=== PATIENT | male | born 1950 | race Caucasian/White ===

== ENCOUNTER → 2020-10-11 09:24 | Day surgery (SDC) | payer OTHER, MEDICARE, SELFPAY ==
[2020-10-11 09:52] VITALS: BP 126/74; PULSE 85; RESP 26; TEMP 36.8; O2SAT 97; BMI 21.4
--- NOTE | 2020-10-11 10:43 | XR_ITS ---
WS: [id number] CHEST XRAY TECHNIQUE: Portable chest. CLINICAL INFORMATION: post thoracentesis COMPARISON: September 25 2020 FINDINGS: Heart: Cardiomegaly. Lungs: Right hilar lymphadenopathy measuring 3.1 CM. Moderate chronic emphysematous changes. No acute -appearing pulmonary infiltrates. No focal pneumonia or pleural fluid. A few calcified granulomas. No pneumothorax. Bones: Normal visualized bony structures. XR/XR chest 1V portable [id number] IMPRESSION: 1. Status post thoracentesis. No pneumothorax. Improved right pleural effusion . 2. Right hilar lymphadenopathy consistent with known neoplasm.
[2020-10-11 10:54] VITALS: BP 114/69; PULSE 85; RESP 20; O2SAT 96
[2020-10-11 12:08] LABS: Body Fluid Polynuclear #Cells 0.217; Body Fluid WBC 1723 /uL; Monocytes # Body Fluid 1.506
[2020-10-11 13:30] LABS: Albumin Body Fluid 2.6 g/dL; Creatinine Body Fluid 1.46 (0.7-1.2); LDH Pleural Fluid 413 U/L; Total Protein Pleural Fluid 3.8 g/dL; Triglycerides, Pleural Fluid 28 mg/dL
[2020-10-11 14:01] LABS: Color, Body Fluid YELLOW
[2020-10-11 14:02] LABS: Apprearance, Body Fluid CLOUDY
--- NOTE | 2020-10-11 15:57 | P.OP_ITS ---
Operative Report Date of procedure: October 11, 2020 Pulmonary & Critical Care Medicine Procedure - Right chest Thoracentesis Procedure: Thoracentesis Indication: Right Pleural effusion Senior Devops Engineer(s): Den Brown MD Consent: Signed and placed in chart Anesthesia: 10 cc 1% lidocaine without epinephrine Description: right pleural effusion was localized using ultrasound guidance and the site was marked accordingly. After chlorhexidine skin prep, area was draped in a sterile manner. 1% lidocaine was used for local anesthesia. Thoracentesis catheter was then inserted into the pleural space with aspiration of 1250 cc of pleural fluid. Appearance was straw colored. Ultrasound guidance used: {yes no:[id number]}. Image saved to ultrasound machine yes. Pre procedure Post Procedure EBL: 5 cc Complications: None PCXR: 1. Status post thoracentesis. No pneumothorax. Improved right pleural effusion. 2. Right hilar lymphadenopathy consistent with known neoplasm. Pre-op Diagnosis: right pleural effusion
== END ==
PROVIDERS: PCP Emergency Medicine Emergency Medical Services; Visit Provider Internal Medicine Pulmonary Disease
DX: I26.99 Other pulmonary embolism without acute cor pulmonale (principal)
CPT/HCPCS: 12345; 71045; 80500; 82042; 82150; 82570; 82945; 83615; 83986; 84157; 84478; 87015; 87070; 87075; 87116; 87205; 87206; 87801; 88112; 88305; 89050; J2250; J2704; J3010

== ENCOUNTER 2020-10-25 09:41 | Inpatient (IN) | payer OTHER, MEDICARE, SELFPAY ==
[2020-10-25] VITALS (26 sets, daily range): BP systolic 77–138; BP diastolic 55–89; PULSE 82–189; RESP 14–34; TEMP 36.5–37; O2SAT 87–97; BMI 21.4
--- NOTE | 2020-10-25 10:00 | XR_ITS ---
WS: [id number] Portable AP upright chest, 10/25/2020 Clinical Data: dyspnea Comparison: Portable chest, 10/11/2020. Findings: There is a right pleural effusion which occupies the lower half of the right pleural space. The left lung is clear. The pleural effusion obscures the right hilar mass. Monitor leads are on the chest wall. Heart size remains the same. XR/XR chest 1V portable [id number] Impression: Large right pleural effusion.
[2020-10-25 10:32] LABS: ABG PH Result 7.44 (7.35-7.45); Arterial Blood Gas Hematocrit 41.1 % (42-52); Base Excess ABG 0.9 mmol/L (-2.0-2.0); Blood Gas Allen Test Pos; Blood Gas Operator Identificat AMH; Blood Gas Sample Site Radial, left; Blood Gas Sample Type Arterial; HCO3 ABG 24.9 mmol/L (22-26); Oxygen Device NC; PO2 ABG 76.5 mmHg (80.0-100.0)
--- NOTE | 2020-10-25 10:47 | ECG_ITS ---
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 Measurements Intervals [place] Rate: 126 P: [place]: QRS: 73 QRSD: 80 T: 56 QT: 278 QTc: 404 Interpretive Statements ATRIAL FIBRILLATION WITH RAPID VENTRICULAR RESPONSE LOW QRS VOLTAGE IN EXTREMITY LEADS [QRS DEFLECTION < 0.5 mV IN LIMB LEADS] ABNORMAL RHYTHM ECG No previous ECG available for comparison Electronically Signed On 10-26-2020 19:17:14 CENTRAL OFFICE MECHANIC by Richard Cason M.D. [id number]
[2020-10-25 10:48] LABS: Basophils % 0.2 %; Eosinophils % 0.1 %; Hematocrit 37.8 % (42.0-52.0); Hemoglobin 12.9 g/dL (11.7-16.6); Lymphocytes % 5.7 %; Mean Corpuscular HGB Conc 34.1 g/dL (30.0-36.0); Mean Corpuscular Hemoglobin 29.6 pg (28.0-34.0); Mean Corpuscular Volume 86.7 fL (80-94); Mean Platelet Volume 9.6 fL (7.4-10.4); Monocytes % 5.7 %; Neutrophils # 14.65 10^3/uL (1.8-7.7); Neutrophils % 87.6 %; Nucleated Red Blood Cells % 0 %; Platelet Count 344 10^3/cmm (130-400); Red Blood Count 4.36 10^6/uL (4.1-5.3); Red Cell Distribution Width 13.5 % (12.1-15.1); White Blood Count 16.7 10^3/uL (4.0-10.0)
[2020-10-25 11:30] LABS: Add Urine Microscopic? NO
[2020-10-25 11:37] LABS: SARS Covid-2 Antigen Negative (Negative)
[2020-10-25] MEDS: FUROsemide 10 mg/mL SDV 4mL 40 MG IVP (12:20)
[2020-10-25 12:23] LABS: Bilirubin Urine Neg (Negative); Blood Urine Neg (Negative); Glucose Urine UA Norm (Normal); Ketones Urine 1+ (Negative); Leukocyte Esterase Urine Negative (Negative); Nitrate Urine Negative (Negative); Protein Urine Neg (Negative); Urine Appearance Clear (CLEAR); Urine Color Yellow (Yellow); Urobilinogen Urine Norm (Negative); pH Urine 5 (5-7)
[2020-10-25 12:26] LABS: Troponin(5th) Baseline 30 ng/L (0-15)
[2020-10-25 12:34] LABS: Alanine Aminotransferase 13 U/L (0-41); Albumin Level 3.2 g/dL (3.5-5.2); Alkaline Phosphatase 87 IU/L (40-130); Anion Gap 17.8 (5-19); Aspartate Amino Transferase 16 U/L (0-40); Blood Urea Nitrogen 29 mg/dL (8-23); Calcium 8.6 mg/dL (8.5-10.5); Carbon Dioxide 24 mmol/L (22-29); Chloride 103 mmol/L (98-107); Globulin 3.2 g/dL (1.3-4.6); Glucose 116 mg/dL (65-115); NT Pro B Type Natriuretic Pept 1360 pg/mL (0-125); Osmolality Calculated 297 mOsm/kg (285-295); Potassium 4.8 mmol/L (3.5-5.1); Sodium 140 mmol/L (136-145); Total Bilirubin 0.4 mg/dL (0.15-1.2); Total Protein 6.4 g/dL (6.6-8.7)
[2020-10-25 13:58] LABS: Troponin 5 2HR 30.44 ng/L (0-15); Troponin 5 2HR Delta 0.44 ABS# (0-10)
--- NOTE | 2020-10-25 13:58 | ED_ITS ---
HPI - SOB/Dyspnea General: Chief Complaint: Shortness of Breath/Dyspnea Stated Complaint: SOB/ EXACERBATION OF COPD Time Seen by Provider: 10/25/20 09:45 Source: patient and EMS History of Present Illness: HPI Narrative: Patient with increased shortness of breath x1 day. Diagnosed with a lung mass last month and had a pulmonary effusion drained by turf keeper 2 weeks ago. Pertinent past history: COPD and congestive heart failure Associated symptoms: Reports palpitations; Deny abdominal pain, chest pain, fever(s), nausea or vomiting Review of Systems General: Reports: 10 or more systems reviewed and unremarkable except in HPI and below Const: Denies: fever(s) Eyes: Denies: change in vision ENMT: Denies: throat pain Card: Reports: palpitations and irregular heart rhythm; Denies: chest pain Resp: Reports: dyspnea and wheezing GI: Denies: abdominal pain, nausea or vomiting : Denies: flank pain Skin/Breast: Denies: rash PFSH ED PFSH: Social History Smoking and tobacco status: former smoker Quit status (tobacco): has quit using tobacco Year quit tobacco: Aug 2020 [id number] Second hand smoke exposure: No Smoking risk assessment/counseling performed?: Yes Alcohol intake: former Caregiver/support person: No Lives independently: Yes Household members: none Marital status: / service: Yes Current occupational status: employed 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 - [employer] Pets and animals: No History of recent travel: Yes ([facility] Out of state: Yes Out of country: No Current gender identity: Male Physical Exam Const: COMMON NORMALS: no acute distress, average body habitus, patient oriented x3, no limitations, healthy appearing, alert and well nourished HENMT: COMMON NORMALS: normocephalic, atraumatic, hearing grossly normal bilaterally, external ears normal, EAC's normal, TM's normal bilaterally, Normal external nose present, Normal nasal mucous membranes and turbinates present, moist oral mucous membranes, oropharynx normal, dentition normal and gingiva normal HEAD & SCALP: normocephalic and atraumatic NOSE: Normal external nose present and Normal nasal mucous membranes and turbinates present EXTERNAL EAR: Yes external ears normal EXTERNAL AUDITORY CANAL: EAC's normal TYMPANIC MEMBRANE: TM's normal bilaterally Resp: EFFORT & INSPECTION: Yes able to speak in complete sentences and Yes tachypneic AUSCULTATION: crackles and wheezes Cardio: RATE: tachycardic RHYTHM: abnormal rhythm GI: COMMON NORMALS: Normal to inspection, nondistended, normoactive bowel sounds present, Soft to palpation, non-tender, No hepatosplenomegaly present, no masses and no bruits PALPATION: Yes Soft to palpation and Yes No hepatosplenomegaly present : COMMON NORMALS: Yes no CVA tenderness, Yes normal external exam, Yes Testes normal, Yes scrotum normal, Yes no scrotal swelling and Yes No hernias present BLADDER/KIDNEY EXAM: Yes no CVA tenderness Back/Pelvis: COMMON NORMALS: no CVA tenderness Neuro: COMMON NORMALS: patient oriented x3 SENSORIUM/ORIENTATION: Yes alert Course Vital Signs: Vital signs: Vital Signs Temperature 97.7 F 10/25/20 09:43 Pulse Rate 142 H 10/25/20 13:18 Respiratory Rate 32 H 10/25/20 13:18 Blood Pressure 101/85 10/25/20 13:18 Pulse Oximetry 94 10/25/20 13:18 MDM - SOB/Dyspnea MDM Narrative: Medical decision making narrative: Patient with increased oxygen demand. Normally on 2 L now requiring 4 L. Has new onset A. fib with RVR. Ventricular rate of 130s. EKG shows only nonspecific ST and T wave changes with A. fib. Chest x-ray shows a large right pulmonary effusion. Discussed with Dr. Brown, pulmonology as well as Dr. Zavala. We will start patient on Cardizem drip for rate control. Will need another thoracentesis, likely tomorrow. Lab Data: Labs: Lab Results 10/25/20 10/25/20 10/25/20 Range/Units 10:21 10:36 10:36 WBC 16.7 H (4.0-10.0) 10^3/ uL RBC 4.36 (4.1-5.3) 10^6/u L Hgb 12.9 (11.7-16.6) g/dL Hct 37.8 L (42.0-52.0) % MCV 86.7 (80-94) fL MCH 29.6 (28.0-34.0) pg MCHC 34.1 (30.0-36.0) g/dL RDW 13.5 (12.1-15.1) % Plt Count 344 (130-400) 10^3/c mm MPV 9.6 (7.4-10.4) fL Neut % (Auto) 87.6 % Lymph % (Auto) 5.7 % [place] % (Auto) 5.7 % Eos % (Auto) 0.1 % Baso % (Auto) 0.2 % Neut # (Auto) 14.65 H (1.8-7.7) 10^3/u L Lymph # (Auto) 1.0 (0.8-4.8) 10^3/u L [place] # (Auto) 1.0 H (0.2-0.9) 10^3/u L Eos # (Auto) 0.0 (0.0-0.8) 10^3/u L Baso # (Auto) 0.0 (0.0-0.1) 10^3/u L Nucleated RBC % (a uto) 0 % Nucleated RBCs # 0.0 /100WBC Specimen Type Arterial Sample Site Radial, left ABG pH 7.44 (7.35-7.45) ABG pCO2 37.0 (35-45) mmHg ABG pO2 76.5 L (80.0-100.0) mmH g ABG HCO3 24.9 (22-26) mmol/L ABG Base Excess 0.9 (-2.0-2.0) mmol/ L Roni Test Pos Hematocrit 41.1 L (42-52) % O2 Delivery Device Nc O2 Liters/Min 3.0 % FiO2 32.0 % Table Games Shift Manager ID Amh Sodium Cancelled Potassium Cancelled Chloride Cancelled Carbon Dioxide Cancelled Anion Gap Cancelled BUN Cancelled Creatinine Cancelled GFR Calculation Cancelled Glucose Cancelled Calculated Osmolal ity Cancelled Calcium Cancelled Total Bilirubin Cancelled AST Cancelled ALT Cancelled Alkaline Phosphata se Cancelled Troponin T Baselin e NT-Pro-B Natriuret Pep Cancelled Total Protein Cancelled Albumin Cancelled Globulin Cancelled Urine Color (Yellow) Urine Appearance (CLEAR) Urine pH (5-7) Ur Specific Gravit y (1.005-1.030) Urine Protein (Negative) Urine Glucose (UA) (Normal) Urine Ketones (Negative) Urine Blood (Negative) Urine Nitrate (Negative) Urine Bilirubin (Negative) Urine Urobilinogen (Negative) mg/dL Ur Leukocyte Adrianne ase (Negative) SARS-CoV-2 Ag (Rap id) (Negative) 10/25/20 10/25/20 10/25/20 Range/Units 10:36 10:36 11:08 WBC (4.0-10.0) 10^3/ uL RBC (4.1-5.3) 10^6/u L Hgb (11.7-16.6) g/dL Hct (42.0-52.0) % MCV (80-94) fL MCH (28.0-34.0) pg MCHC (30.0-36.0) g/dL RDW (12.1-15.1) % Plt Count (130-400) 10^3/c mm MPV (7.4-10.4) fL Neut % (Auto) % Lymph % (Auto) % [place] % (Auto) % Eos % (Auto) % Baso % (Auto) % Neut # (Auto) (1.8-7.7) 10^3/u L Lymph # (Auto) (0.8-4.8) 10^3/u L [place] # (Auto) (0.2-0.9) 10^3/u L Eos # (Auto) (0.0-0.8) 10^3/u L Baso # (Auto) (0.0-0.1) 10^3/u L Nucleated RBC % (a uto) % Nucleated RBCs # /100WBC Specimen Type Sample Site ABG pH (7.35-7.45) ABG pCO2 (35-45) mmHg ABG pO2 (80.0-100.0) mmH g ABG HCO3 (22-26) mmol/L ABG Base Excess (-2.0-2.0) mmol/ L Roni Test Hematocrit (42-52) % O2 Delivery Device O2 Liters/Min % FiO2 % Table Games Shift Manager ID Sodium Potassium Chloride Carbon Dioxide Anion Gap BUN Creatinine GFR Calculation Glucose Calculated Osmolal ity Calcium Total Bilirubin AST ALT Alkaline Phosphata se Troponin T Baselin e Cancelled NT-Pro-B Natriuret Pep Total Protein Albumin Globulin Urine Color Yellow (Yellow) Urine Appearance Clear (CLEAR) Urine pH 5 (5-7) Ur Specific Gravit y 1.020 (1.005-1.030) Urine Protein Neg (Negative) Urine Glucose (UA) Norm (Normal) Urine Ketones 1+ H (Negative) Urine Blood Neg (Negative) Urine Nitrate Negative (Negative) Urine Bilirubin Neg (Negative) Urine Urobilinogen Norm (Negative) mg/dL Ur Leukocyte Adrianne ase Negative (Negative) SARS-CoV-2 Ag (Rap id) Negative (Negative) 10/25/20 10/25/20 Range/Units 11:24 11:24 WBC (4.0-10.0) 10^3/ uL RBC (4.1-5.3) 10^6/u L Hgb (11.7-16.6) g/dL Hct (42.0-52.0) % MCV (80-94) fL MCH (28.0-34.0) pg MCHC (30.0-36.0) g/dL RDW (12.1-15.1) % Plt Count (130-400) 10^3/c mm MPV (7.4-10.4) fL Neut % (Auto) % Lymph % (Auto) % [place] % (Auto) % Eos % (Auto) % Baso % (Auto) % Neut # (Auto) (1.8-7.7) 10^3/u L Lymph # (Auto) (0.8-4.8) 10^3/u L [place] # (Auto) (0.2-0.9) 10^3/u L Eos # (Auto) (0.0-0.8) 10^3/u L Baso # (Auto) (0.0-0.1) 10^3/u L Nucleated RBC % (a uto) % Nucleated RBCs # /100WBC Specimen Type Sample Site ABG pH (7.35-7.45) ABG pCO2 (35-45) mmHg ABG pO2 (80.0-100.0) mmH g ABG HCO3 (22-26) mmol/L ABG Base Excess (-2.0-2.0) mmol/ L Roni Test Hematocrit (42-52) % O2 Delivery Device O2 Liters/Min % FiO2 % Table Games Shift Manager ID Sodium 140 Potassium 4.8 Chloride 103 Carbon Dioxide 24 Anion Gap 17.8 BUN 29 H Creatinine 1.8 H GFR Calculation Not Reportable Glucose 116 H Calculated Osmolal ity 297 H Calcium 8.6 Total Bilirubin 0.4 AST 16 ALT 13 Alkaline Phosphata se 87 Troponin T Baselin e 30 H NT-Pro-B Natriuret Pep 1360 H Total Protein 6.4 L Albumin 3.2 L Globulin 3.2 Urine Color (Yellow) Urine Appearance (CLEAR) Urine pH (5-7) Ur Specific Gravit y (1.005-1.030) Urine Protein (Negative) Urine Glucose (UA) (Normal) Urine Ketones (Negative) Urine Blood (Negative) Urine Nitrate (Negative) Urine Bilirubin (Negative) Urine Urobilinogen (Negative) mg/dL Ur Leukocyte Adrianne ase (Negative) SARS-CoV-2 Ag (Rap id) (Negative) Discharge Plan Discharge Patient Disposition: Admitted As Inpatient Clinical Impression: Pleural effusion, right, COPD (chronic obstructive pulmonary disease), Atrial fibrillation with rapid ventricular response Condition: Stable Prescriptions: No Action Spiriva Respimat 2.5 mcg/actuation mist 2 inh inhalation DAILY@07 RF: 0 budesonide-formoterol 160-4.5 mcg/actuation HFA aerosol inhaler 2 puff inhalation BID RF: 0 albuterol sulfate 90 mcg/actuation HFA aerosol inhaler 2 puff inhalation Q6H PRN (Reason: Shortness Of Breath) RF: 0 atorvastatin 40 mg tablet 20 mg PO DAILY@19 RF: 0 metoprolol tartrate 100 mg tablet 50 mg PO Q12H RF: 0 pantoprazole 40 mg tablet,delayed release (DR/EC) 40 mg PO DAILY@ RF: 0 amlodipine 5 mg tablet 5 mg PO BID@ RF: 0 lisinopril 40 mg tablet 40 mg PO DAILY@07 RF: 0 tamsulosin 0.4 mg capsule 0.4 mg PO DAILY@19 RF: 0 aspirin [Aspir-Low] 81 mg Tablet,Delayed Release (Dr/Ec) 81 mg PO DAILY@07 RF: 0 cholecalciferol (vitamin D3) [Vitamin D3] 25 mcg (1,000 unit) Capsule 25 mcg PO DAILY@07 RF: 0 albuterol sulfate 2.5 mg /3 mL (0.083 %) Solution For Nebulization 2.5 mg INHALATION Q6H PRN (Reason: Shortness Of Breath) RF: 0 Tylenol Extra Strength 500 mg Tablet 1,000 mg PO PRN RF: 0 Referrals: Wesley Wilkins DO [Primary Care Provider] - Coding Level of Care Code ED Gas Or Water Meter Installer for Cristina Garcia
--- NOTE | 2020-10-25 14:18 | PC.NURSE ---
EKG done at 1406 and shown to ER doctor
[2020-10-25] MEDS: enoxaparin 60 mg/0.6 mL Syringe SUBCUT (14:35)
--- NOTE | 2020-10-25 14:45 | PM.HP ---
Providers/Chief Complaint Primary Care Provider: Wesley Wilkins DO Chief Complaint: SOB/ EXACERBATION OF COPD History of Present Illness Darrius Adan is a 70 year old male with a past medical history of COPD, patient quit smoking 2 months ago, hypertension, hyperlipidemia, CHF, recent hospitalization at [facility] for pneumonia, recent diagnosis of right middle lobe lung mass, moderate right pleural effusion, with right pleural malignant implants, right hilar and mediastinal adenopathy concerning for metastatic disease who presents [facility] for concerns of shortness of breath. Patient followed up with doctor cedeno as outpatient, he had his right pleural effusion drained by Dr. Brown on 10/11/2020, since then he has been doing better in terms of shortness of breath, however the over the last few days he tells me that he is feeling more short of breath with exertion, with less than a few feet, has a cough, no fevers, no chills, no known exposure to COVID-19, no orthopnea, no paroxysmal nocturnal dyspnea, denies a history of CAD, no history of heart attacks, no history of heart failure he tells me of, he is on a water pill, denies any renal disease, denies a history of strokes Review of Systems Const: Denies: fever(s), chills, fatigue or malaise Eyes: Denies: change in vision or blurry vision ENMT: Denies: nasal congestion Card: Denies: chest pain or palpitations Resp: Reports: dyspnea and non-productive cough; Denies: productive cough or wheezing GI: Denies: abdominal pain, nausea, vomiting, hematemesis, diarrhea, constipation, hematochezia or melena : Denies: flank pain, difficulty urinating, dysuria or urinary frequency Musc: Denies: neck pain or back pain Skin/Breast: Denies: rash Neuro: Denies: headache(s), dizziness or vertigo Psych: Denies: anxiety or depression Endo: Denies: polyuria or polydipsia Medications/Allergies Home Medications Medication Instructions Recorded Confirmed Last Taken Type albuterol sulfate 90 mcg/actuation 2 puff INHALATION Q6H PRN 10/10/20 10/25/20 10/11/20 History aerosol inhaler amlodipine 5 mg tablet 5 mg PO BID@07,19 10/10/20 10/25/20 10/25/20 History atorvastatin 40 mg tablet 20 mg PO DAILY@19 tab 10/10/20 10/25/20 10/24/20 History budesonide-formoterol HFA 160 2 puff INHALATION BID 10/10/20 10/25/20 10/11/20 History mcg-4.5 mcg/actuation aerosol inhaler lisinopril 40 mg tablet 40 mg PO DAILY@10/10/20 10/25/20 10/25/20 History metoprolol tartrate 100 mg tablet 50 mg PO Q12H tab 10/10/20 10/25/20 10/25/20 07:00 History 50 MG pantoprazole 40 mg tablet,delayed 40 mg PO DAILY@10/10/20 10/25/20 10/24/20 History release tamsulosin 0.4 mg capsule 0.4 mg PO DAILY@10/10/20 10/25/20 10/24/20 History tiotropium bromide 2.5 2 inh INHALATION DAILY@10/10/20 10/25/20 10/25/20 History mcg/actuation mist for inhalation aspirin [Aspir-Low] 81 mg PO DAILY@10/11/20 10/25/20 10/25/20 History cholecalciferol (vitamin D3) 25 mcg PO DAILY@10/11/20 10/25/20 10/25/20 History [Vitamin D3] acetaminophen [Tylenol Extra 1,000 mg PO PRN 10/25/20 10/25/20 Unknown History Strength] albuterol sulfate 2.5 mg INHALATION Q6H PRN 10/25/20 10/25/20 10/25/20 02:00 History Allergies Allergy/AdvReac Type Severity Reaction Status Date / Time No Known Allergies Allergy Verified 10/25/20 12:09 PFSH Acute PFSH: Medical History (Updated 10/25/20 @ 14:57 by Bin Haynes MD) COPD (chronic obstructive pulmonary disease) History of hyperlipidemia History of hypertension Surgical History (Updated 10/25/20 @ 14:50 by Bin Haynes MD) History of cataract surgery Family History (Updated 10/25/20 @ 14:50 by Bin Haynes MD) Father Dementia Mother CAD (coronary artery disease) Diabetes Social History Smoking and tobacco status: former smoker Quit status (tobacco): has quit using tobacco Year quit tobacco: Aug 2020 [id number] Second hand smoke exposure: No Smoking risk assessment/counseling performed?: Yes Alcohol intake: former Caregiver/support person: No Lives independently: Yes Household members: none Marital status: / service: Yes Current occupational status: employed 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 - [employer] Pets and animals: No History of recent travel: Yes ([facility]) Out of state: Yes Out of country: No Current gender identity: Male Vitals/I&O/Wt Last Vital Signs Temp 97.7 F 10/25/20 09:43 Pulse 124 H 10/25/20 14:39 Resp 18 10/25/20 14:39 BP 102/81 10/25/20 14:39 Pulse Ox 95 10/25/20 14:39 Weight last 48 hrs Weight 65.771 kg Physical Exam Const: COMMON NORMALS: no acute distress and patient oriented x3 GENERAL APPEARANCE: cooperative NUTRITIONAL APPEARANCE: thin HENMT: COMMON NORMALS: normocephalic HEAD & SCALP: normocephalic Eye: COMMON NORMALS: Equal, round and reactive pupils present and EOMs intact bilaterally GENERAL EYE: appearance normal, both eyes and all related structures PUPIL: Yes Equal, round and reactive pupils present Neck/C-Spine: COMMON NORMALS: full ROM, no lymphadenopathy, no JVD and Thyroid normal THYROID: Thyroid normal Lymph: LYMPHATIC: no lymphadenopathy noted Resp: COMMON NORMALS: normal respiratory effort, No retractions, No use of accessory muscles and clear to auscultation bilaterally AUSCULTATION: breath sounds absent on the right Cardio: COMMON NORMALS: no JVD, regular rate, regular rhythm, S1 normal heart sound present, S2 normal heart sound present, No gallops present (Cardio), No clicks present (Cardio) and No murmurs present (Cardio) RATE: regular rate RHYTHM: regular rhythm HEART SOUNDS: S1 normal heart sound present and S2 normal heart sound present GI: COMMON NORMALS: Normal to inspection, nondistended, normoactive bowel sounds present, Soft to palpation, non-tender and No hepatosplenomegaly present PALPATION: Yes Soft to palpation and Yes No hepatosplenomegaly present Extremity: COMMON NORMALS: normal to inspection, full ROM and no pedal edema Neuro: COMMON NORMALS: patient oriented x3, CN's II-XII intact bilaterally, moves all extremities and no focal motor deficits Psych: COMMON NORMALS: mental status grossly normal, Normal thought process present and cooperative THOUGHT PROCESS: Normal thought process present Data : 10/25/20 10:36 10/25/20 11:24 A&P Assessment and plan (1) Acute respiratory failure with hypoxia: -Secondary to recurrent right pleural effusion, right middle lobe malignancy, with pleural implants, with hilar adenopathy -Some component related to A. fib with RVR -Some component of COPD and CHF Plan: -Admit to CSU -Currently on 4 L, BiPAP as needed -Sputum cultures, blood cultures -Hold off on antibiotic therapy -Hold off on steroid therapy has no wheezing -Nebulizer treatments every 4 hours -Lasix 40 mg daily, fluid restrictions 1500 cc, monitor creatinine which is 1.8 -Plans on placing Pleurx catheter on Wednesday -Full code -Heparin drip for DVT prophylaxis Status: Acute (2) New onset atrial fibrillation: -Currently on a Cardizem drip -Heparin drip -Telemetry monitoring -Serial EKGs, serial troponins to monitor for chest pain -We will order cardiac echocardiogram -tsh, mag Status: Acute (3) COPD (chronic obstructive pulmonary disease): Status: Acute Qualifiers: COPD type: unspecified COPD Qualified Code(s): J44.9 - Chronic obstructive pulmonary disease, unspecified (4) History of hyperlipidemia: Status: Acute (5) History of hypertension: Status: Acute (6) Mass of middle lobe of right lung: -With pleural implants, hilar adenopathy -Plans on doing inpatient EBUS, Pleurx catheter placement Status: Acute (7) Recurrent right pleural effusion: Status: Acute (8) Mass of right lung: Status: Acute (9) Mediastinal adenopathy: Status: Acute (10) CKD (chronic kidney disease): -Stage unknown, creatinine currently 1.8 -Possibly could be cardiorenal, monitor creatinine after Lasix therapy Status: Acute Attestations Medical Necessity Statement*: Patient requires hospitalization inpatient, greater than 2 midnights, for acute respiratory failure with hypoxia secondary to right pleural effusion, A. fib with RVR, heart failure, COPD, new onset atrial fibrillation Coding Level of Care Code Acute Home Care Nurse for [facility] Fwd Diagnoses Acute respiratory failure with hypoxia J96.01 New onset atrial fibrillation I48.91 COPD (chronic obstructive pulmonary disease) J44.9 COPD type: unspecified COPD History of hyperlipidemia Z86.39 History of hypertension Z86.79 Mass of middle lobe of right lung R91.8 Recurrent right pleural effusion J90 Mass of right lung R91.8 Mediastinal adenopathy R59.0 CKD (chronic kidney disease) N18.9
[2020-10-25] MEDS: metoprolol tartrate 50 mg Tablet PO (16:24)
--- NOTE | 2020-10-25 16:26 | ECG_ITS ---
[facility] Test Date: 2020-10-25 Pat Name: Darrius Adan Department: Room: 112 Gender: Male Registered Phlebotomist Part Time: : 1950 Requested By: Melvin Bowen Order Number: [id number] Octaviano MD: Richard Cason M.D. Measurements Intervals [place] Rate: 131 P: [place]: QRS: 77 QRSD: 90 T: 70 QT: 276 QTc: 408 Interpretive Statements ATRIAL FIBRILLATION WITH RAPID VENTRICULAR RESPONSE ABNORMAL RHYTHM ECG Compared to ECG 10/25/2020 11:05:23 No significant changes Electronically Signed On 10-26-2020 19:31:56 COLLISION REPAIRER by Richard Cason M.D. [email or web address]/[id number]
[2020-10-25] MEDS: ipratropium-albuterol 3 mL Neb INHALATION ×2 (16:40→19:40)
[2020-10-25] MEDS: heparin drip 25,000 UNIT/500 ML PREMIX 23.7 UNIT IV (16:55)
--- NOTE | 2020-10-25 17:33 | ECG_ITS ---
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 Measurements Intervals [place] Rate: 77 P: [place]: QRS: 60 QRSD: 81 T: 47 QT: 333 QTc: 378 Interpretive Statements ATRIAL FIBRILLATION LOW QRS VOLTAGE [QRS DEFLECTION < 0.5/1.0 mV IN LIMB/CHEST LEADS] POSSIBLE ANTERIOR MYOCARDIAL INFARCTION [30 ms Q WAVE IN V3/V4, OR R < 0.2 mV IN V4], OF INDETERMINATE AGE INTERPRETATION BASED ON A DEFAULT AGE OF 40 YEARS Compared to ECG 10/25/2020 14:06:33 Low QRS voltage now present Myocardial infarct finding now present Electronically Signed On 10-26-2020 19:34:10 PULLEY MAN by Richard Cason M.D. [email or web address] [facility] hospital[facility]/store/NU/[id number] f
[2020-10-25] MEDS: tamsulosin 0.4 mg Capsule PO (18:44)
[2020-10-25] MEDS: atorvastatin 40 mg Tablet 20 MG PO (18:44)
[2020-10-25] MEDS: pantoprazole DR 40 mg Tablet PO (18:44)
[2020-10-25 19:19] LABS: Partial Thromboplastin Time 171.8 SECONDS (23.9-36.7)
--- NOTE | 2020-10-25 19:25 | PC.NURSE ---
pt admitted to room 112-1 from er at 1700.report received.pt is alert and awake and oriented x 4.afib on monitor at rates 120-150.cardizem drip increased to 15 mg/hr.occasionally heartrate is being double counted on monitor (t-waves as large as qrs's)..so this was manually counted to ensure appropriate rate.metoprolol 50 mg given po as ordered...and heart rate slowed approx 1/2 hr after dose..and cardizem rate decreased to 7.5 mg/hr.then at 18:00 bp decreased to 77/55..hr decreased to 60's.cardizem drip turned off.dr mckeon notified.bp increased...and at approx 18:20 pt noted to be in sr on monitor with rate 70-80.
[2020-10-25 19:27] LABS: Procalcitonin 0.14 ng/mL (0-0.5)
[2020-10-25 19:41] LABS: C Reactive Protein 39.6 mg/L (0.0-4.9)
[2020-10-25 23:40] LABS: Partial Thromboplastin Time 132.8 SECONDS (23.9-36.7)
[2020-10-26] VITALS (19 sets, daily range): BP systolic 90–119; BP diastolic 53–74; PULSE 76–110; RESP 20–32; TEMP 35.9–37.4; O2SAT 90–97
[2020-10-26 05:36] LABS: Basophils % 0.2 %; Hematocrit 34.8 % (42.0-52.0); Hemoglobin 11.7 g/dL (11.7-16.6); Lymphocytes # 0.7 10^3/uL (0.8-4.8); Lymphocytes % 3.7 %; Mean Corpuscular HGB Conc 33.6 g/dL (30.0-36.0); Mean Corpuscular Hemoglobin 29.6 pg (28.0-34.0); Mean Corpuscular Volume 88.1 fL (80-94); Mean Platelet Volume 9.4 fL (7.4-10.4); Monocytes % 5.2 %; Neutrophils % 90.2 %; Nucleated Red Blood Cells % 0 %; Platelet Count 323 10^3/cmm (130-400); Red Blood Count 3.95 10^6/uL (4.1-5.3); Red Cell Distribution Width 13.6 % (12.1-15.1); White Blood Count 19.3 10^3/uL (4.0-10.0)
[2020-10-26 05:46] LABS: INR 1.18 (0.8-1.2)
[2020-10-26 06:02] LABS: Alanine Aminotransferase 11 U/L (0-41); Albumin Level 2.8 g/dL (3.5-5.2); Alkaline Phosphatase 77 IU/L (40-130); Anion Gap 15.8 (5-19); Aspartate Amino Transferase 14 U/L (0-40); Blood Urea Nitrogen 41 mg/dL (8-23); Calcium 8.4 mg/dL (8.5-10.5); Carbon Dioxide 24 mmol/L (22-29); Chloride 102 mmol/L (98-107); Chol HDL Ratio 2.35 mg/dL (1.0-5.00); Cholesterol 120 mg/dL (0-200); Globulin 3.1 g/dL (1.3-4.6); Glucose 142 mg/dL (65-115); HDL Cholesterol 51 mg/dL (60-100); LDL Cholesterol Calculated 50 mg/dL (50-129); LDL HDL Ratio 0.98 RATIO (0.00-3.22); NT Pro B Type Natriuretic Pept 1289 pg/mL (0-125); Osmolality Calculated 297 mOsm/kg (285-295); Phosphorus 4.9 mg/dL (2.5-4.5); Potassium 4.8 mmol/L (3.5-5.1); Sodium 137 mmol/L (136-145); Thyroid Stimulating Hormone 0.81 uIU/mL (0.27-4.20); Total Bilirubin 0.3 mg/dL (0.15-1.2); Total Protein 5.9 g/dL (6.6-8.7); Triglycerides 93 mg/dL (0-150)
[2020-10-26 06:07] LABS: Partial Thromboplastin Time 85.7 SECONDS (23.9-36.7)
[2020-10-26] MEDS: cholecalciferol (vitamin D3) 1,000 unit Tablet 1000 UNIT PO (06:14)
[2020-10-26 06:17] LABS: Estmated Average Glucose 117; Hemoglobin A1C 5.7 % (4.0-6.0)
--- NOTE | 2020-10-26 07:00 | USCV_ITS ---
Darrius Adan Age: 70 Gender: M : 1950 Exam Date: 10/25/2020 15:09 Ordering Phys: Bin Haynes MD Technologist: Batsheva Henry Exam Location: [facility] [place] Indication: SHORTNESS OF BREATH BP: 105 / 63 HR: 111 Rhythm: Sinus Technical Quality: Poor secondary to COPD MEASUREMENTS (Male / Female) Normal Values 2D ECHO LV Diastolic Diameter PLAX 2.4 cm 4.2 - 5.9 / 3.9 - 5.3 cm LV Systolic Diameter PLAX 1.5 cm LV Chamber Size 2.8 cm IVS Diastolic Thickness 1.1 cm 0.6 - 1.0 / 0.6 - 0.9 cm IVS Systolic Thickness 1.1 cm LVPW Diastolic Thickness 1.2 cm 0.6 - 1.0 / 0.6 - 0.9 cm LVPW Systolic Thickness 1.4 cm RV Chamber Size 2.6 cm LVOT Diameter 2.0 cm LV Ejection Fraction 2D Teich 69.2 % LA Diameter 2.1 cm LA Width 1.7 cm LA Height 2.6 cm RA Width 2.5 cm RA Height 2.6 cm Aorta at Sinotubular Diameter 3.3 cm M-MODE LV Diastolic Diameter MM 5.1 cm 4.2 - 5.9 / 3.9 - 5.3 cm LV Systolic Diameter MM 3.0 cm LV Ejection Fraction MM Teich 72.2 % IVS Diastolic Thickness MM 0.9 cm 0.6 - 1.0 / 0.6 - 0.9 cm IVS Systolic Thickness MM 1.3 cm LVPW Diastolic Thickness MM 1.4 cm 0.6 - 1.0 / 0.6 - 0.9 cm LVPW Systolic Thickness MM 1.2 cm Aortic Annulus Diameter 3.2 cm LA Ao Ratio MM 0.7 MV E Point Septal Separation 0.3 cm DOPPLER AV Peak Velocity 61.0 cm/s LVOT Peak Velocity 48.0 cm/s AV Area Cont Eq vti 2.5 cm squared AV Area Cont Eq pk 2.5 cm squared MV Area PHT 12.9 cm squared Mitral E to A Ratio 1.1 MV E' Velocity 42.5 cm/s Mitral E to MV E' Ratio 6.0 Mitral E to LV E' Lateral Ratio 5.0 Mitral E to LV E' Septal Ratio 7.7 TR Peak Velocity 333.8 cm/s TR Peak Gradient 44.6 mmHg TR Mean Velocity 184.7 cm/s TR Mean Gradient 18.7 mmHg TR Velocity Time Integral 62.1 cm TV Peak E Velocity 67.0 cm/s Right Atrial Pressure 8.0 mmHg Pulmonary Artery Systolic Pressu 52.6 mmHg PV Peak Velocity 64.0 cm/s RV Acceleration Time 0.1 s RV Ejection Time 0.3 s RV AcT/ET 0.5 FINDINGS Left Ventricle Possibly normal LV size ejection fraction. The study could not evaluate for any wall motion normalities because of the poor ultrasonic window and tachycardia Right Ventricle Possibly normal size ejection fraction Right Atrium Right atrium not well visualized. Left Atrium Possibly of normal Mitral Valve No gross abnormalities were noted Aortic Valve No gross abnormalities were Tricuspid Valve At least moderate tricuspid valve regurgitation Pulmonic Valve Pulmonic valve not well visualized. Pericardium No significant pericardial effusion. Aorta Normal aortic annulus size. CONCLUSIONS Possibly normal LV size ejection fraction. The study could not evaluate for any wall motion normalities because of the poor ultrasonic window and tachycardia. At least moderate tricuspid valve regurgitation. There is no significant pericardial effusion. Pulmonary hypertension with an estimated pulmonary artery peak systolic pressure of 53 mmHg. Technically difficult study because of the poor ultrasonic window-no apical views were obtained. Dr Richard Cason MD FACC (Electronically Signed) Final Date: 26 October 2020 17:58 S
[2020-10-26] MEDS: ipratropium-albuterol 3 mL Neb INHALATION ×3 (08:19→21:18)
--- NOTE | 2020-10-26 10:00 | PC.NURSE ---
Received phone call from Dr. Haynes. Verbal order to stop heparin infusion and that Dr. Brown will see patient this afternoon to perform evacuation of right pleural effusion. Patient is inforrmed to be NPO
[2020-10-26] MEDS: cefTRIAXone 1,000 MG in sodium chloride 0.9% (plus) 50 ML 100 MG IV (10:02)
[2020-10-26] MEDS: azithromycin 500 MG in sodium chloride 0.9% 250 ML 125 MG IV (10:03)
[2020-10-26] MEDS: metoprolol tartrate 25 mg Tablet PO ×3 (10:09→19:36)
--- NOTE | 2020-10-26 11:00 | PC.NURSE ---
Dr. Haynes states no further need for contact or droplet precautions as ordered in the ER.
--- NOTE | 2020-10-26 11:17 | PM.CONSULT ---
Providers/Reason For Consult Consulting Physican/Specialty*: Den Brown MD/Pulmonary Critical Care Reason for Consult*: Recurrent Pleural effusion Attending Physician: Bin Haynes MD Primary Care Provider: Wesley Wilkins DO History of Present Illness History of Present Illness Darrius Adan is a 70 year old male with a PMH of COPD, patient quit smoking 2 months ago, HTN, hyperlipidemia, CHF, recent hospitalization at [facility] for pneumonia, recent diagnosis of right middle lobe lung mass, moderate right pleural effusion, with right pleural malignant implants, right hilar and mediastinal adenopathy concerning for metastatic disease presented to [facility] for concerns of shortness of breath.Patient followed up with me as outpatient, he had his right pleural effusion drained by me on 10/11/2020, since then he has been doing better in terms of shortness of breath, however over the last few days he reported his sob is worsening with exertion, with less than a few feet, has a cough, no fevers, no chills, no known exposure to COVID-19, no orthopnea, no paroxysmal nocturnal dyspnea, denies a history of CAD, no history of heart attacks, no history of heart failure he tells me of, he is on a water pill, denies any renal disease, denies a history of strokes. In the ER, pt noted to have new onset atrial fibrillation and started on cardizem and Heparin drip. on 4L nc. Pulmonary consulted for Right pleural effusion. Seen patient at bedside Heart rate around 90 bpm, heparin stopped 4 hours ago for thoracentesis Patient reported shortness of breath denied any complaints reviewed labs and imaging Review of Systems General: Reports: 10 or more systems reviewed and unremarkable except in HPI and below Meds/Allergies Home Medications and Allergies Home Medications Medication Instructions Recorded Confirmed Last Taken Type albuterol sulfate 90 mcg/actuation 2 puff INHALATION Q6H PRN 10/10/20 10/25/20 10/11/20 History aerosol inhaler amlodipine 5 mg tablet 5 mg PO BID@07,19 10/10/20 10/25/20 10/25/20 History atorvastatin 40 mg tablet 20 mg PO DAILY@19 tab 10/10/20 10/25/20 10/24/20 History budesonide-formoterol HFA 160 2 puff INHALATION BID 10/10/20 10/25/20 10/11/20 History mcg-4.5 mcg/actuation aerosol inhaler lisinopril 40 mg tablet 40 mg PO DAILY@10/10/20 10/25/20 10/25/20 History metoprolol tartrate 100 mg tablet 50 mg PO Q12H tab 10/10/20 10/25/20 10/25/20 07:00 History 50 MG pantoprazole 40 mg tablet,delayed 40 mg PO DAILY@10/10/20 10/25/20 10/24/20 History release tamsulosin 0.4 mg capsule 0.4 mg PO DAILY@10/10/20 10/25/20 10/24/20 History tiotropium bromide 2.5 2 inh INHALATION DAILY@10/10/20 10/25/20 10/25/20 History mcg/actuation mist for inhalation aspirin [Aspir-Low] 81 mg PO DAILY@10/11/20 10/25/20 10/25/20 History cholecalciferol (vitamin D3) 25 mcg PO DAILY@10/11/20 10/25/20 10/25/20 History [Vitamin D3] acetaminophen [Tylenol Extra 1,000 mg PO PRN 10/25/20 10/25/20 Unknown History Strength] albuterol sulfate 2.5 mg INHALATION Q6H PRN 10/25/20 10/25/20 10/25/20 02:00 History Allergies Allergy/AdvReac Type Severity Reaction Status Date / Time No Known Allergies Allergy Verified 10/25/20 12:09 Current Medications Current Medications Generic Name Dose Route Start Last Admin Trade Name Freq PRN Reason Stop Dose Admin Albuterol/Ipratropium 3 ml 10/25/20 16:00 10/26/20 11:15 Ipratropium-Albuterol 3 Ml Neb INHALATION 3 ml QID.RESPIRATORY BRENDA Administration Atorvastatin Calcium 20 mg 10/25/20 19:00 10/25/20 18:44 Atorvastatin 40 Mg Tablet PO 20 mg DAILY@ BRENDA Administration Diltiazem HCl 125 mg/ Sodium 125 mls @ 0 mls/hr 10/25/20 13:00 10/25/20 19:24 Chloride IV Infused .Q0M BRENDA Titration Protocol Per Protocol Heparin Sodium/Sodium Chloride 25,000 unit in 500 mls @ 0 mls/hr 10/25/20 15:53 10/25/20 23:50 Heparin Drip IV 14 unit/kg/hr .Q0M BRENDA 18.4 mls/hr Titration Protocol Per Protocol Ceftriaxone Sodium 1,000 mg/ 50 mls @ 100 mls/hr 10/26/20 09:00 10/26/20 10:02 Sodium Chloride IV 100 mls/hr Q24H BRENDA Administration Protocol Azithromycin 500 mg/ Sodium 250 mls @ 250 mls/hr 10/26/20 09:00 10/26/20 10:03 Chloride IV 125 mls/hr Q24H BRENDA Administration Protocol Metoprolol Tartrate 25 mg 10/26/20 09:30 10/26/20 10:13 Metoprolol Tartrate 25 Mg Tablet PO 25 mg Q12H BRENDA Administration Pantoprazole Sodium 40 mg 10/25/20 19:00 10/25/20 18:[address] 40 Mg Tablet PO 40 mg DAILY@19 BRENDA Administration Tamsulosin HCl 0.4 mg 10/25/20 19:00 10/25/20 18:44 Tamsulosin 0.4 Mg Capsule PO 0.4 mg DAILY@19 BRENDA Administration Vitamin D 1,000 unit 10/26/20 07:00 10/26/20 06:14 Cholecalciferol (Vitamin D3) 1,000 Unit Tablet PO 1,000 unit DAILY@07 BRENDA Administration PFSH Acute PFSH: Medical History COPD (chronic obstructive pulmonary disease) History of hyperlipidemia History of hypertension Surgical History History of cataract surgery Family History Father Dementia Mother CAD (coronary artery disease) Diabetes Social History Smoking and tobacco status: former smoker Quit status (tobacco): has quit using tobacco Year quit tobacco: Aug 2020 [id number] Second hand smoke exposure: No Smoking risk assessment/counseling performed?: Yes Alcohol intake: former Caregiver/support person: No Lives independently: Yes Household members: none Marital status: / service: Yes Current occupational status: employed 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 - [employer] Pets and animals: No History of recent travel: Yes ([place]) Out of state: Yes Out of country: No Current gender identity: Male Vitals/I&O/Wt Last Vital Signs Temp 96.7 F L 10/26/20 11:15 Pulse 98 10/26/20 11:15 Resp 30 H 10/26/20 11:15 BP 97/53 10/26/20 11:15 Pulse Ox 93 10/26/20 11:15 10/25/20 10/26/20 10/26/20 22:59 06:59 14:59 Intake Total 504.708 / 511.541 163.925 / 675.466 360 / 360 Output Total 200 / 200 200 / 400 Balance 304.708 / 311.541 -36.075 / 275.466 360 / 360 Weight last 48 hrs Weight 145 lb Physical Exam Narrative: EXAM NARRATIVE: General: alert, in moderate respiratory distress HEENT: conj clear, EOMI, PERRL, mmm, Neck: supple, no meningismus Heme: no cervical LAP Pulmonary: reduced breath sounds on right lower lung Cardiovascular: rrr, nl s1s2, no mrg Abdomen: soft, nt, nd, no r/g, bs+ Extremities: pulses +, no edema, no c/c : no CVA tenderness Skin: intact, no rash MSK: no back or neck pain Neurologic: grossly intact Data Micro: Micro: Microbiology 10/25/20 00:05 Bacterial Antigens - Final Urine,Voided 10/25/20 17:34 Blood Culture - Pr eliminary Blood SPECIMEN [facility] 10/25/20 11:24 Blood Culture - Pr eliminary Blood SPECIMEN [facility] A&P Assessment and plan (1) Acute respiratory failure with hypoxia: Status: Acute (2) New onset atrial fibrillation: Status: Acute (3) Recurrent right pleural effusion: Status: Acute (4) COPD (chronic obstructive pulmonary disease): Status: Acute Qualifiers: COPD type: unspecified COPD Qualified Code(s): J44.9 - Chronic obstructive pulmonary disease, unspecified (5) Mediastinal adenopathy: Status: Acute (6) Mass of right lung: Status: Acute #Acute respiratory failure with hypoxia due to Large right pleural effusion & A.fib with RVR #CXR 10/25/20 Large right pleural effusion. #RML mass measuring 3.8 x 2.9 cm encompassing branches of RML pulmonary artery on CT and PET scan-suspicious for malignancy #Mediastinal and hilar adenopathy #Chronic smoker 0.5 PPD by 50 years-quit 2 weeks ago-encounter for smoking cessation counseling #COPD emphysema - CT chest 09/25/2020: [facility]: RML mass measuring up to 3.8 x 2.9 cm, mass encompasses but does not occlude branches of right middle lobe pulmonary artery. Emphysematous changes are noted. Thyroid gland appears enlarged. Prominent lymph node is seen in the subcarinal region measuring 2.2 cm. Fullness is seen in the right hilum which also could be related to adenopathy. Moderate right pleural effusion. - PET CT 10/05/2020: Right upper lobe mass) to the mediastinum, representing malignancy. Right pleural malignant implants with pleural effusion. Right hilar and mediastinal FDG positive nodes representing local metastatic disease -Based on PET/CT looks like it is malignant and metastatic to pleural and diaphragmatic surface -10/11/20: Right thoracentesis 1250 cc - Lymphocyte predominant exudative effusion; cytology reported negative. -On cardizem drip and heparin drip for A.fib RVR; Held Heparin for thoracentesis -EBUS/[facility] guided biopsies scheduled on 10/29/20 -Duoneb nebulization q 6h r brenda & Covered with Rocephin and Azithromycin -Ordered PFTs/6-minute walk test during clinic visit - yet to get it as outpatient -Recommended to continue 4 L nasal cannula -Patient quit smoking 4 weeks ago and encouraged to maintain abstinence -Elevated BNP, repeat echo, clinically not volume overloaded Recommendations conveyed to hospitalist and RN covering the patient. Medical condition and assessment plan explained to patient and he verbalized understanding and agreed with the plan Consult Attestations Medical Necessity Statement: Acute respiratory failure with hypoxia due to recurrent right pleural effusion with probable malignant lung lesions and A. fib with RVR Time Spent in Patient Care: Greater than 35 minutes (>than 50% of time spent in counselling and/or direct pt care on unit). Critical Care Time: Critical Care Time (min): 45 Coding Level of Care Code New Pt Acute Appeals Assistant for Chg Fwd Patient Type New History Comprehensive Exam Comprehensive Medical Decision Making High Complexity Diagnoses Acute respiratory failure with hypoxia J96.01 New onset atrial fibrillation I48.91 Recurrent right pleural effusion J90 COPD (chronic obstructive pulmonary disease) J44.9 COPD type: unspecified COPD Mediastinal adenopathy R59.0 Mass of right lung R91.8 Time Spent (min) 45
--- NOTE | 2020-10-26 12:33 | PC.CHAP ---
Pastoral Care Encounter/Spiritual Assessment Type of Contact [] Declined certified medical transcriptionist visit [] Patient/Family/Request visit [] Outpatient visit [] Follow-up visit [] Physician referral [] Code/Alert [XX] Routine visit [] Staff referral [] Actively dying [] Patient sleeping [] Family support [] [] Out of room [] Palliative care [] [XX] Receiving care in room [] Pre-surgical visit [] Trauma [] Long length of stay [] ICU visit [] Other: Relational/Emotional Strength [] Patient feels connected with others/family/visitors/staff [] Distress [] Loneliness/isolation [] Abandonment Spirituality of Patient [] Person of Didi [] Attends Islam of their Didi [] Believes in Prayer [] Reads Bible or Latter Day materials [] There are Spiritual issues to be addressed Right Of Way Agent Interventions [] Prayer [] Active listening [] Non-anxious presence [] Spiritual/emotional support [] Crisis/trauma care [] Spiritual counseling [] Bereavement support [] Provided bereavement packet [] Provided Bible/devotional materials [] Provided toy/stuffed animal, coloring book to patient or family member [] Provided Communion [] Anointing/[place] [] Salvation [] Completed spiritual assessment [] Other: Impact on Illness or Injury [] Angry [] Fearful [] Anxious [] Often cries [] Exhaustion [] Unable to work [] Unable to attend rastafarian [] Unable to walk/stand [] Unable to read [] Unable to drive [] Unable to eat/drink [] Unable to sleep [] Unable to be with family [] Patient intubated [] Other: Summary Time spent with patient
--- NOTE | 2020-10-26 12:52 | P.PN_ITS ---
Subjective Subjective: Interval history: Yesterday afternoon, patient was on maximal dose Cardizem drip, was given 50 mg of metoprolol, he had an episode of hypotension, heart rates improved into the 90s, Cardizem was turned off, all beta-blockers were held, his heart rate at 1 point did get into the 170s, went back into normal sinus rhythm overnight, and is remained in normal sinus rhythm all night, I do detect episodes of A. fib, heart rates in the 90s, this morning, patient does look a bit more short of breath, complaining of increased shortness of breath at rest, no fevers, no chills, no chest pain, does have intermittent palpitations Vitals/I&O/Wt Last Vital Signs Temp 96.7 F L 10/26/20 11:15 Pulse 99 10/26/20 11:22 Resp 20 H 10/26/20 11:15 BP 97/53 10/26/20 11:15 Pulse Ox 95 10/26/20 11:15 10/25/20 10/26/20 10/26/20 22:59 06:59 14:59 Intake Total 504.708 / 511.541 163.925 / 675.466 547.067 / 547.067 Output Total 200 / 200 200 / 400 Balance 304.708 / 311.541 -36.075 / 275.466 547.067 / 547.067 Weight last 48 hrs Weight 65.771 kg Physical Exam Const: COMMON NORMALS: no acute distress and patient oriented x3 GENERAL APPEARANCE: cooperative NUTRITIONAL APPEARANCE: thin HENMT: COMMON NORMALS: normocephalic HEAD & SCALP: normocephalic Neck/C-Spine: COMMON NORMALS: no JVD Resp: COMMON NORMALS: normal respiratory effort EFFORT & INSPECTION: Yes tachypneic, Yes retractions and Yes uses accessory muscles AUSCULTATION: diminished lung sounds on the right Cardio: COMMON NORMALS: no JVD, regular rate, S1 normal heart sound present and S2 normal heart sound present RATE: regular rate RHYTHM: abnormal rhythm HEART SOUNDS: S1 normal heart sound present and S2 normal heart sound present GI: COMMON NORMALS: Normal to inspection, nondistended, normoactive bowel sounds present, Soft to palpation, non-tender, No hepatosplenomegaly present, no masses and no bruits PALPATION: Yes Soft to palpation and Yes No hepatosp lenomegaly present Extremity: COMMON NORMALS: capillary refill normal, no clubbing, cyanosis or edema, no calf tenderness and no pedal edema Neuro: COMMON NORMALS: patient oriented x3 Psych: COMMON NORMALS: mental status grossly normal Data : 10/26/20 05:05 10/26/20 05:05 Micro: Microbiology 10/25/20 00:05 Bacterial Antigens - Final Urine,Voided 10/25/20 17:34 Blood Culture - Preliminary Blood SPECIMEN COLLECTED 10/25/20 11:24 Blood Culture - Preliminary Blood SPECIMEN COLLECTED A&P Assessment and plan (1) Acute respiratory failure with hypoxia: -Secondary to recurrent right pleural effusion, right middle lobe malignancy, with pleural implants, with hilar adenopathy -Some component related to A. fib with RVR -Some component of COPD and CHF Plan: -Admit to CSU -Currently on 4 L, BiPAP as needed -Sputum cultures, blood cultures, urine bacterial antigens are pending -Given elevated leukocytosis 19.3, pro-Arnel, CRP within normal limits, will start Rocephin and azithromycin -Hold off on steroid therapy has no wheezing -Nebulizer treatments every 4 hours -Patient's creatinine has increased to 2.1 from 1.8 after Lasix therapy, does not clinically look fluid overloaded, BNP is 1289, will hold Lasix for now, limit fluid intake to less than 1500 cc, awaiting cardiac echocardiogram -Dr. Jasmine hopefully will perform a bedside thoracocentesis this afternoon -Full code -Heparin drip for DVT prophylaxis Status: Acute (2) New onset atrial fibrillation: -Currently off Cardizem drip -On oral metoprolol 25 twice daily -Heparin drip -Telemetry monitoring -We will order cardiac echocardiogram -tsh, mag within normal limits Status: Acute (3) COPD (chronic obstructive pulmonary disease): Status: Acute Qualifiers: COPD type: unspecified COPD Qualified Code(s): J44.9 - Chronic obstructive pulmonary disease, unspecified (4) History of hyperlipidemia: Status: Acute (5) History of hypertension: Status: Acute (6) Mass of middle lobe of right lung: -With pleural implants, hilar adenopathy -Plans on doing inpatient EBUS, Pleurx catheter placement Status: Acute (7) Recurrent right pleural effusion: Status: Acute (8) Mass of right lung: Status: Acute (9) Mediastinal adenopathy: Status: Acute (10) CKD (chronic kidney disease): -Stage unknown, creatinine currently 2.1 -Possibly could be cardiorenal, Lasix therapy on hold Status: Acute Attestations Medical Necessity Statement*: Patient requires hospitalization, inpatient, for acute respiratory failure with hypoxia secondary to right pleural effusion, possible pneumonia, new onset A. fib, CHF Coding Level of Care Code Acute Pharmacy Informatics Manager for [facility] Fwd Diagnoses Acute respiratory failure with hypoxia J96.01 New onset atrial fibrillation I48.91 COPD (chronic obstructive pulmonary disease) J44.9 COPD type: unspecified COPD History of hyperlipidemia Z86.39 History of hypertension Z86.79 Mass of middle lobe of right lung R91.8 Recurrent right pleural effusion J90 Mass of right lung R91.8 Mediastinal adenopathy R59.0 CKD (chronic kidney disease) N18.9
[2020-10-26 13:15] LABS: Partial Thromboplastin Time 29.6 SECONDS (23.9-36.7)
--- NOTE | 2020-10-26 15:25 | PC.NURSE ---
Procedure time out for right side thoracentesis with Dr. Brown. Procedure was completes at 1545. Patient tolerated well. C/o of mild pain on right upper back. Assisted patient to position in bed on left side lying with 45 rise on HOB.
--- NOTE | 2020-10-26 16:23 | P.PCN_ITS ---
Procedure/Consent Time out: Time Out Performed: Yes Consent: Consent for Procedure: Consent obtained from patient Procedure Narrative: Pulmonary & Critical Care Medicine Procedure -right pleural thoracentesis Procedure: Right pleural thoracentesis Indication: Right pleural effusion Button Decorating Machine Operator(s): Den Postr Consent: Signed and placed in chart Anesthesia: 10 cc 1% lidocaine without epinephrine Description: Right pleural effusion was localized using ultrasound guidance and the site was marked accordingly. After chlorhexidine skin prep, area was draped in a sterile manner. 1% lidocaine was used for local anesthesia. Thoracentesis catheter was then inserted into the pleural space with aspiration of 1900 cc of pleural fluid. Appearance was khushboo Ultrasound guidance used: Yes. Image saved to ultrasound machine yes. EBL: 10 cc Complications: No PCXR: Ordered Acute Procedures Epistaxis Control: Time out performed: Yes
[2020-10-26 18:18] LABS: Apprearance, Body Fluid CLOUDY; Body Fluid Specific Gravity 1.015; Color, Body Fluid YELLOW
[2020-10-26 18:38] LABS: Body Fluid WBC 828 /uL; Monocytes # Body Fluid 0.758
[2020-10-26 18:58] LABS: Amylase Body Fluid 45 U/L; Cholesterol Body Fluid 60 mg/dL (0-200); Fluid Alkaline Phos. 38 IU/L; LDH Body Fluid 562 U/L; Triglycerides Body Fluid 31 mg/dL (0-150)
[2020-10-26 18:59] LABS: Uric Acid Body Fluid 11 mg/dL
[2020-10-26 19:18] LABS: Albumin Body Fluid 2.3 g/dL; Total Protein Pleural Fluid 3.6 g/dL
[2020-10-26] MEDS: tamsulosin 0.4 mg Capsule PO (19:36)
[2020-10-26] MEDS: pantoprazole DR 40 mg Tablet PO (19:36)
[2020-10-26] MEDS: atorvastatin 40 mg Tablet 20 MG PO (19:36)
[2020-10-27] VITALS (11 sets, daily range): BP systolic 94–105; BP diastolic 52–57; PULSE 29–202; RESP 20–30; TEMP 36–37; O2SAT 93–96
[2020-10-27 04:40] LABS: Basophils % 0.1 %; Eosinophils % 0.1 %; Hematocrit 35.3 % (42.0-52.0); Hemoglobin 11.6 g/dL (11.7-16.6); Lymphocytes # 1.3 10^3/uL (0.8-4.8); Lymphocytes % 6.7 %; Mean Corpuscular HGB Conc 32.9 g/dL (30.0-36.0); Mean Corpuscular Hemoglobin 29.7 pg (28.0-34.0); Mean Corpuscular Volume 90.5 fL (80-94); Mean Platelet Volume 9.5 fL (7.4-10.4); Monocytes # 1.9 10^3/uL (0.2-0.9); Monocytes % 9.3 %; Neutrophils # 16.58 10^3/uL (1.8-7.7); Neutrophils % 83.2 %; Nucleated Red Blood Cells % 0 %; Platelet Count 343 10^3/cmm (130-400); Red Cell Distribution Width 13.9 % (12.1-15.1); White Blood Count 19.9 10^3/uL (4.0-10.0)
[2020-10-27 04:56] LABS: INR 1.04 (0.8-1.2)
[2020-10-27 04:57] LABS: Partial Thromboplastin Time 31.7 SECONDS (23.9-36.7)
[2020-10-27 05:12] LABS: NT Pro B Type Natriuretic Pept 359 pg/mL (0-125); Procalcitonin 0.12 ng/mL (0-0.5)
[2020-10-27 05:25] LABS: Alanine Aminotransferase 11 U/L (0-41); Albumin Level 2.9 g/dL (3.5-5.2); Alkaline Phosphatase 77 IU/L (40-130); Anion Gap 11.4 (5-19); Aspartate Amino Transferase 15 U/L (0-40); Blood Urea Nitrogen 43 mg/dL (8-23); C Reactive Protein 15.1 mg/L (0.0-4.9); Calcium 7.9 mg/dL (8.5-10.5); Carbon Dioxide 26 mmol/L (22-29); Chloride 101 mmol/L (98-107); Globulin 2.5 g/dL (1.3-4.6); Glucose 120 mg/dL (65-115); Magnesium 2.1 mg/dL (1.7-2.3); Osmolality Calculated 290 mOsm/kg (285-295); Potassium 4.4 mmol/L (3.5-5.1); Sodium 134 mmol/L (136-145); Total Bilirubin 0.2 mg/dL (0.15-1.2); Total Protein 5.4 g/dL (6.6-8.7)
[2020-10-27] MEDS: heparin 5,000 unit/mL INJ 1 mL IV (05:26)
[2020-10-27] MEDS: cholecalciferol (vitamin D3) 1,000 unit Tablet 1000 UNIT PO (05:31)
[2020-10-27] MEDS: heparin drip 25,000 UNIT/500 ML PREMIX 15 UNIT IV (05:32)
[2020-10-27 06:02] LABS: Slide Review Slide Review Perform
--- NOTE | 2020-10-27 07:00 | XRR_ITS ---
PROCEDURE INFORMATION: Exam: XR Chest, 1 View Exam date and time: 10/27/2020 8:55 AM Age: 70 years old Clinical indication: Shortness of breath; Additional info: SOB TECHNIQUE: Imaging protocol: XR of the chest Views: 1 view. COMPARISON: CR XR chest 1V portable [id number] 10/25/2020 10:00 AM FINDINGS: Lungs: There is right basilar hazy opacity consistent with right basilar pneumonia or atelectasis. The right pulmonary hilum is enlarged which is consistent with the mass seen on recent CT scan. The left lung is grossly clear. Pleural spaces: Small right pleural effusion is present in the right costophrenic angle. The size of the effusion has significantly decreased since previous study. There is no pneumothorax. Heart/Mediastinum: Unremarkable. No cardiomegaly. Bones/joints: Unremarkable. XR/XR chest 1V portable [id number] IMPRESSION: 1. Since the previous study the right pleural effusion has significantly decreased in size. 2. Right pulmonary hilar enlargement consistent with the mass seen on CT scan. 3. Right basilar patchy hazy opacity consistent with lower lobe pneumonia or atelectasis.
--- NOTE | 2020-10-27 07:57 | PC.NURSE ---
Heparin drip restarted at 2100 per Provider instruction. PTT drawn at 0330 and results were low. Protocol followed and drip was increased by 4 mL to 15 mL per hour with a 3300 unit bolus via IV. Patient tolerated well next PTT to be at 0900. Will continue to monitor and assist as needed following CPOC
[2020-10-27] MEDS: azithromycin 500 MG in sodium chloride 0.9% 250 ML 125 MG IV (08:44)
[2020-10-27] MEDS: metoprolol tartrate 25 mg Tablet PO (08:47)
[2020-10-27] MEDS: ipratropium-albuterol 3 mL Neb INHALATION ×3 (09:03→20:49)
--- NOTE | 2020-10-27 10:12 | NMR_ITS ---
PROCEDURE INFORMATION: Exam: FL Lung Ventilation and Perfusion Imaging Exam date and time: 10/27/2020 3:00 PM Age: 70 years old Clinical indication: Shortness of breath; Patient HX: Right middle lobe lung mass, mediastinal adenopathy, poss lower left lobe pneumonia; Additional info: R/O pe TECHNIQUE: Imaging protocol: Nuclear pulmonary ventilation with aerosol or gas was performed followed by perfusion. Views: Ventilation acquired with multiple projections. Perfusion acquired with multiple projections. Radiopharmaceutical: 5 mCi Tc-99m MAA (Macroaggregated Albumin), IV. 32.4 mCi Tc-99m DTPA (DTPA Aerosol), Inhalation. COMPARISON: CR (CHEST, ) 10/27/2020 8:56 AM FINDINGS: Ventilation: There is a generalized area of matching reduced ventilation and perfusion in the right upper lobe. This appears to correlate with emphysema on the chest x-ray. Overall, heterogeneous radiotracer labeling of lungs on both ventilation and perfusion imaging. Perfusion: No large peripheral segmental unmatched perfusion defects identified. FL/FL pul vent and perfus* [id number] IMPRESSION: 1. Low probability of pulmonary embolism. 2. 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
--- NOTE | 2020-10-27 10:12 | ECG_ITS ---
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 Measurements Intervals [place] Rate: 97 P: 81 PA: 156 QRS: 91 QRSD: 89 T: 60 QT: 319 QTc: 406 Interpretive Statements SINUS RHYTHM BORDERLINE RIGHT AXIS DEVIATION [QRS AXIS > 90] POSSIBLE ANTERIOR MYOCARDIAL INFARCTION [30 ms Q WAVE IN V3/V4, OR R < 0.2 mV IN V4], OF INDETERMINATE AGE INTERPRETATION BASED ON A DEFAULT AGE OF 40 YEARS Compared to ECG 10/25/2020 17:49:40 Atrial fibrillation no longer present Myocardial infarct finding still present Electronically Signed On 10-28-2020 16:05:48 GASTROENTEROLOGY PROFESSOR by Richard Cason M.D. [id number]
[2020-10-27] MEDS: cefTRIAXone 1,000 MG in sodium chloride 0.9% (plus) 50 ML 100 MG IV (10:19)
--- NOTE | 2020-10-27 11:05 | PM.PN ---
Subjective Subjective: Interval history: This morning patient was examined, he is on 4 L, he tells me that even after fluid removal, he continues to feel short of breath, no chest pain, has intermittent palpitations, no nausea, no vomiting, he does feel that he is doing somewhat better, but was hoping his shortness of breath would improve like it did last time after he had a thoracocentesis, afebrile overnight Vitals/I&O/Wt Last Vital Signs Temp 96.8 F L 10/27/20 07:51 Pulse 92 10/27/20 09:03 Resp 24 H 10/27/20 09:03 BP 97/56 10/27/20 07:51 Pulse Ox 95 10/27/20 09:03 10/26/20 10/27/20 10/27/20 22:59 06:59 14:59 Intake Total 360 / 1138.317 595.467 / 1733.784 370 / 370 Output Total 350 / 350 300 / 300 Balance 10 / 788.317 595.467 / 1383.784 70 / 70 Physical Exam Const: COMMON NORMALS: no acute distress and patient oriented x3 GENERAL APPEARANCE: cooperative NUTRITIONAL APPEARANCE: thin HENMT: COMMON NORMALS: normocephalic HEAD & SCALP: normocephalic Neck/C-Spine: COMMON NORMALS: no JVD Resp: COMMON NORMALS: normal respiratory effort, No retractions and No use of accessory muscles AUSCULTATION: rales and wheezes Cardio: COMMON NORMALS: no JVD, regular rate, regular rhythm, S1 normal heart sound present and S2 normal heart sound present RATE: regular rate RHYTHM: regular rhythm HEART SOUNDS: S1 normal heart sound present and S2 normal heart sound present GI: COMMON NORMALS: Normal to inspection, nondistended, normoactive bowel sounds present, Soft to palpation, non-tender, No hepatosplenomegaly present, no masses and no bruits PALPATION: Yes Soft to palpation and Yes No hepatosplenomegaly present Extremity: COMMON NORMALS: capillary refill normal, no clubbing, cyanosis or edema, no calf tenderness and no pedal edema Neuro: COMMON NORMALS: patient oriented x3 Psych: COMMON NORMALS: mental status grossly normal Data : 10/27/20 03:06 10/27/20 03:06 Micro: Microbiology 10/26/20 15:45 Gram Stain - Final Pleural Fluid 10/25/20 17:34 Blood Culture - Preliminary Blood NEGATIVE TO DATE 10/25/20 11:24 Blood Culture - Preliminary Blood NEGATIVE TO DATE 10/25/20 00:05 Bacterial Antigens - Final Urine,Voided A&P Assessment and plan (1) Acute respiratory failure with hypoxia: -Secondary to recurrent right pleural effusion, right middle lobe malignancy, with pleural implants, with hilar adenopathy -Some component related to A. fib with RVR -Some component of COPD and CHF Plan: -Admit to CSU -Currently on 4 L, BiPAP as needed -Sputum cultures, blood cultures, urine bacterial antigens are pending, MRSA -Given elevated leukocytosis 19.9, currently on Rocephin and azithromycin -We will start Solu-Medrol today 125 followed by 40 every 8 hours -Nebulizer treatments every 4 hours -Patient's creatinine has decreased to 1.7 from 1.8 after Lasix therapy, does not clinically look fluid overloaded, BNP is 359, will hold Lasix for now, limit fluid intake to less than 1500 cc -Echocardiogram shows possibly normal left ventricular size, ejection fraction, could not evaluate for any wall motion abnormalities because of poor ultrasonic window, moderate tricuspid valve regurg, pulmonary hypertension with pressure of 53 mmHg -Status post thoracocentesis on the right, 1.9 L removed, khushboo color, culture sent, chest x-ray this morning does not show pneumothorax, improved right pleural effusion, right basilar patchy hazy opacity with lower lobe pneumonia or atelectasis -Ventilation/perfusion scan ordered to evaluate for possible pulmonary emboli -Full code -Heparin drip for DVT prophylaxis Status: Acute (2) New onset atrial fibrillation: -Currently off Cardizem drip -Patient's becomes quite hypotensive even with metoprolol, stop metoprolol -Switch to p.o. Cardizem 60 every 6 -Heparin drip -Telemetry monitoring -tsh, mag within normal limits Status: Acute (3) COPD (chronic obstructive pulmonary disease): Status: Acute Qualifiers: COPD type: unspecified COPD Qualified Code(s): J44.9 - Chronic obstructive pulmonary disease, unspecified (4) History of hyperlipidemia: Status: Acute (5) History of hypertension: Status: Acute (6) Mass of middle lobe of right lung: -With pleural implants, hilar adenopathy -Plans on doing inpatient EBUS, Pleurx catheter placement Status: Acute (7) Recurrent right pleural effusion: Status: Acute (8) Mass of right lung: Status: Acute (9) Mediastinal adenopathy: Status: Acute (10) CKD (chronic kidney disease): -Stage unknown, creatinine currently 1.7 -Possibly could be cardiorenal, Lasix therapy on hold Status: Acute Attestations Medical Necessity Statement*: Patient requires hospitalization for acute respiratory failure secondary to right pleural effusion, pneumonia, COPD, possible primary emboli, lung malignancy,, A. fib Coding Level of Care Code Acute Visiting Professor for [facility] Fwd Diagnoses Acute respiratory failure with hypoxia J96.01 New onset atrial fibrillation I48.91 COPD (chronic obstructive pulmonary disease) J44.9 COPD type: unspecified COPD History of hyperlipidemia Z86.39 History of hypertension Z86.79 Mass of middle lobe of right lung R91.8 Recurrent right pleural effusion J90 Mass of right lung R91.8 Mediastinal adenopathy R59.0 CKD (chronic kidney disease) N18.9
[2020-10-27 11:40] LABS: Partial Thromboplastin Time 68.4 SECONDS (23.9-36.7)
[2020-10-27] MEDS: FUROsemide 10 mg/mL SDV 2mL 20 MG IVP (14:38)
[2020-10-27 16:58] LABS: Partial Thromboplastin Time 37.5 SECONDS (23.9-36.7)
[2020-10-27] MEDS: atorvastatin 40 mg Tablet 20 MG PO (17:47)
[2020-10-27] MEDS: dilTIAZem 60 mg Tablet PO (17:47)
[2020-10-27] MEDS: tamsulosin 0.4 mg Capsule PO (17:48)
[2020-10-27] MEDS: pantoprazole DR 40 mg Tablet PO (17:48)
[2020-10-28] VITALS (16 sets, daily range): BP systolic 100–125; BP diastolic 49–57; PULSE 83–101; RESP 18–27; TEMP 36.5–37.1; O2SAT 92–95
[2020-10-28 01:42] LABS: Partial Thromboplastin Time 84.1 SECONDS (23.9-36.7)
[2020-10-28] MEDS: dilTIAZem 60 mg Tablet PO ×4 (01:57→18:02)
--- NOTE | 2020-10-28 02:38 | PC.NURSE ---
Patient PTT came back at 84.1 Paperwork in chart was at 18 mL per hour and pump in room was at 18 mL per hour but the titration in the MAR was still at 15 mL per hour. Per protocol of heparin drip patient was titrated down by 1 mL due to the result of the PTT. Will continue to monitor and set next PTT for 6 hours from now. Pump is now set to 17 mL per hour
[2020-10-28 04:15] LABS: Basophils % 0.1 %; Hematocrit 35.4 % (42.0-52.0); Hemoglobin 11.6 g/dL (11.7-16.6); Lymphocytes # 0.5 10^3/uL (0.8-4.8); Lymphocytes % 3.4 %; Mean Corpuscular HGB Conc 32.8 g/dL (30.0-36.0); Mean Corpuscular Hemoglobin 29.5 pg (28.0-34.0); Mean Corpuscular Volume 90.1 fL (80-94); Mean Platelet Volume 9.8 fL (7.4-10.4); Monocytes # 0.4 10^3/uL (0.2-0.9); Monocytes % 2.5 %; Neutrophils # 14.74 10^3/uL (1.8-7.7); Neutrophils % 93.3 %; Nucleated Red Blood Cells % 0 %; Platelet Count 311 10^3/cmm (130-400); Red Blood Count 3.93 10^6/uL (4.1-5.3); Red Cell Distribution Width 13.3 % (12.1-15.1); White Blood Count 15.8 10^3/uL (4.0-10.0)
[2020-10-28 04:31] LABS: Partial Thromboplastin Time 63.3 SECONDS (23.9-36.7)
[2020-10-28 04:49] LABS: NT Pro B Type Natriuretic Pept 139 pg/mL (0-125); Procalcitonin 0.09 ng/mL (0-0.5)
[2020-10-28 05:01] LABS: Alanine Aminotransferase 13 U/L (0-41); Alkaline Phosphatase 80 IU/L (40-130); Anion Gap 16.4 (5-19); Aspartate Amino Transferase 12 U/L (0-40); Blood Urea Nitrogen 43 mg/dL (8-23); C Reactive Protein 19.3 mg/L (0.0-4.9); Calcium 8.2 mg/dL (8.5-10.5); Carbon Dioxide 25 mmol/L (22-29); Chloride 103 mmol/L (98-107); Globulin 2.8 g/dL (1.3-4.6); Glucose 146 mg/dL (65-115); Magnesium 1.9 mg/dL (1.7-2.3); Osmolality Calculated 303 mOsm/kg (285-295); Phosphorus 3.8 mg/dL (2.5-4.5); Potassium 4.4 mmol/L (3.5-5.1); Sodium 140 mmol/L (136-145); Total Bilirubin 0.2 mg/dL (0.15-1.2); Total Protein 5.8 g/dL (6.6-8.7)
[2020-10-28] MEDS: cholecalciferol (vitamin D3) 1,000 unit Tablet 1000 UNIT PO (06:39)
--- NOTE | 2020-10-28 07:00 | XR_ITS ---
WS: [id number] PORTABLE CHEST HISTORY: sob COMPARISON: 10/27/2020 Marked pulmonary hyperexpansion. Volume loss in the RIGHT thorax. Small RIGHT pleural effusion. Incre ased density and consolidation over the RIGHT hilum from a known RIGHT hilar mass or adenopathy. Slig ht increased consolidation at the RIGHT lung base. No pneumothorax. Cardiac size: Normal. Mediastinum/Aorta: Mild atherosclerosis aorta. No osseous abnormality seen. XR/XR chest 1V portable [id number] IMPRESSION: 1. Small RIGHT pleural effusion. 2. Slight increase in opacification at the RIGHT lung base. May be developing pneumonia, atelectasis or fluid. 3. Known RIGHT hilar mass/lymphadenopathy is unchanged.
[2020-10-28] MEDS: cefTRIAXone 1,000 MG in sodium chloride 0.9% (plus) 50 ML 100 MG IV (08:02)
[2020-10-28] MEDS: ipratropium-albuterol 3 mL Neb INHALATION ×5 (08:29→23:46)
[2020-10-28 08:48] LABS: Partial Thromboplastin Time 58.7 SECONDS (23.9-36.7)
--- NOTE | 2020-10-28 08:55 | DCPLANNER ---
IMM completed on 10/28/20 @ 7959. Copy of rights given to pt.
--- NOTE | 2020-10-28 09:27 | PC.CHAP ---
Pastoral Care Encounter/Spiritual Assessment Type of Contact [] Declined automatic corn grinder operator visit [] Patient/Family/Request visit [] Outpatient visit [] Follow-up visit [] Physician referral [] Code/Alert [x] Routine visit [] Staff referral [] Actively dying [] Patient sleeping [] Family support [] [] Out of room [] Palliative care [] [] Receiving care in room [] Pre-surgical visit [] Trauma [] Long length of stay [] ICU visit [] Other: Relational/Emotional Strength [] Patient feels connected with others/family/visitors/staff [] Distress [] Loneliness/isolation [] Abandonment Spirituality of Patient [] Person of Didi [] Attends Moravian of their Didi [] Believes in Prayer [] Reads Bible or Zoroastrian materials [] There are Spiritual issues to be addressed Leather Goods Maker Interventions [x] Prayer [] Active listening [] Non-anxious presence [] Spiritual/emotional support [] Crisis/trauma care [] Spiritual counseling [] Bereavement support [] Provided bereavement packet [] Provided Bible/devotional materials [] Provided toy/stuffed animal, coloring book to patient or family member [] Provided Communion [] Anointing/[place] [] Salvation [x] Completed spiritual assessment [] Other: Impact on Illness or Injury [] Angry [] Fearful [] Anxious [] Often cries [] Exhaustion [] Unable to work [] Unable to attend sikhism [] Unable to walk/stand [] Unable to read [] Unable to drive [] Unable to eat/drink [] Unable to sleep [] Unable to be with family [] Patient intubated [] Other: Summary started to [place] to patient, and doctor entered... automatic corn grinder operator gave way to doctor and patients conversation... will return another day Time spent with patient 5 min
[2020-10-28] MEDS: azithromycin 500 MG in sodium chloride 0.9% 250 ML 250 MG IV (09:37)
--- NOTE | 2020-10-28 12:13 | PM.PN ---
Subjective Subjective: Interval history: Darrius reports he is doing okay. Still short of breath. Thoracentesis did not help quite as much as he thought it would. No significant chest discomfort. History and physical reviewed. Medications: Reviewed: Yes Vitals/I&O/Wt Last Vital Signs Temp 97.7 F 10/28/20 12:00 Pulse 94 10/28/20 12:00 Resp 25 H 10/28/20 12:00 BP 125/56 10/28/20 12:00 Pulse Ox 95 10/28/20 12:00 10/27/20 10/28/20 10/28/20 22:59 06:59 14:59 Intake Total 120 / 900 514.25 / 1414.25 600 / 600 Output Total 650 / 1250 750 / 2000 Balance -530 / -350 -235.75 / -585.75 600 / 600 Physical Exam Narrative: EXAM NARRATIVE: General exam no apparent distress Neck is supple no lymphadenopathy or thyromegaly Cardiovascular irregular, irregular rhythm without murmur Lungs diminished breath sounds bilaterally Abdomen is soft nontender with positive bowel sounds Extremities no cyanosis clubbing or edema Data : 10/28/20 03:09 10/28/20 03:09 Micro: Microbiology 10/26/20 15:45 Gram Stain - Final Pleural Fluid Body Fluid Culture - Preliminary A&P Assessment and plan (1) Acute respiratory failure with hypoxia: Stabilized currently on 3 L of oxygen following thoracentesis. This is secondary to pleural effusion, COPD, lung mass. Status: Acute (2) Mass of middle lobe of right lung: Patient reports he has consideration of bronchoscopy and biopsy soon On Rocephin and azithromycin for likely postobstructive pneumonia Status: Acute (3) Recurrent right pleural effusion: Thoracentesis performed yesterday Status: Acute (4) New onset atrial fibrillation: Transition to oral Cardizem Currently on heparin drip Likely transition to Eliquis on discharge Status: Acute (5) CKD (chronic kidney disease): Stable Status: Acute (6) COPD (chronic obstructive pulmonary disease): No evidence of exacerbation currently Discontinue IV Solu-Medrol and change to prednisone 40 mg daily Status: Acute Qualifiers: COPD type: unspecified COPD Qualified Code(s): J44.9 - Chronic obstructive pulmonary disease, unspecified Additional A&P Information Heparin drip will suffice for DVT prophylaxis Attestations Medical Necessity Statement*: Needs continued hospitalization for IV antibiotics secondary to pneumonia Coding Level of Care Code Acute 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
[2020-10-28] MEDS: heparin drip 25,000 UNIT/500 ML PREMIX 17 UNIT IV (13:44)
[2020-10-28] MEDS: atorvastatin 40 mg Tablet 20 MG PO (18:01)
[2020-10-28] MEDS: tamsulosin 0.4 mg Capsule PO (18:01)
[2020-10-28] MEDS: pantoprazole DR 40 mg Tablet PO (18:02)
[2020-10-28] MEDS: metoprolol tartrate 50 mg Tablet PO (20:22)
[2020-10-29] VITALS (30 sets, daily range): BP systolic 100–133; BP diastolic 52–64; PULSE 68–96; RESP 16–28; TEMP 36.2–37.1; O2SAT 91–99
[2020-10-29] MEDS: dilTIAZem 60 mg Tablet PO ×2 (01:26→06:00)
[2020-10-29] MEDS: ipratropium-albuterol 3 mL Neb INHALATION ×5 (03:12→23:42)
[2020-10-29 05:43] LABS: Basophils % 0.1 %; Hematocrit 32.1 % (42.0-52.0); Hemoglobin 10.4 g/dL (11.7-16.6); Lymphocytes # 0.5 10^3/uL (0.8-4.8); Lymphocytes % 2.7 %; Mean Corpuscular HGB Conc 32.4 g/dL (30.0-36.0); Mean Corpuscular Hemoglobin 29.5 pg (28.0-34.0); Mean Corpuscular Volume 90.9 fL (80-94); Mean Platelet Volume 9.9 fL (7.4-10.4); Monocytes # 1.5 10^3/uL (0.2-0.9); Monocytes % 7.5 %; Neutrophils # 17.23 10^3/uL (1.8-7.7); Neutrophils % 88.9 %; Nucleated Red Blood Cells % 0 %; Platelet Count 296 10^3/cmm (130-400); Red Blood Count 3.53 10^6/uL (4.1-5.3); Red Cell Distribution Width 13.8 % (12.1-15.1); White Blood Count 19.4 10^3/uL (4.0-10.0)
[2020-10-29 05:56] LABS: Anion Gap 11.7 (5-19); Blood Urea Nitrogen 42 mg/dL (8-23); Calcium 8.2 mg/dL (8.5-10.5); Carbon Dioxide 28 mmol/L (22-29); Chloride 103 mmol/L (98-107); Glucose 134 mg/dL (65-115); Osmolality Calculated 298 mOsm/kg (285-295); Potassium 4.7 mmol/L (3.5-5.1); Sodium 138 mmol/L (136-145)
[2020-10-29] MEDS: cholecalciferol (vitamin D3) 1,000 unit Tablet 1000 UNIT PO (06:00)
--- NOTE | 2020-10-29 06:08 | PC.NURSE ---
Patient to surgery via stretcher with O2 chart with patient.
[2020-10-29] MEDS: sodium chloride 0.9% 1,000 ML 30 ML IV (06:42)
--- NOTE | 2020-10-29 07:08 | ANES.PREANE2 ---
Pre-Anesthetic Assessment Pre-Anesthetic Assessment: Height/Weight: Height 1.75 m Weight 65.771 kg Temp Pulse Resp BP Pulse Ox 98.7 F 85 22 H 133/64 99 10/29/20 06:32 10/29/20 06:32 10/29/20 06:32 10/29/20 06:32 10/29/20 06:32 Preop Diagnosis: right pleural effusion Proposed Procedure: Operation Date: 10/29/20 07:00 Proposed Procedures p Ebus(Not Applicable) - Den Brown MD s [place] Drain Placement Pleural Catheter Insertion(Not Applicable) - Den Brown MD Familial anesthetic complications: None Was Beta Melissa taken within 24 hours: Yes Last intake: NPO > 8 hrs Social: Social History: Tobacco and No alcohol Comment: quit smoking 3 months ago Exam: Pre-Anes Outpt Exam: alert, oriented x 3 and regular rate & rhythm Additional Exam Findings (including area of procedure): coarse breath sounds b/l Airway: Cervical ROM: WNL MP: 3 Dentition: Full Pulmonary: Pulmonary: COPD Comments: Lung mass 5 L NC Pleural effussion (recurrent) pulm htn CV/HEM: CV/HEM: Afib (w rvr -placed on heparin drip (paused since last night)) : : Chronic renal Insufficiency Metabolic: Metabolic: Hyperlipidemia Anesthetic Plan: ASA status: 4 Anesthesia: General Risk of > 500 ml blood loss (7ml/kg in children): No Meds/Allergies Current Medications: Current Medications Generic Name Dose Route Start Last Admin Trade Name Freq PRN Reason Stop Dose Admin Albuterol/Ipratrop ium 3 ml 10/27/20 11:15 10/29/20 03:12 Ipratropium-Albu terol 3 Ml Neb INHALATION 3 ml Q4H.RESPIRATORY S CH Administration Atorvastatin Calci um 20 mg 10/25/20 19:00 10/28/20 18:01 Atorvastatin 40 Mg Tablet PO 20 mg DAILY@19 SHAYNE Administration Diltiazem HCl 60 mg 10/27/20 18:00 10/29/20 06:00 Diltiazem 60 Mg Tablet PO 60 mg Q6H SHAYNE Administration Heparin Sodium (Be ef Lung) 0 unit 10/25/20 15:53 10/27/20 05:26 Heparin 5,000 Un it/Ml Inj 1 Ml IV 3,300 unit PRN PRN Administration Heparin weight-ba se protocol Protocol Heparin Sodium/Sod ium Chloride 25,000 unit in 50 0 mls @ 0 mls/hr 10/25/20 15:53 10/28/20 20:59 Heparin Drip IV 0 unit/kg/hr .Q0M SHAYNE 0 mls/hr Titration Protocol Per Protocol Ceftriaxone Sodium 1,000 mg/ 50 mls @ 100 mls/ hr 10/26/20 09:00 10/28/20 08:35 Sodium Chloride IV Infused Q24H SHAYNE Infusion Protocol Azithromycin 500 m g/ Sodium 250 mls @ 250 mls /hr 10/26/20 09:00 10/28/20 10:47 Chloride IV Infused Q24H SHAYNE Infusion Protocol Sodium Chloride 1,000 mls @ 30 ml s/hr 10/29/20 06:45 10/29/20 06:42 Sodium Chloride 0.9% IV 10/30/20 06:44 30 mls/hr .Q24H SHAYNE Administration Metoprolol Tartrat e 50 mg 10/28/20 21:00 10/28/20 20:22 Metoprolol Tartr ate 50 Mg Tablet PO 50 mg BID@0900,2100 SHAYNE Administration Pantoprazole Sodiu m 40 mg 10/25/20 19:00 10/28/20 18:[address] 40 Mg Tablet PO 40 mg DAILY@19 SHAYNE Administration Tamsulosin HCl 0.4 mg 10/25/20 19:00 10/28/20 18:01 Tamsulosin 0.4 M g Capsule PO 0.4 mg DAILY@19 SHAYNE Administration Vitamin D 1,000 unit 10/26/20 07:00 10/29/20 06:00 Cholecalciferol (Vitamin D3) 1,000 Unit Tablet PO 1,000 unit DAILY@07 SHAYNE Administration PFSH Anesthesia PFSH: Medical History COPD (chronic obstructive pulmonary disease) History of hyperlipidemia History of hypertension Surgical History History of cataract surgery Family History Father Dementia Mother CAD (coronary artery disease) Diabetes Social History Smoking and tobacco status: former smoker Quit status (tobacco): has quit using tobacco Year quit tobacco: Aug 2020 [id number] Second hand smoke exposure: No Smoking risk assessment/counseling performed?: Yes Alcohol intake: former Caregiver/support person: No Lives independently: Yes Household members: none Marital status: / service: Yes Current occupational status: employed 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 - [employer] Pets and animals: No History of recent travel: Yes (raj law) Out of state: Yes Out of country: No Current gender identity: Male Data Anesthesia CBC & Chem 7: 10/29/20 04:30 10/29/20 04:30 Other Labs: Laboratory Results - last 48 hr 10/27/20 10/27/20 10/28/20 09:15 16:05 00:50 WBC RBC Hgb Hct MCV MCH MCHC RDW Plt Count MPV Neut % (Auto) Lymph % (Auto) [place] % (Auto) Eos % (Auto) Baso % (Auto) Neut # (Auto) Lymph # (Auto) [place] # (Auto) Eos # (Auto) Baso # (Auto) Nucleated RBC % (auto) Nucleated RBCs # PT INR APTT 68.4 H D 37.5 H 84.1 H D Sodium Potassium Chloride Carbon Dioxide Anion Gap BUN Creatinine GFR Calculation Glucose Calculated Osmolality Calcium Phosphorus Magnesium Total Bilirubin AST ALT Alkaline Phosphatase C-Reactive Protein NT-Pro-B Natriuret Pep Total Protein Albumin Globulin Procalcitonin 10/28/20 10/28/20 10/28/20 03:09 03:09 03:09 WBC 15.8 H RBC 3.93 L Hgb 11.6 L Hct 35.4 L MCV 90.1 MCH 29.5 MCHC 32.8 RDW 13.3 Plt Count 311 MPV 9.8 Neut % (Auto) 93.3 Lymph % (Auto) 3.4 [place] % (Auto) 2.5 Eos % (Auto) 0.0 Baso % (Auto) 0.1 Neut # (Auto) 14.74 H Lymph # (Auto) 0.5 L [place] # (Auto) 0.4 Eos # (Auto) 0.0 Baso # (Auto) 0.0 Nucleated RBC % (auto) 0 Nucleated RBCs # 0.0 PT 13.50 INR 1.00 APTT 63.3 H Sodium 140 Potassium 4.4 Chloride 103 Carbon Dioxide 25 Anion Gap 16.4 BUN 43 H Creatinine 1.6 H GFR Calculation Not Reportable Glucose 146 H Calculated Osmolality 303 H Calcium 8.2 L Phosphorus 3.8 Magnesium 1.9 Total Bilirubin 0.2 AST 12 ALT 13 Alkaline Phosphatase 80 C-Reactive Protein 19.3 H NT-Pro-B Natriuret Pep 139 H Total Protein 5.8 L Albumin 3.0 L Globulin 2.8 Procalcitonin 0.09 10/28/20 10/28/20 10/29/20 08:24 15:00 04:30 WBC 19.4 H RBC 3.53 L Hgb 10.4 L Hct 32.1 L MCV 90.9 MCH 29.5 MCHC 32.4 RDW 13.8 Plt Count 296 MPV 9.9 Neut % (Auto) 88.9 Lymph % (Auto) 2.7 [place] % (Auto) 7.5 Eos % (Auto) 0.0 Baso % (Auto) 0.1 Neut # (Auto) 17.23 H Lymph # (Auto) 0.5 L [place] # (Auto) 1.5 H Eos # (Auto) 0.0 Baso # (Auto) 0.0 Nucleated RBC % (auto) 0 Nucleated RBCs # 0.0 PT INR APTT 58.7 H 61.0 H Sodium Potassium Chloride Carbon Dioxide Anion Gap BUN Creatinine GFR Calculation Glucose Calculated Osmolality Calcium Phosphorus Magnesium Total Bilirubin AST ALT Alkaline Phosphatase C-Reactive Protein NT-Pro-B Natriuret Pep Total Protein Albumin Globulin Procalcitonin 10/29/20 04:30 WBC RBC Hgb Hct MCV MCH MCHC RDW Plt Count MPV Neut % (Auto) Lymph % (Auto) [place] % (Auto) Eos % (Auto) Baso % (Auto) Neut # (Auto) Lymph # (Auto) [place] # (Auto) Eos # (Auto) Baso # (Auto) Nucleated RBC % (auto) Nucleated RBCs # PT INR APTT Sodium 138 Potassium 4.7 Chloride 103 Carbon Dioxide 28 Anion Gap 11.7 BUN 42 H Creatinine 1.5 H GFR Calculation Not Reportable Glucose 134 H Calculated Osmolality 298 H Calcium 8.2 L Phosphorus Magnesium Total Bilirubin AST ALT Alkaline Phosphatase C-Reactive Protein NT-Pro-B Natriuret Pep Total Protein Albumin Globulin Procalcitonin Micro: Microbiology 10/26/20 15:45 Gram Stain - Final Pleural Fluid Anaerobic Culture - Preliminary Body Fluid Culture - Preliminary Cardiac Studies: No Data to Display
--- NOTE | 2020-10-29 09:23 | PM.OP ---
Operative Report Date of procedure: October 29, 2020 Name of the procedure: Bronchoscopy with inspection of the airway, bronchoalveolar lavage, , endobronchial ultrasound-guided transbronchial needle aspiration of lymph nodes and control of bleeding. Indication: Right hilar and mediastinal FDG positive nodes Anesthesia: General anesthesia. Local anesthesia: The jenn in the right and left mainstem bronchi were anesthetized with 1% lidocaine, 3 mL. Description of the procedure: The procedure was explained to the patient and the consent was obtained. The patient was brought to the OR. The patient underwent endotracheal intubation for general anesthesia. Following induction of general anesthesia, the bronchoscope was advanced through the ET tube. The lower trachea has copious thick mucous secretions, no endotracheal lesion was seen. The jenn was sharp. The jenn, the right and left mainstem bronchi are anesthetized with 1% lidocaine. In a systematic manner bilateral bronchial tree was then examined. The bronchoscope was advanced into the left mainstem bronchus. There was copious amounts of thick mucous secretions. The left upper lobe, lingula and left lower lobe bronchi were examined up to the third subsegmental level and no abnormalities were identified. There is no endobronchial lesion or active bleeding. The bronchoscope was then introduced into the right mainstem bronchus. The right upper lobe, right middle lobe and right lower lobe bronchi were examined up to the third subsegmental level and again thick mucous noted suctioned away but no endobronchial lesions noted. Bronchoalveolar lavage was performed from the apical subsegment of right upper lobe. 60 mL of saline was instilled, fluid return was 15 mL. The fluid was cloudy. The endobronchial ultrasound was introduced through the ET tube. Mediastinal and hilar lymphadenopathy was identified with the ultrasound. The lymph nodes showed distinct cortex and Medulla. Transbronchial needle aspiration was performed from 4R lymph nodes. Samples: 1. Bronchoalveolar lavage specimen was sent for , Gram stain and culture 2. The endobronchial biopsies from 4R are sent for histopathology. & Cytopathology. Complications: There was no immediate complications. The patient was extubated and brought to the PACU in stable condition and later transferred back to cardiac stepdown. Dr. Mccrary assisted me with the procedure. Pre-op Diagnosis: right pleural effusion Associated Problem List Diagnoses (1) Mediastinal adenopathy: (2) Mass of right lung: (3) COPD (chronic obstructive pulmonary disease): Qualifiers: COPD type: unspecified COPD Qualified Code(s): J44.9 - Chronic obstructive pulmonary disease, unspecified (4) Smoker:
--- NOTE | 2020-10-29 09:27 | PTH.EBUS ---
Endobronchial Ultrasound Specimen(s): Station 4R lymph node Gross: The specimen is received is 2 mm liquid fragment for EBUS rapid onsite evaluation on a single slide. Remnant of the slide is submitted for frozen section diagnoses and the remaining as submitted for Diff-Quik stains. Preliminary Impression: Lymph node, station 4R, rapid onsite evaluation (EBUS): ?Atypical clusters in a background of necrosis. - Specimen Information Pathologist: Venu Downey Date: 10/29/20 Specimen reported at what time: 07:57 - Clinician Specimen collection time: 07:47 Clinician reported to: Den Sheldon Datar
--- NOTE | 2020-10-29 09:29 | PTH.FRZRPT ---
Frozen Section Notes Specimen(s): Lymph node station 4R Gross: The specimen is submitted as a 2 mm liquid fragment for EBUS diagnosis, remnant is submitted for frozen section diagnoses in FSA 1. The slide is labeled with the patient's name and MRN number and additionally labeled, station 4R lymph node Preliminary Impression: Lymph node, station 4R, FSA 1: ?Atypical cells in a background of necrosis. - Specimen Information Pathologist: Venu Downey Date: 10/29/20 Specimen reported at what time: 07:57 - Clinician Specimen collection time: 07:47 Clinician reported to: Den Postr
--- NOTE | 2020-10-29 10:53 | PC.OT ---
OT note: Pt on surgery schedule for today. Will hold at this time.
[2020-10-29] MEDS: dilTIAZem ER (24HR) 240 mg Capsule PO (11:10)
--- NOTE | 2020-10-29 11:50 | ANE.PACU2 ---
Inpatient post-anesthesia follow up: Airway intact: Yes Vital signs: Temperature 97.6 F Pulse Rate [Monito r] 97 Pulse Rate 71 Respiratory Rate 17 Blood Pressure [Ri ght Arm] 138/89 Blood Pressure 100/63 Pulse Oximetry 97 Oxygen Delivery Me thod Nasal Cannula Oxygen Flow Rate 2 Fraction of Inspir ed Oxygen 35 Hydration adequate: Yes Nausea and vomiting: No Pain level: 2 Mental status: Baseline
--- NOTE | 2020-10-29 11:51 | PM.PN ---
Subjective Subjective: Interval history: Patient underwent EBUS guided FNAC of 4R lymph nodes. Pathology preliminary suggested atypical clusters of cells. Also cytology from right thoracentesis is pending. Postprocedure patient was shifted to his room on BiPAP. Tolerated procedure very well. Labs and investigations reviewed Medications: Reviewed: Yes Vitals/I&O/Wt Last Vital Signs Temp 97.6 F 10/29/20 09:48 Pulse 71 10/29/20 11:15 Resp 17 10/29/20 11:09 BP 100/63 10/29/20 09:48 Pulse Ox 97 10/29/20 11:09 10/28/20 10/29/20 10/29/20 22:59 06:59 14:59 Intake Total 603.25 / 1689.00 100 / 1789.00 0 / 0 Output Total 425 / 625 250 / 250 Balance 178.25 / 1064.00 100 / 1164.00 -250 / -250 Physical Exam Narrative: EXAM NARRATIVE: General: alert, in moderate respiratory distress HEENT: conj clear, EOMI, PERRL, mmm, Neck: supple, no meningismus Heme: no cervical LAP Pulmonary: Improved breath sounds on right lower lung Cardiovascular: rrr, nl s1s2, no mrg Abdomen: soft, nt, nd, no r/g, bs+ Extremities: pulses +, no edema, no c/c : no CVA tenderness Skin: intact, no rash MSK: no back or neck pain Neurologic: grossly intact Data : 10/29/20 04:30 10/29/20 04:30 Micro: Microbiology 10/26/20 15:45 Gram Stain - Final Pleural Fluid Anaerobic Culture - Preliminary Body Fluid Culture - Preliminary A&P Assessment and plan (1) Mediastinal adenopathy: Status: Acute (2) Mass of right lung: Status: Acute (3) COPD (chronic obstructive pulmonary disease): Status: Acute Qualifiers: COPD type: unspecified COPD Qualified Code(s): J44.9 - Chronic obstructive pulmonary disease, unspecified (4) Smoker: Status: Acute #Acute respiratory failure with hypoxia due to Large right pleural effusion & A.fib with RVR #CXR 10/25/20 Large right pleural effusion. #RML mass measuring 3.8 x 2.9 cm encompassing branches of RML pulmonary artery on CT and PET scan-suspicious for malignancy #Mediastinal and hilar adenopathy #Chronic smoker 0.5 PPD by 50 years-quit 2 weeks ago-encounter for smoking cessation counseling #COPD emphysema - CT chest 09/25/2020: [facility]: RML mass measuring up to 3.8 x 2.9 cm, mass encompasses but does not occlude branches of right middle lobe pulmonary artery. Emphysematous changes are noted. Thyroid gland appears enlarged. Prominent lymph node is seen in the subcarinal region measuring 2.2 cm. Fullness is seen in the right hilum which also could be related to adenopathy. Moderate right pleural effusion. - PET CT 10/05/2020: Right upper lobe mass) to the mediastinum, representing malignancy. Right pleural malignant implants with pleural effusion. Right hilar and mediastinal FDG positive nodes representing local metastatic disease -Based on PET/CT looks like it is malignant and metastatic to pleural and diaphragmatic surface -10/11/20: Right thoracentesis 1250 cc - Lymphocyte predominant exudative effusion; cytology reported negative. -10/26/2020: Right thoracentesis 1900 cc hemorrhagic fluid-lymphocyte predominant exudative effusion. Cytology pending -10/29/2020: EBUS guided FNA C of station 4R-preliminary pathology reported as atypical clusters of cells; final pathology pending -On cardizem 240 XR daily for A.fib RVR; can resume anticoagulation 6 hours after EBUS today -Duoneb nebulization q 4h r brenda & budesonide 0.5 twice daily inhalation -Covered with Rocephin and Azithromycin -Prednisone 40 mg daily -Ordered PFTs/6-minute walk test during clinic visit - yet to get it as outpatient -Recommended to continue 4 L nasal cannula -Patient quit smoking 4 weeks ago and encouraged to maintain abstinence -Elevated BNP, repeat echo possibly normal LVEF. Study could not evaluate wall motion abnormalities due to tachycardia. At least moderate tricuspid valve regurgitation and pulmonary hypertension with estimated pulmonary artery peak systolic pressure 53. Technically difficult study. -If by tomorrow, pathology can comment on type of cancer -please involve oncology to evaluate for starting inpatient chemotherapy. My main concern is patient lives alone and does not have good functional capacity due to significant COPD and possible malignancy, requiring 4 L nasal cannula and hence I fear the patient might lose follow-up as outpatient. During discharge, very important to involve social sciences department chair to be in touch with the patient to follow-up as outpatient for his pulmonary and oncology clinics. Recommendations conveyed to hospitalist and RN covering the patient. Medical condition and assessment plan explained to patient and he verbalized understanding and agreed with the plan Attestations Medical Necessity Statement*: Acute respiratory failure with hypoxia due to A. fib with RVR, COPD, underlying probable lung cancer. Time Spent in Patient Care: Greater than 35 minutes (>than 50% of time spent in counselling and/or direct pt care on unit). Critical Care Time: Critical Care Time (min): 30 Coding Level of Care Code Established Pt Acute Chocolate Packer for Chg Fwd Patient Type Established History Comprehensive Exam Comprehensive Medical Decision Making High Complexity Diagnoses Mediastinal adenopathy R59.0 Mass of right lung R91.8 COPD (chronic obstructive pulmonary disease) J44.9 COPD type: unspecified COPD Smoker F17.200 Time Spent (min) 30
--- NOTE | 2020-10-29 12:03 | P.PN_ITS ---
Subjective Subjective: Interval history: Darrius reports he is doing okay after the bronchoscopy. He denies any chest pain or significant shortness of breath that has worsened. Medications: Reviewed: Yes Vitals/I&O/Wt Last Vital Signs Temp 97.6 F 10/29/20 09:48 Pulse 71 10/29/20 11:15 Resp 17 10/29/20 11:09 BP 100/63 10/29/20 09:48 Pulse Ox 97 10/29/20 11:09 10/28/20 10/29/20 10/29/20 22:59 06:59 14:59 Intake Total 603.25 / 1689.00 100 / 1789.00 0 / 0 Output Total 425 / 625 250 / 250 Balance 178.25 / 1064.00 100 / 1164.00 -250 / -250 Physical Exam Narrative: EXAM NARRATIVE: General exam no apparent distress Neck is supple no lymphadenopathy or thyromegaly Cardiovascular irregular, irregular rhythm without murmur Lungs a few faint wheezes are noted. No crackles. Abdomen is soft nontender with positive bowel sounds Extremities no cyanosis clubbing or edema Data : 10/29/20 04:30 10/29/20 04:30 Micro: Microbiology 10/26/20 15:45 Gram Stain - Final Pleural Fluid Anaerobic Culture - Preliminary Body Fluid Culture - Preliminary A&P Assessment and plan (1) Acute respiratory failure with hypoxia: Now down to 2 L of oxygen. This is secondary to pleural effusion, COPD, lung mass. Bronchoscopy occurred today with biopsy. Status: Acute (2) Mass of middle lobe of right lung: On Rocephin and azithromycin for likely postobstructive pneumonia Status: Acute (3) Recurrent right pleural effusion: Thoracentesis performed August 26 Status: Acute (4) New onset atrial fibrillation: Transition to long-acting Cardizem Initiate Eliquis tonight 5 mg twice daily. Risks and benefits discussed with patient Status: Acute (5) CKD (chronic kidney disease): Stable Status: Acute (6) COPD (chronic obstructive pulmonary disease): No evidence of exacerbation currently Discontinue prednisone at this time Status: Acute Qualifiers: COPD type: unspecified COPD Qualified Code(s): J44.9 - Chronic obstructive pulmonary disease, unspecified Additional A&P Information Eliquis will suffice for DVT prophylaxis Attestations Medical Necessity Statement*: Needs continued hospital stay for IV antibiotics for postobstructive pneumonia, close monitoring following bronchoscopy. Coding Level of Care Code Acute Cook Helper Preserves for Chg Fwd Diagnoses Acute respiratory failure with hypoxia J96.01 Mass of middle lobe of right lung R91.8 Recurrent right pleural effusion J90 New onset atrial fibrillation I48.91 CKD (chronic kidney disease) N18.9 COPD (chronic obstructive pulmonary disease) J44.9 COPD type: unspecified COPD
--- NOTE | 2020-10-29 17:28 | PC.RESP ---
Nurse asked Therapist to check on patient. Therapist went in to asses patient. patient stated that he was breathing worse than morning time. Patient asked if therapist could turn up 02. Therapist stated that it wasn't necessary and offered to place patient on the bipap! Patient stated that he wanted to finish his meal and milk and to come back at a later time. Therapist agreed and patient was encouraged to call if breathing got any worse.
[2020-10-29] MEDS: pantoprazole DR 40 mg Tablet PO (18:04)
[2020-10-29] MEDS: atorvastatin 40 mg Tablet 20 MG PO (18:04)
[2020-10-29] MEDS: tamsulosin 0.4 mg Capsule PO (18:04)
[2020-10-29] MEDS: budesonide 0.5 mg/2 mL Neb INHALATION (19:51)
[2020-10-29] MEDS: apixaban 5 mg Tablet PO (20:39)
[2020-10-29] MEDS: metoprolol tartrate 50 mg Tablet PO (20:39)
--- NOTE | 2020-10-29 20:42 | PC.NURSE ---
Received report from ESTELLE Dumas. Patient resting in bed with eyes closed. Administered medications as ordered. Discussed new medication Eliquis as to use and side effects. Patient verbalized understanding. Patient reports wanting to wait on bipap for now. May try later.
--- NOTE | 2020-10-29 22:00 | PC.NURSE ---
Patient reports feeling like he cannot breathe . RT called and bipap placed. RT in room at this time.
[2020-10-30] VITALS (24 sets, daily range): BP systolic 110–130; BP diastolic 54–73; PULSE 67–97; RESP 17–29; TEMP 36.4–36.9; O2SAT 92–97
[2020-10-30] MEDS: ipratropium-albuterol 3 mL Neb INHALATION ×5 (03:00→19:56)
[2020-10-30 05:35] LABS: Anion Gap 11.8 (5-19); Blood Urea Nitrogen 42 mg/dL (8-23); Calcium 8.1 mg/dL (8.5-10.5); Carbon Dioxide 26 mmol/L (22-29); Chloride 106 mmol/L (98-107); Glucose 112 mg/dL (65-115); Osmolality Calculated 299 mOsm/kg (285-295); Potassium 4.8 mmol/L (3.5-5.1); Sodium 139 mmol/L (136-145)
[2020-10-30 05:43] LABS: Basophils % 0.1 %; Eosinophils % 0.1 %; Hematocrit 32.6 % (42.0-52.0); Hemoglobin 10.7 g/dL (11.7-16.6); Lymphocytes # 1.3 10^3/uL (0.8-4.8); Lymphocytes % 7.9 %; Mean Corpuscular HGB Conc 32.8 g/dL (30.0-36.0); Mean Corpuscular Hemoglobin 29.5 pg (28.0-34.0); Mean Corpuscular Volume 89.8 fL (80-94); Mean Platelet Volume 9.8 fL (7.4-10.4); Monocytes % 12.2 %; Neutrophils # 12.68 10^3/uL (1.8-7.7); Neutrophils % 78.7 %; Nucleated Red Blood Cells % 0 %; Platelet Count 289 10^3/cmm (130-400); Red Blood Count 3.63 10^6/uL (4.1-5.3); Red Cell Distribution Width 13.9 % (12.1-15.1); White Blood Count 16.1 10^3/uL (4.0-10.0)
[2020-10-30] MEDS: cholecalciferol (vitamin D3) 1,000 unit Tablet 1000 UNIT PO (06:17)
--- NOTE | 2020-10-30 07:20 | P.CONIM_ITS ---
Providers/Reason For Consult Consulting Physican/Specialty*: Medical oncology. Reason for Consult*: Lung cancer. Attending Physician: Oniel Neri MD Primary Care Provider: Wesley Wilkins DO History of Present Illness History of Present Illness Darrius Adan is a 70 year old man with suspected lung cancer. His prior medical illnesses include hypertension, hyperlipidemia, and COPD. In September 2020 he had presented to the [facility] emergency room with shortness of breath. His CT pulmonary angiogram was negative for pulmonary emboli, but it did demonstrate a right middle lobe mass measuring 3.8 x 2.9 cm along with subcarinal mass measuring 2.2 cm, fullness in the right hilum, and moderate right pleural effusion. Further evaluation with PET/CT on 10/05/2020 reported FDG avid right upper lobe mass, right pleural implants, and right hilar and mediastinal lymph nodes. He had been seen by Dr. Brown as an outpatient. The pleural fluid cytology on his initial thoracentesis was nondiagnostic. He has now been admitted to the hospital with atrial fibrillation/RVR and associated congestive heart failure. He had further evaluation with bronchoscopy/EBUS yesterday. There was no endobronchial lesion identified. FNA biopsy from station 4R lymph nodes shows suspicious clusters of cells, but the final pathology report is still pending. Patient complains he is very weak. He is short of breath with any activity, and he has very little activity tolerance. ECOG score is 3. Appetite has been okay. His weight is stable. He has not had fever or night sweats. He has cough, has not been able to bring anything up with it. He has not had chest pain or hemoptysis. Had one episode of vomiting yesterday. He has no other GI or complaints. He has no significant joint or bone pain. He has just occasional headaches and occasional dizziness. He has no focal neurologic symptoms. Review of Systems Const: Reports: fatigue; Denies: fever(s), night sweats or other (no hot flashes) Eyes: Denies: change in vision ENMT: Denies: throat pain, odynophagia, hoarseness, oral sores, change in hearing or tinnitus Card: Denies: chest pain, palpitations or swelling of feet/ankles Resp: Reports: dyspnea, non-productive cough and wheezing; Denies: pain on inspiration or hemoptysis GI: Denies: abdominal pain, dysphagia, heartburn, diarrhea or constipation : Denies: difficulty urinating, dysuria, urinary frequency, urinary urgency, urinary hesitancy, urinary incontinence or hematuria Musc: Denies: neck pain, back pain, joint pain, joint stiffness or muscle cramps Skin/Breast: Denies: rash or new lesions Neuro: Reports: headache(s) and dizziness; Denies: numbness in extremities or sensory changes Psych: Denies: anxiety or depression Iván/Lymph: Reports: easy bruising; Denies: easy bleeding Meds/Allergies Home Medications and Allergies Home Medications Medication Instructions Recorded Confirmed Last Taken Type albuterol sulfate 90 mcg/actuation 2 puff INHALATION Q6H PRN 10/10/20 10/25/20 10/11/20 History aerosol inhaler amlodipine 5 mg tablet 5 mg PO BID@,10/10/20 10/25/20 10/25/20 History atorvastatin 40 mg tablet 20 mg PO DAILY@ tab 10/10/20 10/25/20 10/24/20 History budesonide-formoterol HFA 160 2 puff INHALATION BID 10/10/20 10/25/20 10/11/20 History mcg-4.5 mcg/actuation aerosol inhaler lisinopril 40 mg tablet 40 mg PO DAILY@10/10/20 10/25/20 10/25/20 History metoprolol tartrate 100 mg tablet 50 mg PO Q12H tab 10/10/20 10/25/20 10/25/20 07:00 History 50 MG pantoprazole 40 mg tablet,delayed 40 mg PO DAILY@10/10/20 10/25/20 10/24/20 History release tamsulosin 0.4 mg capsule 0.4 mg PO DAILY@10/10/20 10/25/20 10/24/20 History tiotropium bromide 2.5 2 inh INHALATION DAILY@10/10/20 10/25/20 10/25/20 History mcg/actuation mist for inhalation aspirin [Aspir-Low] 81 mg PO DAILY@10/11/20 10/25/20 10/25/20 History cholecalciferol (vitamin D3) 25 mcg PO DAILY@10/11/20 10/25/20 10/25/20 History [Vitamin D3] acetaminophen [Tylenol Extra 1,000 mg PO PRN 10/25/20 10/25/20 Unknown History Strength] albuterol sulfate 2.5 mg INHALATION Q6H PRN 10/25/20 10/25/20 10/25/20 02:00 History Allergies Allergy/AdvReac Type Severity Reaction Status Date / Time No Known Allergies Allergy Verified 10/25/20 12:09 Current Medications Current Medications Generic Name Dose Route Start Last Admin Trade Name Freq PRN Reason Stop Dose Admin Albuterol/Ipratropium 3 ml 10/27/20 11:15 10/30/20 03:00 Ipratropium-Albuterol 3 Ml Neb INHALATION 3 ml Q4H.RESPIRATORY SHAYNE Administration Apixaban 5 mg 10/29/20 21:00 10/29/20 20:39 Apixaban 5 Mg Tablet PO 5 mg BID@0900,2100 SHAYNE Administration Atorvastatin Calcium 20 mg 10/25/20 19:00 10/29/20 18:04 Atorvastatin 40 Mg Tablet PO 20 mg DAILY@19 SHAYNE Administration Budesonide 0.5 mg 10/29/20 20:00 10/29/20 19:51 Budesonide 0.5 Mg/2 Ml Neb INHALATION 0.5 mg BID.RESPIRATORY SHAYNE Administration Diltiazem HCl 240 mg 10/29/20 12:00 10/29/20 11:10 Diltiazem Er (24hr) 240 Mg Capsule PO 240 mg DAILY SHAYNE Administration Ceftriaxone Sodium 1,000 mg/ 50 mls @ 100 mls/hr 10/26/20 09:00 10/28/20 08:35 Sodium Chloride IV Infused Q24H SHAYNE Infusion Protocol Azithromycin 500 mg/ Sodium 250 mls @ 250 mls/hr 10/26/20 09:00 10/28/20 10:47 Chloride IV Infused Q24H SHAYNE Infusion Protocol Metoprolol Tartrate 50 mg 10/28/20 21:00 10/29/20 20:39 Metoprolol Tartrate 50 Mg Tablet PO 50 mg BID@0900,2100 SHAYNE Administration Pantoprazole Sodium 40 mg 10/25/20 19:00 10/29/20 18:[address] 40 Mg Tablet PO 40 mg DAILY@19 SHAYNE Administration Tamsulosin HCl 0.4 mg 10/25/20 19:00 10/29/20 18:04 Tamsulosin 0.4 Mg Capsule PO 0.4 mg DAILY@19 SHAYNE Administration Vitamin D 1,000 unit 10/26/20 07:00 10/30/20 06:17 Cholecalciferol (Vitamin D3) 1,000 Unit Tablet PO 1,000 unit DAILY@07 SHAYNE Administration PFSH Acute PFSH: Medical History COPD (chronic obstructive pulmonary disease) History of hyperlipidemia History of hypertension Surgical History History of cataract surgery Family History Father Dementia Mother CAD (coronary artery disease) Diabetes Social History Smoking and tobacco status: former smoker Quit status (tobacco): has quit using tobacco Year quit tobacco: Aug 2020 [id number] Second hand smoke exposure: No Smoking risk assessment/counseling performed?: Yes Alcohol intake: former Caregiver/support person: No Lives independently: Yes Household members: none Marital status: / service: Yes Current occupational status: employed 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 HENMT: MOUTH: Normal oral and palatal mucosa present THROAT: posterior oropharynx normal Eye: COMMON NORMALS: conjunctivae normal and no scleral icterus CONJUNCTIVA: Yes conjunctivae normal Lymph: LYMPHATIC: no lymphadenopathy noted (No cervical, clavicular, axillary, or inguinal lymphadenopathy) Resp: OTHER: Lungs sound tight on both inspiration and expiration and there is diminished air movement bilaterally. Cardio: COMMON NORMALS: regular rate, regular rhythm, No gallops present (Cardio), No murmurs present (Cardio) and No rub (Cardio) RATE: regular rate RHYTHM: regular rhythm GI: COMMON NORMALS: Soft to palpation, non-tender, No hepatosplenomegaly present and no masses PALPATION: Yes Soft to palpation and Yes No hepatosplenomegaly present Extremity: NARRATIVE EXTREMITY EXAM: No edema. Pedal pulses are palpable bilaterally. Neuro: COMMON NORMALS: no focal motor deficits and no sensory deficits noted Skin: NARRATIVE SKIN EXAM: No evidence of skin eruption. No suspicious skin lesions noted. Data Micro: Micro: Microbiology 10/29/20 08:00 Gram Stain - Final Lung Right Upper Lobe 10/26/20 15:45 Gram Stain - Final Pleural Fluid Anaerobic Culture - Preliminary Body Fluid Culture - Preliminary A&P Assessment and plan (1) Pleural effusion, right: Status: Acute (2) COPD (chronic obstructive pulmonary disease): Status: Acute Qualifiers: COPD type: unspecified COPD Qualified Code(s): J44.9 - Chronic obstructive pulmonary disease, unspecified (3) Atrial fibrillation with rapid ventricular response: Status: Acute (4) CKD (chronic kidney disease): Status: Acute (5) History of hypertension: Status: Acute (6) Acute respiratory failure with hypoxia: Status: Acute (7) Malignant neoplasm of middle lobe, bronchus or lung: Patient presents with PET/CT evidence of FDG avid right middle lobe mass, right hilar and mediastinal lymphadenopathy, and right pleural implants. There is associated right pleural effusion. Yesterday he underwent EBUS with FNA biopsy of station 4R lymph node. Pathology is pending, but the preliminary indication does indicate clusters of suspicious cells. Patient advised that the probability is very high that he does have lung cancer and that it is inoperable. With associated pleural implants/pleural effusion the benefit with radiation is limited, though in his situation we may want to consider it for palliation. The usual treatment, though, would be systemic therapy with chemotherapy and/or immunotherapy, depending on the final pathology results. At this point will wait for the report from the pathologist, and in the meantime I will review the CT and PET/CT images with the radiation oncologist. Given his overall poor condition, the prognosis appears poor. Status: Acute Coding Level of Care Code Acute Activities Therapist for Chg Fwd Exam Detailed Diagnoses Pleural effusion, right J90 COPD (chronic obstructive pulmonary disease) J44.9 COPD type: unspecified COPD Atrial fibrillation with rapid ventricular response I48.91 CKD (chronic kidney disease) N18.9 History of hypertension Z86.79 Acute respiratory failure with hypoxia J96.01 Malignant neoplasm of middle lobe, bronchus or lung C34.2
[2020-10-30] MEDS: budesonide 0.5 mg/2 mL Neb INHALATION ×2 (08:06→19:56)
[2020-10-30] MEDS: cefTRIAXone 1,000 MG in sodium chloride 0.9% (plus) 50 ML 100 MG IV (08:29)
[2020-10-30] MEDS: apixaban 5 mg Tablet PO (08:37)
[2020-10-30] MEDS: metoprolol tartrate 50 mg Tablet PO ×2 (08:37→20:11)
[2020-10-30] MEDS: dilTIAZem ER (24HR) 240 mg Capsule PO (08:37)
[2020-10-30] MEDS: azithromycin 500 MG in sodium chloride 0.9% 250 ML 250 MG IV (08:57)
--- NOTE | 2020-10-30 09:33 | PC.CHAP ---
Pastoral Care Encounter/Spiritual Assessment Type of Contact [] Declined patient relations representative visit [] Patient/Family/Request visit [] Outpatient visit [] Follow-up visit [] Physician referral [] Code/Alert [x] Routine visit [] Staff referral [] Actively dying [] Patient sleeping [] Family support [] [] Out of room [] Palliative care [] [x] Receiving care in room [] Pre-surgical visit [] Trauma [] Long length of stay [] ICU visit [] Other: Relational/Emotional Strength [] Patient feels connected with others/family/visitors/staff [] Distress [] Loneliness/isolation [] Abandonment Spirituality of Patient [] Person of Didi [] Attends Zoroastrianism of their Didi [] Believes in Prayer [] Reads Bible or Jew materials [] There are Spiritual issues to be addressed Veterinary Receptionist Interventions [x] Prayer [] Active listening [] Non-anxious presence [] Spiritual/emotional support [] Crisis/trauma care [] Spiritual counseling [] Bereavement support [] Provided bereavement packet [] Provided Bible/devotional materials [] Provided toy/stuffed animal, coloring book to patient or family member [] Provided Communion [] Anointing/Henry [] Salvation [x] Completed spiritual assessment [] Other: Impact on Illness or Injury [] Angry [] Fearful [] Anxious [] Often cries [] Exhaustion [] Unable to work [] Unable to attend adventism [] Unable to walk/stand [] Unable to read [] Unable to drive [] Unable to eat/drink [] Unable to sleep [] Unable to be with family [] Patient intubated [] Other: Summary Time spent with patient
--- NOTE | 2020-10-30 10:15 | PC.NURSE ---
New IV started in right forearm, patient tolerated well. Discontinued IV to right wrist and left AC due to increased pain and leaking at IV site.
--- NOTE | 2020-10-30 10:32 | DCPLANNER ---
IMM completed on 10/30/20 @ [id number]. Copy of rights given to pt.
--- NOTE | 2020-10-30 10:35 | PM.PN ---
Subjective Subjective: Interval history: Darrius reports he feels pretty down. He just had a conversation with the oncologist. He is not really able to cough up any sputum. Medications: Reviewed: Yes Vitals/I&O/Wt Last Vital Signs Temp 97.6 F 10/30/20 08:00 Pulse 81 10/30/20 08:19 Resp 22 H 10/30/20 08:09 BP 129/59 10/30/20 08:00 Pulse Ox 94 10/30/20 08:16 10/29/20 10/30/20 10/30/20 22:59 06:59 14:59 Intake Total 740 / 980 928 / 1908 300 / 300 Output Total 600 / 1050 440 / 1490 125 / 125 Balance 140 / -70 488 / 418 175 / 175 Physical Exam Narrative: EXAM NARRATIVE: General exam no apparent distress Neck is supple no lymphadenopathy or thyromegaly Cardiovascular irregular, irregular rhythm without murmur Lungs a few bibasilar wheezes are noted Abdomen is soft nontender with positive bowel sounds Extremities no cyanosis clubbing or edema Data : 10/30/20 04:43 10/30/20 04:43 Micro: Microbiology 10/26/20 15:45 Gram Stain - Final Pleural Fluid Anaerobic Culture - Preliminary Body Fluid Culture - Final 10/29/20 08:00 Gram Stain - Final Lung Right Upper Lobe A&P Assessment and plan (1) Acute respiratory failure with hypoxia: Now down to 2 L of oxygen. This is secondary to pleural effusion, COPD, lung mass. Bronchoscopy occurred September 28 with biopsy. Preliminary reading from my understanding is poorly differentiated non-small cell cancer, stage IV On Rocephin and azithromycin for concerns of postobstructive pneumonia. Oxygen requirement decreased and white blood cell count decreasing. Status: Acute (2) Mass of middle lobe of right lung: Preliminary biopsy results as above. Oncology consultation has been obtained. Will likely need port, and Pleurx catheter. Pulmonary is clarifying today whether he has enough recurrent pleural effusion to warrant placing a Pleurx catheter currently. As he had transitioned to Eliquis with expected sedation of discharging home, it is likely any surgical procedure will need to be delayed until 11/01. Status: Acute (3) Recurrent right pleural effusion: Thoracentesis performed August 26 Status: Acute (4) New onset atrial fibrillation: Transitioned to long-acting Cardizem Transitioned back to Eliquis as surgical procedure may be needed Status: Acute (5) CKD (chronic kidney disease): Stable Status: Acute (6) COPD (chronic obstructive pulmonary disease): No evidence of exacerbation currently Discontinue prednisone at this time Status: Acute Qualifiers: COPD type: unspecified COPD Qualified Code(s): J44.9 - Chronic obstructive pulmonary disease, unspecified Additional A&P Information Lovenox will suffice for DVT prophylaxis Attestations Medical Necessity Statement*: Needs continued hospitalization for IV antibiotics secondary to pneumonia Coding Level of Care Code Acute Public Works Manager for [facility] Fwd Diagnoses Acute respiratory failure with hypoxia J96.01 Mass of middle lobe of right lung R91.8 Recurrent right pleural effusion J90 New onset atrial fibrillation I48.91 CKD (chronic kidney disease) N18.9 COPD (chronic obstructive pulmonary disease) J44.9 COPD type: unspecified COPD
--- NOTE | 2020-10-30 15:48 | PC.OT ---
Patient pleasant but states he is not breathing adequately enough to participate. Offered exercises in bed. O2 92% however patient's breathing is quite labored.
--- NOTE | 2020-10-30 16:07 | P.PN_ITS ---
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 -Requested oncology Dr. Miller to see the patient Medications: Reviewed: Yes Vitals/I&O/Wt Last Vital Signs Temp 97.6 F 10/30/20 08:00 Pulse 80 10/30/20 15:36 Resp 25 H 10/30/20 15:36 BP 128/66 10/30/20 15:36 Pulse Ox 94 10/30/20 15:36 10/30/20 10/30/20 10/30/20 06:59 14:59 22:59 Intake Total 928 / 1908 540 / 540 Output Total 440 / 1490 500 / 500 200 / 700 Balance 488 / 418 40 / 40 -200 / -160 Physical Exam Narrative: EXAM NARRATIVE: General: alert, in moderate respiratory distress HEENT: conj clear, EOMI, PERRL, mmm, Neck: supple, no meningismus Heme: no cervical LAP Pulmonary: Reduced breath sounds on right lower lung Cardiovascular: rrr, nl s1s2, no mrg Abdomen: soft, nt, nd, no r/g, bs+ Extremities: pulses +, no edema, no c/c : no CVA tenderness Skin: intact, no rash MSK: no back or neck pain Neurologic: grossly intact Data : 10/30/20 04:43 10/30/20 04:43 Micro: Microbiology 10/29/20 08:00 Gram Stain - Final Lung Right Upper Lobe Bronchoalveolar Lavage Culture - Preliminary 10/30/20 09:22 Gram Stain - Final Sputum - Expectorated Sputum 10/26/20 15:45 Gram Stain - Final Pleural Fluid Anaerobic Culture - Preliminary Body Fluid Culture - Final A&P Assessment and plan (1) Mediastinal adenopathy: Status: Acute (2) Mass of right lung: Status: Acute (3) COPD (chronic obstructive pulmonary disease): Status: Acute Qualifiers: COPD type: unspecified COPD Qualified Code(s): J44.9 - Chronic obstructive pulmonary disease, unspecified (4) Smoker: Status: Acute #Acute respiratory failure with hypoxia due to Large right pleural effusio n & A.fib with RVR #CXR 10/25/20 Large right pleural effusion. #RML mass measuring 3.8 x 2.9 cm encompassing branches of RML pulmonary artery on CT and PET scan- #Mediastinal and hilar adenopathy-EBUSpathology reported metastatic non-small cell carcinoma consistent with adenocarcinoma #Chronic smoker 0.5 PPD by 50 years-quit 2 weeks ago-encounter for smoking cessation counseling #COPD emphysema - CT chest 09/25/2020: [facility]: RML mass measuring up to 3.8 x 2.9 cm, mass encompasses but does not occlude branches of right middle lobe pulmonary artery. Emphysematous changes are noted. Thyroid gland appears enlarged. Prominent lymph node is seen in the subcarinal region measuring 2.2 cm. Fullness is seen in the right hilum which also could be related to adenopathy. Moderate right pl eural effusion. - PET CT 10/05/2020: Right upper lobe mass) to the mediastinum, representing malignancy. Right pleural malignant implants with pleural effusion. Right hilar and mediastinal FDG positive nodes representing local metastatic disease -Based on PET/CT looks like it is malignant and metastatic to pleural and diaphragmatic surface -10/11/20: Right thoracentesis 1250 cc - Lymphocyte predominant exudative effusion; cytology reported negative. -10/26/2020: Right thoracentesis 1900 cc hemorrhagic fluid-lymphocyte predominant exudative effusion. Histopathology reported metastatic non-small cell carcinoma consistent with adenocarcinoma -10/29/2020: EBUS guided FNA C of station 4R-preliminary pathology reported as atypical clusters of cells; pathology reported metastatic non-small cell carcinoma consistent with adenocarcinoma -Bedside ultrasound today showed recurrence of large right pleural effusion -Patient Eliquis was held today morning and is scheduled for Port-A-Cath placement and [place] drain on 11/01/2020 -On cardizem 240 XR daily for A.fib RVR; -Duoneb nebulization q 4h r brenda & budesonide 0.5 twice daily inhalation -We will add Atrovent every 4 hours nebulization as well -Covered with Rocephin and Azithromycin -Prednisone 40 mg daily -Ordered PFTs/6-minute walk test during clinic visit - yet to get it as outpatient -Recommended to continue 4 L nasal cannula -Patient quit smoking 4 weeks ago and encouraged to maintain abstinence -Elevated BNP, repeat echo possibly normal LVEF. Study could not evaluate wall motion abnormalities due to tachycardia. At least moderate tricuspid valve regurgitation and pulmonary hypertension with estimated pulmonary artery peak systolic pressure 53. Technically difficult study. -Pathology from for our station and pleural fluid reported in metastatic non- small cell carcinoma consistent with adenocarcinoma. Dr. Miller to decide on starting chemotherapy. As of now patient is scheduled for Port-A-Cath in [place] drain placement on 11/01/2020 held Eliquis after today morning dose. I updated patient's daughter about the clinical condition and the need for outpatient follow-up to oncology and pulmonary clinics. She verbalized understanding and agreed to escort the patient. Recommendations conveyed to hospitalist and RN covering the patient. Medical condition and assessment plan explained to patient and he verbalized understanding and agreed with the plan Attestations Medical Necessity Statement*: Acute respiratory distress secondary to recurrence large right pleural effusion likely due to metastatic nonsmall cell cancer consistent with adenocarcinoma. A. fib RVR-rate controlled with Cardizem and currently held anticoagulation for possible Port-A-Cath and drain placement on 11/01/2020 Time Spent in Patient Care: (>than 50% of time spent in counselling and/or direct pt care on unit) . Critical Care Time: Critical Care Time (min): 45 Coding Level of Care Code Acute Pv Installer Tech for [facility] Fwd Diagnoses Mediastinal adenopathy R59.0 Mass of right lung R91.8 COPD (chronic obstructive pulmonary disease) J44.9 COPD type: unspecified COPD Smoker F17.200
[2020-10-30] MEDS: tamsulosin 0.4 mg Capsule PO (18:07)
[2020-10-30] MEDS: atorvastatin 40 mg Tablet 20 MG PO (18:07)
[2020-10-30] MEDS: pantoprazole DR 40 mg Tablet PO (18:08)
--- NOTE | 2020-10-30 19:45 | PC.NURSE ---
Received report from ESTELLE Redman. Patient resting in bed. Patient had requested something to help with sleep earlier today. Spoke with Dr Neri and received telephone order for Ambien 10mg PO at bedtime PRN. RBVO. Instructed patient on the use of Ambien and expectations. Doctor requesting patient to wear bipap if he takes the Ambien. Patient verbalized understanding and is agreeable at this time.
[2020-10-30] MEDS: enoxaparin 80 mg/0.8 mL Syringe 70 MG SUBCUT (20:11)
--- NOTE | 2020-10-30 22:51 | PC.NURSE ---
Patient was only able to wear bipap for short time after Ambien was administered. Patient asked to remove bipap at ~2210. Patient resting well. Does not appear to be in any distress. Even non-labored respirations observed.
[2020-10-31] VITALS (22 sets, daily range): BP systolic 102–124; BP diastolic 55–70; PULSE 75–102; RESP 18–36; TEMP 36.3–37.4; O2SAT 92–99
--- NOTE | 2020-10-31 | SC_ITS ---
WS: [id number] C-ARM RADIOGRAPHS CHEST; 1 IMAGES HISTORY: PAUL DRAIN COMPARISON: None available. Intraoperative imaging during Paul drain placement. SC/C-arm FL for Drainage [id number] IMPRESSION: Intraoperative imaging during [place] drain placement.
--- NOTE | 2020-10-31 | SCC_ITS ---
Procedure Done: 1. Right tunneled pleural drain placement 2. Left subclavian Port-A-Cath placement 33.1 seconds of fluoroscopic guidance, for a cumulative dose of 3.36 mGy, was provided to Dr. Alicea by the radiology department. C-arm images of the chest were saved for the patient's permanent record. [facility]
[2020-10-31] MEDS: ipratropium-albuterol 3 mL Neb INHALATION ×5 (00:28→19:47)
--- NOTE | 2020-10-31 01:50 | PC.NURSE ---
Patient using bipap at present. Tolerating okay. Patient has not slept much. Easily awakens with any stimuli.
--- NOTE | 2020-10-31 02:42 | PC.NURSE ---
Patient removed bipap. Replaced NC at 2L. Patient has not been able to sleep much this evening. Reports unable to tolerate bipap for long at one time.
--- NOTE | 2020-10-31 03:53 | PC.NURSE ---
Patient confused this morning. Does not remember where he is at. Telemetry removed. Redirected patient. Patient has not slept much in a few days. Patient was given Ambien at bedtime. Slept off and on. Patient did say when I did get to sleep my neighbor woke me up. Patient in next bed up all night listening to music and comedy on his phone. Discussed with patient to try to move to private room as soon as one become available. Patient expressed understanding and thanks. Patient not using bipap presently. Is on 2L NC with SpO2 of 93%.
[2020-10-31 05:07] LABS: Basophils % 0.2 %; Eosinophils # 0.1 10^3/uL (0.0-0.8); Eosinophils % 0.6 %; Hematocrit 36.1 % (42.0-52.0); Hemoglobin 11.7 g/dL (11.7-16.6); Lymphocytes # 1.2 10^3/uL (0.8-4.8); Lymphocytes % 7.7 %; Mean Corpuscular HGB Conc 32.4 g/dL (30.0-36.0); Mean Corpuscular Hemoglobin 29.5 pg (28.0-34.0); Mean Corpuscular Volume 91.2 fL (80-94); Mean Platelet Volume 9.6 fL (7.4-10.4); Monocytes # 2.1 10^3/uL (0.2-0.9); Monocytes % 13.6 %; Neutrophils # 12.08 10^3/uL (1.8-7.7); Nucleated Red Blood Cells % 0 %; Platelet Count 300 10^3/cmm (130-400); Red Blood Count 3.96 10^6/uL (4.1-5.3); Red Cell Distribution Width 13.8 % (12.1-15.1); White Blood Count 15.7 10^3/uL (4.0-10.0)
[2020-10-31 05:24] LABS: Alanine Aminotransferase 20 U/L (0-41); Alkaline Phosphatase 82 IU/L (40-130); Anion Gap 13.1 (5-19); Aspartate Amino Transferase 13 U/L (0-40); Blood Urea Nitrogen 36 mg/dL (8-23); Calcium 8.7 mg/dL (8.5-10.5); Carbon Dioxide 26 mmol/L (22-29); Chloride 107 mmol/L (98-107); Globulin 2.5 g/dL (1.3-4.6); Glucose 107 mg/dL (65-115); Osmolality Calculated 301 mOsm/kg (285-295); Potassium 5.1 mmol/L (3.5-5.1); Sodium 141 mmol/L (136-145); Total Bilirubin 0.3 mg/dL (0.15-1.2); Total Protein 5.5 g/dL (6.6-8.7)
--- NOTE | 2020-10-31 05:44 | P.CONIM_ITS ---
Providers/Reason For Consult Consulting Physican/Specialty*: Dr. Alicea/cardiothoracic surgery Reason for Consult*: Malignant right pleural effusion Requesting Physcian: Dr. Neri Attending Physician: Oniel Neri MD Primary Care Provider: Wesley Wilkins DO History of Present Illness History of Present Illness Darrius Adan is a 70 year old male whom I have been consulted on for placement of a Port-A-Cath as well as a tunneled right pleural catheter for a malignant right pleural effusion with non-small cell metastatic carcinoma. Patient been previously evaluated by Dr. Brown from our pulmonary medicine service and is also cared for by Dr. Miller from oncology. Bronchoscopy and EBUS was performed on October 29 with pathology consistent with non-small cell carcinoma. He was hospitalized on October 25 with increasing dyspnea. Mr. Adan has a long history of tobacco use, recently quit, and recently hospitalized at [facility] for pneumonia and a right middle lobe lung mass. He was transferred to [facility] for increasing dyspnea. He has substantial hilar and mediastinal adenopathy what appears to be right pleural metastatic implants. At presentation to the emergency department upon transfer he was in atrial fibrillation initiated on Cardizem for rate control. A previous right thoracentesis by Dr. Brown on October 11 performed as an outpatient, returned 1900 cc of bloody effusion which has subsequently been determined to be malignant. Very restless night. He is clearly in moderate distress. O2 saturation 90% on 3 L nasal cannula. He was able to wear the BiPAP for very short periods of time overnight. Nurses report he did not rest. He resides in [place], [place]. His near his relative is his daughter who lives in [place]. Review of Systems Const: Reports: fatigue; Denies: fever(s), chills, change in weight or night sweats Eyes: Denies: change in vision or blurry vision ENMT: Denies: odynophagia or hoarseness Card: Denies: chest pain, palpitations, irregular heart rhythm or edema Resp: Reports: dyspnea, productive cough and wheezing; Denies: hemoptysis GI: Denies: abdominal pain, nausea, vomiting, dysphagia, heartburn or change in bowel habits : Denies: difficulty urinating, dysuria, urinary frequency, urinary urgency or urinary hesitancy Musc: Denies: extremity pain or extremity swelling Skin/Breast: Denies: rash Neuro: Denies: headache(s), numbness in extremities, weakness in extremities or sensory changes Psych: Denies: anxiety, depression or change in appetite Endo: Denies: polyuria, polydipsia or cold intolerance Iván/Lymph: Denies: easy bruising, easy bleeding, petechiae or enlarged lymph nodes Meds/Allergies Home Medications and Allergies Home Medications Medication Instructions Recorded Confirmed Last Taken Type albuterol sulfate 90 mcg/actuation 2 puff INHALATION Q6H PRN 10/10/20 10/25/20 10/11/20 History aerosol inhaler amlodipine 5 mg tablet 5 mg PO BID@,10/10/20 10/25/20 10/25/20 History atorvastatin 40 mg tablet 20 mg PO DAILY@ tab 10/10/20 10/25/20 10/24/20 History budesonide-formoterol HFA 160 2 puff INHALATION BID 10/10/20 10/25/20 10/11/20 History mcg-4.5 mcg/actuation aerosol inhaler lisinopril 40 mg tablet 40 mg PO DAILY@10/10/20 10/25/20 10/25/20 History metoprolol tartrate 100 mg tablet 50 mg PO Q12H tab 10/10/20 10/25/20 10/25/20 07:00 History 50 MG pantoprazole 40 mg tablet,delayed 40 mg PO DAILY@10/10/20 10/25/20 10/24/20 H istory release tamsulosin 0.4 mg capsule 0.4 mg PO DAILY@10/10/20 10/25/20 10/24/20 History tiotropium bromide 2.5 2 inh INHALATION DAILY@10/10/20 10/25/20 10/25/20 History mcg/actuation mist for inhalation aspirin [Aspir-Low] 81 mg PO DAILY@10/11/20 10/25/20 10/25/20 History cholecalciferol (vitamin D3) 25 mcg PO DAILY@10/11/20 10/25/20 10/25/20 History [Vitamin D3] acetaminophen [Tylenol Extra 1,000 mg PO PRN 10/25/20 10/25/20 Unknown History Strength] albuterol sulfate 2.5 mg INHALATION Q6H PRN 10/25/20 10/25/20 10/25/20 02:00 History Allergies Allergy/AdvReac Type Severity Reaction Status Date / Time No Known Allergies Allergy Verified 10/25/20 12:09 Current Medications Current Medications Generic Name Dose Route Start Last Admin Trade Name Freq PRN Reason Stop Dose Admin Albuterol/Ipratropium 3 ml 10/27/20 11:15 10/31/20 04:50 Ipratropium-Albuterol 3 Ml Neb INHALATION 3 ml Q4H.RESPIRATORY SHAYNE Administration Atorvastatin Calcium 20 mg 10/25/20 19:00 10/30/20 18:07 Atorvastatin 40 Mg Tablet PO 20 mg DAILY@19 SHAYNE Administration Budesonide 0.5 mg 10/29/20 20:00 10/30/20 19:56 Budesonide 0.5 Mg/2 Ml Neb INHALATION 0.5 mg BID.RESPIRATORY SHAYNE Administration Diltiazem HCl 240 mg 10/29/20 12:00 10/30/20 08:37 Diltiazem Er (24hr) 240 Mg Capsule PO 240 mg DAILY SHAYNE Administration Enoxaparin Sodium 70 mg 10/30/20 21:00 10/30/20 20:11 Enoxaparin 80 Mg/0.8 Ml Syringe SUBCUT 70 mg Q12H SHAYNE Administration Ceftriaxone Sodium 1,000 mg/ 50 mls @ 100 mls/hr 10/26/20 09:00 10/30/20 09:00 Sodium Chloride IV Infused Q24H SHAYNE Infusion Protocol Azithromycin 500 mg/ Sodium 250 mls @ 250 mls/hr 10/26/20 09:00 10/30/20 10:10 Chloride IV Infused Q24H SHAYNE Infusion Protocol Metoprolol Tartrate 50 mg 10/28/20 21:00 10/30/20 20:11 Metoprolol Tartrate 50 Mg Tablet PO 50 mg BID@0900,2100 SHAYNE Administration Pantoprazole Sodium 40 mg 10/25/20 19:00 10/30/20 18:[address] 40 Mg Tablet PO 40 mg DAILY@19 SHAYNE Administration Tamsulosin HCl 0.4 mg 10/25/20 19:00 10/30/20 18:07 Tamsulosin 0.4 Mg Capsule PO 0.4 mg DAILY@19 SHAYNE Administration Vitamin D 1,000 unit 10/26/20 07:00 10/30/20 06:17 Cholecalciferol (Vitamin D3) 1,000 Unit Tablet PO 1,000 unit DAILY@07 SHAYNE Administration Zolpidem Tartrate 10 mg 10/30/20 19:27 10/30/20 20:11 Zolpidem 10 Mg Tablet PO 10 mg BEDTIME PRN Administration INSOMNIA PFSH Acute PFSH: Medical History COPD (chronic obstructive pulmonary disease) History of hyperlipidemia History of hypertension Surgical History History of cataract surgery Family History Father Dementia Mother CAD (coronary artery disease) Diabetes Social History Smoking and tobacco status: former smoker Quit status (tobacco): has quit using tobacco Year quit tobacco: Aug 2020 [id number] Second hand smoke exposure: No Smoking risk assessment/counseling performed?: Yes Alcohol intake: former Caregiver/support person: No Lives independently: Yes Household members: none Marital status: / service: Yes Current occupational status: employed 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 - [employer] Pets and animals: No History of recent travel: Yes (replaced by [facility]) Out of state: Yes Out of country: No Current gender identity: Male Vitals/I&O/Wt Last Vital Signs Temp 98.0 F 10/30/20 23:43 Pulse 85 10/31/20 04:56 Resp 26 H 10/31/20 04:51 BP 116/63 10/31/20 03:56 Pulse Ox 94 10/31/20 04:51 10/30/20 10/30/20 10/31/20 14:59 22:59 06:59 Intake Total 540 / 540 240 / 780 360 / 1140 Output Total 500 / 500 325 / 825 375 / 1200 Balance 40 / 40 -85 / -45 -15 / -60 Physical Exam Chest: COMMONS NORMALS: normal inspection of the chest and normal palpation of entire chest wall Resp: COMMON NORMALS: negative for normal respiratory effort, negative for No retractions, negative for No use of accessory muscles, negative for clear to auscultation bilaterally and negative for percussion normal (Thing on the right side) EFFORT & INSPECTION: No able to speak in complete sentences (Very dyspneic), Yes abnormal respiratory pattern, Yes tachypneic, Yes respiratory distress, Yes labored, Yes Actively coughing, Yes uses accessory muscles and Yes prolonged expiratory phase AUSCULTATION: not clear to auscultation bilaterally and breath sounds absent (Substantially decreased on the right side) on the right PERCUSSION: percussion abnormal (Thing on the right side) Cardio: COMMON NORMALS: regular rhythm and S1 normal heart sound present RATE: tachycardic RHYTHM: regular rhythm HEART SOUNDS: S1 normal heart sound present Extremity: OTHER: No edema. Mild clubbing. Neuro: COMMON NORMALS: no focal motor deficits and no sensory deficits noted OTHER: Nurses report he did have intermittent short episodes of confusion overnight. Data Micro: Micro: Microbiology 10/25/20 17:34 Blood Culture - Fi nal Blood NO GROWTH AFTER 5 DAYS 10/25/20 11:24 Blood Culture - Fi nal Blood NO GROWTH AFTER 5 DAYS 10/29/20 08:00 Gram Stain - Final Lung Right Upper Lobe Bronchoalveolar [place] Culture - Pre liminary 10/30/20 09:22 Gram Stain - Final Sputum - Expector ated Sputum 10/26/20 15:45 Gram Stain - Final Pleural Fluid Anaerobic Culture - Preliminary Body Fluid Culture - Final A&P Assessment and plan (1) Recurrent right pleural effusion: Recurrence of malignant right pleural effusion with advanced metastatic disease. Plan: We had tentatively planned for Port-A-Cath placement tomorrow, as patient has been on Eliquis. Reportedly, his last dose was over 24 hours ago. We will also attempt to place a tunneled right pleural [place] drain. Given his increasingly extremis condition, I think we should proceed sooner, therefore I am going to attempt to have this procedure performed in early afternoon as an addition to the current OR schedule. It appears, that the surgery department will be able to accommodate us. Historically, it is not uncommon for malignant effusions to rapidly occlude drain management, and as well usually due to the complexity of the fluid collection and complete drainage is common. This was carefully discussed with Mr. Adan. Details and risk of the procedure were frankly reviewed. He is clearly in poor condition with marked dyspnea and the general stressors of malignant disease as well as chronic lung dysfunction from COPD. Risk of major bleeding, infection, direct injury to the lung, diaphragm, or other major vascular structures, inability to place the drain or Port-A-Cath, early failure of the devices, need for recurrent procedures, and postoperative pain were all carefully discussed. His overall quite poor condition and respiratory distress increases the risk of major complications or , however there appears to be little options available given his advanced metastatic condition. We will attempt to contact his daughter to make her aware of our plan is to hopefully proceed with surgery today. Overall outlook is not favorable. Status: Acute Consult Attestations Medical Necessity Statement: Recurrent malignant pleural effusion Time Spent in Patient Care: 16 - 35 minutes Coding Level of Care Code New Pt Acute Office Coordinator for [facility] Fwd Patient Type New History Detailed Exam Detailed Medical Decision Making Moderate Complexity Diagnoses Recurrent right pleural effusion J90 Time Spent (min) 35
[2020-10-31] MEDS: cholecalciferol (vitamin D3) 1,000 unit Tablet 1000 UNIT PO (06:11)
--- NOTE | 2020-10-31 06:25 | PC.NURSE ---
Dr Alicea in to see patient. Discussed plan for port-a-cath and right pleural drain placement. Going to try to schedule for today if possible. Dr Alicea to inform of time. Doctor requested Lovenox to be placed on hold for now.
[2020-10-31] MEDS: budesonide 0.5 mg/2 mL Neb INHALATION ×2 (08:00→19:47)
[2020-10-31] MEDS: metoprolol tartrate 50 mg Tablet PO ×2 (08:36→20:02)
[2020-10-31] MEDS: dilTIAZem ER (24HR) 240 mg Capsule PO (08:36)
[2020-10-31] MEDS: azithromycin 500 MG in sodium chloride 0.9% 250 ML 240 MG IV (08:37)
[2020-10-31] MEDS: cefTRIAXone 1,000 MG in sodium chloride 0.9% (plus) 50 ML 100 MG IV (09:26)
--- NOTE | 2020-10-31 11:06 | P.PN_ITS ---
Subjective Subjective: Interval history: Darrius reports that he feels his breathing is about the same as yesterday. Certainly difficulty coughing up any sputum. Medications: Reviewed: Yes Vitals/I&O/Wt Last Vital Signs Temp 99.3 F 10/31/20 10:34 Pulse 82 10/31/20 10:34 Resp 18 10/31/20 10:34 BP 112/69 10/31/20 10:34 Pulse Ox 95 10/31/20 10:34 10/30/20 10/31/20 10/31/20 22:59 06:59 14:59 Intake Total 240 / 780 360 / 1140 200 / 200 Output Total 325 / 825 375 / 1200 300 / 300 Balance -85 / -45 -15 / -60 -100 / -100 Physical Exam Narrative: EXAM NARRATIVE: General exam no apparent distress, currently on 3 L Neck is supple no lymphadenopathy or thyromegaly Cardiovascular irregular, irregular rhythm without murmur Lungs a few bibasilar wheezes are noted. Diminished breath sounds are noted bilaterally Abdomen is soft nontender with positive bowel sounds Extremities no cyanosis clubbing or edema Data : 10/31/20 04:31 10/31/20 04:31 Micro: Microbiology 10/30/20 09:22 Gram Stain - Final Sputum - Expectorated Sputum Sputum Culture - Preliminary 10/29/20 08:00 Gram Stain - Final Lung Right Upper Lobe Bronchoalveolar Lavage Culture - Preliminary 10/25/20 17:34 Blood Culture - Final Blood NO GROWTH AFTER 5 DAYS 10/25/20 11:24 Blood Culture - Final Blood NO GROWTH AFTER 5 DAYS 10/26/20 15:45 Gram Stain - Final Pleural Fluid Anaerobic Culture - Preliminary Body Fluid Culture - Final A&P Assessment and plan (1) Acute respiratory failure with hypoxia: Currently on 3 L of oxygen. This is secondary to pleural effusion, COPD, lung mass. Bronchoscopy occurred September 28 with biopsy. Preliminary reading from my understanding is poorly differentiated non-small cell cancer, stage IV On Rocephin and azithromycin for concerns of postobstructive pneumonia. Oxygen requirement decreased and white blood cell count decreasing. Pleural effusion has recurred, and Pleurx catheter as well as placement of port will be done in the next 24 hours. Status: Acute (2) Mass of middle lobe of right lung: Preliminary biopsy results as above. Oncology consultation has been obtained. Port and Pleurx catheter will be done soon Status: Acute (3) Recurrent right pleural effusion: Thoracentesis performed August 26 Pleurx catheter planned Status: Acute (4) New onset atrial fibrillation: Transitioned to long-acting Cardizem Currently on Eliquis for anticoagulation, held for possible procedure Status: Acute (5) CKD (chronic kidney disease): Stable Status: Acute (6) COPD (chronic obstructive pulmonary disease): No evidence of exacerbation currently Prednisone was discontinued Status: Acute Qualifiers: COPD type: unspecified COPD Qualified Code(s): J44.9 - Chronic obstructive pulmonary disease, unspecified Additional A&P Information Lovenox, SCDs will suffice for DVT prophylaxis Attestations Medical Necessity Statement*: Needs continued hospital stay for preparation of treatment of lung malignancy, placement of Pleurx catheter and continued IV antibiotics for pneumonia. Coding Level of Care Code Acute Injection Maintenance Technician for Cristina Kearnsd Diagnoses Acute respiratory failure with hypoxia J96.01 Mass of middle lobe of right lung R91.8 Recurrent right pleural effusion J90 New onset atrial fibrillation I48.91 CKD (chronic kidney disease) N18.9 COPD (chronic obstructive pulmonary disease) J44.9 COPD type: unspecified COPD
--- NOTE | 2020-10-31 11:51 | SC_ITS ---
WS: [id number] C-ARM RADIOGRAPHS CHEST; 2 IMAGES HISTORY: intra-op Port-A-Cath COMPARISON: None available. Intraoperative imaging during Port-A-Cath placement. SC/C-arm [place] CVA [id number] IMPRESSION: Intraoperative imaging during Port-A-Cath placement, tip terminates over the di stal SVC.
--- NOTE | 2020-10-31 11:52 | PC.NURSE ---
chlorhexadine bath given.consent sighed.pt taken to or via stretcher at 1150
[2020-10-31] MEDS: sodium chloride 0.9% 1,000 ML 30 ML IV ×2 (12:16→18:11)
--- NOTE | 2020-10-31 12:19 | ANES.PREANE2 ---
Pre-Anesthetic Assessment Pre-Anesthetic Assessment: Height/Weight: Height 1.75 m Weight 65.771 kg Temp Pulse Resp BP Pulse Ox 99 F 86 22 H 124/62 97 10/31/20 12:17 10/31/20 12:17 10/31/20 12:17 10/31/20 12:17 10/31/20 12:17 Preop Diagnosis: right pleural effusion Proposed Procedure: Operation Date: 10/29/20 07:00 Proposed Procedures p Ebus(Not Applicable) - Den Brown MD s Paul Drain Placement Pleural Catheter Insertion(Not Applicable) - Den Brown MD Operation Date: 10/31/20 13:05 Proposed Procedures p Portacath Insertion(Not Applicable) - MD dio Rivera Pleural Catheter Insertion(Not Applicable) - Sami Alicea MD Familial anesthetic complications: None Was Beta Melissa taken within 24 hours: Yes Last intake: NPO > 8 hrs Social: Social History: No alcohol and No tobacco Comment: former smoker Exam: Pre-Anes Outpt Exam: alert, oriented x 3 and regular rate & rhythm Additional Exam Findings (including area of procedure): crackles Airway: Cervical ROM: WNL MP: 3 Dentition: Full Pulmonary: Pulmonary: COPD Comments: lung cancer, pleural effusion, acute resp failure CV/HEM: CV/HEM: Afib : : Chronic renal Insufficiency Anesthetic Plan: ASA status: 4 Anesthesia: MAC Risk of > 500 ml blood loss (7ml/kg in children): No Meds/Allergies Current Medications: Current Medications Generic Name Dose Route Start Last Admin Trade Name Freq PRN Reason Stop Dose Admin Albuterol/Ipratrop ium 3 ml 10/27/20 11:15 10/31/20 11:26 Ipratropium-Albu terol 3 Ml Neb INHALATION 3 ml Q4H.RESPIRATORY S CH Administration Atorvastatin Calci um 20 mg 10/25/20 19:00 10/30/20 18:07 Atorvastatin 40 Mg Tablet PO 20 mg DAILY@19 SHAYNE Administration Budesonide 0.5 mg 10/29/20 20:00 10/31/20 08:00 Budesonide 0.5 M g/2 Ml Neb INHALATION 0.5 mg BID.RESPIRATORY S CH Administration Diltiazem HCl 240 mg 10/29/20 12:00 10/31/20 08:36 Diltiazem Er (24 hr) 240 Mg Capsule PO 240 mg DAILY SHAYNE Administration Enoxaparin Sodium 70 mg 10/30/20 21:00 10/30/20 20:11 Enoxaparin 80 Mg /0.8 Ml Syringe SUBCUT 70 mg Q12H SHAYNE Administration Ceftriaxone Sodium 1,000 mg/ 50 mls @ 100 mls/ hr 10/26/20 09:00 10/31/20 09:26 Sodium Chloride IV 100 mls/hr Q24H SHAYNE Administration Protocol Azithromycin 500 m g/ Sodium 250 mls @ 250 mls /hr 10/26/20 09:00 10/31/20 09:27 Chloride IV 0 mls/hr Q24H SHAYNE Infusion Protocol Sodium Chloride 1,000 mls @ 30 ml s/hr 10/31/20 12:00 10/31/20 12:16 Sodium Chloride 0.9% IV 30 mls/hr .Q24H SHAYNE Administration Metoprolol Tartrat e 50 mg 10/28/20 21:00 10/31/20 08:36 Metoprolol Tartr ate 50 Mg Tablet PO 50 mg BID@0900,2100 SHAYNE Administration Pantoprazole Sodiu m 40 mg 10/25/20 19:00 10/30/20 18:[address] 40 Mg Tablet PO 40 mg DAILY@19 SHAYNE Administration Tamsulosin HCl 0.4 mg 10/25/20 19:00 10/30/20 18:07 Tamsulosin 0.4 M g Capsule PO 0.4 mg DAILY@19 SHAYNE Administration Vitamin D 1,000 unit 10/26/20 07:00 10/31/20 06:11 Cholecalciferol (Vitamin D3) 1,000 Unit Tablet PO 1,000 unit DAILY@07 SHAYNE Administration Zolpidem Tartrate 10 mg 10/30/20 19:27 10/30/20 20:11 Zolpidem 10 Mg T ablet PO 10 mg BEDTIME PRN Administration INSOMNIA PFSH Anesthesia PFSH: Medical History COPD (chronic obstructive pulmonary disease) History of hyperlipidemia History of hypertension Surgical History History of cataract surgery Family History Father Dementia Mother CAD (coronary artery disease) Diabetes Social History Smoking and tobacco status: former smoker Quit status (tobacco): has quit using tobacco Year quit tobacco: Aug 2020 [id number] Second hand smoke exposure: No Smoking risk assessment/counseling performed?: Yes Alcohol intake: former Caregiver/support person: No Lives independently: Yes Household members: none Marital status: / service: Yes Current occupational status: employed 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 - [employer] Pets and animals: No History of recent travel: Yes ([place]) Out of state: Yes Out of country: No Current gender identity: Male Data Anesthesia CBC & Chem 7: 10/31/20 04:31 10/31/20 04:31 Other Labs: Laboratory Results - last 48 hr 10/25/20 10/30/20 10/30/20 17:35 04:43 04:43 WBC 16.1 H RBC 3.63 L Hgb 10.7 L Hct 32.6 L MCV 89.8 MCH 29.5 MCHC 32.8 RDW 13.9 Plt Count 289 MPV 9.8 Neut % (Auto) 78.7 Lymph % (Auto) 7.9 [place] % (Auto) 12.2 Eos % (Auto) 0.1 Baso % (Auto) 0.1 Neut # (Auto) 12.68 H Lymph # (Auto) 1.3 [place] # (Auto) 2.0 H Eos # (Auto) 0.0 Baso # (Auto) 0.0 Nucleated RBC % (auto) 0 Nucleated RBCs # 0.0 Sodium 139 Potassium 4.8 Chloride 106 Carbon Dioxide 26 Anion Gap 11.8 BUN 42 H Creatinine 1.6 H GFR Calculation Not Reportable Glucose 112 Calculated Osmolality 299 H Calcium 8.1 L Total Bilirubin AST ALT Alkaline Phosphatase Total Protein Albumin Globulin Misc Test Reference See comment Blood Type Rho(D) Type Antibody Screen 10/31/20 10/31/20 10/31/20 04:31 04:31 07:20 WBC 15.7 H RBC 3.96 L Hgb 11.7 Hct 36.1 L MCV 91.2 MCH 29.5 MCHC 32.4 RDW 13.8 Plt Count 300 MPV 9.6 Neut % (Auto) 77.0 Lymph % (Auto) 7.7 [place] % (Auto) 13.6 Eos % (Auto) 0.6 Baso % (Auto) 0.2 Neut # (Auto) 12.08 H Lymph # (Auto) 1.2 [place] # (Auto) 2.1 H Eos # (Auto) 0.1 Baso # (Auto) 0.0 Nucleated RBC % (auto) 0 Nucleated RBCs # 0.0 Sodium 141 Potassium 5.1 Chloride 107 Carbon Dioxide 26 Anion Gap 13.1 BUN 36 H Creatinine 1.4 H GFR Calculation Not Reportable Glucose 107 Calculated Osmolality 301 H Calcium 8.7 Total Bilirubin 0.3 AST 13 ALT 20 Alkaline Phosphatase 82 Total Protein 5.5 L Albumin 3.0 L Globulin 2.5 Misc Test Reference Blood Type AB Positive Rho(D) Type Positive Antibody Screen Negative Micro: Microbiology 10/30/20 09:22 Gram Stain - Final Sputum - Expectorated Sputum Sputum Culture - Preliminary 10/29/20 08:00 Gram Stain - Final Lung Right Upper Lobe Bronchoalveolar Lavage Culture - Preliminary 10/25/20 17:34 Blood Culture - Final Blood NO GROWTH AFTER 5 DAYS 10/25/20 11:24 Blood Culture - Final Blood NO GROWTH AFTER 5 DAYS 10/26/20 15:45 Gram Stain - Final Pleural Fluid Anaerobic Culture - Preliminary Body Fluid Culture - Final Cardiac Studies: No Data to Display
--- NOTE | 2020-10-31 13:32 | PC.OT ---
OT TREATMENT HELD AT THIS TIME SINCE PATIENT IS IN SURGERY. WILL ATTEMPT AGAIN TOMORROW.
[2020-10-31] MEDS: lidocaine 1% INJ 20 mL 40 ML INJECTION (14:30)
[2020-10-31] MEDS: heparin, porcine 1,000 unit/mL INJ 10 mL 10000 UNIT HE (14:32)
--- NOTE | 2020-10-31 15:16 | P.OP_ITS ---
Operative Report Date of procedure: October 31, 2020 Pre-op Diagnosis: Recurrent, malignant right pleural effusion Post-op diagnosis: same Procedure Done: 1. Right tunneled pleural drain placement 2. Left subclavian Port-A-Cath placement Specimens removed/disposition: 1600 cc of serosanguineous fluid recovered from the right pleural cavity; discarded. Previous sampling has returned malignant effusion. Pathology: none sent Surgeon: Sami Alicea Anesthesia: MAC and Local Estimated blood loss (mL): 20 Complications: None: Post procedure chest x-ray pending Findings: Fluoroscopy utilized for guidewire, dilator, and sheath advancement both with right pleural drain placement as well as with left subclavian Port-A-Cath placement. Condition: stable Disposition: PACU Brief History: Mr. Adan is a 70-year-old gentleman with advanced non-small cell carcinoma including a recurrent malignant right pleural effusion. He has become progressively symptomatic since his last thoracentesis by Dr. Brown. Tunneled pleural catheter drain placement as well as Port-A-Cath placement have been requested. Rationale and risks were carefully discussed with Mr. Adan. He is in moderate respiratory distress. His overall condition is poor. Procedure: 1. Right tunneled pleural drain placement The entire chest was sterilely prepped and draped in preparation for right pleural drain placement as well as Port-A-Cath placement. 1% lidocaine was infiltrated in the right posterior axillary line approximately at the seventh interspace level. Fluoroscopy was utilized to confirm positioning on the chest wall. Introducer needle was then placed with return of serosanguineous colored pleural fluid. Fluoroscopy was subsequently utilized throughout the procedure for guidewire and dilator advancement and subsequent introducer positioning and [place] catheter drain placement. Lidocaine was utilized to infiltrate the subcutaneous layer continuing anteriorly. A #11 scalpel blade was used to incise the skin on the guidewire and also anteriorly. Tunneler was utilized to pass the drain anteriorly to posteriorly in the subcutaneous fashion. Dilators were then placed over the guidewire to dilate the tract into the pleural space. Dilator and tear away sheath was then placed. Dilator was removed and pleural drain was placed to the tear-away sheath and the tear-away sheath was then removed. Drain was easily aspirated of large volume of pleural fluid which ultimately totaled 1600 cc. Once completed, the incisions were closed with 3-0 Vicryl suture. A silk suture was utilized to secure the drain to the skin. Mr. Adan tolerated procedure well. Sterile dressings were applied. #2. Left subclavian Port-A-Cath placement 1% lidocaine was infiltrated for local anesthesia. Mr. Adan was then placed in Trendelenburg position. Utilizing modified Seldinger technique, the left subclavian vein was engaged with needle and aspirated blood. A guidewire was then placed into position. Position was confirmed by fluoroscopy. Needle was withdrawn. The patient was then placed in the supine position. A #15 scalpel blade was used to incise the skin at the exit point from the guidewire and continued laterally and inferiorly. Utilizing cautery for meticulous hemostasis, a subcutaneous pocket was then created to allow for placement of the Port-A-Cath reservoir. Antibiotic-soaked sponge was then placed in the subcutaneous pocket. Port-A-Cath tubing was measured to the appropriate length and then cut. It was then connected to the Port-A-Cath reservoir, secured, and the entire system was flushed with heparin solution. The dilator, followed by tear-a-way sheath, were placed over the guidewire. The guidewire and dilator were removed intact. The Port-A-Cath vascular tubing was then placed through the sheath, which was then removed. The entire system was interrogated by fluoroscopy throughout the procedure. Hammonds needle was placed through the Port-A-Cath diaphragm, easily aspirated blood, and flushed with heparin lock solution, followed by full-strength heparin. The Port-A-Cath reservoir was then secured to the floor of the subcutaneous pocket with suture. The pocket was then carefully irrigated with antibiotic solution. Hemostasis was confirmed. The wound was then closed in 2 layers of 3-0 Vicryl suture subcutaneously. The skin was reapproximated carefully in a subcuticular manner with 4-0 Monocryl suture. A sterile dressing was applied followed by a compressive dressing. At the completion of the procedure there are improved breath sounds on the right. Vital signs remained stable. Mr. Adan was then transported to PACU. Chest x-ray is pending.
--- NOTE | 2020-10-31 15:33 | XRR_ITS ---
PROCEDURE INFORMATION: Exam: XR Chest, 1 View Exam date and time: 10/31/2020 3:37 PM Age: 70 years old Clinical indication: Device placement; Other: Port a cath and cristian drain; Prior surgery; Surgery date: Post-operative (0-2 days); Surgery type: Post op right pleural drain and portacath placement TECHNIQUE: Imaging protocol: XR of the chest Views: 1 view. COMPARISON: CR XR chest 1V portable [id number] 10/28/2020 6:39 AM FINDINGS: Tubes, catheters and devices: A chest tube is present in the right lower lobe A left central line a is in place extending into the SVC. Lungs: Right. Perihilar vascular congestion No consolidation. Pleural spaces: Right lower lobe pleural effusion. No pneumothorax. Heart/Mediastinum: Unremarkable. No cardiomegaly. Bones/joints: Unremarkable. XR/XR chest 1V portable [id number] IMPRESSION: 1. Right perihilar vascular congestion 2. Right lower lobe pleural effusion 3. Right lower lobe chest tube 4. Left central line is in the SVC 5. Otherwise No acute findings.
--- NOTE | 2020-10-31 16:41 | SUR.PHASEI ---
1519 PT TOPACU AWAKE ALERT RESP 25 ON OXYMASK 8 LITERS.PT HOB UP DRESSING SITES D/I LUNGS WITH SCATTERED WHEEZES EXP TO RT UPPER AND LOWER LOBES, LT LOWER DIMINISHED WITH EXP WHEEZE, ALBUTEROL NEB ORDERED BY DR HERNANDEZ. 1600 PT AWAKE ALERT LUNGS WITH GOOD AIRMOVEMENT SOME EXP WH TO LOWER LOBEDS PT ASKING FOR WATER, WANTS FOOD REPORT TO FLOOR PT TO FLOOR PER CART.
--- NOTE | 2020-10-31 17:23 | ANE.PACU2 ---
Inpatient post-anesthesia follow up: Airway intact: Yes Vital signs: Temperature 97.4 F Pulse Rate [Monito r] 97 Pulse Rate 75 Respiratory Rate 26 Blood Pressure [Ri ght Arm] 138/89 Blood Pressure 105/66 Pulse Oximetry 99 Oxygen Delivery Me thod Oxymask Oxygen Flow Rate 3 Fraction of Inspir ed Oxygen 32 Hydration adequate: Yes Nausea and vomiting: No Pain level: 2 Mental status: Baseline
--- NOTE | 2020-10-31 17:52 | PC.NURSE ---
received from pacu via stretcher,into room 107,at 1620.pt is droowsy but easily awakened.sr on monitor,o2 via face mask at 4l/min.bp stable.drsg to left upper chest (pac) and right lateral chest x2..are dry and intact.instructed pt to notify staff for any bleeding ,pain, or for any concerns,questions at all.pt verb understanding of instructions
[2020-10-31] MEDS: tamsulosin 0.4 mg Capsule PO (18:11)
[2020-10-31] MEDS: atorvastatin 40 mg Tablet 20 MG PO (18:11)
[2020-10-31] MEDS: pantoprazole DR 40 mg Tablet PO (18:12)
[2020-10-31] MEDS: enoxaparin 80 mg/0.8 mL Syringe 70 MG SUBCUT (20:02)
[2020-10-31 20:33] LABS: Glucose Point of Care 132 mg/dL (70-110)
--- NOTE | 2020-10-31 20:49 | PC.NURSE ---
Patient has no complaints at this time. Will monitor.
[2020-11-01] VITALS (20 sets, daily range): BP systolic 88–126; BP diastolic 50–66; PULSE 64–88; RESP 17–32; TEMP 36.5–36.8; O2SAT 91–96
[2020-11-01] MEDS: ipratropium-albuterol 3 mL Neb INHALATION ×4 (00:47→11:04)
[2020-11-01] MEDS: HYDROcodone-acetaminophen 5-325 mg Tablet 1 TAB PO ×2 (03:21→21:07)
--- NOTE | 2020-11-01 03:23 | PC.NURSE ---
Patient c/o pain to left upper chest/ surgical incision. Assessment to site WNL by 2 RNs. Will monitor. PRN pain medication given.
[2020-11-01 04:06] LABS: Basophils % 0.2 %; Eosinophils # 0.3 10^3/uL (0.0-0.8); Eosinophils % 1.5 %; Hematocrit 35.8 % (42.0-52.0); Hemoglobin 11.7 g/dL (11.7-16.6); Lymphocytes # 1.6 10^3/uL (0.8-4.8); Lymphocytes % 9.4 %; Mean Corpuscular HGB Conc 32.7 g/dL (30.0-36.0); Mean Corpuscular Hemoglobin 29.8 pg (28.0-34.0); Mean Corpuscular Volume 91.1 fL (80-94); Mean Platelet Volume 9.8 fL (7.4-10.4); Monocytes # 2.4 10^3/uL (0.2-0.9); Monocytes % 14.2 %; Neutrophils # 12.09 10^3/uL (1.8-7.7); Neutrophils % 73.1 %; Nucleated Red Blood Cells % 0 %; Platelet Count 309 10^3/cmm (130-400); Red Blood Count 3.93 10^6/uL (4.1-5.3); Red Cell Distribution Width 13.7 % (12.1-15.1); White Blood Count 16.5 10^3/uL (4.0-10.0)
[2020-11-01 04:23] LABS: Anion Gap 12.8 (5-19); Blood Urea Nitrogen 35 mg/dL (8-23); Calcium 8.2 mg/dL (8.5-10.5); Carbon Dioxide 27 mmol/L (22-29); Chloride 103 mmol/L (98-107); Glucose 118 mg/dL (65-115); Osmolality Calculated 295 mOsm/kg (285-295); Potassium 4.8 mmol/L (3.5-5.1); Sodium 138 mmol/L (136-145)
[2020-11-01] MEDS: cholecalciferol (vitamin D3) 1,000 unit Tablet 1000 UNIT PO (06:08)
[2020-11-01] MEDS: budesonide 0.5 mg/2 mL Neb INHALATION ×2 (07:19→20:58)
[2020-11-01] MEDS: dilTIAZem ER (24HR) 240 mg Capsule PO (09:00)
[2020-11-01] MEDS: metoprolol tartrate 50 mg Tablet PO ×2 (09:00→21:07)
[2020-11-01] MEDS: cefTRIAXone 1,000 MG in sodium chloride 0.9% (plus) 50 ML 100 MG IV (09:01)
[2020-11-01] MEDS: azithromycin 500 MG in sodium chloride 0.9% 250 ML 250 MG IV (09:34)
[2020-11-01] MEDS: enoxaparin 80 mg/0.8 mL Syringe 70 MG SUBCUT (09:37)
[2020-11-01] MEDS: cyanocobalamin 1,000 mcg/mL SDV 1000 MCG SUBCUT (09:38)
[2020-11-01] MEDS: sodium chloride 0.9% 1,000 ML 30 ML IV (10:03)
--- NOTE | 2020-11-01 10:09 | PM.PN ---
Subjective Subjective: Interval history: Mr. Adan had Pleurx catheter and left subclavian Port-A-Cath placed yesterday Currently in less respiratory distress and on 3 L nasal cannula Awaiting decision to regarding chemotherapy 600 mL pleural fluid drained again today morning Medications: Reviewed: Yes Vitals/I&O/Wt Last Vital Signs Temp 98.0 F 11/01/20 07:40 Pulse 88 11/01/20 07:40 Resp 22 H 11/01/20 07:40 BP 126/60 11/01/20 07:40 Pulse Ox 94 11/01/20 07:40 10/31/20 11/01/20 11/01/20 22:59 06:59 14:59 Intake Total 240 / 540 823.5 / 823.5 Output Total 225 / 625 675 / 1300 Balance 15 / -85 -675 / -760 823.5 / 823.5 Physical Exam Narrative: EXAM NARRATIVE: General: alert, in moderate respiratory distress HEENT: conj clear, EOMI, PERRL, mmm, Neck: supple, no meningismus Heme: no cervical LAP Pulmonary: Improved breath sounds on right lower lung Cardiovascular: rrr, nl s1s2, no mrg Abdomen: soft, nt, nd, no r/g, bs+ Extremities: pulses +, no edema, no c/c : no CVA tenderness Skin: intact, no rash MSK: no back or neck pain Neurologic: grossly intact Data : 11/01/20 03:28 11/01/20 03:28 Micro: Microbiology 10/30/20 09:22 Gram Stain - Final Sputum - Expectorated Sputum Sputum Culture - Final 10/26/20 15:45 Gram Stain - Final Pleural Fluid Anaerobic Culture - Preliminary Body Fluid Culture - Final 10/29/20 08:00 Gram Stain - Final Lung Right Upper Lobe Bronchoalveolar Lavage Culture - Preliminary A&P Assessment and plan (1) Mediastinal adenopathy: Status: Acute (2) Mass of right lung: Status: Acute (3) COPD (chronic obstructive pulmonary disease): Status: Acute Qualifiers: COPD type: unspecified COPD Qualified Code(s): J44.9 - Chronic obstructive pulmonary disease, unspecified (4) Smoker: Status: Acute (5) Recurrent right pleural effusion: Status: Acute (6) New onset atrial fibrillation: Status: Acute #Acute respiratory failure with hypoxia due to Large right pleural effusion & A.fib with RVR #CXR 10/25/20 Large right pleural effusion. #RML mass measuring 3.8 x 2.9 cm encompassing branches of RML pulmonary artery on CT and PET scan- #Mediastinal and hilar adenopathy-EBUSpathology reported metastatic non-small cell carcinoma consistent with adenocarcinoma #Chronic smoker 0.5 PPD by 50 years-quit 2 weeks ago-encounter for smoking cessation counseling #COPD emphysema - CT chest 09/25/2020: [facility]: RML mass measuring up to 3.8 x 2.9 cm, mass encompasses but does not occlude branches of right middle lobe pulmonary artery. Emphysematous changes are noted. Thyroid gland appears enlarged. Prominent lymph node is seen in the subcarinal region measuring 2.2 cm. Fullness is seen in the right hilum which also could be related to adenopathy. Moderate right pleural effusion. - PET CT 10/05/2020: Right upper lobe mass) to the mediastinum, representing malignancy. Right pleural malignant implants with pleural effusion. Right hilar and mediastinal FDG positive nodes representing local metastatic disease -Based on PET/CT looks like it is malignant and metastatic to pleural and diaphragmatic surface -10/11/20: Right thoracentesis 1250 cc - Lymphocyte predominant exudative effusion; cytology reported negative. -10/26/2020: Right thoracentesis 1900 cc hemorrhagic fluid-lymphocyte predominant exudative effusion. Histopathology reported metastatic non-small cell carcinoma consistent with adenocarcinoma -10/29/2020: EBUS guided FNA C of station 4R-preliminary pathology reported as atypical clusters of cells; pathology reported metastatic non-small cell carcinoma consistent with adenocarcinoma -s/p Port-A-Cath placement and Venus drain on10/31/2020 -Can resume Eliquis 2.5 mg twice daily for A. fib RVR -On cardizem 240 XR daily for A.fib RVR; -Duoneb nebulization q 4h r brenda & budesonide 0.5 twice daily inhalation -Covered with Rocephin and Azithromycin -Prednisone 40 mg daily -Ordered PFTs/6-minute walk test during clinic visit - yet to get it as outpatient -Recommended to continue 4 L nasal cannula -Patient quit smoking 4 weeks ago and encouraged to maintain abstinence -Elevated BNP, repeat echo possibly normal LVEF. Study could not evaluate wall motion abnormalities due to tachycardia. At least moderate tricuspid valve regurgitation and pulmonary hypertension with estimated pulmonary artery peak systolic pressure 53. Technically difficult study. -Pulmonary point of view patient can be discharged home pending decision by oncology to start inpatient chemo and follow-up as outpatient -Pathology from for our station and pleural fluid reported in metastatic non-small cell carcinoma consistent with adenocarcinoma. Dr. Miller to decide on starting chemotherapy. Patient had Port-A-Cath & Paul drain placement on 10/31/2020. Restarted Eliquis . At this point there is no other acute pulmonary issues, I will follow peripherally and please do not hesitate to call pulmonary if needed. I will follow up pulmonary clinic for outpatient COPD management. Recommendations conveyed to hospitalist and RN covering the patient. Medical condition and assessment plan explained to patient and he verbalized understanding and agreed with the plan Attestations Medical Necessity Statement*: Metastatic non-small cell lung cancer with acute respiratory failure with hypoxia and recurrent right pleural effusion, awaiting chemotherapy Time Spent in Patient Care: (>than 50% of time spent in counselling and/or direct pt care on unit). Coding Level of Care Code Acute Highway Engineering Teacher for Chg Fwd Diagnoses Mediastinal adenopathy R59.0 Mass of right lung R91.8 COPD (chronic obstructive pulmonary disease) J44.9 COPD type: unspecified COPD Smoker F17.200 Recurrent right pleural effusion J90 New onset atrial fibrillation I48.91
[2020-11-01 10:33] LABS: Vitamin B12 447 pg/mL (232-1245)
--- NOTE | 2020-11-01 11:28 | P.PN_ITS ---
Documented by User: JERMAINE Dawn STDNT 11/01/20 12:17 Subjective Subjective: Interval history: Darrius reports he is doing well. States his breathing has improved after 1600 cc pleural fluid was removed yesterday. No other complaints. Medications: Reviewed: Yes Vitals/I&O/Wt Last Vital Signs Temp 98.0 F 11/01/20 07:40 Pulse 75 11/01/20 11:10 Resp 18 11/01/20 11:04 BP 126/60 11/01/20 07:40 Pulse Ox 96 11/01/20 11:04 10/31/20 11/01/20 11/01/20 22:59 06:59 14:59 Intake Total 240 / 540 1073.5 / 1073.5 Output Total 225 / 625 675 / 1300 250 / 250 Balance 15 / -85 -675 / -760 823.5 / 823.5 Physical Exam Narrative: EXAM NARRATIVE: General: white male in no apparent distress, currently on nasal cannula 4L Cardiovascular: regular rate and rhythm Lungs: clear, slight wheezing Abdomen: soft, nontender to palpation Lower extremities: no cyanosis or edema Data : 11/01/20 03:28 11/01/20 03:28 Micro: Microbiology 10/30/20 09:22 Gram Stain - Final Sputum - Expectorated Sputum Sputum Culture - Final 10/26/20 15:45 Gram Stain - Final Pleural Fluid Anaerobic Culture - Preliminary Body Fluid Culture - Final 10/29/20 08:00 Gram Stain - Final Lung Right Upper Lobe Bronchoalveolar Lavage Culture - Preliminary Coding Level of Care Code Acute Partner Alliance Manager for [facility] Fwd Diagnoses Acute respiratory failure with hypoxia J96.01 Mass of middle lobe of right lung R91.8 Recurrent right pleural effusion J90 New onset atrial fibrillation I48.91 CKD (chronic kidney disease) N18.9 COPD (chronic obstructive pulmonary disease) J44.9 COPD type: unspecified COPD Documented by User: Oniel Neri MD 11/01/20 13:24 Subjective Subjective: Interval history: Above reviewed as well. Patient reports he is breathing much better than yesterday. He had approximately 600 cc removed today. Medications: Reviewed: Yes Physical Exam Narrative: EXAM NARRATIVE: General exam no apparent distress, currently on 3 L Neck is supple no lymphadenopathy or thyromegaly Cardiovascular irregular, irregular rhythm without murmur Lungs a few bibasilar wheezes are noted. Diminished breath sounds are noted bilaterally Abdomen is soft nontender with positive bowel sounds Extremities no cyanosis clubbing or edema Data : 11/01/20 03:28 11/01/20 03:28 A&P Assessment and plan (1) Acute respiratory failure with hypoxia: Currently on 4 L of oxygen Pleurx catheter was placed yesterday, and drained 600 cc today. Respiratory failure secondary to pleural effusion with mass. Preliminary read of masses non-small cell carcinoma stage IV. Concern of postobstructive pneumonia. Currently on Rocephin and azithromycin. Transition to Levaquin for potential discharge tomorrow. Status: Acute (2) Mass of middle lobe of right lung: Oncology following Chemotherapy is going to be arranged on Wednesday. Patient is able to accommodate this and family will accompany him to appointments. Port placed October 31 to facilitate this Status: Acute (3) Recurrent right pleural effusion: Pleurx catheter placed October 31 Status: Acute (4) New onset atrial fibrillation: Currently controlled Transition to Eliquis Status: Acute (5) CKD (chronic kidney disease): Stable Status: Acute (6) COPD (chronic obstructive pulmonary disease): No current evidence of exacerbation. Status: Acute Qualifiers: COPD type: unspecified COPD Qualified Code(s): J44.9 - Chronic obstructive pulmonary disease, unspecified Additional A&P Information Eliquis will suffice for DVT prophylaxis B12 injection given today to facilitate chemotherapy on Wednesday. Attestations Medical Necessity Statement*: Needs continued hospitalization for IV antibiotics secondary to pneumonia. Coding Level of Care Code Acute Partner Alliance Manager for [facility] Diagnoses Acute respiratory failure with hypoxia J96.01 Mass of middle lobe of right lung R91.8 Recurrent right pleural effusion J90 New onset atrial fibrillation I48.91 CKD (chronic kidney disease) N18.9 COPD (chronic obstructive pulmonary disease) J44.9 COPD type: unspecified COPD
[2020-11-01] MEDS: levoFLOXacin 750 mg Tablet PO (13:48)
[2020-11-01] MEDS: atorvastatin 40 mg Tablet 20 MG PO (18:05)
[2020-11-01] MEDS: tamsulosin 0.4 mg Capsule PO (18:06)
[2020-11-01] MEDS: pantoprazole DR 40 mg Tablet PO (18:06)
[2020-11-01] MEDS: apixaban 5 mg Tablet PO (21:07)
[2020-11-02] VITALS (18 sets, daily range): BP systolic 103–118; BP diastolic 58–65; PULSE 71–97; RESP 18–26; TEMP 36.7–36.9; O2SAT 91–96
[2020-11-02] MEDS: ipratropium-albuterol 3 mL Neb INHALATION ×7 (00:10→19:44)
--- NOTE | 2020-11-02 01:24 | PC.PHAR ---
Levaquin doosage is adjusted from 750mg p.o. every 24 hours to 750mg p.o. every 48 hours due to creatinine clearance of 35.02.
--- NOTE | 2020-11-02 01:34 | PC.NURSE ---
PT RESTING IN BED. PT REQUESTED PRN NORCO. PAIN 2/10. PRN NORCO GIVEN.WILL CONTINUE TO MONITOR
[2020-11-02] MEDS: levoFLOXacin 750 mg Tablet PO (01:46)
[2020-11-02 05:44] LABS: Basophils % 0.1 %; Eosinophils # 0.3 10^3/uL (0.0-0.8); Eosinophils % 2.1 %; Hematocrit 33.2 % (42.0-52.0); Hemoglobin 10.8 g/dL (11.7-16.6); Lymphocytes # 1.9 10^3/uL (0.8-4.8); Lymphocytes % 12.6 %; Mean Corpuscular HGB Conc 32.5 g/dL (30.0-36.0); Mean Corpuscular Hemoglobin 29.8 pg (28.0-34.0); Mean Corpuscular Volume 91.5 fL (80-94); Mean Platelet Volume 9.9 fL (7.4-10.4); Monocytes # 2.5 10^3/uL (0.2-0.9); Monocytes % 16.3 %; Neutrophils # 10.27 10^3/uL (1.8-7.7); Neutrophils % 66.6 %; Nucleated Red Blood Cells % 0 %; Platelet Count 289 10^3/cmm (130-400); Red Blood Count 3.63 10^6/uL (4.1-5.3); Red Cell Distribution Width 13.7 % (12.1-15.1); White Blood Count 15.4 10^3/uL (4.0-10.0)
[2020-11-02 06:12] LABS: Blood Urea Nitrogen 33 mg/dL (8-23); Calcium 8.4 mg/dL (8.5-10.5); Carbon Dioxide 27 mmol/L (22-29); Chloride 102 mmol/L (98-107); Glucose 112 mg/dL (65-115); Osmolality Calculated 286 mOsm/kg (285-295); Sodium 134 mmol/L (136-145)
[2020-11-02] MEDS: cholecalciferol (vitamin D3) 1,000 unit Tablet 1000 UNIT PO (06:28)
--- NOTE | 2020-11-02 06:36 | PM.PN ---
Subjective Subjective: Interval history: Darrius reports he is more short of breath. He reports he is very weak. He states he cannot go home and really take care of himself at all. He feels like his breathing is worse than yesterday. Medications: Reviewed: Yes Vitals/I&O/Wt Last Vital Signs Temp 98.1 F 11/02/20 03:43 Pulse 78 11/02/20 06:00 Resp 18 11/02/20 03:51 BP 109/58 11/02/20 03:43 Pulse Ox 91 11/02/20 03:51 11/01/20 11/01/20 11/02/20 14:59 22:59 06:59 Intake Total 2015.5 / 2014.5 120 / 2135.5 Output Total 250 / 250 550 / 800 100 / 900 Balance 1765.5 / 1765.5 -430 / 1335.5 -100 / 1235.5 Physical Exam Narrative: EXAM NARRATIVE: General exam no apparent distress, now on 4 L of oxygen with a saturation of 88 to 90% Neck is supple no lymphadenopathy or thyromegaly Cardiovascular irregular, irregular rhythm without murmur Lungs increased wheezing is noted bilaterally Abdomen is soft nontender with positive bowel sounds Extremities no cyanosis clubbing or edema Data : 11/02/20 03:31 11/02/20 03:31 Micro: Microbiology 10/26/20 15:45 Gram Stain - Final Pleural Fluid Anaerobic Culture - Preliminary Body Fluid Culture - Final 10/30/20 09:22 Gram Stain - Final Sputum - Expectorated Sputum Sputum Culture - Final A&P Assessment and plan (1) Acute respiratory failure with hypoxia: Currently on 4 L of oxygen Pleurx catheter was placed November 01. Decreasing amount of drainage noted. 250 cc out this morning. Respiratory failure secondary to pleural effusion with mass. 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 Concern of postobstructive pneumonia. Was transitioned to Levaquin orally for possible discharge today Status: Acute (2) Mass of middle lobe of right lung: Oncology following Chemotherapy is going to be arranged on Wednesday. Patient is able to accommodate this and family will accompany him to appointments. Port placed October 31 to facilitate this Status: Acute (3) Recurrent right pleural effusion: Pleurx catheter placed October 31 Status: Acute (4) New onset atrial fibrillation: Currently controlled Transitioned to Eliquis Status: Acute (5) CKD (chronic kidney disease): Stable Status: Acute (6) COPD (chronic obstructive pulmonary disease): Increased wheezing and shortness of breath today. Check chest x-ray Prednisone 40 mg daily, first dose now Pulmonary toilet Status: Acute Qualifiers: COPD type: unspecified COPD Qualified Code(s): J44.9 - Chronic obstructive pulmonary disease, unspecified Additional A&P Information Eliquis will suffice for DVT prophylaxis Patient now reports he is too weak to go home and manage anything in his home environment. 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
--- NOTE | 2020-11-02 06:39 | PC.NURSE ---
PT IS RESTING IN BED. PT MOUNDRIDGE DRAIN HAD 75ML OUT OF BLOODY SEROSANGUINOUS FLUID. DR LINN WAS NOTIFIED. MADE ROUNDS EARLY THIS AM. PT TOLD THAT HE FEELS LIKE HE IS UNABLE TO FULLY CARE FOR HIMSELF AT HOME. PT DENIES PAIN. WILL CONTINUE TO MONITOR.
--- NOTE | 2020-11-02 06:40 | XRR_ITS ---
PROCEDURE INFORMATION: Exam: XR Chest, 1 View Exam date and time: 11/02/2020 6:42 AM Age: 70 years old Clinical indication: Dyspnea TECHNIQUE: Imaging protocol: XR of the chest Views: 1 view. COMPARISON: CR XR chest 1V portable [id number] 10/31/2020 3:38 PM FINDINGS: Lungs: Emphysematous change, interstitial prominence, and worsening right basilar airspace disease. Pleural spaces: Residual right thoracostomy tube and small right pleural effusion. Heart: Epicardial fat accentuates the cardiac silhouette. Bones/joints: Degenerative change. Sabrina: Right hilar enlargement again demonstrated. XR/XR chest 1V portable [id number] IMPRESSION: 1. Emphysematous change, interstitial prominence, and worsening right basilar airspace disease. 2. Asymmetric right hilar enlargement. 3. Additional findings as described above.
[2020-11-02] MEDS: budesonide 0.5 mg/2 mL Neb INHALATION ×2 (07:56→19:44)
[2020-11-02] MEDS: dilTIAZem ER (24HR) 240 mg Capsule PO (08:48)
[2020-11-02] MEDS: apixaban 5 mg Tablet PO ×2 (08:48→20:36)
[2020-11-02] MEDS: metoprolol tartrate 50 mg Tablet PO ×2 (08:49→20:36)
[2020-11-02] MEDS: predniSONE 20 mg Tablet 40 MG PO (08:49)
--- NOTE | 2020-11-02 15:43 | PC.RESP ---
Nursing requests not to wake pt for treatment. Pt has been very anxious and tachypneic most of afternoon.
--- NOTE | 2020-11-02 18:30 | PC.NURSE ---
Call placed to Dr. Neri regarding output into pleurex drain. Minimal amount of sero-sanguinous fluid drained (less than 10 cc) Repositioned patient and asked patient to cough and no additional fluid returned to bottle. Tele order to change drainage schedule to eveery 24 hrs.
[2020-11-02] MEDS: tamsulosin 0.4 mg Capsule PO (18:45)
[2020-11-02] MEDS: atorvastatin 40 mg Tablet 20 MG PO (18:45)
[2020-11-02] MEDS: pantoprazole DR 40 mg Tablet PO (18:45)
[2020-11-03] VITALS (20 sets, daily range): BP systolic 106–129; BP diastolic 61–68; PULSE 82–111; RESP 17–30; TEMP 36.4–37.2; O2SAT 89–97
[2020-11-03] MEDS: ipratropium-albuterol 3 mL Neb INHALATION ×7 (00:05→23:52)
[2020-11-03] MEDS: HYDROcodone-acetaminophen 5-325 mg Tablet 1 TAB PO ×3 (00:15→21:07)
[2020-11-03] MEDS: cholecalciferol (vitamin D3) 1,000 unit Tablet 1000 UNIT PO (06:10)
[2020-11-03 06:23] LABS: Basophils # 0.1 10^3/uL (0.0-0.1); Basophils % 0.3 %; Hematocrit 31.5 % (42.0-52.0); Hemoglobin 10.2 g/dL (11.7-16.6); Lymphocytes # 0.8 10^3/uL (0.8-4.8); Mean Corpuscular HGB Conc 32.4 g/dL (30.0-36.0); Mean Corpuscular Hemoglobin 29.2 pg (28.0-34.0); Mean Corpuscular Volume 90.3 fL (80-94); Mean Platelet Volume 9.6 fL (7.4-10.4); Monocytes % 10.4 %; Neutrophils # 16.23 10^3/uL (1.8-7.7); Neutrophils % 83.3 %; Nucleated Red Blood Cells % 0 %; Platelet Count 278 10^3/cmm (130-400); Red Blood Count 3.49 10^6/uL (4.1-5.3); Red Cell Distribution Width 13.6 % (12.1-15.1); White Blood Count 19.5 10^3/uL (4.0-10.0)
[2020-11-03 07:06] LABS: Anion Gap 14.2 (5-19); Blood Urea Nitrogen 35 mg/dL (8-23); Calcium 8.1 mg/dL (8.5-10.5); Carbon Dioxide 25 mmol/L (22-29); Chloride 102 mmol/L (98-107); Glucose 134 mg/dL (65-115); Osmolality Calculated 292 mOsm/kg (285-295); Potassium 5.2 mmol/L (3.5-5.1); Sodium 136 mmol/L (136-145)
[2020-11-03] MEDS: budesonide 0.5 mg/2 mL Neb INHALATION ×2 (07:37→19:32)
[2020-11-03] MEDS: predniSONE 20 mg Tablet 40 MG PO (09:40)
[2020-11-03] MEDS: dilTIAZem ER (24HR) 240 mg Capsule PO (09:41)
[2020-11-03] MEDS: metoprolol tartrate 50 mg Tablet PO ×2 (09:41→21:07)
[2020-11-03] MEDS: apixaban 5 mg Tablet PO ×2 (09:41→21:07)
--- NOTE | 2020-11-03 12:05 | P.PN_ITS ---
Subjective Subjective: Interval history: Doing okay. Reports improved shortness of breath and cough. Denies fever or chills. No nausea or vomiting. No diarrhea. Medications: Reviewed: Yes Medication Review Details: Generic Name Dose Route Start Last Admin Trade Name Freq PRN Reason Stop Dose Admin Hydrocodone Bitart /Acetaminophen 1 tab 10/31/20 17:13 11/03/20 00:15 Hydrocodone-Acet aminophen 5-325 Mg Tablet PO 1 tab Q4H PRN Administration MODERATE PAIN Albuterol/Ipratrop ium 3 ml 10/27/20 11:15 11/03/20 07:37 Ipratropium-Albu terol 3 Ml Neb INHALATION 3 ml Q4H.RESPIRATORY S CH Administration Apixaban 5 mg 11/01/20 21:00 11/03/20 09:41 Apixaban 5 Mg Ta blet PO 5 mg BID@0900,2100 SHAYNE Administration Atorvastatin Calci um 20 mg 10/25/20 19:00 11/02/20 18:45 Atorvastatin 40 Mg Tablet PO 20 mg DAILY@19 SHAYNE Administration Budesonide 0.5 mg 10/29/20 20:00 11/03/20 07:37 Budesonide 0.5 M g/2 Ml Neb INHALATION 0.5 mg BID.RESPIRATORY S CH Administration Diltiazem HCl 240 mg 10/29/20 12:00 11/03/20 09:41 Diltiazem Er (24 hr) 240 Mg Capsule PO 240 mg DAILY SHAYNE Administration Levofloxacin 750 mg 11/02/20 01:30 11/02/20 01:46 Levofloxacin 750 Mg Tablet PO 750 mg Q48H SHAYNE Administration Protocol Metoprolol Tartrat e 50 mg 10/28/20 21:00 11/03/20 09:41 Metoprolol Tartr ate 50 Mg Tablet PO 50 mg BID@0900,2100 SHAYNE Administration Pantoprazole Sodiu m 40 mg 10/25/20 19:00 11/02/20 18:[address] 40 Mg Tablet PO 40 mg DAILY@19 SHAYNE Administration Prednisone 40 mg 11/02/20 09:00 11/03/20 09:40 Prednisone 20 Mg Tablet PO 40 mg DAILY SHAYNE Administration Tamsulosin HCl 0.4 mg 10/25/20 19:00 11/02/20 18:45 Tamsulosin 0.4 M g Capsule PO 0.4 mg DAILY@19 SHAYNE Administration Vitamin D 1,000 unit 10/26/20 07:00 11/03/20 06:10 Cholecalciferol (Vitamin D3) 1,000 Unit Tablet PO 1,000 unit DAILY@07 [facility] Administration Zolpidem Tartrate 10 mg 10/30/20 19:27 10/30/20 20:11 Zolpidem 10 Mg T ablet PO 10 mg BEDTIME PRN Administration INSOMNIA Vitals/I&O/Wt Last Vital Signs Temp 99.0 F 11/03/20 10:53 Pulse 102 H 11/03/20 10:53 Resp 30 H 11/03/20 10:53 BP 123/61 11/03/20 10:53 Pulse Ox 95 11/03/20 10:53 11/02/20 11/03/20 11/03/20 22:59 06:59 14:59 Intake Total 240 / 240 360 / 360 Output Total 150 / 900 175 / 1075 Balance 90 / -660 -175 / -835 360 / 360 Physical Exam Narrative: EXAM NARRATIVE: Awake alert oriented. No acute distress. Mood and affect are appropriate. Skin warm and dry. Moist mucous membranes. Neck supple. No JVD Lungs bilateral diffuse wheezes. No respiratory distress Heart S1, S2, irregular Abdomen soft, nontender, bowel sounds are present Extremities pedal edema, no cyanosis or calf tenderness bilaterally. Data : 11/03/20 05:22 11/03/20 05:22 Micro: Microbiology 10/26/20 15:45 Gram Stain - Final Pleural Fluid Anaerobic Culture - Final Body Fluid Culture - Final A&P Assessment and plan (1) Acute respiratory failure with hypoxia: Currently on 4 L of oxygen Pleurx catheter was placed November 01. Decreasing amount of drainage noted. 250 cc out this morning. Respiratory failure secondary to pleural effusion with mass. Malignancy is non- small cell carcinoma stage IV. Concern of postobstructive pneumonia. Was transitioned to Levaquin orally for possible discharge today Status: Acute (2) Mass of middle lobe of right lung: Oncology following Chemotherapy is going to be arranged on Wednesday. Patient is able to accommodate this and family will accompany him to appointments. Port placed October 31 to facilitate this Status: Acute (3) Recurrent right pleural effusion: Pleurx catheter placed October 31 Status: Acute (4) New onset atrial fibrillation: Currently controlled Transitioned to Eliquis Status: Acute (5) CKD (chronic kidney disease): Stable Status: Acute (6) COPD (chronic obstructive pulmonary disease): Increased wheezing and shortness of breath today. Check chest x-ray Prednisone 40 mg daily, first dose now Pulmonary toilet Status: Acute Qualifiers: COPD type: unspecified COPD Qualified Code(s): J44.9 - Chronic obstructive pulmonary disease, unspecified Additional A&P Information Eliquis will suffice for DVT prophylaxis Patient now reports he is too weak to go home and manage anything in his home environment. [place] 11/03/20 Today the patient is doing okay. Stable. Afebrile. Leukocytosis has increased but probably due to steroids. Still has wheezes. We will continue steroids and breathing treatments. We will continue antibiotic for pneumonia. A. fib is rate controlled. Continue Eliquis. Continue monitoring renal function. Creatinine is currently well controlled. Anemia is stable. Continue mo nitoring. Will change the diet to low K due to mild elevation of potassium. I did not find any medications which could explain his hyperkalemia. Please continue close monitoring. His chemotherapy will start Wednesday. The plan of care was discussed with the patient. He verbalized understanding and agreement. Attestations Medical Necessity Statement*: Remains hospitalized. Waiting for chemotherapy initiation Wednesday. 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
--- NOTE | 2020-11-03 12:59 | DCPLANNER ---
Pg 2 of IM updated and reviewed with pt, no questions, copy provided.
[2020-11-03 14:55] LABS: Coronavirus Test Green County Not Detected
[2020-11-03] MEDS: tamsulosin 0.4 mg Capsule PO (18:03)
[2020-11-03] MEDS: pantoprazole DR 40 mg Tablet PO (18:03)
[2020-11-03] MEDS: atorvastatin 40 mg Tablet 20 MG PO (18:03)
--- NOTE | 2020-11-03 18:41 | PC.NURSE ---
pleurX connected to cristian drain, as per protocol. scant amt serosanginous drainage. pt encouraged to cough. Turned. No further drainage. Site redressed.
[2020-11-04] VITALS (22 sets, daily range): BP systolic 111–127; BP diastolic 57–63; PULSE 66–90; RESP 16–25; TEMP 36.5–37.4; O2SAT 91–96
[2020-11-04] MEDS: ipratropium-albuterol 3 mL Neb INHALATION ×6 (03:24→23:43)
[2020-11-04] MEDS: levoFLOXacin 750 mg Tablet PO (03:43)
[2020-11-04 05:51] LABS: Basophils % 0.2 %; Hematocrit 29.5 % (42.0-52.0); Hemoglobin 9.4 g/dL (11.7-16.6); Lymphocytes # 0.7 10^3/uL (0.8-4.8); Lymphocytes % 3.8 %; Mean Corpuscular HGB Conc 31.9 g/dL (30.0-36.0); Mean Corpuscular Hemoglobin 29.3 pg (28.0-34.0); Mean Corpuscular Volume 91.9 fL (80-94); Mean Platelet Volume 9.9 fL (7.4-10.4); Monocytes # 1.6 10^3/uL (0.2-0.9); Monocytes % 8.6 %; Neutrophils # 15.13 10^3/uL (1.8-7.7); Neutrophils % 83.3 %; Nucleated Red Blood Cells % 0 %; Platelet Count 296 10^3/cmm (130-400); Red Blood Count 3.21 10^6/uL (4.1-5.3); Red Cell Distribution Width 13.7 % (12.1-15.1); White Blood Count 18.2 10^3/uL (4.0-10.0)
[2020-11-04 06:20] LABS: Procalcitonin 0.12 ng/mL (0-0.5)
[2020-11-04] MEDS: cholecalciferol (vitamin D3) 1,000 unit Tablet 1000 UNIT PO (06:26)
[2020-11-04] MEDS: HYDROcodone-acetaminophen 5-325 mg Tablet 1 TAB PO (06:26)
[2020-11-04 06:32] LABS: Albumin Level 2.4 g/dL (3.5-5.2); Anion Gap 14.1 (5-19); Blood Urea Nitrogen 40 mg/dL (8-23); C Reactive Protein 42.1 mg/L (0.0-4.9); Calcium 8.2 mg/dL (8.5-10.5); Carbon Dioxide 24 mmol/L (22-29); Chloride 101 mmol/L (98-107); Glucose 136 mg/dL (65-115); Magnesium 1.8 mg/dL (1.7-2.3); Phosphorus 3.9 mg/dL (2.5-4.5); Potassium 5.1 mmol/L (3.5-5.1); Sodium 134 mmol/L (136-145)
[2020-11-04] MEDS: budesonide 0.5 mg/2 mL Neb INHALATION ×2 (08:59→20:10)
[2020-11-04 10:03] LABS: Ferritin 734 ng/mL (30-400); Iron 44 ug/dL (59-158)
[2020-11-04] MEDS: apixaban 5 mg Tablet PO ×2 (10:06→20:12)
[2020-11-04] MEDS: dilTIAZem ER (24HR) 240 mg Capsule PO (10:06)
[2020-11-04] MEDS: metoprolol tartrate 50 mg Tablet PO ×2 (10:06→20:12)
[2020-11-04] MEDS: predniSONE 20 mg Tablet 40 MG PO (10:06)
[2020-11-04 13:35] LABS: Hematocrit 30.7 % (42.0-52.0); Hemoglobin 9.7 g/dL (11.7-16.6)
--- NOTE | 2020-11-04 18:45 | P.PN_ITS ---
Subjective Subjective: Interval history: Patient was examined this morning, he tells me that he continues to feel fatigued and tired, no lightheadedness, dizziness, no fevers, chills, has persistent poor appetite, no bloody or black stools, remains afebrile Medications: Reviewed: Yes Medication Review Details: Generic Name Dose Route Start Last Admin Trade Name Freq PRN Reason Stop Dose Admin Hydrocodone Bitart /Acetaminophen 1 tab 10/31/20 17:13 11/03/20 00:15 Hydrocodone-Acet aminophen 5-325 Mg Tablet PO 1 tab Q4H PRN Administration MODERATE PAIN Albuterol/Ipratrop ium 3 ml 10/27/20 11:15 11/03/20 07:37 Ipratropium-Albu terol 3 Ml Neb INHALATION 3 ml Q4H.RESPIRATORY S CH Administration Apixaban 5 mg 11/01/20 21:00 11/03/20 09:41 Apixaban 5 Mg Ta blet PO 5 mg BID@0900,2100 SHAYNE Administration Atorvastatin Calci um 20 mg 10/25/20 19:00 11/02/20 18:45 Atorvastatin 40 Mg Tablet PO 20 mg DAILY@19 SHAYNE Administration Budesonide 0.5 mg 10/29/20 20:00 11/03/20 07:37 Budesonide 0.5 M g/2 Ml Neb INHALATION 0.5 mg BID.RESPIRATORY S CH Administration Diltiazem HCl 240 mg 10/29/20 12:00 11/03/20 09:41 Diltiazem Er (24 hr) 240 Mg Capsule PO 240 mg DAILY SHAYNE Administration Levofloxacin 750 mg 11/02/20 01:30 11/02/20 01:46 Levofloxacin 750 Mg Tablet PO 750 mg Q48H SHAYNE Administration Protocol Metoprolol Tartrat e 50 mg 10/28/20 21:00 11/03/20 09:41 Metoprolol Tartr ate 50 Mg Tablet PO 50 mg BID@0900,2100 SHAYNE Administration Pantoprazole Sodiu m 40 mg 10/25/20 19:00 11/02/20 18:[address] 40 Mg Tablet PO 40 mg DAILY@19 SHAYNE Administration Prednisone 40 mg 11/02/20 09:00 11/03/20 09:40 Prednisone 20 Mg Tablet PO 40 mg DAILY SHAYNE Administration Tamsulosin HCl 0.4 mg 10/25/20 19:00 11/02/20 18:45 Tamsulosin 0.4 M g Capsule PO 0.4 mg DAILY@19 [facility] Administration Vitamin D 1,000 unit 10/26/20 07:00 11/03/20 06:10 Cholecalciferol (Vitamin D3) 1,000 Unit Tablet PO 1,000 unit DAILY@07 [facility] Administration Zolpidem Tartrate 10 mg 10/30/20 19:27 10/30/20 20:11 Zolpidem 10 Mg T ablet PO 10 mg BEDTIME PRN Administration INSOMNIA Vitals/I&O/Wt Last Vital Signs Temp 98.4 F 11/04/20 15:07 Pulse 79 11/04/20 16:05 Resp 20 H 11/04/20 16:05 BP 124/63 11/04/20 15:07 Pulse Ox 94 11/04/20 16:05 11/04/20 11/04/20 11/04/20 06:59 14:59 22:59 Intake Total 150 / 1900 600 / 600 240 / 840 Output Total 975 / 1705 150 / 150 200 / 350 Balance -825 / 195 450 / 450 40 / 490 Physical Exam Const: COMMON NORMALS: no acute distress and patient oriented x3 HENMT: COMMON NORMALS: normocephalic HEAD & SCALP: normocephalic Neck/C-Spine: COMMON NORMALS: no JVD Resp: COMMON NORMALS: normal respiratory effort, No retractions, No use of accessory muscles and clear to auscultation bilaterally AUSCULTATION: clear to auscultation bilaterally Cardio: COMMON NORMALS: no JVD, regular rate, regular rhythm, S1 normal heart sound present and S2 normal heart sound present RATE: regular rate RHYTHM: regular rhythm HEART SOUNDS: S1 normal heart sound present and S2 normal heart sound present GI: COMMON NORMALS: Normal to inspection, nondistended, normoactive bowel sounds present, Soft to palpation, non-tender, No hepatosplenomegaly present, no masses and no bruits PALPATION: Yes Soft to palpation and Yes No hepatosplenomegaly present Extremity: COMMON NORMALS: capillary refill normal, no clubbing, cyanosis or edema, no calf tenderness and no pedal edema Neuro: COMMON NORMALS: patient oriented x3 Psych: COMMON NORMALS: mental status grossly normal Skin: NARRATIVE SKIN EXAM: Paul drain in place, area clean and dry Data : 11/04/20 13:15 11/04/20 03:47 A&P Assessment and plan (1) Acute respiratory failure with hypoxia: Currently on 4 L of oxygen Pleurx catheter was placed November 01. Decreasing amount of drainage noted. 250 cc out this morning. Respiratory failure secondary to pleural effusion with mass. Malignancy is non- small cell carcinoma stage IV. Concern of postobstructive pneumonia Continue Levaquin Status: Acute (2) Mass of middle lobe of right lung: Oncology following Chemotherapy is going to be arranged on Wednesday. Patient is able to accommodate this and family will accompany him to appointments. Port placed October 31 Awaiting Paul drain supplies We will have chemotherapy tomorrow Likely discharge after tomorrow if [place] drain supplies arrive, Status: Acute (3) Recurrent right pleural effusion: Pleurx catheter placed October 31 Status: Acute (4) New onset atrial fibrillation: Currently controlled Transitioned to Eliquis Status: Acute (5) CKD (chronic kidney disease): Stable Status: Acute (6) COPD (chronic obstructive pulmonary disease): Increased wheezing and shortness of breath today. Check chest x-ray Prednisone 40 mg daily, first dose now Pulmonary toilet Status: Acute Qualifiers: COPD type: unspecified COPD Qualified Code(s): J44.9 - Chronic obstructive pulmonary disease, unspecified Additional A&P Information Acute anemia, hemoglobin down to 9.7, iron levels low at 44, will start on Protonix 40 twice daily, Carafate, monitor hemoglobin closely as patient is on Eliquis Eliquis will suffice for DVT prophylaxis Patient now reports he is too weak to go home and manage anything in his home environment. 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
[2020-11-04] MEDS: pantoprazole DR 40 mg Tablet PO ×2 (18:51→18:52)
[2020-11-04] MEDS: ferrous sulfate EC 325 mg Tablet PO (18:51)
[2020-11-04] MEDS: atorvastatin 40 mg Tablet 20 MG PO (18:51)
[2020-11-04] MEDS: tamsulosin 0.4 mg Capsule PO (18:51)
[2020-11-04] MEDS: sucralfate 1 gm Tablet PO (20:12)
[2020-11-04] MEDS: lidocaine 2% viscous 15 ML, aluminum-mag hydrox-simethicon 30 ML, sucralfate oral liq 1 GM PO (23:35)
--- NOTE | 2020-11-04 23:35 | PC.NURSE ---
Addendum entered by Juana Pritchett RN 11/04/20 23:38: GI cocktail ordered. Original Note: Dr. Roach notified of patient asking for something for indigestion.
[2020-11-05] VITALS (21 sets, daily range): BP systolic 114–140; BP diastolic 61–81; PULSE 76–97; RESP 20–26; TEMP 36.6–36.7; O2SAT 91–98
[2020-11-05 00:52] LABS: Hematocrit 28.2 % (42.0-52.0); Hemoglobin 9.4 g/dL (11.7-16.6)
[2020-11-05 03:58] LABS: Basophils % 0.2 %; Hematocrit 29.4 % (42.0-52.0); Hemoglobin 9.7 g/dL (11.7-16.6); Lymphocytes # 0.8 10^3/uL (0.8-4.8); Mean Corpuscular Hemoglobin 29.6 pg (28.0-34.0); Mean Corpuscular Volume 89.6 fL (80-94); Mean Platelet Volume 9.3 fL (7.4-10.4); Monocytes # 1.9 10^3/uL (0.2-0.9); Monocytes % 9.7 %; Neutrophils # 16.23 10^3/uL (1.8-7.7); Neutrophils % 82.7 %; Nucleated Red Blood Cells % 0 %; Platelet Count 301 10^3/cmm (130-400); Red Blood Count 3.28 10^6/uL (4.1-5.3); Red Cell Distribution Width 13.8 % (12.1-15.1); White Blood Count 19.6 10^3/uL (4.0-10.0)
[2020-11-05] MEDS: ipratropium-albuterol 3 mL Neb INHALATION ×6 (04:00→23:51)
[2020-11-05 04:27] LABS: Alanine Aminotransferase 30 U/L (0-41); Albumin Level 2.6 g/dL (3.5-5.2); Alkaline Phosphatase 69 IU/L (40-130); Anion Gap 11.9 (5-19); Aspartate Amino Transferase 19 U/L (0-40); Blood Urea Nitrogen 38 mg/dL (8-23); Calcium 8.4 mg/dL (8.5-10.5); Carbon Dioxide 27 mmol/L (22-29); Chloride 102 mmol/L (98-107); Globulin 2.6 g/dL (1.3-4.6); Glucose 139 mg/dL (65-115); Magnesium 1.9 mg/dL (1.7-2.3); Osmolality Calculated 293 mOsm/kg (285-295); Phosphorus 3.1 mg/dL (2.5-4.5); Potassium 4.9 mmol/L (3.5-5.1); Sodium 136 mmol/L (136-145); Total Bilirubin 0.2 mg/dL (0.15-1.2); Total Protein 5.2 g/dL (6.6-8.7)
--- NOTE | 2020-11-05 05:48 | PC.NURSE ---
Paul drain drained per order with 0 ml output. Will monitor.
--- NOTE | 2020-11-05 05:52 | XR_ITS ---
WS: [id number] Exam: XR chest 1V portable [id number] Date/Time of Exam: 11/05/2020 6:20 AM Reason For Exam: no drainage from cristian drain past few shifts Comparison with the last exam 11/02/2020. Increasing loculated right-sided pleural effusion is noted. Prominent fluid loculation in the minor f issure. Right-sided thoracostomy drainage tube is noted unchanged in position. No pneumothorax. There is infiltrate and atelectasis in the middle and lower lobes the right lung showing some increase. Th e left lung remains clear and fully inflated. A left subclavian central line ends in the lower one th ird of the SVC. Heart size is normal for technique. The mediastinum and osseous thorax are unremarkab le. Multiple monitoring leads superimpose the chest. XR/XR chest 1V portable [id number] IMPRESSION: 1. Increasing loculated right-sided pleural effusion in the region of the minor fissure. Right thoracostomy drainage tube unchanged in position. 2. Some increase in atelectasis and infiltrate in the right lower lung zone sin ce the last study. No other change.
--- NOTE | 2020-11-05 06:39 | PC.NURSE ---
Dr. Roach notified of cristian drain not draining last few shifts. Chest x-ray ordered. Dr. Roach notified of chest x-ray being taken and notified of my concern of possible change from previous chest x-ray.
--- NOTE | 2020-11-05 07:13 | PC.NURSE ---
Dr. Haynes notified of concerning chest x-ray results, cristian drain not draining, and patient being transferred to high flow oxygen by RT. Ordered to get ABG and put patient on Bipap. RT notified of this. Ordered to start Vanc and Zosyn at pharmacy dosing and Azithromycin 500 mg q24h. Pharmacy notified. Ordered to give 80 Lasix.
[2020-11-05 07:23] LABS: ABG PCO2 43.2 mmHg (35-45); ABG PH Result 7.44 (7.35-7.45); Arterial Blood Gas Hematocrit 31.6 % (42-52); Base Excess ABG 4.9 mmol/L (-2.0-2.0); Blood Gas Allen Test Pos; Blood Gas Operator Identificat MONRO; Blood Gas Sample Site Radial, left; Blood Gas Sample Type Arterial; Carboxyhemoglobin 0.8 %THgb (0.4-20.1); HCO3 ABG 29.6 mmol/L (22-26); HGB O2 Sat 95.3 % (95-100); Ionized Calcium Level - ABG 1.2 mmol/L (1.1-1.4); Methemoglobin 0.7 % (0.4-1.5); Oxygen Device NC; Oxygen Saturation ABG 96.8; PO2 ABG 79.8 mmHg (80.0-100.0); Potassium Level - ABG 4.8 mmol/L (3.5-5.0); Total Hemoglobin 10.3 g/dL (14-18)
[2020-11-05] MEDS: FUROsemide 10 mg/mL SDV 10mL 80 MG IVP (07:27)
[2020-11-05] MEDS: budesonide 0.5 mg/2 mL Neb INHALATION ×2 (07:30→19:26)
--- NOTE | 2020-11-05 07:30 | PC.NURSE ---
Addendum entered by Juana Pritchett RN 11/05/20 07:34: Dr. Haynes and RT in room with patient. Original Note: Dr. Haynes gave permission for more than one family member to visit today during visiting hours.
[2020-11-05] MEDS: piperacillin-tazobactam 3.375 GM in sodium chloride 0.9% (plus) 50 ML IV ×2 (09:00→17:26)
[2020-11-05] MEDS: predniSONE 20 mg Tablet 40 MG PO (09:12)
[2020-11-05] MEDS: dilTIAZem ER (24HR) 240 mg Capsule PO (09:12)
[2020-11-05] MEDS: cholecalciferol (vitamin D3) 1,000 unit Tablet 1000 UNIT PO (09:13)
[2020-11-05] MEDS: apixaban 5 mg Tablet PO ×2 (09:13→21:19)
[2020-11-05] MEDS: sucralfate 1 gm Tablet PO ×4 (09:13→21:18)
[2020-11-05] MEDS: ferrous sulfate EC 325 mg Tablet PO ×2 (09:13→17:27)
[2020-11-05] MEDS: pantoprazole DR 40 mg Tablet PO ×2 (09:14→17:27)
[2020-11-05] MEDS: metoprolol tartrate 50 mg Tablet PO ×2 (09:14→21:19)
[2020-11-05] MEDS: vancomycin 1,000 MG in sodium chloride 0.9% 250 ML 250 MG IV ×2 (09:14→09:32)
--- NOTE | 2020-11-05 09:15 | PC.NURSE ---
other delay - other pt care
[2020-11-05] MEDS: azithromycin 500 MG in sodium chloride 0.9% 250 ML 250 MG IV (09:46)
--- NOTE | 2020-11-05 10:54 | DCPLANNER ---
IMM completed on 11/05/20 @ [id number]. Copy of rights given to pt.
--- NOTE | 2020-11-05 13:34 | PC.OT ---
HOLD OT TREATMENT TODAY PER NURSING SECONDARY TO PATIENT HEALTH
--- NOTE | 2020-11-05 17:01 | PM.PN ---
Subjective Subjective: Interval history: Patient was examined multiple times throughout the day Early this morning patient developed episodes of respiratory distress, was placed on high flow, nasal cannula, he was given broad-spectrum antibiotic therapy, Lasix therapy, he started clinically improved, currently on high flow nasal cannula, overnight he tells me that he felt short of breath, no chest pain, no palpitations, no lightheaded, dizziness, no fevers, no chills Review of patient's imaging shows that he has recurrent of right-sided pneumonia, with pulmonary edema, there is concern for postobstructive pneumonia either secondary to mucous plugging or malignancy Patient son was at bedside, I had extensive discussion with patient and his son about patient's lung cancer, pneumonia, Mcpherson drain, pulmonary edema, for now I advised that we will continue antibiotics, monitor diuretic therapy, chest vest therapy, BiPAP, monitor him for the next 24 hours, repeat x-rays tomorrow morning, if he continues to have consolidation in that area of the lung will talk to the windows server specialist and oncologist of possibly pursuing radiation therapy or even a bronchoscopy depending on how he does I had an extensive discussion about patient's goals of care, for now he wants to continue medical interventions, but in terms of his CODE STATUS, patient does not want to be intubated, does not want aggressive interventions, does not want chest compressions, does not want drugs as per ACLS, patient is DNR/DNI, okay with ICU admission, patient voiced recently, all questions answered, agreed to proceed Medications: Reviewed: Yes Medication Review Details: Generic Name Dose Route Start Last Admin Trade Name Vitoq PRN Reason Stop Dose Admin Hydrocodone Bitart /Acetaminophen 1 tab 10/31/20 17:13 11/03/20 00:15 Hydrocodone-Acet aminophen 5-325 Mg Tablet PO 1 tab Q4H PRN Administration MODERATE PAIN Albuterol/Ipratrop ium 3 ml 10/27/20 11:15 11/03/20 07:37 Ipratropium-Albu terol 3 Ml Neb INHALATION 3 ml Q4H.RESPIRATORY S CH Administration Apixaban 5 mg 11/01/20 21:00 11/03/20 09:41 Apixaban 5 Mg Ta blet PO 5 mg BID@0900,2100 SHAYNE Administration Atorvastatin Calci um 20 mg 10/25/20 19:00 11/02/20 18:45 Atorvastatin 40 Mg Tablet PO 20 mg DAILY@19 SHAYNE Administration Budesonide 0.5 mg 10/29/20 20:00 11/03/20 07:37 Budesonide 0.5 M g/2 Ml Neb INHALATION 0.5 mg BID.RESPIRATORY S CH Administration Diltiazem HCl 240 mg 10/29/20 12:00 11/03/20 09:41 Diltiazem Er (24 hr) 240 Mg Capsule PO 240 mg DAILY SHAYNE Administration Levofloxacin 750 mg 11/02/20 01:30 11/02/20 01:46 Levofloxacin 750 Mg Tablet PO 750 mg Q48H SHAYNE Administration Protocol Metoprolol Tartrat e 50 mg 10/28/20 21:00 11/03/20 09:41 Metoprolol Tartr ate 50 Mg Tablet PO 50 mg BID@0900,2100 [facility] Administration Pantoprazole Sodiu m 40 mg 10/25/20 19:00 11/02/20 18:[address] 40 Mg Tablet PO 40 mg DAILY@19 SHAYNE Administration Prednisone 40 mg 11/02/20 09:00 11/03/20 09:40 Prednisone 20 Mg Tablet PO 40 mg DAILY SHAYNE Administration Tamsulosin HCl 0.4 mg 10/25/20 19:00 11/02/20 18:45 Tamsulosin 0.4 M g Capsule PO 0.4 mg DAILY@19 [facility] Administration Vitamin D 1,000 unit 10/26/20 07:00 11/03/20 06:10 Cholecalciferol (Vitamin D3) 1,000 Unit Tablet PO 1,000 unit DAILY@07 [facility] Administration Zolpidem Tartrate 10 mg 10/30/20 19:27 10/30/20 20:11 Zolpidem 10 Mg T ablet PO 10 mg BEDTIME PRN Administration INSOMNIA Vitals/I&O/Wt Last Vital Signs Temp 97.9 F 11/05/20 12:00 Pulse 88 11/05/20 15:51 Resp 22 H 11/05/20 15:51 BP 140/81 11/05/20 12:00 Pulse Ox 96 11/05/20 15:51 11/05/20 11/05/20 11/05/20 06:59 14:59 22:59 Intake Total 700 / 1540 745 / 745 Output Total 600 / 1200 1974 350 / 2325 Balance 100 / 340 -1230 / -1230 -350 / -1580 Physical Exam Const: COMMON NORMALS: no acute distress and patient oriented x3 HENMT: COMMON NORMALS: normocephalic HEAD & SCALP: normocephalic Neck/C-Spine: COMMON NORMALS: no JVD Resp: COMMON NORMALS: normal respiratory effort, No retractions and No use of accessory muscles AUSCULTATION: crackles and wheezes OTHER: Early in the morning patient was tachypneic, mild respiratory distress, accessory muscle use, this evening, patient respiratory rates between 14-16, no accessory muscle use, is out of respiratory distress Cardio: COMMON NORMALS: no JVD, regular rate, regular rhythm, S1 normal heart sound present and S2 normal heart sound present RATE: regular rate RHYTHM: regular rhythm HEART SOUNDS: S1 normal heart sound present and S2 normal heart sound present GI: COMMON NORMALS: Normal to inspection, nondistended, normoactive bowel sounds present, Soft to palpation, non-tender, No hepatosplenomegaly present, no masses and no bruits PALPATION: Yes Soft to palpation and Yes No hepatosplenomegaly present Extremity: COMMON NORMALS: capillary refill normal, no clubbing, cyanosis or edema, no calf tenderness and no pedal edema Neuro: COMMON NORMALS: patient oriented x3 Psych: COMMON NORMALS: mental status grossly normal Data : 11/05/20 03:21 11/05/20 03:21 Micro: Microbiology 11/05/20 10:00 Blood Culture - Preliminary Blood SPECIMEN COLLECTED 11/05/20 09:56 Blood Culture - Preliminary Blood SPECIMEN COLLECTED A&P Assessment and plan (1) Acute respiratory failure with hypoxia: Concerns for developing postobstructive pneumonia Continue BiPAP, BiPAP as needed, BiPAP schedule during the night, can use high flow when not tolerated Receiving vancomycin, Zosyn, azithromycin Received 80 mg of Lasix this morning, start Bumex 1 mg every 12 hours this evening with potassium replacement Pleurx catheter was placed November 01. Decreasing amount of drainage noted. 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 Eliquis for DVT prophylaxis Patient is DNR/DNI, okay with ICU admission Status: Acute (2) Mass of middle lobe of right lung: Oncology following Chemotherapy is going to be arranged on Wednesday. Patient is able to accommodate this and family will accompany him to appointments. Port placed October 31 Awaiting Mcpherson drain supplies Chemotherapy on hold, possibly will require radiation therapy to the chest if patient indeed has postobstructive pneumonia secondary to malignancy Likely discharge after tomorrow if Mcpherson drain supplies arrive, Status: Acute (3) Recurrent right pleural effusion: Pleurx catheter placed October 31 Status: Acute (4) New onset atrial fibrillation: Currently on metoprolol, Cardizem Transitioned to Eliquis Status: Acute (5) CKD (chronic kidney disease): Stable Status: Acute (6) COPD (chronic obstructive pulmonary disease): Increased wheezing and shortness of breath today. Check chest x-ray Prednisone 40 mg daily, first dose now Pulmonary toilet Status: Acute Qualifiers: COPD type: unspecified COPD Qualified Code(s): J44.9 - Chronic obstructive pulmonary disease, unspecified Additional A&P Information Acute anemia, hemoglobin down to 9.7, iron levels low at 44, will start on Protonix 40 twice daily, Carafate, monitor hemoglobin closely as patient is on Eliquis Eliquis will suffice for DVT prophylaxis Plan is if patient clinically improves discharged with home health care Attestations Medical Necessity Statement*: Patient requires hospitalization for now postobstructive pneumonia, worsening respiratory failure Coding Level of Care Code 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
[2020-11-05] MEDS: bumetanide 0.25 mg/mL SDV 4 mL 1 MG IV (17:27)
[2020-11-05] MEDS: potassium chloride ER 20 mEq Tablet PO (17:28)
--- NOTE | 2020-11-05 18:27 | P.PN_ITS ---
Subjective Subjective: Interval history: -Patient developed sudden episode of respiratory distress today morning Placed on BiPAP and did an x-ray -X-ray showed increasing loculated right-sided pleural effusion and some increasing atelectasis or infiltrate in right lower lung zone. -Patient reported dyspnea but denied any other complaints - there is concern for postobstructive pneumonia either secondary to mucous plugging or malignancy -Patient expressed wishes to be DNR/DNI, okay with ICU admission Medications: Reviewed: Yes Medication Review Details: Generic Name Dose Route Start Last Admin Trade Name Freq PRN Reason Stop Dose Admin Hydrocodone Bitart /Acetaminophen 1 tab 10/31/20 17:13 11/03/20 00:15 Hydrocodone-Acet aminophen 5-325 Mg Tablet PO 1 tab Q4H PRN Administration MODERATE PAIN Albuterol/Ipratrop ium 3 ml 10/27/20 11:15 11/03/20 07:37 Ipratropium-Albu terol 3 Ml Neb INHALATION 3 ml Q4H.RESPIRATORY S CH Administration Apixaban 5 mg 11/01/20 21:00 11/03/20 09:41 Apixaban 5 Mg Ta blet PO 5 mg BID@0900,2100 BRENDA Administration Atorvastatin Calci um 20 mg 10/25/20 19:00 11/02/20 18:45 Atorvastatin 40 Mg Tablet PO 20 mg DAILY@19 BRENDA Administration Budesonide 0.5 mg 10/29/20 20:00 11/03/20 07:37 Budesonide 0.5 M g/2 Ml Neb INHALATION 0.5 mg BID.RESPIRATORY S CH Administration Diltiazem HCl 240 mg 10/29/20 12:00 11/03/20 09:41 Diltiazem Er (24 hr) 240 Mg Capsule PO 240 mg DAILY BRENDA Administration Levofloxacin 750 mg 11/02/20 01:30 11/02/20 01:46 Levofloxacin 750 Mg Tablet PO 750 mg Q48H BRENDA Administration Protocol Metoprolol Tartrat e 50 mg 10/28/20 21:00 11/03/20 09:41 Metoprolol Tartr ate 50 Mg Tablet PO 50 mg BID@0900,2100 BRENDA Administration Pantoprazole Sodiu m 40 mg 10/25/20 19:00 11/02/20 18:[address] 40 Mg Tablet PO 40 mg DAILY@19 BRENDA Administration Prednisone 40 mg 11/02/20 09:00 11/03/20 09:40 Prednisone 20 Mg Tablet PO 40 mg DAILY [facility] Administration Tamsulosin HCl 0.4 mg 10/25/20 19:00 11/02/20 18:45 Tamsulosin 0.4 M g Capsule PO 0.4 mg DAILY@19 [facility] Administration Vitamin D 1,000 unit 10/26/20 07:00 11/03/20 06:10 Cholecalciferol (Vitamin D3) 1,000 Unit Tablet PO 1,000 unit DAILY@07 [facility] Administration Zolpidem Tartrate 10 mg 10/30/20 19:27 10/30/20 20:11 Zolpidem 10 Mg T ablet PO 10 mg BEDTIME PRN Administration INSOMNIA Vitals/I&O/Wt Last Vital Signs Temp 97.9 F 11/05/20 12:00 Pulse 88 11/05/20 15:51 Resp 22 H 11/05/20 15:51 BP 140/81 11/05/20 12:00 Pulse Ox 96 11/05/20 15:51 11/05/20 11/05/20 11/05/20 06:59 14:59 22:59 Intake Total 700 / 1540 745 / 745 240 / 985 Output Total 600 / 1200 1974 / 1974 350 / 2325 Balance 100 / 340 -1230 / -1230 -110 / -1340 Physical Exam Narrative: EXAM NARRATIVE: General: alert, in moderate respiratory distress HEENT: conj clear, EOMI, PERRL, mmm, Neck: supple, no meningismus Heme: no cervical LAP Pulmonary: Improved breath sounds on right lower lung Cardiovascular: rrr, nl s1s2, no mrg Abdomen: soft, nt, nd, no r/g, bs+ Extremities: pulses +, no edema, no c/c : no CVA tenderness Skin: intact, no rash MSK: no back or neck pain Neurologic: grossly intact Data : 11/05/20 03:21 11/05/20 03:21 Micro: Microbiology 11/05/20 10:00 Blood Culture - Preliminary Blood SPECIMEN COLLECTED 11/05/20 09:56 Blood Culture - Preliminary Blood SPECIMEN COLLECTED A&P Assessment and plan (1) Mediastinal adenopathy: Status: Acute (2) Mass of right lung: Status: Acute (3) COPD (chronic obstructive pulmonary disease): Status: Acute Qualifiers: COPD type: unspecified COPD Qualified Code(s): J44.9 - Chronic obstructive pulmonary disease, unspecified (4) Smoker: Status: Acute (5) Recurrent right pleural effusion: Status: Acute (6) New onset atrial fibrillation: Status: Acute #Acute respiratory failure with hypoxia due to Large right pleural effusion & A.fib with RVR #RML mass measuring 3.8 x 2.9 cm encompassing branches of RML pulmonary artery & Mediastinal and hilar adenopathy-EBUSpathology reported metastatic non-small cell carcinoma consistent with adenocarcinoma #Chronic smoker 0.5 PPD by 50 years-quit 2 weeks ago-encounter for smoking cessation counseling #COPD emphysema #Recurrent right pleural effusion-s/p [place] drain #Increasing loculated right-sided pleural effusion in the region of minor fissure and increasing atelectasis and infiltrate in the right lower lung zone - CT chest 09/25/2020: [facility]: RML mass measuring up to 3.8 x 2.9 cm, mass encompasses but does not occlude branches of right middle lobe pulmonary artery. Emphysematous changes are noted. Thyroid gland appears enlarged. Prominent lymph node is seen in the subcarinal region measuring 2.2 cm. Fullness is seen in the right hilum which also could be related to adenopathy. Moderate right pleural effusion. - PET CT 10/05/2020: Right upper lobe mass) to the mediastinum, representing malignancy. Right pleural malignant implants with pleural effusion. Right hilar and mediastinal FDG positive nodes representing local metastatic disease -Based on PET/CT looks like it is malignant and metastatic to pleural and diaphragmatic surface -10/11/20: Right thoracentesis 1250 cc - Lymphocyte predominant exudative effusion; cytology reported negative. -10/26/2020: Right thoracentesis 1900 cc hemorrhagic fluid-lymphocyte predominant exudative effusion. Histopathology reported metastatic non-small cell carcinoma consistent with adenocarcinoma -10/29/2020: EBUS guided FNA C of station 4R-preliminary pathology reported as atypical clusters of cells; pathology reported metastatic non-small cell carcinoma consistent with adenocarcinoma -s/p Port-A-Cath placement and [place] drain on10/31/2020 -Eliquis 2.5 mg twice daily for A. fib RVR -On cardizem 240 XR daily for A.fib RVR; -Duoneb nebulization q 4h r brenda & budesonide 0.5 twice daily inhalation -Sudden respiratory distress today morning with chest x-ray showing infiltrate in RLL zone; recent bronchoscopy on 10/29/2020 did not show any endobronchial lesions but showed thick mucus purulent secretions -Chest physiotherapy and hypertonic saline to clear secretions, pulmonary toileting -Prednisone 40 mg daily -Continue BiPAP requiring 35% FiO2 -Currently on vancomycin, Zosyn, azithromycin --Elevated BNP, repeat echo possibly normal LVEF. Study could not evaluate wall motion abnormalities due to tachycardia. At least moderate tricuspid valve regurgitation and pulmonary hypertension with estimated pulmonary artery peak systolic pressure 53. Technically difficult study. -Received 80 mg Lasix today morning and started on Bumex 1 mg twice daily -Ordered PFTs/6-minute walk test during clinic visit - yet to get it as ou tpatient -Patient quit smoking 4 weeks ago and encouraged to maintain abstinence Recommendations conveyed to hospitalist and RN covering the patient. Medical condition and assessment plan explained to patient and he verbalized understanding and agreed with the plan Attestations Medical Necessity Statement*: Metastatic non-small cell cancer in patient with underlying COPD and diastolic heart failure requiring 4 to 5 L of oxygen and BiPAP awaiting chemotherapy Time Spent in Patient Care: Greater than 35 minutes (>than 50% of time spent in counselling and/or direct pt care on unit) . 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
[2020-11-05] MEDS: sodium chloride 3.5% neb 4 mL Neb INHALATION (19:31)
[2020-11-05] MEDS: atorvastatin 40 mg Tablet 20 MG PO (21:18)
[2020-11-05] MEDS: tamsulosin 0.4 mg Capsule PO (21:18)
[2020-11-06] VITALS (18 sets, daily range): BP systolic 107–129; BP diastolic 60–64; PULSE 75–96; RESP 18–30; TEMP 36.5–36.9; O2SAT 96–99
[2020-11-06] MEDS: piperacillin-tazobactam 3.375 GM in sodium chloride 0.9% (plus) 50 ML IV ×3 (00:19→17:36)
[2020-11-06 03:54] LABS: ABG PCO2 45.1 mmHg (35-45); ABG PH Result 7.42 (7.35-7.45); Arterial Blood Gas Hematocrit 30.6 % (42-52); Base Excess ABG 4.1 mmol/L (-2.0-2.0); Blood Gas Sample Site Brachial, right; Blood Gas Sample Type Arterial; HCO3 ABG 29.1 mmol/L (22-26); Oxygen Device OXY MASK
[2020-11-06] MEDS: ipratropium-albuterol 3 mL Neb INHALATION ×5 (03:56→20:30)
[2020-11-06] MEDS: bumetanide 0.25 mg/mL SDV 4 mL 1 MG IV ×2 (04:28→17:41)
[2020-11-06 04:56] LABS: Basophils # 0.1 10^3/uL (0.0-0.1); Basophils % 0.3 %; Hematocrit 28.7 % (42.0-52.0); Hemoglobin 9.4 g/dL (11.7-16.6); Lymphocytes # 0.8 10^3/uL (0.8-4.8); Lymphocytes % 3.3 %; Mean Corpuscular HGB Conc 32.8 g/dL (30.0-36.0); Mean Corpuscular Hemoglobin 28.9 pg (28.0-34.0); Mean Corpuscular Volume 88.3 fL (80-94); Mean Platelet Volume 9.2 fL (7.4-10.4); Monocytes % 8.3 %; Neutrophils # 20.21 10^3/uL (1.8-7.7); Neutrophils % 84.6 %; Nucleated Red Blood Cells % 0 %; Platelet Count 293 10^3/cmm (130-400); Red Blood Count 3.25 10^6/uL (4.1-5.3); Red Cell Distribution Width 13.7 % (12.1-15.1); White Blood Count 23.9 10^3/uL (4.0-10.0)
[2020-11-06 05:11] LABS: Lactate (Lactic Acid level) 1.7 mmol/L (0.5-2.2)
[2020-11-06 05:14] LABS: Alanine Aminotransferase 27 U/L (0-41); Albumin Level 2.7 g/dL (3.5-5.2); Alkaline Phosphatase 77 IU/L (40-130); Aspartate Amino Transferase 16 U/L (0-40); Blood Urea Nitrogen 46 mg/dL (8-23); Calcium 8.2 mg/dL (8.5-10.5); Carbon Dioxide 28 mmol/L (22-29); Chloride 98 mmol/L (98-107); Globulin 2.4 g/dL (1.3-4.6); Glucose 154 mg/dL (65-115); Magnesium 1.8 mg/dL (1.7-2.3); Osmolality Calculated 289 mOsm/kg (285-295); Phosphorus 3.3 mg/dL (2.5-4.5); Sodium 132 mmol/L (136-145); Total Bilirubin 0.2 mg/dL (0.15-1.2); Total Protein 5.1 g/dL (6.6-8.7)
[2020-11-06 05:30] LABS: INR 1.22 (0.8-1.2)
[2020-11-06 05:42] LABS: NT Pro B Type Natriuretic Pept 262 pg/mL (0-125); Procalcitonin 0.09 ng/mL (0-0.5)
[2020-11-06] MEDS: sucralfate 1 gm Tablet PO ×4 (06:31→21:13)
[2020-11-06] MEDS: cholecalciferol (vitamin D3) 1,000 unit Tablet 1000 UNIT PO (06:31)
--- NOTE | 2020-11-06 07:00 | XR_ITS ---
WS: [id number] Exam: XR chest 1V portable [id number] Date/Time of Exam: 11/06/2020 7:00 AM Reason For Exam: sob Comparison 11/05/2020. Again noted is infiltrate and atelectasis in the middle and lower lobes the right lung and right basa l pleural effusion. Prominent loculated pleural effusion in the minor fissure on the right. Right dennis e thoracostomy tube is unchanged in location. The left lung remains clear and fully expanded. Heart s ize is top limits normal. A left subclavian central line ends in the lower one third of the SVC in go od position. Monitoring leads superimpose the chest. XR/XR chest 1V portable [id number] IMPRESSION: 1. Chest radiograph showing no significant change since prior study.
[2020-11-06] MEDS: budesonide 0.5 mg/2 mL Neb INHALATION ×2 (07:47→20:30)
[2020-11-06] MEDS: sodium chloride 3.5% neb 4 mL Neb INHALATION ×2 (07:47→20:29)
[2020-11-06] MEDS: ferrous sulfate EC 325 mg Tablet PO ×2 (08:42→17:40)
[2020-11-06] MEDS: predniSONE 20 mg Tablet 40 MG PO (08:43)
[2020-11-06] MEDS: dilTIAZem ER (24HR) 240 mg Capsule PO (08:43)
[2020-11-06] MEDS: apixaban 5 mg Tablet PO ×2 (08:43→21:13)
[2020-11-06] MEDS: metoprolol tartrate 50 mg Tablet PO ×2 (08:44→21:12)
[2020-11-06] MEDS: azithromycin 500 MG in sodium chloride 0.9% 250 ML 250 MG IV (08:44)
[2020-11-06] MEDS: pantoprazole DR 40 mg Tablet PO ×2 (08:44→17:40)
--- NOTE | 2020-11-06 09:13 | CT_ITS ---
WS: [id number] CT CHEST TECHNIQUE: Noncontrast CT of the chest with coronal and sagittal reformatted images. CLINICAL INFORMATION: rml consolidation COMPARISON: PET/CT October 05, 2022 1 DLP: 469.[address] scans at [facility] use at least one of these dose optimization techniques: automat ed exposure control; mA and/or kV adjustment per patient size (includes targeted exams where dose is matched to clinical indication); or iterative reconstruction. FINDINGS: Again seen is the 3.5 x 2.5 cm spiculated mass in the medial right upper lobe adjacent to the mediast inum. This is not significantly changed since the recent PET/CT. Additional pleural metastatic implan ts as seen on the PET/CT. Anterior mediastinal and right hilar lymphadenopathy is unchanged. Largest metastatic implant in the posterior right pleura measures 4.0 CM. Right pleural drain is new from the prior PET/CT. Small moderate right pleural effusion with metastatic pleural implants. Compressive atelectasis in th e right lower lobe. Lobulated pleural fluid along the right major and minor fissures. Patchy infiltra marine in the right middle lobe with partial consolidation has progressed compared to the prior PET/CT. This is likely due to postobstructive pneumonia. Left lung is well aerated. Moderate chronic emphysematous changes. Coronary calcification. Aortic josefina cification. Adrenal glands are normal. Right chest tube IMPRESSION: 1. Previously described right upper lobe mass adherent to the mediastinum is not significantly callahan ed measuring 3.5 x 2.5 CM. 2. Small moderate right pleural effusion with compressive atelectasis right lower lobe. Pleural drai n in place. 3. Right middle lobe infiltrate likely due to postobstructive pneumonia with some consolidation is n ew from the prior PET/CT. 4. Lobulated pleural fluid along the right major and minor fissures. 5. Stable mediastinal and right hilar lymphadenopathy. 6. Metastatic pleural implants more prominent in the right lower lobe similar in appearance to previ ous
[2020-11-06] MEDS: polyethylene glycol 3350 Pkt 17 gm PO (10:33)
--- NOTE | 2020-11-06 14:30 | P.PN_ITS ---
Subjective Subjective: Interval history: This morning patient was examined, he is on 10 L oxygen mask, alert oriented x3, follows all commands, still complains of weakness, shortness of breath with minimal exertion, but is feeling better, no fevers, chills, has a poor appetite, has a nonproductive cough, Medications: Reviewed: Yes Medication Review Details: Generic Name Dose Route Start Last Admin Trade Name Freq PRN Reason Stop Dose Admin Hydrocodone Bitart /Acetaminophen 1 tab 10/31/20 17:13 11/03/20 00:15 Hydrocodone-Acet aminophen 5-325 Mg Tablet PO 1 tab Q4H PRN Administration MODERATE PAIN Albuterol/Ipratrop ium 3 ml 10/27/20 11:15 11/03/20 07:37 Ipratropium-Albu terol 3 Ml Neb INHALATION 3 ml Q4H.RESPIRATORY S CH Administration Apixaban 5 mg 11/01/20 21:00 11/03/20 09:41 Apixaban 5 Mg Ta blet PO 5 mg BID@0900,2100 SHAYNE Administration Atorvastatin Calci um 20 mg 10/25/20 19:00 11/02/20 18:45 Atorvastatin 40 Mg Tablet PO 20 mg DAILY@19 SHAYNE Administration Budesonide 0.5 mg 10/29/20 20:00 11/03/20 07:37 Budesonide 0.5 M g/2 Ml Neb INHALATION 0.5 mg BID.RESPIRATORY S CH Administration Diltiazem HCl 240 mg 10/29/20 12:00 11/03/20 09:41 Diltiazem Er (24 hr) 240 Mg Capsule PO 240 mg DAILY SHAYNE Administration Levofloxacin 750 mg 11/02/20 01:30 11/02/20 01:46 Levofloxacin 750 Mg Tablet PO 750 mg Q48H SHAYNE Administration Protocol Metoprolol Tartrat e 50 mg 10/28/20 21:00 11/03/20 09:41 Metoprolol Tartr ate 50 Mg Tablet PO 50 mg BID@0900,2100 SHAYNE Administration Pantoprazole Sodiu m 40 mg 10/25/20 19:00 11/02/20 18:[address] 40 Mg Tablet PO 40 mg DAILY@19 SHAYNE Administration Prednisone 40 mg 11/02/20 09:00 11/03/20 09:40 Prednisone 20 Mg Tablet PO 40 mg DAILY SHAYNE Administration Tamsulosin HCl 0.4 mg 10/25/20 19:00 11/02/20 18:45 Tamsulosin 0.4 M g Capsule PO 0.4 mg DAILY@19 [facility] Administration Vitamin D 1,000 unit 10/26/20 07:00 11/03/20 06:10 Cholecalciferol (Vitamin D3) 1,000 Unit Tablet PO 1,000 unit DAILY@07 [facility] Administration Zolpidem Tartrate 10 mg 10/30/20 19:27 10/30/20 20:11 Zolpidem 10 Mg T ablet PO 10 mg BEDTIME PRN Administration INSOMNIA Vitals/I&O/Wt Last Vital Signs Temp 98.0 F 11/06/20 12:00 Pulse 79 11/06/20 12:00 Resp 27 H 11/06/20 12:00 BP 121/63 11/06/20 12:00 Pulse Ox 99 11/06/20 12:00 11/05/20 11/06/20 11/06/20 22:59 06:59 14:59 Intake Total 1336 / 2081 50 / 2131 850 / 850 Output Total 800 / 2775 1400 / 4175 650 / 650 Balance 536 / -694 -1350 / -2044 200 / 200 Physical Exam Const: COMMON NORMALS: no acute distress and patient oriented x3 GENERAL APPEARANCE: cooperative, ill appearing and frail appearing NUTRITIONAL APPEARANCE: thin HENMT: COMMON NORMALS: normocephalic HEAD & SCALP: normocephalic Neck/C-Spine: COMMON NORMALS: no JVD Resp: COMMON NORMALS: normal respiratory effort, No retractions and No use of accessory muscles AUSCULTATION: rhonchi and wheezes Cardio: COMMON NORMALS: no JVD, regular rate, regular rhythm, S1 normal heart sound present and S2 normal heart sound present RATE: regular rate RHYTHM: regular rhythm HEART SOUNDS: S1 normal heart sound present and S2 normal heart sound present GI: COMMON NORMALS: Normal to inspection, nondistended, normoactive bowel sounds present, Soft to palpation, non-tender, No hepatosplenomegaly present, no masses and no bruits PALPATION: Yes Soft to palpation and Yes No hepatosplenomegaly present Extremity: COMMON NORMALS: capillary refill normal, no clubbing, cyanosis or e rabia, no calf tenderness and no pedal edema Neuro: COMMON NORMALS: patient oriented x3 Psych: COMMON NORMALS: mental status grossly normal Data : 11/06/20 04:30 11/06/20 04:30 Micro: Microbiology 11/06/20 00:23 Gram Stain - Final Sputum - Expectorated Sputum 11/05/20 10:00 Blood Culture - Preliminary Blood NEGATIVE TO DATE 11/05/20 09:56 Blood Culture - Preliminary Blood NEGATIVE TO DATE 11/05/20 19:15 Bacterial Antigens - Final Urine,Voided 11/05/20 18:00 Occult Blood (FIT) - Final Stool Routine Collection A&P Assessment and plan (1) Acute respiratory failure with hypoxia: Concerns for postobstructive pneumonia Chest x-ray this morning shows persistent right middle lobe and right lower lobe consolidation, concerning for pneumonia but improved compared to yesterday Chest CT shows right middle lobe infiltrate likely due to postobstructive pneumonia, with some consolidation, loculated pleural effusion along the right major and minor fissures Continue oxygen mask, BiPAP as needed, BiPAP schedule during the night Receiving vancomycin, Zosyn, azithromycin Bumex 1 mg every 12 hours this evening with potassium replacement Pleurx catheter was placed November 01. Decreasing amount of drainage noted. 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 Miller about postobstructive pneumonia concerns related to malignancy, although bronchoscopy did not show any endobronchial lesions, he advised to repeat CT scan, and he will discuss with radiation oncology Richie for DVT prophylaxis Patient is DNR/DNI, okay with ICU admission Status: Acute (2) Mass of middle lobe of right lung: Oncology following Chemotherapy cancelled Port placed October 31 paul drain supplies can be given on discharge Chemotherapy on hold, possibly will require radiation therapy to the chest if patient indeed has postobstructive pneumonia secondary to malignancy Status: Acute (3) Recurrent right pleural effusion: Pleurx catheter placed October 31 Status: Acute (4) New onset atrial fibrillation: Currently on metoprolol, Cardizem Transitioned to Eliquis Status: Acute (5) CKD (chronic kidney disease): Stable Status: Acute (6) COPD (chronic obstructive pulmonary disease): Prednisone 40 mg daily Pulmonary toilet Status: Acute Qualifiers: COPD type: unspecified COPD Qualified Code(s): J44.9 - Chronic obstructive pulmonary disease, unspecified Additional A&P Information Acute anemia, hemoglobin down to 9.4, iron levels low at 44, will start on Protonix 40 twice daily, Carafate, monitor hemoglobin closely as patient is on Eliquis Eliquis will suffice for DVT prophylaxis Plan is if patient clinically improves discharged with home health care Attestations Medical Necessity Statement*: Patient requires hospitalization for acute respiratory failure secondary to postobstructive pneumonia Coding Level of Care Code Acute Maintenance And 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
--- NOTE | 2020-11-06 14:52 | PC.NURSE ---
Patient currently refusing Pleur-X drain management. Requests to wait till visitors leave. Physician notified. No new orders received. Nurse to continue to monitor.
--- NOTE | 2020-11-06 17:19 | PM.PN ---
Subjective Subjective: Interval history: -Seen at bedside and patient is on 10 L oxygen mask, -Complaining of tiredness -Afebrile, elevated white count due to steroids, low procalcitonin and CRP -CT imaging showed lobulated pleural fluid along the right major and minor fissures and the right middle lobe infiltrate likely due to postobstructive pneumonia with some consolidation - continue chest physiotherapy Medications: Reviewed: Yes Medication Review Details: Generic Name Dose Route Start Last Admin Trade Name Freq PRN Reason Stop Dose Admin Hydrocodone Bitart /Acetaminophen 1 tab 10/31/20 17:13 11/03/20 00:15 Hydrocodone-Acet aminophen 5-325 Mg Tablet PO 1 tab Q4H PRN Administration MODERATE PAIN Albuterol/Ipratrop ium 3 ml 10/27/20 11:15 11/03/20 07:37 Ipratropium-Albu terol 3 Ml Neb INHALATION 3 ml Q4H.RESPIRATORY S CH Administration Apixaban 5 mg 11/01/20 21:00 11/03/20 09:41 Apixaban 5 Mg Ta blet PO 5 mg BID@0900,2100 BRENDA Administration Atorvastatin Calci um 20 mg 10/25/20 19:00 11/02/20 18:45 Atorvastatin 40 Mg Tablet PO 20 mg DAILY@19 BRENDA Administration Budesonide 0.5 mg 10/29/20 20:00 11/03/20 07:37 Budesonide 0.5 M g/2 Ml Neb INHALATION 0.5 mg BID.RESPIRATORY S CH Administration Diltiazem HCl 240 mg 10/29/20 12:00 11/03/20 09:41 Diltiazem Er (24 hr) 240 Mg Capsule PO 240 mg DAILY BRENDA Administration Levofloxacin 750 mg 11/02/20 01:30 11/02/20 01:46 Levofloxacin 750 Mg Tablet PO 750 mg Q48H BRENDA Administration Protocol Metoprolol Tartrat e 50 mg 10/28/20 21:00 11/03/20 09:41 Metoprolol Tartr ate 50 Mg Tablet PO 50 mg BID@0900,2100 BRENDA Administration Pantoprazole Sodiu m 40 mg 10/25/20 19:00 11/02/20 18:[address] 40 Mg Tablet PO 40 mg DAILY@19 BRENDA Administration Prednisone 40 mg 11/02/20 09:00 11/03/20 09:40 Prednisone 20 Mg Tablet PO 40 mg DAILY BRENDA Administration Tamsulosin HCl 0.4 mg 10/25/20 19:00 11/02/20 18:45 Tamsulosin 0.4 M g Capsule PO 0.4 mg DAILY@19 [facility] Administration Vitamin D 1,000 unit 10/26/20 07:00 11/03/20 06:10 Cholecalciferol (Vitamin D3) 1,000 Unit Tablet PO 1,000 unit DAILY@07 [facility] Administration Zolpidem Tartrate 10 mg 10/30/20 19:27 10/30/20 20:11 Zolpidem 10 Mg T ablet PO 10 mg BEDTIME PRN Administration INSOMNIA Vitals/I&O/Wt Last Vital Signs Temp 98.4 F 11/06/20 15:24 Pulse 93 11/06/20 16:24 Resp 28 H 11/06/20 16:19 BP 129/63 11/06/20 15:24 Pulse Ox 99 11/06/20 16:19 11/06/20 11/06/20 11/06/20 06:59 14:59 22:59 Intake Total 50 / 2131 900 / 900 Output Total 1400 / 4175 650 / 650 200 / 850 Balance -1350 / -2044 250 / 250 -200 / 50 Physical Exam Narrative: EXAM NARRATIVE: General: alert, in moderate respiratory distress HEENT: conj clear, EOMI, PERRL, mmm, Neck: supple, no meningismus Heme: no cervical LAP Pulmonary: Improved breath sounds on right lower lung Cardiovascular: rrr, nl s1s2, no mrg Abdomen: soft, nt, nd, no r/g, bs+ Extremities: pulses +, no edema, no c/c : no CVA tenderness Skin: intact, no rash MSK: no back or neck pain Neurologic: grossly intact Data : 11/06/20 04:30 11/06/20 04:30 Micro: Microbiology 11/06/20 00:23 Gram Stain - Final Sputum - Expectorated Sputum 11/05/20 10:00 Blood Culture - Preliminary Blood NEGATIVE TO DATE 11/05/20 09:56 Blood Culture - Preliminary Blood NEGATIVE TO DATE 11/05/20 19:15 Bacterial Antigens - Final Urine,Voided 11/05/20 18:00 Occult Blood (FIT) - Final Stool Routine Collection A&P Assessment and plan (1) Mediastinal adenopathy: Status: Acute (2) Mass of right lung: Status: Acute (3) COPD (chronic obstructive pulmonary disease): Status: Acute Qualifiers: COPD type: unspecified COPD Qualified Code(s): J44.9 - Chronic obstructive pulmonary disease, unspecified (4) Smoker: Status: Acute (5) Recurrent right pleural effusion: Status: Acute (6) New onset atrial fibrillation: Status: Acute #Acute respiratory failure with hypoxia due to Large right pleural effusion & A.fib with RVR #RML mass measuring 3.8 x 2.9 cm encompassing branches of RML pulmonary artery & Mediastinal and hilar adenopathy-EBUSpathology reported metastatic non-small cell carcinoma consistent with adenocarcinoma #Chronic smoker 0.5 PPD by 50 years-quit 2 weeks ago-encounter for smoking cessation counseling #COPD emphysema #Recurrent right pleural effusion-s/p Paul drain #Increasing loculated right-sided pleural effusion in the region of minor fissure and increasing atelectasis and infiltrate in the right lower lung zone - CT chest 09/25/2020: [facility]: RML mass measuring up to 3.8 x 2.9 cm, mass encompasses but does not occlude branches of right middle lobe pulmonary artery. Emphysematous changes are noted. Thyroid gland appears enlarged. Prominent lymph node is seen in the subcarinal region measuring 2.2 cm. Fullness is seen in the right hilum which also could be related to adenopathy. Moderate right pleural effusion. - PET CT 10/05/2020: Right upper lobe mass) to the mediastinum, representing malignancy. Right pleural malignant implants with pleural effusion. Right hilar and mediastinal FDG positive nodes representing local metastatic disease -Based on PET/CT looks like it is malignant and metastatic to pleural and diaphragmatic surface -10/11/20: Right thoracentesis 1250 cc - Lymphocyte predominant exudative effusion; cytology reported negative. -10/26/2020: Right thoracentesis 1900 cc hemorrhagic fluid-lymphocyte predominant exudative effusion. Histopathology reported metastatic non-small cell carcinoma consistent with adenocarcinoma -10/29/2020: EBUS guided FNA C of station 4R-preliminary pathology reported as atypical clusters of cells; pathology reported metastatic non-small cell carcinoma consistent with adenocarcinoma -Oncology to decide on starting inpatient chemotherapy -s/p Port-A-Cath placement and [place] drain on10/31/2020 -Eliquis 2.5 mg twice daily for A. fib RVR -On cardizem 240 XR daily for A.fib RVR; -Duoneb nebulization q 4h r brenda & budesonide 0.5 twice daily inhalation -Sudden respiratory distress yesterday morning with chest x-ray showing infiltrate in RLL zone; recent bronchoscopy on 10/29/2020 did not show any endobronchial lesions but showed thick mucus purulent secretions -CT imaging today showed lobulated pleural fluid along the right major and minor fissures and the right middle lobe infiltrate likely due to postobstructive pneumonia with some consolidation -No significant output through the Pleurx drain last couple of days. We will flush the drain and see if there is any output -Chest physiotherapy and hypertonic saline to clear secretions, pulmonary toileting -Prednisone 40 mg daily -On 10 L nasal cannula -Currently on vancomycin, Zosyn, azithromycin --Elevated BNP, repeat echo possibly normal LVEF. Study could not evaluate wall motion abnormalities due to tachycardia. At least moderate tricuspid valve regurgitation and pulmonary hypertension with estimated pulmonary artery peak systolic pressure 53. Technically difficult study. -on Bumex 1 mg twice daily with potassium replacement -Ordered PFTs/6-minute walk test during clinic visit - yet to get it as outpatient -Patient quit smoking 4 weeks ago and encouraged to maintain abstinence Recommendations conveyed to hospitalist and RN covering the patient. Medical condition and assessment plan explained to patient and he verbalized understanding and agreed with the plan Attestations Medical Necessity Statement*: Acute respiratory distress requiring 10 L nasal cannulae and patient with metastatic lung cancer with loculated right pleural effusion despite of placing Paul drain and possible postobstructive pneumonia awaiting radiation oncology and initiation of chemotherapy. Time Spent in Patient Care: Greater than 35 minutes (>than 50% of time spent in counselling and/or direct pt care on unit). Critical Care Time: Critical Care Time (min): 45 Coding Level of Care Code Established Pt Acute Tribal Delegate for [facility] Fwd Patient Type Established History Comprehensive Exam Comprehensive Medical Decision Making High Complexity Diagnoses Mediastinal adenopathy R59.0 Mass of right lung R91.8 COPD (chronic obstructive pulmonary disease) J44.9 COPD type: unspecified COPD Smoker F17.200 Recurrent right pleural effusion J90 New onset atrial fibrillation I48.91 Time Spent (min) 45
[2020-11-06] MEDS: tamsulosin 0.4 mg Capsule PO (18:21)
[2020-11-06] MEDS: atorvastatin 40 mg Tablet 20 MG PO (18:21)
--- NOTE | 2020-11-06 18:30 | PC.NURSE ---
Drain Management [place] drain flushed with [address] Brown at bedside. Sterile technique maintained. Physician attempted to drain using Pleur-x kit, no drainage returned. Order received to administer cath priscilla through catheter, see message to nurse order, physician to discuss dosing with Dr. Brown.
--- NOTE | 2020-11-06 22:14 | PC.NURSE ---
Spoke with regarding this patient's hypertension. see MAR for order.
[2020-11-07] VITALS (18 sets, daily range): BP systolic 100–131; BP diastolic 56–68; PULSE 73–88; RESP 18–30; TEMP 36.5–36.6; O2SAT 92–98
[2020-11-07] MEDS: ipratropium-albuterol 3 mL Neb INHALATION ×5 (00:53→19:51)
[2020-11-07] MEDS: piperacillin-tazobactam 3.375 GM in sodium chloride 0.9% (plus) 50 ML IV ×3 (01:59→17:42)
[2020-11-07] MEDS: bumetanide 0.25 mg/mL SDV 4 mL 1 MG IV ×2 (05:55→17:40)
--- NOTE | 2020-11-07 07:00 | XR_ITS ---
WS: [id number] Exam: XR chest 1V portable [id number] Date/Time of Exam: 11/07/2020 7:16 AM Reason For Exam: sob Comparison 11/06/2020. Again noted is infiltrate and atelectasis involving the middle and lower lobes the right lung with ri ght pleural effusion. Pleural effusion has increased. A right-sided thoracostomy drainage tube is unc hanged in location. Soft tissue density seen along the right mediastinum may represent atelectasis an d/or infiltrate. This is new. The left lung remains clear and fully expanded. Heart size is stable. L eft subclavian central line remains in satisfactory location in the lower one third of the SVC. Monit oring leads superimpose the chest. XR/XR chest 1V portable [id number] IMPRESSION: 1. Right pleural effusion show some increase since previous study. Consolidatio n and atelectasis in the middle and lower right lung slightly increased. 2. New soft tissue density along the right mediastinum may represent atelectati c lung or new infiltrate. No other change.
--- NOTE | 2020-11-07 07:10 | PC.NURSE ---
Spoke with Dr. Roach regarding this patient's order for Lisinopril. Pt states that he was on this medication and it caused him to have the pril cough... medication changed to ARB losartan to start in the AM.
[2020-11-07 07:18] LABS: Basophils # 0.1 10^3/uL (0.0-0.1); Basophils % 0.3 %; Hematocrit 30.3 % (42.0-52.0); Hemoglobin 10.1 g/dL (11.7-16.6); Lymphocytes # 1.2 10^3/uL (0.8-4.8); Lymphocytes % 3.6 %; Mean Corpuscular HGB Conc 33.3 g/dL (30.0-36.0); Mean Corpuscular Hemoglobin 29.7 pg (28.0-34.0); Mean Corpuscular Volume 89.1 fL (80-94); Mean Platelet Volume 8.9 fL (7.4-10.4); Monocytes % 8.8 %; Neutrophils # 28.09 10^3/uL (1.8-7.7); Nucleated Red Blood Cells % 0 %; Platelet Count 320 10^3/cmm (130-400); Red Cell Distribution Width 13.7 % (12.1-15.1)
--- NOTE | 2020-11-07 07:20 | PC.NURSE ---
Patient states, I can't breathe. Patient tachypneic with assessory muscle use and labored breathing. O2 sats remain in low 90s on 8L high flow cannula. RT called to bedside. See RT treatment record.
[2020-11-07 07:29] LABS: INR 1.15 (0.8-1.2)
[2020-11-07 07:35] LABS: C Reactive Protein 0.3 mg/L (0.0-4.9)
[2020-11-07 07:36] LABS: Alanine Aminotransferase 32 U/L (0-41); Albumin Level 2.7 g/dL (3.5-5.2); Alkaline Phosphatase 72 IU/L (40-130); Anion Gap 9.7 (5-19); Aspartate Amino Transferase 18 U/L (0-40); Blood Urea Nitrogen 50 mg/dL (8-23); Calcium 8.5 mg/dL (8.5-10.5); Carbon Dioxide 31 mmol/L (22-29); Chloride 98 mmol/L (98-107); Globulin 2.4 g/dL (1.3-4.6); Glucose 127 mg/dL (65-115); Magnesium 1.8 mg/dL (1.7-2.3); Osmolality Calculated 293 mOsm/kg (285-295); Phosphorus 3.3 mg/dL (2.5-4.5); Potassium 4.7 mmol/L (3.5-5.1); Sodium 134 mmol/L (136-145); Total Bilirubin 0.3 mg/dL (0.15-1.2); Total Protein 5.1 g/dL (6.6-8.7)
[2020-11-07 07:37] LABS: Lactate (Lactic Acid level) 1.3 mmol/L (0.5-2.2)
[2020-11-07] MEDS: sodium chloride 3.5% neb 4 mL Neb INHALATION ×2 (07:40→19:51)
[2020-11-07] MEDS: budesonide 0.5 mg/2 mL Neb INHALATION ×2 (07:41→19:51)
[2020-11-07] MEDS: sucralfate 1 gm Tablet PO ×4 (07:44→20:40)
[2020-11-07] MEDS: cholecalciferol (vitamin D3) 1,000 unit Tablet 1000 UNIT PO (07:44)
[2020-11-07 07:46] LABS: Vancomycin Trough 4.6 ug/mL (10-15)
--- NOTE | 2020-11-07 08:02 | PC.NURSE ---
Pharmacy notified of vanc trough of 4.6.
[2020-11-07 08:13] LABS: White Blood Count 33.5 10^3/uL (4.0-10.0)
[2020-11-07 08:25] LABS: NT Pro B Type Natriuretic Pept 254 pg/mL (0-125)
--- NOTE | 2020-11-07 08:30 | PC.NURSE ---
Dr. Haynes notified of diminished lung sounds on auscultation and critical WBC value, discussed POC. Verbal order to drain cristian drain now. Physician to adjust medications. Nurse to continue to monitor.
[2020-11-07] MEDS: ferrous sulfate EC 325 mg Tablet PO ×2 (09:55→17:41)
[2020-11-07] MEDS: dilTIAZem ER (24HR) 240 mg Capsule PO (09:55)
[2020-11-07] MEDS: pantoprazole DR 40 mg Tablet PO ×2 (09:55→17:41)
[2020-11-07] MEDS: apixaban 5 mg Tablet PO ×2 (09:55→20:40)
[2020-11-07] MEDS: predniSONE 20 mg Tablet 40 MG PO (09:55)
[2020-11-07] MEDS: polyethylene glycol 3350 Pkt 17 gm PO (09:56)
[2020-11-07] MEDS: vancomycin 1,000 MG in sodium chloride 0.9% 250 ML 250 MG IV (10:12)
[2020-11-07] MEDS: azithromycin 500 MG in sodium chloride 0.9% 250 ML 250 MG IV (10:15)
--- NOTE | 2020-11-07 10:30 | PC.NURSE ---
[place] drain accessed with Pleur-x kit. Telephone order from Dr. Brown to remove up to 1500 ml if patient tolerates will minimal coughing. A total of 1400 ml sanguinous drainage removed. Patient tolerated well. Air improvement improved throughout right lung canas. Dr. Brown and Dr. mckeon notified. Telephone order from Dr. Brown to attempt to drain again in 3-4 hours. RBTO. Nurse to continue to monitor.
[2020-11-07] MEDS: metoprolol tartrate 50 mg Tablet PO ×2 (10:39→20:40)
--- NOTE | 2020-11-07 11:29 | P.PN_ITS ---
Subjective Subjective: Interval history: This morning patient was examined, overnight he continued to have episodes of shortness of breath, continues to have shortness of breath this morning, mild tachypnea, mild retractions this morning, is on 10 L oxygen mask, continues to have a poor appetite, no fevers, no chills, no chest pain Medications: Reviewed: Yes Medication Review Details: Generic Name Dose Route Start Last Admin Trade Name Freq PRN Reason Stop Dose Admin Hydrocodone Bitart /Acetaminophen 1 tab 10/31/20 17:13 11/03/20 00:15 Hydrocodone-Acet aminophen 5-325 Mg Tablet PO 1 tab Q4H PRN Administration MODERATE PAIN Albuterol/Ipratrop ium 3 ml 10/27/20 11:15 11/03/20 07:37 Ipratropium-Albu terol 3 Ml Neb INHALATION 3 ml Q4H.RESPIRATORY S CH Administration Apixaban 5 mg 11/01/20 21:00 11/03/20 09:41 Apixaban 5 Mg Ta blet PO 5 mg BID@0900,2100 SHAYNE Administration Atorvastatin Calci um 20 mg 10/25/20 19:00 11/02/20 18:45 Atorvastatin 40 Mg Tablet PO 20 mg DAILY@19 SHAYNE Administration Budesonide 0.5 mg 10/29/20 20:00 11/03/20 07:37 Budesonide 0.5 M g/2 Ml Neb INHALATION 0.5 mg BID.RESPIRATORY S CH Administration Diltiazem HCl 240 mg 10/29/20 12:00 11/03/20 09:41 Diltiazem Er (24 hr) 240 Mg Capsule PO 240 mg DAILY SHAYNE Administration Levofloxacin 750 mg 11/02/20 01:30 11/02/20 01:46 Levofloxacin 750 Mg Tablet PO 750 mg Q48H SHAYNE Administration Protocol Metoprolol Tartrat e 50 mg 10/28/20 21:00 11/03/20 09:41 Metoprolol Tartr ate 50 Mg Tablet PO 50 mg BID@0900,2100 SHAYNE Administration Pantoprazole Sodiu m 40 mg 10/25/20 19:00 11/02/20 18:[address] 40 Mg Tablet PO 40 mg DAILY@19 SHAYNE Administration Prednisone 40 mg 11/02/20 09:00 11/03/20 09:40 Prednisone 20 Mg Tablet PO 40 mg DAILY SHAYNE Administration Tamsulosin HCl 0.4 mg 10/25/20 19:00 11/02/20 18:45 Tamsulosin 0.4 M g Capsule PO 0.4 mg DAILY@19 SHAYNE Administration Vitamin D 1,000 unit 10/26/20 07:00 11/03/20 06:10 Cholecalciferol (Vitamin D3) 1,000 Unit Tablet PO 1,000 unit DAILY@07 SHAYNE Administration Zolpidem Tartrate 10 mg 10/30/20 19:27 10/30/20 20:11 Zolpidem 10 Mg T ablet PO 10 mg BEDTIME PRN Administration INSOMNIA Vitals/I&O/Wt Last Vital Signs Temp 97.9 F 11/07/20 07:22 Pulse 87 11/07/20 08:07 Resp 24 H 11/07/20 07:40 BP 124/64 11/07/20 07:22 Pulse Ox 96 11/07/20 07:40 11/06/20 11/07/20 11/07/20 22:59 06:59 14:59 Intake Total 510 / 1410 969.167 / 2379.167 1110 / 1110 Output Total 950 / 1600 800 / 2400 650 / 650 Balance -440 / -190 169.167 / -20.833 460 / 460 Physical Exam Const: COMMON NORMALS: no acute distress and patient oriented x3 HENMT: COMMON NORMALS: normocephalic HEAD & SCALP: normocephalic Neck/C-Spine: COMMON NORMALS: no JVD Resp: COMMON NORMALS: No use of accessory muscles EFFORT & INSPECTION: Yes tachypneic, Yes respiratory distress (Mild) and Yes retractions intercostal AUSCULTATION: diminished lung sounds on the right Cardio: COMMON NORMALS: no JVD, regular rate, regular rhythm, S1 normal heart sound present and S2 normal heart sound present RATE: regular rate RHYTHM: regular rhythm HEART SOUNDS: S1 normal heart sound present and S2 normal heart sound present GI: COMMON NORMALS: Normal to inspection, nondistended, normoactive bowel sounds present, Soft to palpation, non-tender, No hepatosplenomegaly present, no masses and no bruits PALPATION: Yes Soft to palpation and Yes No hepatosplenomegaly present Extremity: COMMON NORMALS: capillary refill normal, no clubbing, cyanosis or edema, no calf tenderness and no pedal edema Neuro: COMMON NORMALS: patient oriented x3 Psych: COMMON NORMALS: mental status grossly normal Data : 11/07/20 07:09 11/07/20 07:09 Micro: Microbiology 11/06/20 00:23 Gram Stain - Final Sputum - Expectorated Sputum Sputum Culture - Preliminary 11/05/20 10:00 Blood Culture - Preliminary Blood NEGATIVE TO DATE 11/05/20 09:56 Blood Culture - Preliminary Blood NEGATIVE TO DATE A&P Assessment and plan (1) Acute respiratory failure with hypoxia: Concerns for postobstructive pneumonia, with loculated pleural effusions White blood cell count 33.5, pro-Arnel 0.1, CRP 0.3 Chest x-ray this morning shows persistent right middle lobe and right lower lobe consolidation, concerning for pneumonia but improved compared to yesterday I would say Chest CT shows right middle lobe infiltrate likely due to postobstructive pne umonia, with some consolidation, loculated pleural effusion along the right major and minor fissures Reviewed film with Dr. Miller and radiation oncologist, they feel that the malignant lesions are more central and are not resulting in obstructive phenomenon, patient is likely not to benefit from radiation therapy, Dr. Miller will review the pathology to see if inpatient chemotherapy would be an option but would be associate with significant risks given his current infection Dr. Brown did instill TPA into [place] catheter, roughly 1 L of bloody drainage this morning, patient symptoms improved somewhat after Continue oxygen mask, BiPAP as needed, BiPAP schedule during the night Receiving vancomycin, Zosyn, azithromycin Voriconazole added for antifungal and Aspergillus, covers this morning Bumex 1 mg every 12 hours this evening with potassium replacement, creatinine up to 1.7, 4 L urine output yesterday Pleurx catheter catheter in place, will repeat chest x-ray tomorrow morning, It is possible that patient might require chest tube if loculated pleural effusions persist Receiving chest vest therapy 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 Miller will review pathology Status: Acute (3) Recurrent right pleural effusion: Pleurx catheter placed October 31 Status: Acute (4) New onset atrial fibrillation: Currently on metoprolol, Cardizem Transitioned to Eliquis Status: Acute (5) CKD (chronic kidney disease): Stable Status: Acute (6) COPD (chronic obstructive pulmonary disease): Prednisone 40 mg daily Pulmonary toilet Status: Acute Qualifiers: COPD type: unspecified COPD Qualified Code(s): J44.9 - Chronic obstructive pulmonary disease, unspecified Additional A&P Information Acute anemia, hemoglobin down to 9.4, iron levels low at 44, will start on Protonix 40 twice daily, Carafate, monitor hemoglobin closely as patient is on Eliquis Eliquis will suffice for DVT prophylaxis Plan is if patient clinically improves discharged with home health care Attestations Medical Necessity Statement*: Patient requires hospitalization for non-small carcinoma, now with postobstructive pneumonia, loculated pleural effusions, critical care time spent over 45 minutes Coding Level of Care Code Acute Clinical Laboratory Scientist for [facility] Fwd Diagnoses Acute respiratory failure with hypoxia J96.01 Mass of middle lobe of right lung R91.8 Recurrent right pleural effusion J90 New onset atrial fibrillation I48.91 CKD (chronic kidney disease) N18.9 COPD (chronic obstructive pulmonary disease) J44.9 COPD type: unspecified COPD
--- NOTE | 2020-11-07 12:21 | P.PN_ITS ---
Subjective Subjective: Interval history: -Mr. Adan appeared to be in mild respiratory distress, currently on 10 L nasal cannula -Yesterday CT scan showed lobulated right pleural effusions -Tried flushing Pleurx catheter yesterday evening which clots in the drain. -Given 10 mg TPA(Cathflo) yesterday evening and drained 1400 cc hemorrhagic fluid today morning Medications: Reviewed: Yes Medication Review Details: Generic Name Dose Route Start Last Admin Trade Name Freq PRN Reason Stop Dose Admin Hydrocodone Bitart /Acetaminophen 1 tab 10/31/20 17:13 11/03/20 00:15 Hydrocodone-Acet aminophen 5-325 Mg Tablet PO 1 tab Q4H PRN Administration MODERATE PAIN Albuterol/Ipratrop ium 3 ml 10/27/20 11:15 11/03/20 07:37 Ipratropium-Albu terol 3 Ml Neb INHALATION 3 ml Q4H.RESPIRATORY S CH Administration Apixaban 5 mg 11/01/20 21:00 11/03/20 09:41 Apixaban 5 Mg Ta blet PO 5 mg BID@0900,2100 BRENDA Administration Atorvastatin Calci um 20 mg 10/25/20 19:00 11/02/20 18:45 Atorvastatin 40 Mg Tablet PO 20 mg DAILY@19 BRENDA Administration Budesonide 0.5 mg 10/29/20 20:00 11/03/20 07:37 Budesonide 0.5 M g/2 Ml Neb INHALATION 0.5 mg BID.RESPIRATORY S CH Administration Diltiazem HCl 240 mg 10/29/20 12:00 11/03/20 09:41 Diltiazem Er (24 hr) 240 Mg Capsule PO 240 mg DAILY BRENDA Administration Levofloxacin 750 mg 11/02/20 01:30 11/02/20 01:46 Levofloxacin 750 Mg Tablet PO 750 mg Q48H BRENDA Administration Protocol Metoprolol Tartrat e 50 mg 10/28/20 21:00 11/03/20 09:41 Metoprolol Tartr ate 50 Mg Tablet PO 50 mg BID@0900,2100 BRENDA Administration Pantoprazole Sodiu m 40 mg 10/25/20 19:00 11/02/20 18:[address] 40 Mg Tablet PO 40 mg DAILY@19 BRENDA Administration Prednisone 40 mg 11/02/20 09:00 11/03/20 09:40 Prednisone 20 Mg Tablet PO 40 mg DAILY BRENDA Administration Tamsulosin HCl 0.4 mg 10/25/20 19:00 11/02/20 18:45 Tamsulosin 0.4 M g Capsule PO 0.4 mg DAILY@19 [facility] Administration Vitamin D 1,000 unit 10/26/20 07:00 11/03/20 06:10 Cholecalciferol (Vitamin D3) 1,000 Unit Tablet PO 1,000 unit DAILY@07 [facility] Administration Zolpidem Tartrate 10 mg 10/30/20 19:27 10/30/20 20:11 Zolpidem 10 Mg T ablet PO 10 mg BEDTIME PRN Administration INSOMNIA Vitals/I&O/Wt Last Vital Signs Temp 97.8 F 11/07/20 11:34 Pulse 85 11/07/20 11:34 Resp 26 H 11/07/20 11:34 BP 100/56 11/07/20 11:34 Pulse Ox 95 11/07/20 11:34 11/06/20 11/07/20 11/07/20 22:59 06:59 14:59 Intake Total 510 / 1410 969.167 / 2379.167 1110 / 1110 Output Total 950 / 1600 800 / 2400 650 / 650 Balance -440 / -190 169.167 / -20.833 460 / 460 Physical Exam Narrative: EXAM NARRATIVE: General: alert, in moderate respiratory distress HEENT: conj clear, EOMI, PERRL, mmm, Neck: supple, no meningismus Heme: no cervical LAP Pulmonary: Reduced breath sounds on right lower lung Cardiovascular: rrr, nl s1s2, no mrg Abdomen: soft, nt, nd, no r/g, bs+ Extremities: pulses +, no edema, no c/c : no CVA tenderness Skin: intact, no rash MSK: no back or neck pain Neurologic: grossly intact Data : 11/07/20 07:09 11/07/20 07:09 Micro: Microbiology 10/29/20 08:00 Gram Stain - Final Lung Right Upper Lobe Bronchoalveolar Lavage Culture - Final Corynebacterium species 11/06/20 00:23 Gram Stain - Final Sputum - Expectorated Sputum Sputum Culture - Preliminary 11/05/20 10:00 Blood Culture - Preliminary Blood NEGATIVE TO DATE 11/05/20 09:56 Blood Culture - Preliminary Blood NEGATIVE TO DATE A&P Assessment and plan (1) Mediastinal adenopathy: Status: Acute (2) Mass of right lung: Status: Acute (3) COPD (chronic obstructive pulmonary disease): Status: Acute Qualifiers: COPD type: unspecified COPD Qualified Code(s): J44.9 - Chronic obstructive pulmonary disease, unspecified (4) Smoker: Status: Acute (5) Recurrent right pleural effusion: Status: Acute (6) New onset atrial fibrillation: Status: Acute #Acute respiratory failure with hypoxia due to Large right pleural effusion & A.fib with RVR #RML mass measuring 3.8 x 2.9 cm encompassing branches of RML pulmonary artery & Mediastinal and hilar adenopathy-EBUSpathology reported metastatic non-small cell carcinoma consistent with adenocarcinoma #Chronic smoker 0.5 PPD by 50 years-quit 2 weeks ago-encounter for smoking cessation counseling #COPD emphysema #Recurrent right pleural effusion-s/p Shelly drain c/b clogging #Increasing loculated right-sided pleural effusion in the region of minor fissure and increasing atelectasis and infiltrate in the right lower lung zone - CT chest 09/25/2020: [facility]: RML mass measuring up to 3.8 x 2.9 cm, mass encompasses but does not occlude branches of right middle lobe pulmonary artery. Emphysematous changes are noted. Thyroid gland appears enlarged. Prominent lymph node is seen in the subcarinal region measuring 2.2 cm. Fullness is seen in the right hilum which also could be related to adenopathy. Moderate right pleural effusion. - PET CT 10/05/2020: Right upper lobe mass) to the mediastinum, representing malignancy. Right pleural malignant implants with pleural effusion. Right hilar and mediastinal FDG positive nodes representing local metastatic disease -Based on PET/CT looks like it is malignant and metastatic to pleural and diaphragmatic surface -10/11/20: Right thoracentesis 1250 cc - Lymphocyte predominant exudative effusion; cytology reported negative. -10/26/2020: Right thoracentesis 1900 cc hemorrhagic fluid-lymphocyte predominant exudative effusion. Histopathology reported metastatic non-small cell carcinoma consistent with adenocarcinoma -10/29/2020: EBUS guided FNA C of station 4R-preliminary pathology reported as atypical clusters of cells; pathology reported metastatic non-small cell carcinoma consistent with adenocarcinoma -Oncology to decide on starting inpatient chemotherapy -s/p Port-A-Cath placement and Shelly drain on10/31/2020 -Eliquis 2.5 mg twice daily for A. fib RVR -On cardizem 240 XR daily for A.fib RVR; -Duoneb nebulization q 4h r brenda & budesonide 0.5 twice daily inhalation -Sudden respiratory distress yesterday morning with chest x-ray showing infiltrate in RLL zone; recent bronchoscopy on 10/29/2020 did not show any endobronchial lesions but showed thick mucus purulent secretions -CT imaging 11/07/2020: Showed lobulated pleural fluid along the right major and minor fissures and the right middle lobe infiltrate likely due to postobstructive pneumonia with some consolidation -Drained 1400 cc today morning after instilling 10 cc TPA -Repeat chest x-ray to see for improvement of effusions -Chest physiotherapy and hypertonic saline to clear secretions, pulmonary toileting -Prednisone 40 mg daily -On 10 L nasal cannula -Currently on vancomycin, Zosyn, azithromycin; added voriconazole for Aspergillus as WBC is worsening --Elevated BNP, repeat echo possibly normal LVEF. Study could not evaluate wall motion abnormalities due to tachycardia. At least moderate tricuspid valve regurgitation and pulmonary hypertension with estimated pulmonary artery peak systolic pressure 53. Technically difficult study. -on Bumex 1 mg twice daily with potassium replacement -Ordered PFTs/6-minute walk test during clinic visit - yet to get it as outpatient -Patient quit smoking 4 weeks ago and encouraged to maintain abstinence Recommendations conveyed to hospitalist and RN covering the patient. Medical condition and assessment plan explained to patient and he verbalized understanding and agreed with the plan Attestations Medical Necessity Statement*: Acute respiratory distress with hypoxia requiring 10 L nasal cannula in patient with metastatic non-small cell lung cancer, with a malignant right pleural effusion Time Spent in Patient Care: Greater than 35 minutes (>than 50% of time spent in counselling and/or direct pt care on unit) . Critical Care Time: Critical Care Time (min): 45 Coding Level of Care Code Established Pt Acute Information Technology Architect for [facility] Patient Type Established History Comprehensive Exam Comprehensive Medical Decision Making High Complexity Diagnoses Mediastinal adenopathy R59.0 Mass of right lung R91.8 COPD (chronic obstructive pulmonary disease) J44.9 COPD type: unspecified COPD Smoker F17.200 Recurrent right pleural effusion J90 New onset atrial fibrillation I48.91 Time Spent (min) 45
--- NOTE | 2020-11-07 12:48 | DCPLANNER ---
IMM completed with pt on 11/07/20 @ 1012. Copy of rights given to pt.
--- NOTE | 2020-11-07 14:55 | PC.OT ---
PATIENT REQUESTS TO HOLD OT TREATMENT TODAY DUE TO FATIGUE
--- NOTE | 2020-11-07 16:00 | PC.NURSE ---
Will drained accessed with Pleur-x kit. 400 ml sanguineous drainage removed. Patient tolerated well. Dr. Brown notified. Physician requests cxr in am. RBTO. Nurse to continue to monitor.
[2020-11-07] MEDS: atorvastatin 40 mg Tablet 20 MG PO (18:23)
[2020-11-08] VITALS (23 sets, daily range): BP systolic 107–130; BP diastolic 52–65; PULSE 72–92; RESP 17–24; TEMP 36.5–36.8; O2SAT 93–99
[2020-11-08] MEDS: ipratropium-albuterol 3 mL Neb INHALATION ×7 (00:16→23:06)
[2020-11-08] MEDS: piperacillin-tazobactam 3.375 GM in sodium chloride 0.9% (plus) 50 ML IV ×2 (00:35→10:45)
[2020-11-08] MEDS: vancomycin 1,000 MG in sodium chloride 0.9% 250 ML 250 MG IV ×2 (03:15→21:05)
[2020-11-08 04:22] LABS: ABG PCO2 44.3 mmHg (35-45); ABG PH Result 7.46 (7.35-7.45); Base Excess ABG 6.7 mmol/L (-2.0-2.0); Blood Gas Allen Test Pos; Blood Gas Sample Site Radial, left; Blood Gas Sample Type Arterial; HCO3 ABG 31.4 mmol/L (22-26); Oxygen Device NC; PO2 ABG 68.2 mmHg (80.0-100.0)
[2020-11-08 05:13] LABS: Basophils # 0.1 10^3/uL (0.0-0.1); Basophils % 0.4 %; Hematocrit 27.6 % (42.0-52.0); Hemoglobin 9.2 g/dL (11.7-16.6); Lymphocytes % 3.2 %; Mean Corpuscular HGB Conc 33.3 g/dL (30.0-36.0); Mean Corpuscular Hemoglobin 29.4 pg (28.0-34.0); Mean Corpuscular Volume 88.2 fL (80-94); Mean Platelet Volume 9.3 fL (7.4-10.4); Monocytes # 2.6 10^3/uL (0.2-0.9); Monocytes % 8.3 %; Neutrophils # 26.61 10^3/uL (1.8-7.7); Neutrophils % 84.8 %; Nucleated Red Blood Cells % 0 %; Platelet Count 291 10^3/cmm (130-400); Red Blood Count 3.13 10^6/uL (4.1-5.3); Red Cell Distribution Width 13.9 % (12.1-15.1)
[2020-11-08 05:23] LABS: INR 1.17 (0.8-1.2)
[2020-11-08 05:29] LABS: Lactate (Lactic Acid level) 1.7 mmol/L (0.5-2.2)
[2020-11-08 05:30] LABS: Alanine Aminotransferase 23 U/L (0-41); Albumin Level 2.3 g/dL (3.5-5.2); Alkaline Phosphatase 64 IU/L (40-130); Anion Gap 11.4 (5-19); Aspartate Amino Transferase 13 U/L (0-40); Blood Urea Nitrogen 55 mg/dL (8-23); C Reactive Protein 16.4 mg/L (0.0-4.9); Carbon Dioxide 30 mmol/L (22-29); Chloride 97 mmol/L (98-107); Globulin 2.3 g/dL (1.3-4.6); Glucose 172 mg/dL (65-115); Magnesium 1.8 mg/dL (1.7-2.3); Osmolality Calculated 297 mOsm/kg (285-295); Phosphorus 3.6 mg/dL (2.5-4.5); Potassium 4.4 mmol/L (3.5-5.1); Sodium 134 mmol/L (136-145); Total Bilirubin 0.2 mg/dL (0.15-1.2); Total Protein 4.6 g/dL (6.6-8.7)
[2020-11-08] MEDS: bumetanide 0.25 mg/mL SDV 4 mL 1 MG IV (05:45)
[2020-11-08 06:01] LABS: NT Pro B Type Natriuretic Pept 141 pg/mL (0-125); Procalcitonin 0.13 ng/mL (0-0.5)
[2020-11-08 06:29] LABS: White Blood Count 31.4 10^3/uL (4.0-10.0)
[2020-11-08] MEDS: cholecalciferol (vitamin D3) 1,000 unit Tablet 1000 UNIT PO (06:57)
[2020-11-08] MEDS: sucralfate 1 gm Tablet PO ×4 (06:58→21:43)
--- NOTE | 2020-11-08 07:00 | XR_ITS ---
WS: [id number] Exam: XR chest 1V portable [id number] Date/Time of Exam: 11/08/2020 6:24 AM Reason For Exam: sob Comparison 11/07/2020. There is significantly improved infiltrate, atelectasis and pleural effusion in the right base since the last exam. Right-sided chest tube is unchanged in position. The left lung remains clear and fully inflated. Heart size is normal. Left subclavian central line ends at the cavoatrial junction in good position. Monitoring leads superimpose the chest. XR/XR chest 1V portable [id number] IMPRESSION: 1. Significantly improved infiltrate, atelectasis and pleural effusion in the r ight lower lung zone since previous study.
[2020-11-08] MEDS: sodium chloride 3.5% neb 4 mL Neb INHALATION ×2 (07:15→19:40)
[2020-11-08] MEDS: budesonide 0.5 mg/2 mL Neb INHALATION ×2 (07:15→19:40)
[2020-11-08] MEDS: azithromycin 500 MG in sodium chloride 0.9% 250 ML 250 MG IV (08:08)
[2020-11-08] MEDS: polyethylene glycol 3350 Pkt 17 gm PO (08:13)
[2020-11-08] MEDS: predniSONE 20 mg Tablet 40 MG PO (08:13)
[2020-11-08] MEDS: dilTIAZem ER (24HR) 240 mg Capsule PO (08:13)
[2020-11-08] MEDS: ferrous sulfate EC 325 mg Tablet PO ×2 (08:14→18:21)
[2020-11-08] MEDS: metoprolol tartrate 50 mg Tablet PO ×2 (08:14→20:56)
[2020-11-08] MEDS: apixaban 5 mg Tablet PO ×2 (08:14→20:56)
[2020-11-08] MEDS: pantoprazole DR 40 mg Tablet PO ×2 (08:14→18:21)
--- NOTE | 2020-11-08 10:03 | PC.CHAP ---
Pastoral Care Encounter/Spiritual Assessment Type of Contact [] Declined sales representative girls' apparel visit [] Patient/Family/Request visit [] Outpatient visit [] Follow-up visit [] Physician referral [] Code/Alert [x] Routine visit [] Staff referral [] Actively dying [] Patient sleeping [] Family support [] [] Out of room [] Palliative care [] [] Receiving care in room [] Pre-surgical visit [] Trauma [] Long length of stay [] ICU visit [] Other: Relational/Emotional Strength [] Patient feels connected with others/family/visitors/staff [] Distress [] Loneliness/isolation [] Abandonment Spirituality of Patient [x] Person of Didi [] Attends Sabianist of their Didi [] Believes in Prayer [] Reads Bible or Denominational materials [] There are Spiritual issues to be addressed Director Agricultural Services Interventions [x] Prayer [x] Active listening [x] Non-anxious presence [x] Spiritual/emotional support [] Crisis/trauma care [] Spiritual counseling [] Bereavement support [] Provided bereavement packet [] Provided Bible/devotional materials [] Provided toy/stuffed animal, coloring book to patient or family member [] Provided Communion [] Anointing/[place] [] Salvation [x] Completed spiritual assessment [] Other: Impact on Illness or Injury [] Angry [] Fearful [] Anxious [] Often cries [] Exhaustion [] Unable to work [] Unable to attend rastafarian [] Unable to walk/stand [] Unable to read [] Unable to drive [] Unable to eat/drink [] Unable to sleep [] Unable to be with family [] Patient intubated [] Other: Summary patient weak... advised patient because he has no family sales representative girls' apparel is willing to set with him.. any time Time spent with patient 15 min
--- NOTE | 2020-11-08 11:17 | P.PN_ITS ---
Subjective Subjective: Interval history: -Yesterday drained in total 1800 cc of hemorrhagic fluid from right Pleurx catheter -Today appears to be in less respiratory distress saturating 95% on 7 L -Patient reported subjective improvement in his respiratory symptoms -WBC still 30,000 but patient afebrile Medications: Reviewed: Yes Medication Review Details: Generic Name Dose Route Start Last Admin Trade Name Freq PRN Reason Stop Dose Admin Hydrocodone Bitart /Acetaminophen 1 tab 10/31/20 17:13 11/03/20 00:15 Hydrocodone-Acet aminophen 5-325 Mg Tablet PO 1 tab Q4H PRN Administration MODERATE PAIN Albuterol/Ipratrop ium 3 ml 10/27/20 11:15 11/03/20 07:37 Ipratropium-Albu terol 3 Ml Neb INHALATION 3 ml Q4H.RESPIRATORY S CH Administration Apixaban 5 mg 11/01/20 21:00 11/03/20 09:41 Apixaban 5 Mg Ta blet PO 5 mg BID@0900,2100 BRENDA Administration Atorvastatin Calci um 20 mg 10/25/20 19:00 11/02/20 18:45 Atorvastatin 40 Mg Tablet PO 20 mg DAILY@19 BRENDA Administration Budesonide 0.5 mg 10/29/20 20:00 11/03/20 07:37 Budesonide 0.5 M g/2 Ml Neb INHALATION 0.5 mg BID.RESPIRATORY S CH Administration Diltiazem HCl 240 mg 10/29/20 12:00 11/03/20 09:41 Diltiazem Er (24 hr) 240 Mg Capsule PO 240 mg DAILY BRENDA Administration Levofloxacin 750 mg 11/02/20 01:30 11/02/20 01:46 Levofloxacin 750 Mg Tablet PO 750 mg Q48H BRENDA Administration Protocol Metoprolol Tartrat e 50 mg 10/28/20 21:00 11/03/20 09:41 Metoprolol Tartr ate 50 Mg Tablet PO 50 mg BID@0900,2100 BRENDA Administration Pantoprazole Sodiu m 40 mg 10/25/20 19:00 11/02/20 18:[address] 40 Mg Tablet PO 40 mg DAILY@19 BRENDA Administration Prednisone 40 mg 11/02/20 09:00 11/03/20 09:40 Prednisone 20 Mg Tablet PO 40 mg DAILY BRENDA Administration Tamsulosin HCl 0.4 mg 10/25/20 19:00 11/02/20 18:45 Tamsulosin 0.4 M g Capsule PO 0.4 mg DAILY@19 [facility] Administration Vitamin D 1,000 unit 10/26/20 07:00 11/03/20 06:10 Cholecalciferol (Vitamin D3) 1,000 Unit Tablet PO 1,000 unit DAILY@07 [facility] Administration Zolpidem Tartrate 10 mg 10/30/20 19:27 10/30/20 20:11 Zolpidem 10 Mg T ablet PO 10 mg BEDTIME PRN Administration INSOMNIA Vitals/I&O/Wt Last Vital Signs Temp 98.2 F 11/08/20 07:52 Pulse 75 11/08/20 07:52 Resp 18 11/08/20 07:52 BP 107/58 11/08/20 07:52 Pulse Ox 93 11/08/20 07:52 11/07/20 11/08/20 11/08/20 22:59 06:59 14:59 Intake Total 410 / 1690 533.333 / 2223.333 1190 / 1190 Output Total 600 / 2650 775 / 3425 600 / 600 Balance -190 / -960 -241.667 / -1201.667 590 / 590 Physical Exam Narrative: EXAM NARRATIVE: General: alert, in mild respiratory distress HEENT: conj clear, EOMI, PERRL, mmm, Neck: supple, no meningismus Heme: no cervical LAP Pulmonary: Improved breath sounds on right lower lung Cardiovascular: rrr, nl s1s2, no mrg Abdomen: soft, nt, nd, no r/g, bs+ Extremities: pulses +, no edema, no c/c : no CVA tenderness Skin: intact, no rash MSK: no back or neck pain Neurologic: grossly intact Data : 11/08/20 04:40 11/08/20 04:40 Micro: Microbiology 11/06/20 00:23 Gram Stain - Final Sputum - Expectorated Sputum Sputum Culture - Final 10/29/20 08:00 Gram Stain - Final Lung Right Upper Lobe Bronchoalveolar Lavage Culture - Final Corynebacterium species A&P Assessment and plan (1) Mediastinal adenopathy: Status: Acute (2) Mass of right lung: Status: Acute (3) COPD (chronic obstructive pulmonary disease): Status: Acute Qualifiers: COPD type: unspecified COPD Qualified Code(s): J44.9 - Chronic obst ructive pulmonary disease, unspecified (4) Smoker: Status: Acute (5) Recurrent right pleural effusion: Status: Acute (6) New onset atrial fibrillation: Status: Acute #Acute respiratory failure with hypoxia due to Large right pleural effusio n & A.fib with RVR #RML mass measuring 3.8 x 2.9 cm encompassing branches of RML pulmonary artery & Mediastinal and hilar adenopathy-EBUSpathology reported 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 Emphysematous changes are noted. Thyroid gland appears enlarged. Prominent lymph node is seen in the subcarinal region measuring 2.2 cm. Fullness is seen in the right hilum which also could be related to adenopathy. Moderate right pleural effusion. - PET CT 10/05/2020: Right upper lobe mass) to the mediastinum, representing malignancy. Right pleural malignant implants with pleural effusion. Right hilar and mediastinal FDG positive nodes representing local metastatic disease -Based on PET/CT looks like it is malignant and metastatic to pleural and diaphragmatic surface -10/11/20: Right thoracentesis 1250 cc - Lymphocyte predominant exudative effusion; cytology reported negative. -10/26/2020: Right thoracentesis 1900 cc hemorrhagic fluid-lymphocyte predominant exudative effusion. Histopathology reported metastatic non-small cell carcinoma consistent with adenocarcinoma -10/29/2020: EBUS guided FNA C of station 4R-preliminary pathology reported as atypical clusters of cells; pathology reported metastatic non-small cell carcinoma consistent with adenocarcinoma -Oncology to decide on starting inpatient chemotherapy -s/p Port-A-Cath placement and [place] drain on10/31/2020 -Eliquis 2.5 mg twice daily for A. fib RVR -On cardizem 240 XR daily for A.fib RVR; -Duoneb nebulization q 4h r brenda & budesonide 0.5 twice daily inhalation -Sudden respiratory distress improved after draining 1800 cc yesterday after instilling 10 cc TPA -CT imaging 11/07/2020: Showed lobulated pleural fluid along the right major and minor fissures and the right middle lobe infiltrate likely due to postobstructive pneumonia with some consolidation -Repeat chest x-ray today showed significantly improved infiltrate, atelectasis and pleural effusion in the right lower lung zone since previous study. -Chest physiotherapy and hypertonic saline to clear secretions, pulmonary toileting -Prednisone 40 mg daily -On 7 L nasal cannula -Currently on vancomycin, Zosyn, azithromycin; added voriconazole for Asp ergillus as WBC is worsening - DC Zosyn and started imipenem -Elevated BNP, repeat echo possibly normal LVEF. Study could not evaluate wall motion abnormalities due to tachycardia. At least moderate tricuspid valve regurgitation and pulmonary hypertension with estimated pulmonary artery peak systolic pressure 53. Technically difficult study. -on Bumex 1 mg twice daily with potassium replacement -Ordered PFTs/6-minute walk test during clinic visit - yet to get it as outpatient -Patient quit smoking 4 weeks ago and encouraged to maintain abstinence Recommendations conveyed to hospitalist and RN covering the patient. Medical condition and assessment plan explained to patient and he verbalized understanding and agreed with the plan Attestations Medical Necessity Statement*: acute hypoxic respiratory failure requiring 7 L oxygen Due to right pleural effusion patient with metastatic non-small cell lung cancer Time Spent in Patient Care: Greater than 35 minutes (>than 50% of time spent in counselling and/or direct pt care on unit) . 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
--- NOTE | 2020-11-08 12:09 | P.PN_ITS ---
Subjective Subjective: Interval history: This morning patient was seen on 7 L nasal cannula, he did not require BiPAP overnight, he tells me that he does feel short of breath, but better compared to yesterday, no fevers, chills, no chest pain continues to have a poor appetite, shortness of breath with exertion Medications: Reviewed: Yes Medication Review Details: Generic Name Dose Route Start Last Admin Trade Name Freq PRN Reason Stop Dose Admin Hydrocodone Bitart /Acetaminophen 1 tab 10/31/20 17:13 11/03/20 00:15 Hydrocodone-Acet aminophen 5-325 Mg Tablet PO 1 tab Q4H PRN Administration MODERATE PAIN Albuterol/Ipratrop ium 3 ml 10/27/20 11:15 11/03/20 07:37 Ipratropium-Albu terol 3 Ml Neb INHALATION 3 ml Q4H.RESPIRATORY S CH Administration Apixaban 5 mg 11/01/20 21:00 11/03/20 09:41 Apixaban 5 Mg Ta blet PO 5 mg BID@0900,2100 SHAYNE Administration Atorvastatin Calci um 20 mg 10/25/20 19:00 11/02/20 18:45 Atorvastatin 40 Mg Tablet PO 20 mg DAILY@19 SHAYNE Administration Budesonide 0.5 mg 10/29/20 20:00 11/03/20 07:37 Budesonide 0.5 M g/2 Ml Neb INHALATION 0.5 mg BID.RESPIRATORY S CH Administration Diltiazem HCl 240 mg 10/29/20 12:00 11/03/20 09:41 Diltiazem Er (24 hr) 240 Mg Capsule PO 240 mg DAILY SHAYNE Administration Levofloxacin 750 mg 11/02/20 01:30 11/02/20 01:46 Levofloxacin 750 Mg Tablet PO 750 mg Q48H SHAYNE Administration Protocol Metoprolol Tartrat e 50 mg 10/28/20 21:00 11/03/20 09:41 Metoprolol Tartr ate 50 Mg Tablet PO 50 mg BID@0900,2100 SHAYNE Administration Pantoprazole Sodiu m 40 mg 10/25/20 19:00 11/02/20 18:[address] 40 Mg Tablet PO 40 mg DAILY@19 SHAYNE Administration Prednisone 40 mg 11/02/20 09:00 11/03/20 09:40 Prednisone 20 Mg Tablet PO 40 mg DAILY SHAYNE Administration Tamsulosin HCl 0.4 mg 10/25/20 19:00 11/02/20 18:45 Tamsulosin 0.4 M g Capsule PO 0.4 mg DAILY@19 [facility] Administration Vitamin D 1,000 unit 10/26/20 07:00 11/03/20 06:10 Cholecalciferol (Vitamin D3) 1,000 Unit Tablet PO 1,000 unit DAILY@07 SHAYNE Administration Zolpidem Tartrate 10 mg 10/30/20 19:27 10/30/20 20:11 Zolpidem 10 Mg T ablet PO 10 mg BEDTIME PRN Administration INSOMNIA Vitals/I&O/Wt Last Vital Signs Temp 97.9 F 11/08/20 11:48 Pulse 82 11/08/20 11:48 Resp 21 H 11/08/20 11:48 BP 117/54 11/08/20 11:48 Pulse Ox 94 11/08/20 11:48 11/07/20 11/08/20 11/08/20 22:59 06:59 14:59 Intake Total 410 / 1690 533.333 / 2223.333 1190 / 1190 Output Total 600 / 2650 775 / 3425 600 / 600 Balance -190 / -960 -241.667 / -1201.667 590 / 590 Physical Exam Const: COMMON NORMALS: no acute distress and patient oriented x3 GENERAL APPEARANCE: ill appearing HENMT: COMMON NORMALS: normocephalic HEAD & SCALP: normocephalic Neck/C-Spine: COMMON NORMALS: no JVD Resp: COMMON NORMALS: normal respiratory effort, No retractions and No use of accessory muscles AUSCULTATION: diminished lung sounds on the right in the lower lung canas Cardio: COMMON NORMALS: no JVD, regular rate, regular rhythm, S1 normal heart sound present and S2 normal heart sound present RATE: regular rate RHYTHM: regular rhythm HEART SOUNDS: S1 normal heart sound present and S2 normal heart sound present GI: COMMON NORMALS: Normal to inspection, nondistended, normoactive bowel sounds present, Soft to palpation, non-tender, No hepatosplenomegaly present, no masses and no bruits PALPATION: Yes Soft to palpation and Yes No hepatosplenomegaly present Extremity: COMMON NORMALS: capillary refill normal, no clubbing, cyanosis or edema, no calf tenderness and no pedal edema Neuro: COMMON NORMALS: patient oriented x3 Psych: COMMON NORMALS: mental status grossly normal Data : 11/08/20 04:40 11/08/20 04:40 Micro: Microbiology 11/06/20 00:23 Gram Stain - Final Sputum - Expectorated Sputum Sputum Culture - Final 10/29/20 08:00 Gram Stain - Final Lung Right Upper Lobe Bronchoalveolar Lavage Culture - Final Corynebacterium species A&P Assessment and plan (1) Acute respiratory failure with hypoxia: Concerns for postobstructive pneumonia, with loculated pleural effusions White blood cell count 31.4 Chest x-ray this morning shows significant improvement of right middle and right lower lobe consolidation, some persistent right lower lobe consolidation Chest CT shows right middle lobe infiltrate likely due to postobstructive pneumonia, with some consolidation, loculated pleural effusion along the right major and minor fissures Reviewed film with Dr. Miller and radiation oncologist, they feel that the malignant lesions are more central and are not resulting in obstructive phenomenon, patient is likely not to benefit from radiation therapy, Dr. Miller will review the pathology to see if inpatient chemotherapy would be an option but would be associate with significant risks given his current infection Dr. Brown did instill TPA into [place] catheter, roughly 1 L of bloody drainage, then 300 cc after Plan on to continue to drain [place] catheter daily, ensure proper sterile technique with the nurses Continue oxygen mask, BiPAP as needed, BiPAP schedule during the night Receiving vancomycin, switched to Primaxin, azithromycin Voriconazole added for antifungal and Aspergillus, Bumex 1 mg every 12 hours this evening with potassium replacement, creatinine up to 1.8, 1975 urine output yesterday Pleurx catheter catheter in place, repeat chest x-ray daily It is possible that patient might require chest tube if loculated pleural effusions persist, but currently doing better Receiving chest vest therapy 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 Miller will review pathology Status: Acute (3) Recurrent right pleural effusion: Pleurx catheter placed October 31 Status: Acute (4) New onset atrial fibrillation: Currently on metoprolol, Cardizem Transitioned to Eliquis Status: Acute (5) CKD (chronic kidney disease): Stable Status: Acute (6) COPD (chronic obstructive pulmonary disease): Prednisone 40 mg daily Pulmonary toilet Status: Acute Qualifiers: COPD type: unspecified COPD Qualified Code(s): J44.9 - Chronic obstructive pulmonary disease, unspecified Additional A&P Information Acute anemia, hemoglobin down to 9.2, iron levels low at 44, will start on Protonix 40 twice daily, Carafate, monitor hemoglobin closely as patient is on Eliquis Eliquis will suffice for DVT prophylaxis Plan is if patient clinically improves discharged with home health care, but would strongly recommend senior care placement, patient not ready for hospice Plan for today, switch Zosyn to Primaxin, continue to drain [place] drain, continue Bumex, continue oxygen therapy, continue PT OT, encourage oral intake, monitor for fevers, monitor respiratory status, have encouraged patient to think about senior care placement Attestations Medical Necessity Statement*: Patient requires hospitalization for acute respiratory failure with hypoxia secondary to loculated pleural effusions, postobstructive pneumonia, non-small cell lung cancer, pulmonary edema Coding Level of Care Code Acute [employer] for [facility] Diagnoses Acute respiratory failure with hypoxia J96.01 Mass of middle lobe of right lung R91.8 Recurrent right pleural effusion J90 New onset atrial fibrillation I48.91 CKD (chronic kidney disease) N18.9 COPD (chronic obstructive pulmonary disease) J44.9 COPD type: unspecified COPD
--- NOTE | 2020-11-08 17:18 | XRR_ITS ---
PROCEDURE INFORMATION: Exam: XR Chest Exam date and time: 11/08/2020 5:19 PM Age: 70 years old Clinical indication: Shortness of breath; Additional info: SOB TECHNIQUE: Imaging protocol: XR of the chest Views: 1 view. COMPARISON: CR XR chest 1V portable [id number] 11/08/2020 6:42 AM FINDINGS: Tubes, catheters and devices: Right pleural drain unchanged in position. Left chest tunnel Port-A-Cath terminates in the mid SVC. Lungs: Patchy opacities of the right infrahilar lung similar to prior. Diffuse emphysema. Hyperinflated lungs. Pleural spaces: Small right pleural effusion. Heart/Mediastinum: Unremarkable. No cardiomegaly. Bones/joints: Unremarkable. Other findings: Right hilar enlargement stable from prior. XR/XR chest 1V portable [id number] IMPRESSION: No significant change from earlier comparison on 11/08/2020.
[2020-11-08] MEDS: atorvastatin 40 mg Tablet 20 MG PO (18:21)
--- NOTE | 2020-11-08 19:45 | PC.NURSE ---
Received report from ESTELLE Pollard. Patient resting in bed watching tv. Lab and RT in room presently. Patient receiving breathing tx. This RN performed lab draw using left implanted Port-A-Cath per protocol. P-A-C draws and flushes well. Denies other needs. No distress observed.
[2020-11-08 20:29] LABS: Vancomycin Trough 14.7 ug/mL (10-15)
[2020-11-09] VITALS (14 sets, daily range): BP systolic 118–138; BP diastolic 56–64; PULSE 75–90; RESP 16–28; TEMP 36.5–36.9; O2SAT 93–98
[2020-11-09] MEDS: ipratropium-albuterol 3 mL Neb INHALATION ×5 (03:16→20:06)
[2020-11-09 05:14] LABS: ABG PCO2 43.7 mmHg (35-45); ABG PH Result 7.46 (7.35-7.45); Arterial Blood Gas Hematocrit 28.2 % (42-52); Base Excess ABG 6.6 mmol/L (-2.0-2.0); Blood Gas Allen Test Pos; Blood Gas Operator Identificat JB; Blood Gas Sample Site Radial, right; Blood Gas Sample Type Arterial; HCO3 ABG 31.1 mmol/L (22-26); Oxygen Device NC; PO2 ABG 71.9 mmHg (80.0-100.0)
[2020-11-09] MEDS: cholecalciferol (vitamin D3) 1,000 unit Tablet 1000 UNIT PO (06:01)
[2020-11-09] MEDS: sucralfate 1 gm Tablet PO ×4 (06:01→20:47)
[2020-11-09] MEDS: bumetanide 0.25 mg/mL SDV 4 mL 1 MG IV (06:01)
[2020-11-09 06:43] LABS: Basophils # 0.1 10^3/uL (0.0-0.1); Basophils % 0.2 %; Hematocrit 25.9 % (42.0-52.0); Hemoglobin 8.6 g/dL (11.7-16.6); Lymphocytes # 0.7 10^3/uL (0.8-4.8); Lymphocytes % 2.4 %; Mean Corpuscular HGB Conc 33.2 g/dL (30.0-36.0); Mean Corpuscular Volume 90.2 fL (80-94); Mean Platelet Volume 9.5 fL (7.4-10.4); Monocytes # 2.4 10^3/uL (0.2-0.9); Monocytes % 7.6 %; Neutrophils # 26.86 10^3/uL (1.8-7.7); Neutrophils % 86.6 %; Nucleated Red Blood Cells % 0 %; Platelet Count 277 10^3/cmm (130-400); Red Blood Count 2.87 10^6/uL (4.1-5.3); Red Cell Distribution Width 14.3 % (12.1-15.1)
--- NOTE | 2020-11-09 07:00 | XRR_ITS ---
PROCEDURE INFORMATION: Exam: XR Chest Exam date and time: 11/08/2020 11:59 PM Age: 70 years old Clinical indication: Shortness of breath; Additional info: SOB TECHNIQUE: Imaging protocol: XR of the chest Views: 1 view. COMPARISON: CR XR chest 1V portable [id number] 11/08/2020 5:34 PM FINDINGS: Tubes, catheters and devices: A left subclavian catheter is present with the tip projecting in the SVC. A chest tube is present in the right base and unchanged. Lungs: Patchy opacities are present in the right base which are unchanged and consistent with atelectasis effusion and consolidation. The left lung is overinflated consistent with emphysema. There is enlargement of the right pulmonary hilum which is stable. Pleural spaces: There is a small right pleural effusion unchanged. Heart/Mediastinum: Unremarkable. No cardiomegaly. Bones/joints: Unremarkable. XR/XR chest 1V portable [id number] IMPRESSION: 1. No significant change since previous radiograph.
[2020-11-09 07:30] LABS: NT Pro B Type Natriuretic Pept 111 pg/mL (0-125); Procalcitonin 0.09 ng/mL (0-0.5)
[2020-11-09 07:44] LABS: Alanine Aminotransferase 18 U/L (0-41); Albumin Level 2.3 g/dL (3.5-5.2); Alkaline Phosphatase 65 IU/L (40-130); Anion Gap 13.7 (5-19); Aspartate Amino Transferase 13 U/L (0-40); Blood Urea Nitrogen 50 mg/dL (8-23); C Reactive Protein 12.1 mg/L (0.0-4.9); Carbon Dioxide 28 mmol/L (22-29); Chloride 98 mmol/L (98-107); Globulin 2.2 g/dL (1.3-4.6); Glucose 132 mg/dL (65-115); Osmolality Calculated 295 mOsm/kg (285-295); Phosphorus 3.5 mg/dL (2.5-4.5); Potassium 4.7 mmol/L (3.5-5.1); Sodium 135 mmol/L (136-145); Total Bilirubin 0.2 mg/dL (0.15-1.2); Total Protein 4.5 g/dL (6.6-8.7)
[2020-11-09] MEDS: budesonide 0.5 mg/2 mL Neb INHALATION ×2 (08:15→20:06)
[2020-11-09] MEDS: sodium chloride 3.5% neb 4 mL Neb INHALATION (08:15)
[2020-11-09] MEDS: ferrous sulfate EC 325 mg Tablet PO ×2 (08:36→18:07)
[2020-11-09] MEDS: pantoprazole DR 40 mg Tablet PO ×2 (08:36→18:07)
[2020-11-09] MEDS: dilTIAZem ER (24HR) 240 mg Capsule PO (08:36)
[2020-11-09] MEDS: azithromycin 500 MG in sodium chloride 0.9% 250 ML 250 MG IV (08:43)
[2020-11-09] MEDS: polyethylene glycol 3350 Pkt 17 gm PO (08:44)
[2020-11-09] MEDS: apixaban 5 mg Tablet PO ×2 (09:40→20:47)
[2020-11-09] MEDS: metoprolol tartrate 50 mg Tablet PO ×2 (09:40→20:47)
--- NOTE | 2020-11-09 10:03 | PC.NURSE ---
Daughter benigno contacted nurses station with questions about visitors called dr mike horton for multiple visitors
--- NOTE | 2020-11-09 10:30 | PC.NURSE ---
Pleurix cristian drain management Sterile technique provided. Drained 350 ml of Serosanguinous pleural fluid. Pt tolerated the draining well. Incision site looks clean and dry. No swelling, redness noted. Mild small bruising noted on surrounding skin area. Change dressing to site.
--- NOTE | 2020-11-09 11:35 | P.PN_ITS ---
Subjective Subjective: Interval history: This morning patient was examined, he is on 4 L, he still has complaints of shortness of breath, continues to have drainage from his [place] drain, no fevers overnight, continues to have a poor appetite, generalized weakness I had a discussion with patient about his goals of care: -I advised my concern about him going home with home health care, he does not have significant help at home, his daughter has MS, his son is in [place], he has a high risk of falls, worsening medical condition, readmission, if you are to go home -I have strongly advised about his goals of care -Options have been laid out for him include discharging to a alf for physical therapy, deconditioning -If he wants to pursue chemotherapy, I think may be going to a alf would be a better option -Hospice options were discussed also, hospice had no home versus alf patient states that his son and daughter will be here this morning, will discuss with him - Medications: Reviewed: Yes Medication Review Details: Generic Name Dose Route Start Last Admin Trade Name Freq PRN Reason Stop Dose Admin Hydrocodone Bitart /Acetaminophen 1 tab 10/31/20 17:13 11/03/20 00:15 Hydrocodone-Acet aminophen 5-325 Mg Tablet PO 1 tab Q4H PRN Administration MODERATE PAIN Albuterol/Ipratrop ium 3 ml 10/27/20 11:15 11/03/20 07:37 Ipratropium-Albu terol 3 Ml Neb INHALATION 3 ml Q4H.RESPIRATORY S CH Administration Apixaban 5 mg 11/01/20 21:00 11/03/20 09:41 Apixaban 5 Mg Ta blet PO 5 mg BID@0900,2100 SHAYNE Administration Atorvastatin Calci um 20 mg 10/25/20 19:00 11/02/20 18:45 Atorvastatin 40 Mg Tablet PO 20 mg DAILY@19 SHAYNE Administration Budesonide 0.5 mg 10/29/20 20:00 11/03/20 07:37 Budesonide 0.5 M g/2 Ml Neb INHALATION 0.5 mg BID.RESPIRATORY S CH Administration Diltiazem HCl 240 mg 10/29/20 12:00 11/03/20 09:41 Diltiazem Er (24 hr) 240 Mg Capsule PO 240 mg DAILY SHAYNE Administration Levofloxacin 750 mg 11/02/20 01:30 11/02/20 01:46 Levofloxacin 750 Mg Tablet PO 750 mg Q48H [facility] Administration Protocol Metoprolol Tartrat e 50 mg 10/28/20 21:00 11/03/20 09:41 Metoprolol Tartr ate 50 Mg Tablet PO 50 mg BID@0900,2100 [facility] Administration Pantoprazole Sodiu m 40 mg 10/25/20 19:00 11/02/20 18:[address] 40 Mg Tablet PO 40 mg DAILY@19 SHAYNE Administration Prednisone 40 mg 11/02/20 09:00 11/03/20 09:40 Prednisone 20 Mg Tablet PO 40 mg DAILY [facility] Administration Tamsulosin HCl 0.4 mg 10/25/20 19:00 11/02/20 18:45 Tamsulosin 0.4 M g Capsule PO 0.4 mg DAILY@19 [facility] Administration Vitamin D 1,000 unit 10/26/20 07:00 11/03/20 06:10 Cholecalciferol (Vitamin D3) 1,000 Unit Tablet PO 1,000 unit DAILY@07 [facility] Administration Zolpidem Tartrate 10 mg 10/30/20 19:27 10/30/20 20:11 Zolpidem 10 Mg T ablet PO 10 mg BEDTIME PRN Administration INSOMNIA Vitals/I&O/Wt Last Vital Signs Temp 98.4 F 11/09/20 07:58 Pulse 85 11/09/20 11:16 Resp 16 11/09/20 11:16 BP 118/60 11/09/20 07:58 Pulse Ox 93 11/09/20 11:16 11/08/20 11/09/20 11/09/20 22:59 06:59 14:59 Intake Total 910 / 2568.75 200 / 2768.75 370 / 370 Output Total 300 / 1050 650 / 1700 250 / 250 Balance 610 / 1518.75 -450 / 1068.75 120 / 120 Physical Exam Const: COMMON NORMALS: no acute distress and patient oriented x3 GENERAL APPEARANCE: ill appearing NUTRITIONAL APPEARANCE: thin HENMT: COMMON NORMALS: normocephalic HEAD & SCALP: normocephalic Neck/C-Spine: COMMON NORMALS: no JVD Resp: COMMON NORMALS: normal respiratory effort, No retractions, No use of accessory muscles and clear to auscultation bilaterally AUSCULTATION: clear to auscultation bilaterally Cardio: COMMON NORMALS: no JVD, regular rate, regular rhythm, S1 normal heart sound present and S2 normal heart sound present RATE: regular rate RHYTHM: regular rhythm HEART SOUNDS: S1 normal heart sound present and S2 normal hea rt sound present GI: COMMON NORMALS: Normal to inspection, nondistended, normoactive bowel sounds present, Soft to palpation, non-tender, No hepatosplenomegaly present, no masses and no bruits PALPATION: Yes Soft to palpation and Yes No hepatosplenomegaly present Extremity: COMMON NORMALS: capillary refill normal, no clubbing, cyanosis or edema, no calf tenderness and no pedal edema Neuro: COMMON NORMALS: patient oriented x3 Psych: COMMON NORMALS: mental status grossly normal Skin: NARRATIVE SKIN EXAM: Altura drain in place, area clean and dry Data : 11/09/20 05:02 11/09/20 05:02 Micro: Microbiology 11/09/20 08:20 Gram Stain - Final Sputum - Expectorated Sputum 11/06/20 00:23 Gram Stain - Final Sputum - Expectorated Sputum Sputum Culture - Final A&P Assessment and plan (1) Acute respiratory failure with hypoxia: Concerns for postobstructive pneumonia, with loculated pleural effusions White blood cell count 31.0 Chest x-ray this morning shows significant improvement of right middle and right lower lobe consolidation, some persistent right lower lobe consolidation Chest CT shows right middle lobe infiltrate likely due to postobstructive pneumonia, with some consolidation, loculated pleural effusion along the right major and minor fissures Reviewed film with Dr. Miller and radiation oncologist, they feel that the malignant lesions are more central and are not resulting in obstructive phenomenon, patient is likely not to benefit from radiation therapy, Dr. Miller will review the pathology to see if inpatient chemotherapy would be an option but would be associate with significant risks given his current infection Dr. Brown did instill TPA into [place] catheter, roughly 1 L of bloody drainage, then 300 cc after Plan on to continue to drain [place]ura catheter daily, ensure proper sterile technique with the nurses Continue oxygen mask, BiPAP as needed, BiPAP schedule during the night Receiving vancomycin, switched to Primaxin, azithromycin Voriconazole added for antifungal and Aspergillus, Bumex 1 mg every 24 hours, with potassium replacement, creatinine up to 1.9, 1350 urine output yesterday Pleurx catheter catheter in place, drain daily repeat chest x-ray daily It is possible that patient might require chest tube if loculated pleural ef fusions persist, but currently doing better Receiving chest vest therapy 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 Miller will review pathology Status: Acute (3) Recurrent right pleural effusion: Pleurx catheter placed October 31 Status: Acute (4) New onset atrial fibrillation: Currently on metoprolol, Cardizem Transitioned to Eliquis Status: Acute (5) CKD (chronic kidney disease): Stable Status: Acute (6) COPD (chronic obstructive pulmonary disease): Prednisone 40 mg daily Pulmonary toilet Status: Acute Qualifiers: COPD type: unspecified COPD Qualified Code(s): J44.9 - Chronic obstructive pulmonary disease, unspecified Additional A&P Information Acute anemia, hemoglobin down to 8.6, iron levels low at 44, will start on Protonix 40 twice daily, Carafate, monitor hemoglobin closely as patient is on Eliquis Eliquis will suffice for DVT prophylaxis Plan is if patient clinically improves discharged with home health care, but would strongly recommend alf placement, patient not ready for hospice Plan for today, continue Primaxin, continue vancomycin, continue antifungals decrease Bumex to 1 mg every 24 hours, continue chest vest therapy, drain Altura drain daily, discuss goals of care with patient and family Attestations Medical Necessity Statement*: Patient requires hospitalization for acute respiratory failure with hypoxia, non-small cell lung cancer Coding Level of Care 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
--- NOTE | 2020-11-09 12:00 | PC.NURSE ---
Spoke with Dr. Haynes and received orders to increase patients fluid restriction to 2,000 from 1200mls/day.
--- NOTE | 2020-11-09 12:37 | PC.SOCIAL ---
IMM Update Pg. 2 of IMM updated and reviewed with patient who verbalized understanding. Copy provided.
[2020-11-09] MEDS: vancomycin 1,000 MG in sodium chloride 0.9% 250 ML 250 MG IV (14:20)
[2020-11-09] MEDS: atorvastatin 40 mg Tablet 20 MG PO (18:07)
--- NOTE | 2020-11-09 19:20 | PC.NURSE ---
This nurse agrees with documentation and medication administrations of Beth irvin
--- NOTE | 2020-11-09 19:58 | PC.NURSE ---
Received report from ESTELLE Mitchell. Patient resting in bed watching TV. Reports wanting to try to sleep tonight. Patient c/o patient in neighboring room constantly yelling loudly. Reassured patient that we would do out best to help with that tonight. Patient expressed thanks. Denies pain or needs at this time. No distress observed. Patient does have skin tear to right inner forearm. It is clean and open to air but patient does report it feels raw. Placed optifoam dressing to wound. Patient expressed thanks.
[2020-11-10] VITALS (20 sets, daily range): BP systolic 105–134; BP diastolic 54–65; PULSE 69–97; RESP 16–31; TEMP 36.7–36.9; O2SAT 93–96
[2020-11-10] MEDS: ipratropium-albuterol 3 mL Neb INHALATION ×6 (00:18→23:17)
[2020-11-10 04:58] LABS: Basophils # 0.1 10^3/uL (0.0-0.1); Basophils % 0.2 %; Eosinophils # 0.1 10^3/uL (0.0-0.8); Eosinophils % 0.2 %; Hematocrit 26.9 % (42.0-52.0); Hemoglobin 8.7 g/dL (11.7-16.6); Lymphocytes # 1.6 10^3/uL (0.8-4.8); Lymphocytes % 6.4 %; Mean Corpuscular HGB Conc 32.3 g/dL (30.0-36.0); Mean Corpuscular Hemoglobin 29.6 pg (28.0-34.0); Mean Corpuscular Volume 91.5 fL (80-94); Mean Platelet Volume 9.3 fL (7.4-10.4); Monocytes # 2.8 10^3/uL (0.2-0.9); Monocytes % 11.1 %; Neutrophils # 19.97 10^3/uL (1.8-7.7); Nucleated Red Blood Cells % 0 %; Platelet Count 268 10^3/cmm (130-400); Red Blood Count 2.94 10^6/uL (4.1-5.3); Red Cell Distribution Width 14.6 % (12.1-15.1); White Blood Count 25.3 10^3/uL (4.0-10.0)
[2020-11-10 05:15] LABS: Lactate (Lactic Acid level) 1.2 mmol/L (0.5-2.2)
[2020-11-10 05:37] LABS: NT Pro B Type Natriuretic Pept 213 pg/mL (0-125); Procalcitonin 0.13 ng/mL (0-0.5)
[2020-11-10 05:55] LABS: Alanine Aminotransferase 18 U/L (0-41); Albumin Level 2.1 g/dL (3.5-5.2); Alkaline Phosphatase 71 IU/L (40-130); Anion Gap 12.3 (5-19); Aspartate Amino Transferase 16 U/L (0-40); Blood Urea Nitrogen 48 mg/dL (8-23); C Reactive Protein 8.2 mg/L (0.0-4.9); Calcium 7.8 mg/dL (8.5-10.5); Carbon Dioxide 25 mmol/L (22-29); Chloride 101 mmol/L (98-107); Globulin 2.2 g/dL (1.3-4.6); Glucose 87 mg/dL (65-115); Magnesium 1.9 mg/dL (1.7-2.3); Osmolality Calculated 290 mOsm/kg (285-295); Phosphorus 2.8 mg/dL (2.5-4.5); Potassium 4.3 mmol/L (3.5-5.1); Sodium 134 mmol/L (136-145); Total Bilirubin 0.2 mg/dL (0.15-1.2); Total Protein 4.3 g/dL (6.6-8.7)
[2020-11-10] MEDS: bumetanide 0.25 mg/mL SDV 4 mL 1 MG IV (06:10)
[2020-11-10] MEDS: sucralfate 1 gm Tablet PO ×4 (06:10→20:06)
[2020-11-10] MEDS: cholecalciferol (vitamin D3) 1,000 unit Tablet 1000 UNIT PO (06:10)
--- NOTE | 2020-11-10 06:24 | PC.NURSE ---
Patient c/o increased work of breathing. Seems a little more diminished on the right side. Patient is having more of a productive this morning. Waiting for scheduled chest xray. Informed Dr Roach. Called radiology to request to have ordered xray done now per Dr Roach.
--- NOTE | 2020-11-10 07:00 | XRR_ITS ---
PROCEDURE INFORMATION: Exam: XR Chest Exam date and time: 11/10/2020 6:39 AM Age: 70 years old Clinical indication: Shortness of breath; Additional info: SOB TECHNIQUE: Imaging protocol: XR of the chest Views: 1 view. COMPARISON: CR (CHEST, ) 11/09/2020 7:25 AM FINDINGS: Lungs: A PleurX catheter is present in the right chest with small pleural effusion and infiltrates in the right lower lung showing no significant change. The left lung and the left costophrenic angle are unremarkable. Heart/Mediastinum: Unremarkable. No cardiomegaly. A left subclavian chest port is in place. Bones/joints: Unremarkable. XR/XR chest 1V portable [id number] IMPRESSION: No interval change. Negative for pneumothorax.
[2020-11-10] MEDS: budesonide 0.5 mg/2 mL Neb INHALATION ×2 (08:26→20:21)
[2020-11-10] MEDS: sodium chloride 3.5% neb 4 mL Neb INHALATION ×2 (08:26→20:24)
[2020-11-10 08:30] LABS: Vancomycin Trough 18.5 ug/mL (10-15)
[2020-11-10] MEDS: polyethylene glycol 3350 Pkt 17 gm PO (09:49)
[2020-11-10] MEDS: ferrous sulfate EC 325 mg Tablet PO ×2 (09:49→17:34)
[2020-11-10] MEDS: apixaban 5 mg Tablet PO ×2 (09:49→20:07)
[2020-11-10] MEDS: dilTIAZem ER (24HR) 240 mg Capsule PO (09:49)
[2020-11-10] MEDS: metoprolol tartrate 50 mg Tablet PO ×2 (09:49→20:06)
[2020-11-10] MEDS: pantoprazole DR 40 mg Tablet PO ×2 (09:49→17:34)
[2020-11-10] MEDS: azithromycin 500 MG in sodium chloride 0.9% 250 ML 250 MG IV (09:56)
[2020-11-10] MEDS: vancomycin 1,000 MG in sodium chloride 0.9% 250 ML 250 MG IV (10:16)
[2020-11-10] MEDS: docusate sodium 100 mg Capsule PO ×2 (11:28→17:34)
[2020-11-10] MEDS: lactulose oral liq 20 gm/30 mL UDC PO ×2 (11:28→20:06)
--- NOTE | 2020-11-10 12:26 | PM.PN ---
Subjective Subjective: Interval history: This morning patient was examined, he is on 4 L, he still has complaints of shortness of breath, continues to have drainage from his [place] drain, no fevers overnight, continues to have a poor appetite, generalized weakness I had a discussion with patient about his goals of care: -I advised my concern about him going home with home health care, he does not have significant help at home, his daughter has MS, his son is in [place], he has a high risk of falls, worsening medical condition, readmission, if you are to go home -I have strongly advised about his goals of care -Options have been laid out for him include discharging to a [facility] for physical therapy, deconditioning -If he wants to pursue chemotherapy, I think may be going to a [facility] would be a better option -Hospice options were discussed also, hospice had no home versus [facility] patient states that his son and daughter will be here this morning, will discuss with him - Medications: Reviewed: Yes Medication Review Details: Generic Name Dose Route Start Last Admin Trade Name Freq PRN Reason Stop Dose Admin Hydrocodone Bitart /Acetaminophen 1 tab 10/31/20 17:13 11/03/20 00:15 Hydrocodone-Acet aminophen 5-325 Mg Tablet PO 1 tab Q4H PRN Administration MODERATE PAIN Albuterol/Ipratrop ium 3 ml 10/27/20 11:15 11/03/20 07:37 Ipratropium-Albu terol 3 Ml Neb INHALATION 3 ml Q4H.RESPIRATORY S CH Administration Apixaban 5 mg 11/01/20 21:00 11/03/20 09:41 Apixaban 5 Mg Ta blet PO 5 mg BID@0900,2100 SHAYNE Administration Atorvastatin Calci um 20 mg 10/25/20 19:00 11/02/20 18:45 Atorvastatin 40 Mg Tablet PO 20 mg DAILY@19 SHAYNE Administration Budesonide 0.5 mg 10/29/20 20:00 11/03/20 07:37 Budesonide 0.5 M g/2 Ml Neb INHALATION 0.5 mg BID.RESPIRATORY S CH Administration Diltiazem HCl 240 mg 10/29/20 12:00 11/03/20 09:41 Diltiazem Er (24 hr) 240 Mg Capsule PO 240 mg DAILY SHAYNE Administration Levofloxacin 750 mg 11/02/20 01:30 11/02/20 01:46 Levofloxacin 750 Mg Tablet PO 750 mg Q48H [facility] Administration Protocol Metoprolol Tartrat e 50 mg 10/28/20 21:00 11/03/20 09:41 Metoprolol Tartr ate 50 Mg Tablet PO 50 mg BID@0900,2100 [facility] Administration Pantoprazole Sodiu m 40 mg 10/25/20 19:00 11/02/20 18:[address] 40 Mg Tablet PO 40 mg DAILY@19 SHAYNE Administration Prednisone 40 mg 11/02/20 09:00 11/03/20 09:40 Prednisone 20 Mg Tablet PO 40 mg DAILY [facility] Administration Tamsulosin HCl 0.4 mg 10/25/20 19:00 11/02/20 18:45 Tamsulosin 0.4 M g Capsule PO 0.4 mg DAILY@19 [facility] Administration Vitamin D 1,000 unit 10/26/20 07:00 11/03/20 06:10 Cholecalciferol (Vitamin D3) 1,000 Unit Tablet PO 1,000 unit DAILY@07 [facility] Administration Zolpidem Tartrate 10 mg 10/30/20 19:27 10/30/20 20:11 Zolpidem 10 Mg T ablet PO 10 mg BEDTIME PRN Administration INSOMNIA Vitals/I&O/Wt Last Vital Signs Temp 98.2 F 11/10/20 10:55 Pulse 81 11/10/20 10:55 Resp 31 H 11/10/20 10:55 BP 114/57 11/10/20 10:55 Pulse Ox 96 11/10/20 10:55 11/09/20 11/10/20 11/10/20 22:59 06:59 14:59 Intake Total 920 / 1490 100 / 1590 740 / 740 Output Total 650 / 1550 275 / 1825 1500 / 1500 Balance 270 / -60 -175 / -235 -760 / -760 Physical Exam Const: COMMON NORMALS: no acute distress GENERAL APPEARANCE: ill appearing and frail appearing NUTRITIONAL APPEARANCE: thin ORIENTATION/CONSCIOUSNESS: Yes awake, Yes oriented to person, Yes oriented to place and Yes oriented to time HENMT: COMMON NORMALS: normocephalic HEAD & SCALP: normocephalic Neck/C-Spine: COMMON NORMALS: no JVD Resp: COMMON NORMALS: normal respiratory effort, No retractions and No use of accessory muscles AUSCULTATION: wheezes and diminished lung sounds on the right in the lower lung canas Cardio: COMMON NORMALS: no JVD, regular rate, regular rhythm, S1 normal heart sound present and S2 normal heart sound present RATE: regular rate RHYTHM: regular rhythm HEART SOUNDS: S1 normal heart sound present and S2 normal heart sound present GI: COMMON NORMALS: Normal to inspection, nondistended, normoactive bowel sounds present, Soft to palpation, non-tender, No hepatosplenomegaly present, no masses and no bruits PALPATION: Yes Soft to palpation and Yes No hepatosplenomegaly present Extremity: COMMON NORMALS: capillary refill normal, no clubbing, cyanosis or edema, no calf tenderness and no pedal edema Neuro: SENSORIUM/ORIENTATION: Yes oriented to person, Yes oriented to place and Yes oriented to time Psych: COMMON NORMALS: mental status grossly normal Skin: NARRATIVE SKIN EXAM: [place] drain in place, area clean and dry Data : 11/10/20 03:40 11/10/20 03:40 Micro: Microbiology 11/09/20 08:20 Gram Stain - Final Sputum - Expectorated Sputum Sputum Culture - Preliminary Corynebacterium species 11/05/20 10:00 Blood Culture - Final Blood NO GROWTH AFTER 5 DAYS 11/05/20 09:56 Blood Culture - Final Blood NO GROWTH AFTER 5 DAYS A&P Assessment and plan (1) Acute respiratory failure with hypoxia: Concerns for postobstructive pneumonia, with loculated pleural effusions White blood cell count 25.3, remains afebrile, normotensive, on 4 L Chest x-ray this morning shows significant improvement of right middle and right lower lobe consolidation, some persistent right lower lobe consolidation Chest CT shows right middle lobe infiltrate likely due to postobstructive pneumonia, with some consolidation, loculated pleural effusion along the right major and minor fissures Reviewed film with Dr. Miller and radiation oncologist, they feel that the malignant lesions are more central and are not resulting in obstructive phenomenon, patient is likely not to benefit from radiation therapy, Dr. Miller will review the pathology to see if inpatient chemotherapy would be an option but would be associate with significant risks given his current infection Dr. Brown did instill TPA into Paul catheter, roughly 1 L of bloody drainage, then 300 cc after Plan on to continue to drain Paul catheter daily, ensure proper sterile technique with the nurses, 300 cc output yesterday Continue oxygen mask, BiPAP as needed, BiPAP schedule during the night Receiving vancomycin, Primaxin, azithromycin Voriconazole added for antifungal and Aspergillus, Bumex 1 mg every 24 hours, with potassium replacement, creatinine up to 1.8, 1825 urine output yesterday Pleurx catheter catheter in place, drain daily repeat chest x-ray daily It is possible that patient might require chest tube if loculated pleural effusions persist, but currently doing better Receiving chest vest therapy Aggressive pulmonary toilet, incentive spirometer use, Acapella Patient and nurses instruction to get up out of bed daily, into a chair PT OT I have added Ritalin 5 mg daily to stimulate his appetite, however given his A. 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 Miller on consult Status: Acute (3) Recurrent right pleural effusion: Pleurx catheter placed October 31 Status: Acute (4) New onset atrial fibrillation: Currently on metoprolol, Cardizem Transitioned to Eliquis Status: Acute (5) CKD (chronic kidney disease): Stable Status: Acute (6) COPD (chronic obstructive pulmonary disease): Status: Acute Qualifiers: COPD type: unspecified COPD Qualified Code(s): J44.9 - Chronic obstructive pulmonary disease, unspecified (7) Protein calorie malnutrition: Status: Acute (8) Generalized weakness: Status: Acute Additional A&P Information Acute anemia, hemoglobin down to 8.7, iron levels low at 44, on Protonix 40 twice daily, Carafate, monitor hemoglobin closely as patient is on Eliquis Eliquis will suffice for DVT prophylaxis Currently pursuing [facility] placement Plan for today, continue Primaxin, continue vancomycin, continue antifungals continue Bumex 1 mg every 24 hours, aggressive pulmonary toilet, chest vest therapy, drain Paul catheter daily, up out of bed, work with physical therapy, improving functional status, improving appetite adding Ritalin, working on [facility] placement Attestations Medical Necessity Statement*: She requires hospitalization for acute respiratory failure secondary to postobstructive pneumonia, loculated pleural effusions, non-small cell lung cancer, poor functional status, pursuing [facility] placement 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
[2020-11-10] MEDS: methylphenidate 10 mg Tablet 5 MG PO (13:26)
[2020-11-10] MEDS: Fleet Enema 133 mL Enema PR (15:30)
--- NOTE | 2020-11-10 16:12 | PC.NURSE ---
pts appetite poor today..has refused bkfst and lunch..and asked to have kitchen not send dinner.pt has c/o constipation ..and reports has had a small amt of dry hard stool.abd is slightly rounded but soft to touch and not tympanic.diet changed from renal to cardiac for more food choices..and ensure added tid with meals.laxative added and fleets enema given as ordered.return of moderate amt...(first hard marble like stool..then soft formed brown stool).tolerated procedure well.
--- NOTE | 2020-11-10 17:02 | PC.OT ---
OT tx attempted 2x today. In the morning pt states I didn't sleep last night so I want to take a nap . Therapist attempted again in the afternoon and pts dinner is at bedside and pt attempting to open his Ensure but too weak to do it. Therapist opened Ensure and got him some ice to pour it over. Pt is left dozing in bed holding Ensure. OT tx to attempt again tomorrow.
[2020-11-10] MEDS: atorvastatin 40 mg Tablet 20 MG PO (17:33)
--- NOTE | 2020-11-10 21:46 | PC.NURSE ---
PT IS RESTING IN BED. PT STATES THAT HE DOESN'T HAVE AN APPETITE. PT DENIES PAIN AT THIS TIME. WILL CONTINUE TO MONITOR.
--- NOTE | 2020-11-10 23:49 | PC.NURSE ---
GREEK PROFESSOR NURSE SAID NOT TO DRAIN BELEM DRAIN D/T DR ORDERS. ORDERS STILL STATE TO DRAIN Q SHIFT. WILL CONTINUE TO MONITOR.
[2020-11-11] VITALS (21 sets, daily range): BP systolic 111–121; BP diastolic 58–68; PULSE 69–92; RESP 18–30; TEMP 36.7–37.3; O2SAT 87–98
[2020-11-11] MEDS: vancomycin 1,000 MG in sodium chloride 0.9% 250 ML 250 MG IV ×2 (03:12→20:43)
[2020-11-11] MEDS: lactulose oral liq 20 gm/30 mL UDC PO (03:13)
[2020-11-11] MEDS: ipratropium-albuterol 3 mL Neb INHALATION ×6 (03:47→23:32)
--- NOTE | 2020-11-11 03:58 | PC.NURSE ---
PT HAD AN UNEVENTFUL NIGHT. PT STATES THAT THEY FEEL A BIT BETTER. PT DENIES PAIN AT THIS TIME. WILL CONTINUE TO MONITOR.
[2020-11-11 05:36] LABS: Basophils % 0.2 %; Eosinophils % 0.2 %; Hematocrit 27.3 % (42.0-52.0); Lymphocytes # 1.2 10^3/uL (0.8-4.8); Lymphocytes % 6.2 %; Mean Corpuscular Hemoglobin 29.7 pg (28.0-34.0); Mean Corpuscular Volume 90.1 fL (80-94); Mean Platelet Volume 9.6 fL (7.4-10.4); Monocytes # 2.2 10^3/uL (0.2-0.9); Neutrophils # 14.62 10^3/uL (1.8-7.7); Neutrophils % 79.2 %; Nucleated Red Blood Cells % 0 %; Platelet Count 247 10^3/cmm (130-400); Red Blood Count 3.03 10^6/uL (4.1-5.3); Red Cell Distribution Width 14.5 % (12.1-15.1); White Blood Count 18.5 10^3/uL (4.0-10.0)
[2020-11-11 06:11] LABS: NT Pro B Type Natriuretic Pept 307 pg/mL (0-125); Procalcitonin 0.27 ng/mL (0-0.5)
[2020-11-11] MEDS: sucralfate 1 gm Tablet PO ×4 (06:13→20:43)
[2020-11-11] MEDS: cholecalciferol (vitamin D3) 1,000 unit Tablet 1000 UNIT PO (06:13)
[2020-11-11 06:24] LABS: Alanine Aminotransferase 17 U/L (0-41); Albumin Level 2.4 g/dL (3.5-5.2); Aspartate Amino Transferase 19 U/L (0-40); Blood Urea Nitrogen 44 mg/dL (8-23); C Reactive Protein 50.7 mg/L (0.0-4.9); Calcium 7.9 mg/dL (8.5-10.5); Carbon Dioxide 28 mmol/L (22-29); Chloride 98 mmol/L (98-107); Globulin 2.2 g/dL (1.3-4.6); Glucose 95 mg/dL (65-115); Osmolality Calculated 293 mOsm/kg (285-295); Phosphorus 3.6 mg/dL (2.5-4.5); Sodium 136 mmol/L (136-145); Total Bilirubin 0.3 mg/dL (0.15-1.2); Total Protein 4.6 g/dL (6.6-8.7)
[2020-11-11 06:34] LABS: Alkaline Phosphatase 68 IU/L (40-130)
[2020-11-11] MEDS: bumetanide 0.25 mg/mL SDV 4 mL 1 MG IV ×2 (06:49→18:13)
--- NOTE | 2020-11-11 07:00 | XRR_ITS ---
PROCEDURE INFORMATION: Exam: XR Chest Exam date and time: 11/11/2020 6:11 AM Age: 70 years old Clinical indication: Condition or disease; Lung condition and disease; Copd; With exacerbation; Shortness of breath; Additional info: SOB TECHNIQUE: Imaging protocol: XR of the chest Views: 1 view. COMPARISON: CR (CHEST, ) 11/10/2020 6:29 AM FINDINGS: Lungs: COPD, interstitial prominence, and extensive right basilar airspace disease. Pleural spaces: Right pleural catheter with small right pleural effusion. Heart/Mediastinum: Epicardial fat accentuates the cardiac silhouette. Bones/joints: Osteopenia and degenerative change. When correlating with the previous study, no significant interval changes are present. XR/XR chest 1V portable [id number] IMPRESSION: 1. COPD, interstitial prominence, and extensive right basilar airspace disease. 2. Right pleural catheter with small right pleural effusion.
[2020-11-11] MEDS: budesonide 0.5 mg/2 mL Neb INHALATION ×2 (07:53→20:06)
[2020-11-11] MEDS: sodium chloride 3.5% neb 4 mL Neb INHALATION ×2 (08:00→20:06)
[2020-11-11] MEDS: ferrous sulfate EC 325 mg Tablet PO ×2 (08:56→18:13)
[2020-11-11] MEDS: metoprolol tartrate 50 mg Tablet PO ×2 (08:57→20:44)
[2020-11-11] MEDS: dilTIAZem ER (24HR) 240 mg Capsule PO (08:57)
[2020-11-11] MEDS: methylphenidate 10 mg Tablet 5 MG PO ×2 (08:57→20:43)
[2020-11-11] MEDS: apixaban 5 mg Tablet PO ×2 (08:58→20:44)
[2020-11-11] MEDS: pantoprazole DR 40 mg Tablet PO ×2 (08:58→18:13)
[2020-11-11] MEDS: azithromycin 500 MG in sodium chloride 0.9% 250 ML 250 MG IV (08:59)
--- NOTE | 2020-11-11 09:53 | P.PN_ITS ---
Subjective Subjective: Interval history: Mr. Darrius Adan is seen at bedside today morning In mild respiratory distress-much better than last week Currently on 4 L nasal cannula Yesterday chest tube output 400 cc -Reported having diarrhea today morning - No acute events overnight -Plan is to DC patient to senior living while awaiting decision to start immunotherapy Medications: Reviewed: Yes Medication Review Details: Generic Name Dose Route Start Last Admin Trade Name Freq PRN Reason Stop Dose Admin Hydrocodone Bitart /Acetaminophen 1 tab 10/31/20 17:13 11/03/20 00:15 Hydrocodone-Acet aminophen 5-325 Mg Tablet PO 1 tab Q4H PRN Administration MODERATE PAIN Albuterol/Ipratrop ium 3 ml 10/27/20 11:15 11/03/20 07:37 Ipratropium-Albu terol 3 Ml Neb INHALATION 3 ml Q4H.RESPIRATORY S CH Administration Apixaban 5 mg 11/01/20 21:00 11/03/20 09:41 Apixaban 5 Mg Ta blet PO 5 mg BID@0900,2100 BRENDA Administration Atorvastatin Calci um 20 mg 10/25/20 19:00 11/02/20 18:45 Atorvastatin 40 Mg Tablet PO 20 mg DAILY@19 BRENDA Administration Budesonide 0.5 mg 10/29/20 20:00 11/03/20 07:37 Budesonide 0.5 M g/2 Ml Neb INHALATION 0.5 mg BID.RESPIRATORY S CH Administration Diltiazem HCl 240 mg 10/29/20 12:00 11/03/20 09:41 Diltiazem Er (24 hr) 240 Mg Capsule PO 240 mg DAILY BRENDA Administration Levofloxacin 750 mg 11/02/20 01:30 11/02/20 01:46 Levofloxacin 750 Mg Tablet PO 750 mg Q48H BRENDA Administration Protocol Metoprolol Tartrat e 50 mg 10/28/20 21:00 11/03/20 09:41 Metoprolol Tartr ate 50 Mg Tablet PO 50 mg BID@0900,2100 BRENDA Administration Pantoprazole Sodiu m 40 mg 10/25/20 19:00 11/02/20 18:[address] 40 Mg Tablet PO 40 mg DAILY@19 BRENDA Administration Prednisone 40 mg 11/02/20 09:00 11/03/20 09:40 Prednisone 20 Mg Tablet PO 40 mg DAILY BRENDA Administration Tamsulosin HCl 0.4 mg 10/25/20 19:00 11/02/20 18:45 Tamsulosin 0.4 M g Capsule PO 0.4 mg DAILY@19 [facility] Administration Vitamin D 1,000 unit 10/26/20 07:00 11/03/20 06:10 Cholecalciferol (Vitamin D3) 1,000 Unit Tablet PO 1,000 unit DAILY@07 [facility] Administration Zolpidem Tartrate 10 mg 10/30/20 19:27 10/30/20 20:11 Zolpidem 10 Mg T ablet PO 10 mg BEDTIME PRN Administration INSOMNIA Vitals/I&O/Wt Last Vital Signs Temp 98.9 F 11/11/20 09:09 Pulse 80 11/11/20 08:41 Resp 18 11/11/20 08:01 BP 121/68 11/11/20 08:41 Pulse Ox 87 L 11/11/20 08:41 11/10/20 11/11/20 11/11/20 22:59 06:59 14:59 Intake Total 620 / 1920 690 / 2610 Output Total 950 / 2750 500 / 3250 Balance -330 / -830 190 / -640 Physical Exam Narrative: EXAM NARRATIVE: General: alert, in mild respiratory distress HEENT: conj clear, EOMI, PERRL, mmm, Neck: supple, no meningismus Heme: no cervical LAP Pulmonary: Improved breath sounds on right lower lung Cardiovascular: rrr, nl s1s2, no mrg Abdomen: soft, nt, nd, no r/g, bs+ Extremities: pulses +, no edema, no c/c : no CVA tenderness Skin: intact, no rash MSK: no back or neck pain Neurologic: grossly intact Data : 11/11/20 04:30 11/11/20 04:30 Micro: Microbiology 11/09/20 08:20 Gram Stain - Final Sputum - Expectorated Sputum Sputum Culture - Preliminary Corynebacterium species 11/05/20 10:00 Blood Culture - Final Blood NO GROWTH AFTER 5 DAYS 11/05/20 09:56 Blood Culture - Final Blood NO GROWTH AFTER 5 DAYS A&P Assessment and plan (1) Mediastinal adenopathy: Status: Acute (2) Mass of right lung: Status: Acute (3) COPD (chronic obstructive pulmonary disease): Status: Acute Qualifiers: COPD type: unspecified COPD Qualified Code(s): J44.9 - Chronic obstructive pulmonary disease, unspecified (4) Smoker: Status: Acute (5) Recurrent right pleural effusion: Status: Acute (6) New onset atrial fibrillation: Status: Acute (7) Diarrhea: Status: Acute #Acute respiratory failure with hypoxia due to Large right pleural effusion & A.fib with RVR #RML mass measuring 3.8 x 2.9 cm encompassing branches of RML pulmonary artery & Mediastinal and hilar adenopathy-EBUSpathology reported 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 Emphysematous changes are noted. Thyroid gland appears enlarged. Prominent lymph node is seen in the subcarinal region measuring 2.2 cm. Fullness is seen in the right hilum which also could be related to adenopathy. Moderate right pleural effusion. - PET CT 10/05/2020: Right upper lobe mass) to the mediastinum, representing m alignancy. Right pleural malignant implants with pleural effusion. Right hilar and mediastinal FDG positive nodes representing local metastatic disease -Based on PET/CT looks like it is malignant and metastatic to pleural and diaphragmatic surface -10/11/20: Right thoracentesis 1250 cc - Lymphocyte predominant exudative effusion; cytology reported negative. -10/26/2020: Right thoracentesis 1900 cc hemorrhagic fluid-lymphocyte predominant exudative effusion. 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 fib RVR -On cardizem 240 XR daily for A.fib RVR; -Duoneb nebulization q 4h r brenda & budesonide 0.5 twice daily inhalation -Sudden respiratory distress improved after draining 1800 cc yesterday after instilling 10 cc TPA -CT imaging 11/07/2020: Showed lobulated pleural fluid along the right major and minor fissures and the right middle lobe infiltrate likely due to postobstructive pneumonia with some consolidation -Repeat chest x-ray today showed significantly improved infiltrate, atelectasis and pleural effusion in the right lower lung zone since previous study. -Chest physiotherapy and hypertonic saline to clear secretions, pulmonary toileting -On 4 L nasal cannula -Currently on vancomycin, imipenem; DC azithromycin; added voriconazole for Aspergillus as WBC is worsening ; currently afebrile and WBC improving -Elevated BNP, repeat echo possibly normal LVEF. Study could not evaluate wall motion abnormalities due to tachycardia. At least moderate tricuspid valve regurgitation and pulmonary hypertension with estimated pulmonary artery peak systolic pressure 53. Technically difficult study. -on Bumex 1 mg twice daily with potassium replacement -Ordered PFTs/6-minute walk test during clinic visit - yet to get it as outpatient -Patient quit smoking 4 weeks ago and encouraged to maintain abstinence -Send for stool cultures and C. difficile Recommendations conveyed to hospitalist and RN covering the patient. Medical condition and assessment plan explained to patient and he verbalized understanding and agreed with the plan Attestations Medical Necessity Statement*: Acute respiratory failure with hypoxia and patient with metastatic non-small cell carcinoma and large right pleural effusion-Pleurx catheter placed to drain right pleural effusion and awaiting chemo/immunotherapy-currently requiring 4 L nasal cannula Time Spent in Patient Care: Greater than 35 minutes (>than 50% of time spent in counselling and/or direct pt care on unit) . 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
--- NOTE | 2020-11-11 11:19 | PM.PN ---
Subjective Subjective: Interval history: Patient was examined this morning, he tells me that he continues to feel fatigued, tired,, continues to have shortness of breath with minimal exertion, poor appetite, he tells me that although he is on 4 L, he still feels short of breath, no fevers overnight Medications: Reviewed: Yes Medication Review Details: Generic Name Dose Route Start Last Admin Trade Name Blaze PRN Reason Stop Dose Admin Hydrocodone Bitart /Acetaminophen 1 tab 10/31/20 17:13 11/03/20 00:15 Hydrocodone-Acet aminophen 5-325 Mg Tablet PO 1 tab Q4H PRN Administration MODERATE PAIN Albuterol/Ipratrop ium 3 ml 10/27/20 11:15 11/03/20 07:37 Ipratropium-Albu terol 3 Ml Neb INHALATION 3 ml Q4H.RESPIRATORY S CH Administration Apixaban 5 mg 11/01/20 21:00 11/03/20 09:41 Apixaban 5 Mg Ta blet PO 5 mg BID@0900,2100 SHAYNE Administration Atorvastatin Calci um 20 mg 10/25/20 19:00 11/02/20 18:45 Atorvastatin 40 Mg Tablet PO 20 mg DAILY@19 SHAYNE Administration Budesonide 0.5 mg 10/29/20 20:00 11/03/20 07:37 Budesonide 0.5 M g/2 Ml Neb INHALATION 0.5 mg BID.RESPIRATORY S CH Administration Diltiazem HCl 240 mg 10/29/20 12:00 11/03/20 09:41 Diltiazem Er (24 hr) 240 Mg Capsule PO 240 mg DAILY SHAYNE Administration Levofloxacin 750 mg 11/02/20 01:30 11/02/20 01:46 Levofloxacin 750 Mg Tablet PO 750 mg Q48H SHAYNE Administration Protocol Metoprolol Tartrat e 50 mg 10/28/20 21:00 11/03/20 09:41 Metoprolol Tartr ate 50 Mg Tablet PO 50 mg BID@0900,2100 SHAYNE Administration Pantoprazole Sodiu m 40 mg 10/25/20 19:00 11/02/20 18:[address] 40 Mg Tablet PO 40 mg DAILY@19 SHAYNE Administration Prednisone 40 mg 11/02/20 09:00 11/03/20 09:40 Prednisone 20 Mg Tablet PO 40 mg DAILY SHAYNE Administration Tamsulosin HCl 0.4 mg 10/25/20 19:00 11/02/20 18:45 Tamsulosin 0.4 M g Capsule PO 0.4 mg DAILY@19 [facility] Administration Vitamin D 1,000 unit 10/26/20 07:00 11/03/20 06:10 Cholecalciferol (Vitamin D3) 1,000 Unit Tablet PO 1,000 unit DAILY@07 [facility] Administration Zolpidem Tartrate 10 mg 10/30/20 19:27 10/30/20 20:11 Zolpidem 10 Mg T ablet PO 10 mg BEDTIME PRN Administration INSOMNIA Vitals/I&O/Wt Last Vital Signs Temp 98.9 F 11/11/20 09:09 Pulse 80 11/11/20 08:41 Resp 18 11/11/20 08:01 BP 121/68 11/11/20 08:41 Pulse Ox 87 L 11/11/20 08:41 11/10/20 11/11/20 11/11/20 22:59 06:59 14:59 Intake Total 620 / 1920 690 / 2610 350 / 350 Output Total 950 / 2750 500 / 3250 Balance -330 / -830 190 / -640 350 / 350 Physical Exam Const: COMMON NORMALS: no acute distress and patient oriented x3 GENERAL APPEARANCE: ill appearing and frail appearing NUTRITIONAL APPEARANCE: thin HENMT: COMMON NORMALS: normocephalic HEAD & SCALP: normocephalic Neck/C-Spine: COMMON NORMALS: no JVD Resp: COMMON NORMALS: normal respiratory effort, No retractions and No use of accessory muscles AUSCULTATION: diminished lung sounds on the right in the lower lung canas Cardio: COMMON NORMALS: no JVD, regular rate, regular rhythm, S1 normal heart sound present and S2 normal heart sound present RATE: regular rate RHYTHM: regular rhythm HEART SOUNDS: S1 normal heart sound present and S2 normal heart sound present GI: COMMON NORMALS: Normal to inspection, nondistended, normoactive bowel sounds present, Soft to palpation, non-tender, No hepatosplenomegaly present, no masses and no bruits PALPATION: Yes Soft to palpation and Yes No hepatosplenomegaly present Extremity: COMMON NORMALS: capillary refill normal, no clubbing, cyanosis or edema, no calf tenderness and no pedal edema Neuro: COMMON NORMALS: patient oriented x3 Psych: COMMON NORMALS: mental status grossly normal Data : 11/11/20 04:30 11/11/20 04:30 Micro: Microbiology 11/09/20 08:20 Gram Stain - Final Sputum - Expectorated Sputum Sputum Culture - Preliminary Corynebacterium species 11/05/20 10:00 Blood Culture - Final Blood NO GROWTH AFTER 5 DAYS 11/05/20 09:56 Blood Culture - Final Blood NO GROWTH AFTER 5 DAYS A&P Assessment and plan (1) Acute respiratory failure with hypoxia: Concerns for postobstructive pneumonia, with loculated pleural effusions White blood cell count 12 hours 18.5 25.3, remains afebrile, normotensive, on 4 L Chest x-ray this morning shows significant improvement of right middle and right lower lobe consolidation, some persistent right lower lobe consolidation Chest CT shows right middle lobe infiltrate likely due to postobstructive pneumonia, with some consolidation, loculated pleural effusion along the right major and minor fissures Reviewed film with Dr. Miller and radiation oncologist, they feel that the malignant lesions are more central and are not resulting in obstructive phenomenon, patient is likely not to benefit from radiation therapy, Dr. Miller will review the pathology to see if inpatient chemotherapy would be an option but would be associate with significant risks given his current infection Dr. Brown did instill TPA into [place] catheter, roughly 1 L of bloody drainage, then 300 cc after Plan on to continue to drain [place] catheter daily, ensure proper sterile technique with the nurses, 300 cc output yesterday Continue oxygen mask, BiPAP as needed, BiPAP schedule during the night Receiving vancomycin, Primaxin, azithromycin Voriconazole added for antifungal and Aspergillus, Bumex 1 mg every 12 hours, with potassium replacement, creatinine up to 1.6, 3250 urine output yesterday Pleurx catheter catheter in place, drain daily repeat chest x-ray daily It is possible that patient might require chest tube if loculated pleural effusions persist, but currently doing better Receiving chest vest therapy Aggressive pulmonary toilet, incentive spirometer use, Acapella Patient and nurses instruction to get up out of bed daily, into a chair PT OT I have added Ritalin 5 mg twice daily to stimulate his appetite, however given his A. fib we will have to monitor his heart rate blood pressure and mentation Malignancy is non-small cell carcinoma stage IV Eliquis for DVT prophylaxis Patient is DNR/DNI, okay with ICU admission Status is critical, prognosis is poor Goals of care, patient wants to pursue improving his functional status, wants to go to a senior care for physical therapy, in hopes to pursue immunotherapy Status: Acute (2) Mass of middle lobe of right lung: Oncology following Port placed October 31 cristian drain supplies can be given on discharge Patient is unlikely to be a great candidate for chemotherapy given poor functional status Pathology is to be sent out for PD-L1, to see if he is a candidate for immunotherapy Dr. Miller on consult Status: Acute (3) Recurrent right pleural effusion: Pleurx catheter placed October 31 Status: Acute (4) New onset atrial fibrillation: Currently on metoprolol, Cardizem Transitioned to Eliquis Status: Acute (5) CKD (chronic kidney disease): Stable Status: Acute (6) COPD (chronic obstructive pulmonary disease): Status: Acute Qualifiers: COPD type: unspecified COPD Qualified Code(s): J44.9 - Chronic obstructive pulmonary disease, unspecified (7) Protein calorie malnutrition: Status: Acute (8) Generalized weakness: Status: Acute Additional A&P Information Acute anemia, hemoglobin down to 8.7, iron levels low at 44, on Protonix 40 twice daily, Carafate, monitor hemoglobin closely as patient is on Eliquis Eliquis will suffice for DVT prophylaxis Currently pursuing senior care placement Plan for today, continue Primaxin, continue vancomycin, continue antifungals increase Bumex to 1 mg every 24 hours, increase Ritalin to 5 mg twice daily aggressive pulmonary toilet, chest vest therapy, drain [place] catheter daily, up out of bed, work with physical therapy, improving functional status, improving appetite adding Ritalin, working on senior care placement if patient continues to have consolidation tomorrow, will need to infuse [place] drain with TPA Attestations Medical Necessity Statement*: Patient requires hospitalization for acute respiratory failure hypoxia, lung cancer, proceeding to senior care placement Coding Level of Care Code Acute Cooker Casing for Cristina Garcia Diagnoses Acute respiratory failure with hypoxia J96.01 Mass of middle lobe of right lung R91.8 Recurrent right pleural effusion J90 New onset atrial fibrillation I48.91 CKD (chronic kidney disease) N18.9 COPD (chronic obstructive pulmonary disease) J44.9 COPD type: unspecified COPD Protein calorie malnutrition E46 Generalized weakness R53.1
--- NOTE | 2020-11-11 12:13 | DCPLANNER ---
IMM completed with pt on 11/11/20 @ 6304. Reviewed copy of rights with pt.
--- NOTE | 2020-11-11 13:30 | PC.NURSE ---
BELEM DRAIN BELEM DRAIN ACCESSED WITH PLEURX KIT. 300 ML SANGUINEOUS DRAINAGE RETURNED. STERILE TECHNIQUE MAINTAINED. PATIENT TOLERATED WELL. NURSE TO CONTINUE TO MONITOR.
[2020-11-11] MEDS: atorvastatin 40 mg Tablet 20 MG PO (18:12)
[2020-11-12] VITALS (19 sets, daily range): BP systolic 97–118; BP diastolic 58–62; PULSE 79–96; RESP 18–30; TEMP 36.6–37.1; O2SAT 24–96
--- NOTE | 2020-11-12 00:04 | PC.NURSE ---
PT IS RESTING IN BED. PT DENIES PAIN. WILL CONTINUE TO MONITOR.
[2020-11-12] MEDS: lactulose oral liq 20 gm/30 mL UDC PO ×2 (03:08→11:27)
[2020-11-12] MEDS: ipratropium-albuterol 3 mL Neb INHALATION ×6 (03:20→23:57)
--- NOTE | 2020-11-12 03:36 | PC.NURSE ---
PT HAD AN UNEVENTFUL NIGHT. PT DENIES PAIN. PT IS RESTING IN BED. WILL CONTINUE TO MONITOR.
[2020-11-12 04:44] LABS: Basophils % 0.1 %; Eosinophils # 0.1 10^3/uL (0.0-0.8); Eosinophils % 0.7 %; Hematocrit 26.2 % (42.0-52.0); Hemoglobin 8.6 g/dL (11.7-16.6); Lymphocytes # 1.4 10^3/uL (0.8-4.8); Lymphocytes % 7.2 %; Mean Corpuscular HGB Conc 32.8 g/dL (30.0-36.0); Mean Corpuscular Hemoglobin 29.8 pg (28.0-34.0); Mean Corpuscular Volume 90.7 fL (80-94); Mean Platelet Volume 9.8 fL (7.4-10.4); Monocytes # 2.2 10^3/uL (0.2-0.9); Monocytes % 11.6 %; Neutrophils # 14.96 10^3/uL (1.8-7.7); Nucleated Red Blood Cells % 0 %; Platelet Count 209 10^3/cmm (130-400); Red Blood Count 2.89 10^6/uL (4.1-5.3); Red Cell Distribution Width 14.3 % (12.1-15.1)
[2020-11-12 05:10] LABS: Alanine Aminotransferase 17 U/L (0-41); Albumin Level 2.2 g/dL (3.5-5.2); Alkaline Phosphatase 68 IU/L (40-130); Anion Gap 12.1 (5-19); Aspartate Amino Transferase 21 U/L (0-40); Blood Urea Nitrogen 46 mg/dL (8-23); C Reactive Protein 59.2 mg/L (0.0-4.9); Calcium 7.7 mg/dL (8.5-10.5); Carbon Dioxide 30 mmol/L (22-29); Chloride 100 mmol/L (98-107); Globulin 2.4 g/dL (1.3-4.6); Glucose 106 mg/dL (65-115); Osmolality Calculated 298 mOsm/kg (285-295); Phosphorus 3.2 mg/dL (2.5-4.5); Potassium 4.1 mmol/L (3.5-5.1); Sodium 138 mmol/L (136-145); Total Bilirubin 0.2 mg/dL (0.15-1.2); Total Protein 4.6 g/dL (6.6-8.7)
[2020-11-12 05:12] LABS: NT Pro B Type Natriuretic Pept 251 pg/mL (0-125); Procalcitonin 0.34 ng/mL (0-0.5)
[2020-11-12] MEDS: sucralfate 1 gm Tablet PO ×4 (06:11→20:12)
[2020-11-12] MEDS: cholecalciferol (vitamin D3) 1,000 unit Tablet 1000 UNIT PO (06:11)
[2020-11-12] MEDS: bumetanide 0.25 mg/mL SDV 4 mL 1 MG IV ×2 (06:29→20:14)
--- NOTE | 2020-11-12 07:00 | XRR_ITS ---
PROCEDURE INFORMATION: Exam: XR Chest Exam date and time: 11/12/2020 6:24 AM Age: 70 years old Clinical indication: Condition or disease; Lung condition and disease; Copd; With exacerbation; Shortness of breath; Additional info: SOB TECHNIQUE: Imaging protocol: XR of the chest Views: 1 view. COMPARISON: CR XR chest 1V portable [id number] 11/11/2020 6:09 AM FINDINGS: Tubes, catheters and devices: Thoracotomy tube inferior aspect right hemithorax. Lungs: Airspace consolidation right lower lobe. Moderate subpulmonic effusion. Left lung is well aerated. Pleural spaces: See Lungs finding. Heart/Mediastinum: Unremarkable. No cardiomegaly. Bones/joints: Unremarkable. XR/XR chest 1V portable [id number] IMPRESSION: 1. Airspace consolidation right lower lobe. Moderate subpulmonic effusion. Minimal change.
[2020-11-12] MEDS: budesonide 0.5 mg/2 mL Neb INHALATION ×2 (07:45→19:52)
[2020-11-12] MEDS: sodium chloride 3.5% neb 4 mL Neb INHALATION ×2 (07:56→19:52)
[2020-11-12] MEDS: polyethylene glycol 3350 Pkt 17 gm PO (08:28)
[2020-11-12] MEDS: dilTIAZem ER (24HR) 240 mg Capsule PO (08:29)
[2020-11-12] MEDS: methylphenidate 10 mg Tablet 5 MG PO ×2 (08:29→20:10)
[2020-11-12] MEDS: metoprolol tartrate 50 mg Tablet PO ×2 (08:30→20:12)
[2020-11-12] MEDS: docusate sodium 100 mg Capsule PO ×2 (08:30→17:42)
[2020-11-12] MEDS: apixaban 5 mg Tablet PO ×2 (08:30→20:12)
[2020-11-12] MEDS: ferrous sulfate EC 325 mg Tablet PO ×2 (08:30→17:42)
[2020-11-12] MEDS: azithromycin 500 MG in sodium chloride 0.9% 250 ML 250 MG IV (08:30)
[2020-11-12] MEDS: pantoprazole DR 40 mg Tablet PO ×2 (08:30→17:42)
--- NOTE | 2020-11-12 09:30 | PC.CHAP ---
Pastoral Care Encounter/Spiritual Assessment Type of Contact [] Declined lard refiner visit [] Patient/Family/Request visit [] Outpatient visit [] Follow-up visit [] Physician referral [] Code/Alert [x] Routine visit [] Staff referral [] Actively dying [] Patient sleeping [] Family support [] [] Out of room [] Palliative care [] [] Receiving care in room [] Pre-surgical visit [] Trauma [] Long length of stay [] ICU visit [] Other: Relational/Emotional Strength [] Patient feels connected with others/family/visitors/staff [] Distress [] Loneliness/isolation [] Abandonment Spirituality of Patient [x] Person of Didi [] Attends Christianity of their Didi [] Believes in Prayer [] Reads Bible or Sabianist materials [] There are Spiritual issues to be addressed Surveillance Systems Analyst Interventions [x] Prayer [x] Active listening [x] Non-anxious presence [x] Spiritual/emotional support [] Crisis/trauma care [] Spiritual counseling [] Bereavement support [] Provided bereavement packet [] Provided Bible/devotional materials [] Provided toy/stuffed animal, coloring book to patient or family member [] Provided Communion [] Anointing/[place] [] Salvation [x] Completed spiritual assessment [] Other: Impact on Illness or Injury [] Angry [] Fearful [] Anxious [] Often cries [] Exhaustion [] Unable to work [] Unable to attend sikh [] Unable to walk/stand [] Unable to read [] Unable to drive [] Unable to eat/drink [] Unable to sleep [] Unable to be with family [] Patient intubated [] Other: Summary patient still improving... patient believes he is going to be moved to rehab home.... Time spent with patient 10 min
--- NOTE | 2020-11-12 10:29 | PC.OT ---
OT NOTE: OT TREATMENT ATTEMPTED. PATIENT IS SLEEPING SOUNDLY.
[2020-11-12] MEDS: vancomycin 1,000 MG in sodium chloride 0.9% 250 ML 250 MG IV (14:12)
--- NOTE | 2020-11-12 17:05 | P.PN_ITS ---
Subjective Subjective: Interval history: Patient reports feeling better especially after he had pleural fluid drained earlier today. Reports that he still has occasional greenish phlegm productive cough. Reports that today he feels bloated and a little more distended in his abdomen. He had loose bowel movements. His WBC continues to be elevated. Vitals/I&O/Wt Last Vital Signs Temp 98.1 F 11/12/20 16:00 Pulse 87 11/12/20 16:00 Resp 21 H 11/12/20 16:00 BP 99/61 11/12/20 16:00 Pulse Ox 92 11/12/20 16:00 11/12/20 11/12/20 11/12/20 06:59 14:59 22:59 Intake Total 706 / 2005 690 / 690 250 / 940 Output Total 250 / 1979 700 / 700 Balance 456 / 26 -10 / -10 250 / 240 Physical Exam Narrative: EXAM NARRATIVE: Coarse breath sounds throughout. Heart is regular. He appears to be in mild distress. Data : 11/12/20 04:21 11/12/20 04:21 A&P Assessment and plan (1) Acute respiratory failure with hypoxia: Concerns for postobstructive pneumonia, with loculated pleural effusions White blood cell count 12 hours 18.5 25.3, remains afebrile, normotensive, on 4 L Chest x-ray this morning shows significant improvement of right middle and right lower lobe consolidation, some persistent right lower lobe consolidation Chest CT shows right middle lobe infiltrate likely due to postobstructive pneumonia, with some consolidation, loculated pleural effusion along the right major and minor fissures Reviewed film with Dr. Miller and radiation oncologist, they feel that the malignant lesions are more central and are not resulting in obstructive phenomenon, patient is likely not to benefit from radiation therapy, Dr. Miller will review the pathology to see if inpatient chemotherapy would be an option but would be associate with significant risks given his current infection Dr. Brown did instill TPA into [place] catheter, roughly 1 L of bloody drainage, then 300 cc after Plan on to continue to drain Paul catheter daily, ensure proper sterile technique with the nurses, 300 cc output yesterday Continue oxygen mask, BiPAP as needed, BiPAP schedule during the night Receiving vancomycin, Primaxin, azithromycin Voriconazole added for antifungal and Aspergillus, Bumex 1 mg every 12 hours, with potassium replacement, creatinine up to 1.6, 3250 urine output yesterday Pleurx catheter catheter in place, drain daily repeat chest x-ray daily It is possible that patient might require chest tube if loculated pleural effusions persist, but currently doing better Receiving chest vest therapy Aggressive pulmonary toilet, incentive spirometer use, Acapella Patient and nurses instruction to get up out of bed daily, into a chair PT OT I have added Ritalin 5 mg twice daily to stimulate his appetite, however given his A. 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 Miller on consult Status: Acute (3) Recurrent right pleural effusion: Pleurx catheter placed October 31 Status: Acute (4) New onset atrial fibrillation: Currently on metoprolol, Cardizem Transitioned to Eliquis Status: Acute (5) CKD (chronic kidney disease): Stable Status: Acute (6) COPD (chronic obstructive pulmonary disease): Status: Acute Qualifiers: COPD type: unspecified COPD Qualified Code(s): J44.9 - Chronic obstructive pulmonary disease, unspecified (7) Protein calorie malnutrition: Status: Acute (8) Generalized weakness: Status: Acute Additional A&P Information Acute anemia, hemoglobin down to 8.7, iron levels low at 44, on Protonix 40 twice daily, Carafate, monitor hemoglobin closely as patient is on Eliquis Postobstructive pneumonia Diarrhea Eliquis will suffice for DVT prophylaxis Currently pursuing assisted placement Plan: Continue current monitoring and treatment including antibiotics. Consider adding Levaquin if WBC is not improving Obtain stool for C. difficile infection. Overall patient appears to have poor long-term prognosis. If clinically not improving hospice may need to be considered. Attestations Medical Necessity Statement*: Patient with postobstructive pneumonia requires close inpatient monitoring and treatment until deemed safe for discharge. Coding Level of Care Code Acute Scientific Associate for Chg Fwd Diagnoses Acute respiratory failure with hypoxia J96.01 Mass of middle lobe of right lung R91.8 Recurrent right pleural effusion J90 New onset atrial fibrillation I48.91 CKD (chronic kidney disease) N18.9 COPD (chronic obstructive pulmonary disease) J44.9 COPD type: unspecified COPD Protein calorie malnutrition E46 Generalized weakness R53.1
[2020-11-12] MEDS: atorvastatin 40 mg Tablet 20 MG PO (20:11)
--- NOTE | 2020-11-12 22:34 | PC.NURSE ---
Patient c/o dry lip. Informed Dr Gutiérrez and received telephone order for Lanolin Ointment for his dry lips. RBVO
[2020-11-12] MEDS: lanolin oint 7 gm 1 APPLIC TOPICAL (22:41)
[2020-11-13] VITALS (18 sets, daily range): BP systolic 107–114; BP diastolic 55–64; PULSE 83–95; RESP 18–31; TEMP 36.5–36.9; O2SAT 90–98
[2020-11-13] MEDS: ipratropium-albuterol 3 mL Neb INHALATION ×5 (04:29→19:53)
[2020-11-13 05:11] LABS: Basophils % 0.2 %; Eosinophils # 0.1 10^3/uL (0.0-0.8); Eosinophils % 0.7 %; Hematocrit 25.7 % (42.0-52.0); Hemoglobin 8.3 g/dL (11.7-16.6); Lymphocytes # 1.4 10^3/uL (0.8-4.8); Lymphocytes % 7.6 %; Mean Corpuscular HGB Conc 32.3 g/dL (30.0-36.0); Mean Corpuscular Hemoglobin 29.1 pg (28.0-34.0); Mean Corpuscular Volume 90.2 fL (80-94); Mean Platelet Volume 9.8 fL (7.4-10.4); Monocytes # 2.3 10^3/uL (0.2-0.9); Monocytes % 12.2 %; Neutrophils # 14.61 10^3/uL (1.8-7.7); Neutrophils % 77.9 %; Nucleated Red Blood Cells % 0 %; Platelet Count 209 10^3/cmm (130-400); Red Blood Count 2.85 10^6/uL (4.1-5.3); Red Cell Distribution Width 14.5 % (12.1-15.1); White Blood Count 18.7 10^3/uL (4.0-10.0)
[2020-11-13 05:33] LABS: Alanine Aminotransferase 16 U/L (0-41); Albumin Level 2.1 g/dL (3.5-5.2); Alkaline Phosphatase 74 IU/L (40-130); Anion Gap 12.8 (5-19); Aspartate Amino Transferase 24 U/L (0-40); Blood Urea Nitrogen 39 mg/dL (8-23); C Reactive Protein 58.3 mg/L (0.0-4.9); Calcium 7.6 mg/dL (8.5-10.5); Carbon Dioxide 30 mmol/L (22-29); Chloride 99 mmol/L (98-107); Globulin 2.3 g/dL (1.3-4.6); Glucose 103 mg/dL (65-115); Magnesium 2.1 mg/dL (1.7-2.3); Osmolality Calculated 296 mOsm/kg (285-295); Phosphorus 2.8 mg/dL (2.5-4.5); Potassium 3.8 mmol/L (3.5-5.1); Sodium 138 mmol/L (136-145); Total Bilirubin 0.2 mg/dL (0.15-1.2); Total Protein 4.4 g/dL (6.6-8.7)
[2020-11-13 05:38] LABS: NT Pro B Type Natriuretic Pept 228 pg/mL (0-125); Procalcitonin 0.36 ng/mL (0-0.5)
[2020-11-13] MEDS: sucralfate 1 gm Tablet PO ×3 (06:07→20:36)
[2020-11-13] MEDS: cholecalciferol (vitamin D3) 1,000 unit Tablet 1000 UNIT PO (06:07)
[2020-11-13] MEDS: bumetanide 0.25 mg/mL SDV 4 mL 1 MG IV ×2 (06:07→18:07)
[2020-11-13] MEDS: azithromycin 500 MG in sodium chloride 0.9% 250 ML 250 MG IV (08:21)
[2020-11-13] MEDS: methylphenidate 10 mg Tablet 5 MG PO ×2 (08:26→20:37)
[2020-11-13] MEDS: pantoprazole DR 40 mg Tablet PO ×2 (08:26→17:43)
[2020-11-13] MEDS: docusate sodium 100 mg Capsule PO ×2 (08:26→17:43)
[2020-11-13] MEDS: apixaban 5 mg Tablet PO ×2 (08:26→20:37)
[2020-11-13] MEDS: ferrous sulfate EC 325 mg Tablet PO ×2 (08:26→17:43)
[2020-11-13] MEDS: polyethylene glycol 3350 Pkt 17 gm PO (08:27)
[2020-11-13] MEDS: dilTIAZem ER (24HR) 240 mg Capsule PO (08:27)
[2020-11-13] MEDS: metoprolol tartrate 50 mg Tablet PO ×2 (08:27→20:37)
[2020-11-13] MEDS: budesonide 0.5 mg/2 mL Neb INHALATION ×2 (08:34→19:53)
[2020-11-13] MEDS: sodium chloride 3.5% neb 4 mL Neb INHALATION ×2 (08:34→19:53)
[2020-11-13] MEDS: vancomycin 1,000 MG in sodium chloride 0.9% 250 ML 250 MG IV (09:28)
--- NOTE | 2020-11-13 11:59 | P.PN_ITS ---
Subjective Subjective: Interval history: Patient continues to be somewhat short of breath. He did not have his pleural fluid drained earlier today. He denies chest pain. Continues to have off-and-on cough. Overall reports feeling better. WBC unchanged. Reports that he was able to eat better this morning but got bloated. Reports that his stool is getting more formed. Vitals/I&O/Wt Last Vital Signs Temp 98.5 F 11/13/20 10:50 Pulse 91 11/13/20 10:50 Resp 18 11/13/20 10:50 BP 111/59 11/13/20 10:50 Pulse Ox 90 11/13/20 10:50 11/12/20 11/13/20 11/13/20 22:59 06:59 14:59 Intake Total 3950 / 4640 400 / 5040 240 / 240 Output Total 400 / 1100 850 / 1950 1050 / 1050 Balance 3550 / 3540 -450 / 3090 -810 / -810 Physical Exam Narrative: EXAM NARRATIVE: Coarse breath sounds throughout. Heart is regular. He appears to be in mild distress. Data : 11/13/20 04:34 11/13/20 04:34 A&P Assessment and plan (1) Acute respiratory failure with hypoxia: Concerns for postobstructive pneumonia, with loculated pleural effusions White blood cell count 12 hours 18.5 25.3, remains afebrile, normotensive, on 4 L Chest x-ray this morning shows significant improvement of right middle and right lower lobe consolidation, some persistent right lower lobe consolidation Chest CT shows right middle lobe infiltrate likely due to postobstructive pn [place], with some consolidation, loculated pleural effusion along the right major and minor fissures Reviewed film with Dr. Miller and radiation oncologist, they feel that the malignant lesions are more central and are not resulting in obstructive phenomenon, patient is likely not to benefit from radiation therapy, Dr. Miller will review the pathology to see if inpatient chemotherapy would be an option but would be associate with significant risks given his current infection Dr. Brown did instill TPA into [place] catheter, roughly 1 L of bloody drainage, then 300 cc after Plan on to continue to drain [place] catheter daily, ensure proper sterile technique with the nurses, 300 cc output yesterday Continue oxygen mask, BiPAP as needed, BiPAP schedule during the night Receiving vancomycin, Primaxin, azithromycin Voriconazole added for antifungal and Aspergillus, Bumex 1 mg every 12 hours, with potassium replacement, creatinine up to 1.6, 3250 urine output yesterday Pleurx catheter catheter in place, drain daily repeat chest x-ray daily It is possible that patient might require chest tube if loculated pleural effusions persist, but currently doing better Receiving chest vest therapy Aggressive pulmonary toilet, incentive spirometer use, Acapella Patient and nurses instruction to get up out of bed daily, into a chair PT OT I have added Ritalin 5 mg twice daily to stimulate his appetite, however given his A. 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 Miller on consult Status: Acute (3) Recurrent right pleural effusion: Pleurx catheter placed October 31 Status: Acute (4) New onset atrial fibrillation: Currently on metoprolol, Cardizem Transitioned to Eliquis Status: Acute (5) CKD (chronic kidney disease): Stable Status: Acute (6) COPD (chronic obstructive pulmonary disease): Status: Acute Qualifiers: COPD type: unspecified COPD Qualified Code(s): J44.9 - Chronic obstructive pulmonary disease, unspecified (7) Protein calorie malnutrition: Status: Acute (8) Generalized weakness: Status: Acute Additional A&P Information Acute anemia, hemoglobin down to 8.7, iron levels low at 44, on Protonix 40 twice daily, Carafate, monitor hemoglobin closely as patient is on Eliquis Postobstructive pneumonia Diarrhea Eliquis will suffice for DVT prophylaxis Currently pursuing longterm placement Plan: Continue current monitoring and treatment including antibiotics. I will try substituting azithromycin to Levaquin. Awaiting placement to select. Overall patient appears to have poor long-term prognosis. If clinically not improving hospice may need to be considered. Attestations Medical Necessity Statement*: Patient with postobstructive pneumonia requires close inpatient monitoring and treatment until placement to long-term care facility is arranged. 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
--- NOTE | 2020-11-13 12:46 | DCPLANNER ---
IMM completed with pt on 11/13/20 @ 9995. Reviewed copy of rights with pt that was already in his room.
--- NOTE | 2020-11-13 12:49 | PC.NURSE ---
other delay other pt care
--- NOTE | 2020-11-13 13:13 | PC.NURSE ---
Cardizem turned up to 10ml per MD orders.
--- NOTE | 2020-11-13 13:38 | PC.NURSE ---
other delay - other pt care
[2020-11-13] MEDS: levofloxacin-dextrose 5 % 750 MG/150 ML PREMIX 100 MG IV (14:56)
[2020-11-13] MEDS: atorvastatin 40 mg Tablet 20 MG PO (18:07)
[2020-11-13] MEDS: lactulose oral liq 20 gm/30 mL UDC PO (18:11)
[2020-11-14] VITALS (22 sets, daily range): BP systolic 98–120; BP diastolic 57–61; PULSE 82–99; RESP 19–29; TEMP 36.4–37.4; O2SAT 85–98
[2020-11-14] MEDS: ipratropium-albuterol 3 mL Neb INHALATION ×7 (00:10→23:58)
[2020-11-14] MEDS: vancomycin 1,000 MG in sodium chloride 0.9% 250 ML 250 MG IV (02:32)
[2020-11-14 05:15] LABS: Basophils % 0.2 %; Eosinophils # 0.1 10^3/uL (0.0-0.8); Eosinophils % 0.3 %; Hematocrit 25.7 % (42.0-52.0); Hemoglobin 8.3 g/dL (11.7-16.6); Lymphocytes # 1.3 10^3/uL (0.8-4.8); Lymphocytes % 6.7 %; Mean Corpuscular HGB Conc 32.3 g/dL (30.0-36.0); Mean Corpuscular Hemoglobin 29.3 pg (28.0-34.0); Mean Corpuscular Volume 90.8 fL (80-94); Mean Platelet Volume 9.9 fL (7.4-10.4); Monocytes # 2.3 10^3/uL (0.2-0.9); Monocytes % 11.7 %; Neutrophils # 15.51 10^3/uL (1.8-7.7); Neutrophils % 79.9 %; Nucleated Red Blood Cells % 0 %; Platelet Count 217 10^3/cmm (130-400); Red Blood Count 2.83 10^6/uL (4.1-5.3); Red Cell Distribution Width 14.6 % (12.1-15.1); White Blood Count 19.4 10^3/uL (4.0-10.0)
[2020-11-14 05:34] LABS: Alanine Aminotransferase 20 U/L (0-41); Albumin Level 2.1 g/dL (3.5-5.2); Alkaline Phosphatase 67 IU/L (40-130); Anion Gap 10.8 (5-19); Aspartate Amino Transferase 27 U/L (0-40); Blood Urea Nitrogen 39 mg/dL (8-23); C Reactive Protein 75.6 mg/L (0.0-4.9); Calcium 7.9 mg/dL (8.5-10.5); Carbon Dioxide 32 mmol/L (22-29); Chloride 98 mmol/L (98-107); Globulin 2.6 g/dL (1.3-4.6); Glucose 100 mg/dL (65-115); Magnesium 1.8 mg/dL (1.7-2.3); Osmolality Calculated 293 mOsm/kg (285-295); Phosphorus 3.4 mg/dL (2.5-4.5); Potassium 3.8 mmol/L (3.5-5.1); Sodium 137 mmol/L (136-145); Total Bilirubin 0.2 mg/dL (0.15-1.2); Total Protein 4.7 g/dL (6.6-8.7)
[2020-11-14 06:04] LABS: NT Pro B Type Natriuretic Pept 245 pg/mL (0-125); Procalcitonin 0.32 ng/mL (0-0.5)
[2020-11-14] MEDS: sucralfate 1 gm Tablet PO ×4 (06:25→21:20)
[2020-11-14] MEDS: cholecalciferol (vitamin D3) 1,000 unit Tablet 1000 UNIT PO (06:25)
[2020-11-14] MEDS: bumetanide 0.25 mg/mL SDV 4 mL 1 MG IV ×2 (06:26→18:05)
[2020-11-14] MEDS: budesonide 0.5 mg/2 mL Neb INHALATION ×2 (07:56→19:11)
--- NOTE | 2020-11-14 08:30 | PC.NURSE ---
Dr. Fitzgerald notified patient o2 requirement had increased to 8L hi flow cannula. No new orders received. Physician at bedside.
[2020-11-14] MEDS: ferrous sulfate EC 325 mg Tablet PO ×2 (08:57→17:59)
[2020-11-14] MEDS: methylphenidate 10 mg Tablet 5 MG PO ×2 (08:58→21:20)
[2020-11-14] MEDS: dilTIAZem ER (24HR) 240 mg Capsule PO (08:59)
[2020-11-14] MEDS: apixaban 5 mg Tablet PO ×2 (08:59→21:20)
[2020-11-14] MEDS: pantoprazole DR 40 mg Tablet PO ×2 (08:59→17:59)
--- NOTE | 2020-11-14 09:00 | PC.CHAP ---
Pastoral Care Encounter/Spiritual Assessment Type of Contact [] Declined molding fitter visit [] Patient/Family/Request visit [] Outpatient visit [] Follow-up visit [] Physician referral [] Code/Alert [x] Routine visit [] Staff referral [] Actively dying [] Patient sleeping [] Family support [] [] Out of room [] Palliative care [] [] Receiving care in room [] Pre-surgical visit [] Trauma [] Long length of stay [] ICU visit [] Other: Relational/Emotional Strength [] Patient feels connected with others/family/visitors/staff [] Distress [] Loneliness/isolation [] Abandonment Spirituality of Patient [x] Person of Didi [] Attends Rastafari of their Didi [] Believes in Prayer [] Reads Bible or Mandaeism materials [] There are Spiritual issues to be addressed Loader Demolder Interventions [x] Prayer [x] Active listening [x] Non-anxious presence [x] Spiritual/emotional support [] Crisis/trauma care [] Spiritual counseling [] Bereavement support [] Provided bereavement packet [] Provided Bible/devotional materials [] Provided toy/stuffed animal, coloring book to patient or family member [] Provided Communion [] Anointing/[place] [] Salvation [x] Completed spiritual assessment [] Other: Impact on Illness or Injury [] Angry [] Fearful [] Anxious [] Often cries [] Exhaustion [] Unable to work [] Unable to attend taoism [] Unable to walk/stand [] Unable to read [] Unable to drive [] Unable to eat/drink [] Unable to sleep [] Unable to be with family [] Patient intubated [] Other: Summary patient being moved to rehab in [place]... show signs of being stronger... Time spent with patient 15 min
[2020-11-14] MEDS: metoprolol tartrate 50 mg Tablet PO ×2 (09:38→21:20)
--- NOTE | 2020-11-14 10:45 | PC.NURSE ---
Dr. Brown notified that nurse attempted to drain cristian drain. Approximately 15 ml serosangioneous fluid removed. Patient tolerated well. No new orders received.
--- NOTE | 2020-11-14 15:03 | PM.PN ---
Subjective Subjective: Interval history: Patient continues to be short of breath but clinically appears slightly better. His oxygen requirement worsened and he required several liters this morning to saturate in the low 90s. He did not have his pleural fluid drained yet during my evaluation. WBC continues to be elevated. Platelets at hemoglobin appears stable. Reports that stool is getting formed. Vitals/I&O/Wt Last Vital Signs Temp 99.3 F 11/14/20 12:00 Pulse 83 11/14/20 12:00 Resp 27 H 11/14/20 12:00 BP 98/58 11/14/20 12:00 Pulse Ox 88 L 11/14/20 12:00 11/14/20 11/14/20 11/14/20 06:59 14:59 22:59 Intake Total 486 / 2486 780 / 780 Output Total 400 / 2150 650 / 650 Balance 86 / 336 130 / 130 Physical Exam Narrative: EXAM NARRATIVE: Lungs are less coarse today. Heart is regular. He appears to be in mild distress but this worsens whenever he starts talking. Data : 11/14/20 04:40 11/14/20 04:40 A&P Assessment and plan (1) Acute respiratory failure with hypoxia: Concerns for postobstructive pneumonia, with loculated pleural effusions White blood cell count 12 hours 18.5 25.3, remains afebrile, normotensive, on 4 L Chest x-ray this morning shows significant improvement of right middle and right lower lobe consolidation, some persistent right lower lobe consolidation Chest CT shows right middle lobe infiltrate likely due to postobstructive pneumonia, with some consolidation, loculated pleural effusion along the right major and minor fissures Reviewed film with Dr. Miller and radiation oncologist, they feel that the malignant lesions are more central and are not resulting in obstructive phenomenon, patient is likely not to benefit from radiation therapy, Dr. Miller will review the pathology to see if inpatient chemotherapy would be an option but would be associate with significant risks given his current infection Dr. Brown did instill TPA into [place] catheter, roughly 1 L of bloody drainage, then 300 cc after Plan on to continue to drain Paul catheter daily, ensure proper sterile technique with the nurses, 300 cc output yesterday Continue oxygen mask, BiPAP as needed, BiPAP schedule during the night Receiving vancomycin, Primaxin, azithromycin Voriconazole added for antifungal and Aspergillus, Bumex 1 mg every 12 hours, with potassium replacement, creatinine up to 1.6, 3250 urine output yesterday Pleurx catheter catheter in place, drain daily repeat chest x-ray daily It is possible that patient might require chest tube if loculated pleural effusions persist, but currently doing better Receiving chest vest therapy Aggressive pulmonary toilet, incentive spirometer use, Acapella Patient and nurses instruction to get up out of bed daily, into a chair PT OT I have added Ritalin 5 mg twice daily to stimulate his appetite, however given his A. 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 Miller on consult Status: Acute (3) Recurrent right pleural effusion: Pleurx catheter placed October 31 Status: Acute (4) New onset atrial fibrillation: Currently on metoprolol, Cardizem Transitioned to Eliquis Status: Acute (5) CKD (chronic kidney disease): Stable Status: Acute (6) COPD (chronic obstructive pulmonary disease): Status: Acute Qualifiers: COPD type: unspecified COPD Qualified Code(s): J44.9 - Chronic obstructive pulmonary disease, unspecified (7) Protein calorie malnutrition: Status: Acute (8) Generalized weakness: Status: Acute Additional A&P Information Acute anemia, hemoglobin down to 8.7, iron levels low at 44, on Protonix 40 twice daily, Carafate, monitor hemoglobin closely as patient is on Eliquis Postobstructive pneumonia Diarrhea Eliquis will suffice for DVT prophylaxis Currently pursuing fci placement Plan: We will continue current monitoring and treatment We will request to drain pleural fluid. Awaiting placement to select long-term care facility.. Attestations Medical Necessity Statement*: Patient with metastatic cancer and recurrent pleural effusions as well as pneumonia requires close inpatient monitoring and treatment. Coding Level of Care Code Acute Greenskeeper Supervisor for Chg Fwd Diagnoses Acute respiratory failure with hypoxia J96.01 Mass of middle lobe of right lung R91.8 Recurrent right pleural effusion J90 New onset atrial fibrillation I48.91 CKD (chronic kidney disease) N18.9 COPD (chronic obstructive pulmonary disease) J44.9 COPD type: unspecified COPD Protein calorie malnutrition E46 Generalized weakness R53.1
--- NOTE | 2020-11-14 17:43 | P.PN_ITS ---
Subjective Subjective: Interval history: Unable to drain from Pleurx catheter and meanwhile patient oxygen requirement went up to 8 L -Plan is to instill again TPA 10 mg today and then try to drain after 4 hours - Meanwhile patient is awaiting transportation to long-term acute care facility -Overall very poor prognosis given his metastatic lung cancer Medications: Reviewed: Yes Medication Review Details: Generic Name Dose Route Start Last Admin Trade Name Freq PRN Reason Stop Dose Admin Hydrocodone Bitart /Acetaminophen 1 tab 10/31/20 17:13 11/03/20 00:15 Hydrocodone-Acet aminophen 5-325 Mg Tablet PO 1 tab Q4H PRN Administration MODERATE PAIN Albuterol/Ipratrop ium 3 ml 10/27/20 11:15 11/03/20 07:37 Ipratropium-Albu terol 3 Ml Neb INHALATION 3 ml Q4H.RESPIRATORY S CH Administration Apixaban 5 mg 11/01/20 21:00 11/03/20 09:41 Apixaban 5 Mg Ta blet PO 5 mg BID@0900,2100 BRENDA Administration Atorvastatin Calci um 20 mg 10/25/20 19:00 11/02/20 18:45 Atorvastatin 40 Mg Tablet PO 20 mg DAILY@19 BRENDA Administration Budesonide 0.5 mg 10/29/20 20:00 11/03/20 07:37 Budesonide 0.5 M g/2 Ml Neb INHALATION 0.5 mg BID.RESPIRATORY S CH Administration Diltiazem HCl 240 mg 10/29/20 12:00 11/03/20 09:41 Diltiazem Er (24 hr) 240 Mg Capsule PO 240 mg DAILY BRENDA Administration Levofloxacin 750 mg 11/02/20 01:30 11/02/20 01:46 Levofloxacin 750 Mg Tablet PO 750 mg Q48H BRENDA Administration Protocol Metoprolol Tartrat e 50 mg 10/28/20 21:00 11/03/20 09:41 Metoprolol Tartr ate 50 Mg Tablet PO 50 mg BID@0900,2100 BRENDA Administration Pantoprazole Sodiu m 40 mg 10/25/20 19:00 11/02/20 18:[address] 40 Mg Tablet PO 40 mg DAILY@19 BRENDA Administration Prednisone 40 mg 11/02/20 09:00 11/03/20 09:40 Prednisone 20 Mg Tablet PO 40 mg DAILY BRENDA Administration Tamsulosin HCl 0.4 mg 10/25/20 19:00 11/02/20 18:45 Tamsulosin 0.4 M g Capsule PO 0.4 mg DAILY@19 [facility] Administration Vitamin D 1,000 unit 10/26/20 07:00 11/03/20 06:10 Cholecalciferol (Vitamin D3) 1,000 Unit Tablet PO 1,000 unit DAILY@07 [facility] Administration Zolpidem Tartrate 10 mg 10/30/20 19:27 10/30/20 20:11 Zolpidem 10 Mg T ablet PO 10 mg BEDTIME PRN Administration INSOMNIA Vitals/I&O/Wt Last Vital Signs Temp 98.8 F 11/14/20 15:12 Pulse 84 11/14/20 15:12 Resp 22 H 11/14/20 15:12 BP 120/60 11/14/20 15:12 Pulse Ox 90 11/14/20 15:12 11/14/20 11/14/20 11/14/20 06:59 14:59 22:59 Intake Total 486 / 2486 780 / 780 Output Total 400 / 2150 650 / 650 200 / 850 Balance 86 / 336 130 / 130 -200 / -70 Physical Exam Narrative: EXAM NARRATIVE: General: alert, in mild respiratory distress HEENT: conj clear, EOMI, PERRL, mmm, Neck: supple, no meningismus Heme: no cervical LAP Pulmonary: Improved breath sounds on right lower lung Cardiovascular: rrr, nl s1s2, no mrg Abdomen: soft, nt, nd, no r/g, bs+ Extremities: pulses +, no edema, no c/c : no CVA tenderness Skin: intact, no rash MSK: no back or neck pain Neurologic: grossly intact Data : 11/14/20 04:40 11/14/20 04:40 A&P Assessment and plan (1) Mediastinal adenopathy: Status: Acute (2) Mass of right lung: Status: Acute (3) COPD (chronic obstructive pulmonary disease): Status: Acute Qualifiers: COPD type: unspecified COPD Qualified Code(s): J44.9 - Chronic obstructive pulmonary disease, unspecified (4) Smoker: Status: Acute (5) Recurrent right pleural effusion: Status: Acute (6) New onset atrial fibrillation: Status: Acute (7) Diarrhea: Status: Acute #Acute respiratory failure with hypoxia due to Large right pleural effusion & A.fib with RVR #RML mass measuring 3.8 x 2.9 cm encompassing branches of RML pulmonary artery & Mediastinal and hilar adenopathy-EBUSpathology reported metastatic non-small cell carcinoma consistent with adenocarcinoma #Chronic smoker 0.5 PPD by 50 years-quit 2 weeks ago-encounter for smoking cessation counseling #COPD emphysema #Recurrent right pleural effusion-s/p [place] drain c/b clogging #Increasing loculated right-sided pleural effusion in the region of minor fissure and increasing atelectasis and infiltrate in the right lower lung zone #Diarrhea - CT chest 09/25/2020: [facility]: RML mass measuring up to 3.8 x 2.9 cm, mass encompasses but does not occlude branches of right middle lobe pulmonary artery. Emphysematous changes are noted. Thyroid gland appears enlarged. Prominent lymph node is seen in the subcarinal region measuring 2.2 cm. Fullness is seen in the right hilum which also could be related to adenopathy. Moderate right pleural effusion. - PET CT 10/05/2020: Right upper lobe mass) to the mediastinum, representing malignancy. Right pleural malignant implants with pleural effusion. Right hilar and mediastinal FDG positive nodes representing local metastatic disease -Based on PET/CT looks like it is malignant and metastatic to pleural and diaphragmatic surface -10/11/20: Right thoracentesis 1250 cc - Lymphocyte predominant exudative effusion; cytology reported negative. -10/26/2020: Right thoracentesis 1900 cc hemorrhagic fluid-lymphocyte predominant exudative effusion. Histopathology reported metastatic non-small cell carcinoma consistent with adenocarcinoma -10/29/2020: EBUS guided FNA C of station 4R-preliminary pathology reported as atypical clusters of cells; pathology reported metastatic non-small cell carcinoma consistent with adenocarcinoma -plan is to DC to intermediate while awaiting decision to start chemotherapy/immunotherapy -s/p Port-A-Cath placement and Paul drain on10/31/2020 -Eliquis 2.5 mg twice daily for A. fib RVR -On cardizem 240 XR daily for A.fib RVR; -Duoneb nebulization q 4h r brenda & budesonide 0.5 twice daily inhalation -Previously dyspnea and chest tube drainage improved after instilling 10 cc TPA -Chest physiotherapy and hypertonic saline to clear secretions, pulmonary toileting -On 8 L nasal cannula -Today again with there is no output with chest tube drainage; will instill 10 cc TPA again and try to drain -CT imaging 11/07/2020: Showed lobulated pleural fluid along the right major and minor fissures and the right middle lobe infiltrate likely due to postobstructive pneumonia with some consolidation -Currently on vancomycin, imipenem; DC azithromycin; added voriconazole for Aspergillus as WBC is worsening ; currently afebrile and WBC Persisiting -Elevated BNP, repeat echo possibly normal LVEF. Study could not evaluate wall motion abnormalities due to tachycardia. At least moderate tricuspid valve regurgitation and pulmonary hypertension with estimated pulmonary artery peak systolic pressure 53. Technically difficult study. -on Bumex 1 mg twice daily with potassium replacement -Ordered PFTs/6-minute walk test during clinic visit - yet to get it as outpatient -Patient quit smoking 4 weeks ago and encouraged to maintain abstinence -Send for stool cultures and C. difficile Recommendations conveyed to hospitalist and RN covering the patient. Medical condition and assessment plan explained to patient and he verbalized understanding and agreed with the plan Attestations Medical Necessity Statement*: Acute hypoxic respiratory failure secondary to metastatic adenocarcinoma of lung, very poor prognosis and awaiting chemotherapy and placement Time Spent in Patient Care: Greater than 35 minutes (>than 50% of time spent in counselling and/or direct pt care on unit) . Critical Care Time: Critical Care Time (min): 45 Coding Level of Care Code Acute Pot Puller for Chg Fwd Diagnoses Mediastinal adenopathy R59.0 Mass of right lung R91.8 COPD (chronic obstructive pulmonary disease) J44.9 COPD type: unspecified COPD Smoker F17.200 Recurrent right pleural effusion J90 New onset atrial fibrillation I48.91 Diarrhea R19.7
[2020-11-14] MEDS: atorvastatin 40 mg Tablet 20 MG PO (18:02)
--- NOTE | 2020-11-14 18:25 | PC.NURSE ---
Telephone order received from Dr. Brown to administer cath priscilla into [place] drain. Turn patient q1 hour. Drain in 4-5 hours. RBTO. Order implemented. Sterile technique maintained, patient tolerated well. Patient positioned on left side.
--- NOTE | 2020-11-14 21:06 | PC.NURSE ---
Patient repositioned to right side at this time. Could not repositioned at a sooner time due to helping with a patient in room 103.
[2020-11-14 21:50] LABS: Vancomycin Trough 27.1 ug/mL (10-15)
--- NOTE | 2020-11-14 21:57 | PC.NURSE ---
Vanc trough of 27. 1. Pharmacy notified.
--- NOTE | 2020-11-14 21:58 | PC.NURSE ---
Patient repositioned to left side.
--- NOTE | 2020-11-14 22:05 | PC.PHAR ---
Vancomycin trough on dosage of 1000mg IVPB every 18 hours is 27.1. Dosage for two dosed and reduced to 1000mg IVPB every 24 hours with a trough to be obtained before the fourth dose.
[2020-11-15] VITALS (14 sets, daily range): BP systolic 107–120; BP diastolic 55–68; PULSE 80–101; RESP 18–29; TEMP 36.6–36.9; O2SAT 31–96
--- NOTE | 2020-11-15 01:31 | PC.NURSE ---
At 2300, 600 mL drained from [facility].
[2020-11-15] MEDS: ipratropium-albuterol 3 mL Neb INHALATION ×3 (04:37→12:01)
[2020-11-15] MEDS: sucralfate 1 gm Tablet PO ×2 (06:02→10:22)
[2020-11-15] MEDS: cholecalciferol (vitamin D3) 1,000 unit Tablet 1000 UNIT PO (06:02)
[2020-11-15] MEDS: bumetanide 0.25 mg/mL SDV 4 mL 1 MG IV (06:03)
[2020-11-15] MEDS: budesonide 0.5 mg/2 mL Neb INHALATION (08:07)
[2020-11-15] MEDS: ferrous sulfate EC 325 mg Tablet PO (08:50)
[2020-11-15] MEDS: apixaban 5 mg Tablet PO (08:50)
[2020-11-15] MEDS: metoprolol tartrate 50 mg Tablet PO (08:51)
[2020-11-15] MEDS: pantoprazole DR 40 mg Tablet PO (08:51)
[2020-11-15] MEDS: methylphenidate 10 mg Tablet 5 MG PO (08:51)
[2020-11-15] MEDS: dilTIAZem ER (24HR) 240 mg Capsule PO (08:52)
--- NOTE | 2020-11-15 09:16 | P.PN_ITS ---
Subjective Subjective: Interval history: - Yesterday after TPA instillation, overnight drained 600 cc from rt chest tube. Patient still in moderate respiratory distress and O2 requirement came down to 10 L from 12 L today morning -Plan to continue draining today -Order chest x-ray, hypertonic saline nebulization every 12 hours and chest physiotherapy Medications: Reviewed: Yes Medication Review Details: Generic Name Dose Route Start Last Admin Trade Name Freq PRN Reason Stop Dose Admin Hydrocodone Bitart /Acetaminophen 1 tab 10/31/20 17:13 11/03/20 00:15 Hydrocodone-Acet aminophen 5-325 Mg Tablet PO 1 tab Q4H PRN Administration MODERATE PAIN Albuterol/Ipratrop ium 3 ml 10/27/20 11:15 11/03/20 07:37 Ipratropium-Albu terol 3 Ml Neb INHALATION 3 ml Q4H.RESPIRATORY S CH Administration Apixaban 5 mg 11/01/20 21:00 11/03/20 09:41 Apixaban 5 Mg Ta blet PO 5 mg BID@0900,2100 BRENDA Administration Atorvastatin Calci um 20 mg 10/25/20 19:00 11/02/20 18:45 Atorvastatin 40 Mg Tablet PO 20 mg DAILY@19 BRENDA Administration Budesonide 0.5 mg 10/29/20 20:00 11/03/20 07:37 Budesonide 0.5 M g/2 Ml Neb INHALATION 0.5 mg BID.RESPIRATORY S CH Administration Diltiazem HCl 240 mg 10/29/20 12:00 11/03/20 09:41 Diltiazem Er (24 hr) 240 Mg Capsule PO 240 mg DAILY BRENDA Administration Levofloxacin 750 mg 11/02/20 01:30 11/02/20 01:46 Levofloxacin 750 Mg Tablet PO 750 mg Q48H BRENDA Administration Protocol Metoprolol Tartrat e 50 mg 10/28/20 21:00 11/03/20 09:41 Metoprolol Tartr ate 50 Mg Tablet PO 50 mg BID@0900,2100 BRENDA Administration Pantoprazole Sodiu m 40 mg 10/25/20 19:00 11/02/20 18:[address] 40 Mg Tablet PO 40 mg DAILY@19 BRENDA Administration Prednisone 40 mg 11/02/20 09:00 11/03/20 09:40 Prednisone 20 Mg Tablet PO 40 mg DAILY BRENDA Administration Tamsulosin HCl 0.4 mg 10/25/20 19:00 11/02/20 18:45 Tamsulosin 0.4 M g Capsule PO 0.4 mg DAILY@19 [facility] Administration Vitamin D 1,000 unit 10/26/20 07:00 11/03/20 06:10 Cholecalciferol (Vitamin D3) 1,000 Unit Tablet PO 1,000 unit DAILY@07 BRENDA Administration Zolpidem Tartrate 10 mg 10/30/20 19:27 10/30/20 20:11 Zolpidem 10 Mg T ablet PO 10 mg BEDTIME PRN Administration INSOMNIA Vitals/I&O/Wt Last Vital Signs Temp 98.4 F 11/15/20 08:00 Pulse 85 11/15/20 08:14 Resp 18 11/15/20 08:09 BP 108/55 11/15/20 08:00 Pulse Ox 96 11/15/20 08:09 11/14/20 11/15/20 11/15/20 22:59 06:59 14:59 Intake Total 470 / 1250 600 / 1850 Output Total 425 / 1075 775 / 1850 250 / 250 Balance 45 / 175 -175 / 0 -250 / -250 Physical Exam Narrative: EXAM NARRATIVE: General: alert, in mild respiratory distress HEENT: conj clear, EOMI, PERRL, mmm, Neck: supple, no meningismus Heme: no cervical LAP Pulmonary: Reduced breath sounds on right lower lung Cardiovascular: rrr, nl s1s2, no mrg Abdomen: soft, nt, nd, no r/g, bs+ Extremities: pulses +, no edema, no c/c : no CVA tenderness Skin: intact, no rash MSK: no back or neck pain Neurologic: grossly intact Data : 11/14/20 04:40 11/14/20 04:40 Other Labs: Laboratory Results WBC 19.4 10^3/uL (4.0-10.0) H 11/14/20 04:40 RBC 2.83 10^6/uL (4.1-5.3) L 11/14/20 04:40 Hgb 8.3 g/dL (11.7-16.6) L 11/14/20 04:40 Hct 25.7 % (42.0-52.0) L 11/14/20 04:40 MCV 90.8 fL (80-94) 11/14/20 04:40 MCH 29.3 pg (28.0-34.0) 11/14/20 04:40 MCHC 32.3 g/dL (30.0-36.0) 11/14/20 04:40 RDW 14.6 % (12.1-15.1) 11/14/20 04:40 Plt Count 217 10^3/cmm (130-400) 11/14/20 04:40 MPV 9.9 fL (7.4-10.4) 11/14/20 04:40 Neut % (Auto) 79.9 % 11/14/20 04:40 Lymph % (Auto) 6.7 % 11/14/20 04:40 [place] % (Auto) 11.7 % 11/14/20 04:40 Eos % (Auto) 0.3 % 11/14/20 04:40 Baso % (Auto) 0.2 % 11/14/20 04:40 Neut # (Auto) 15.51 10^3/uL (1.8-7.7) H 11/14/20 04:40 Lymph # (Auto) 1.3 10^3/uL (0.8-4.8) 11/14/20 04:40 [place] # (Auto) 2.3 10^3/uL (0.2-0.9) H 11/14/20 04:40 Eos # (Auto) 0.1 10^3/uL (0.0-0.8) 11/14/20 04:40 Baso # (Auto) 0.0 10^3/uL (0.0-0.1) 11/14/20 04:40 Nucleated RBC % (auto) 0 % 11/14/20 04:40 Nucleated RBCs # 0.0 /100WBC 11/14/20 04:40 PT 15.30 SECONDS (12.1-14.9) H 11/08/20 04:40 INR 1.17 (0.8-1.2) 11/08/20 04:40 APTT 61.0 SECONDS (23.9-36.7) H 10/28/20 15:00 Specimen Type Arterial 11/09/20 05:00 Sample Site Radial, right 11/09/20 05:00 ABG pH 7.46 (7.35-7.45) H 11/09/20 05:00 ABG pCO2 43.7 mmHg (35-45) 11/09/20 05:00 ABG pO2 71.9 mmHg (80.0-100.0) L 11/09/20 05:00 ABG HCO3 31.1 mmol/L (22-26) H 11/09/20 05:00 ABG O2 Saturation 96.8 11/05/20 07:09 ABG Base Excess 6.6 mmol/L (-2.0-2.0) H 11/09/20 05:00 Roni Test Pos 11/09/20 05:00 A-a O2 Gradient 17.0 mmHg (5-10) H 11/05/20 07:09 Hematocrit 28.2 % (42-52) L 11/09/20 05:00 Hgb O2 Saturation 95.3 % (95-100) 11/05/20 07:09 Carboxyhemoglobin 0.8 %THgb (0.4-20.1) 11/05/20 07:09 Methemoglobin 0.7 % (0.4-1.5) 11/05/20 07:09 Total Hemoglobin 10.3 g/dL (14-18) L 11/05/20 07:09 Sodium 133.0 mmol/L (131-143) 11/05/20 07:09 Potassium 4.8 mmol/L (3.5-5.0) 11/05/20 07:09 Glucose 116.0 mg/dL (70-115) H 11/05/20 07:09 Ionized Calcium 1.2 mmol/L (1.1-1.4) 11/05/20 07:09 O2 Delivery Device Nc 11/09/20 05:00 O2 Liters/Min 4.0 % 11/09/20 05:00 FiO2 37.0 % 11/05/20 07:09 Statistical Machine Mechanic ID Flo 11/09/20 05:00 Sodium 137 mmol/L (136-145) 11/14/20 04:40 Potassium 3.8 mmol/L (3.5-5.1) 11/14/20 04:40 Chloride 98 mmol/L (98-107) 11/14/20 04:40 Carbon Dioxide 32 mmol/L (22-29) H 11/14/20 04:40 Anion Gap 10.8 (5-19) 11/14/20 04:40 BUN 39 mg/dL (8-23) H 11/14/20 04:40 Creatinine 1.8 mg/dL (0.7-1.2) H 11/14/20 04:40 GFR Calculation Not Reportable 11/14/20 04:40 Glucose 100 mg/dL (65-115) 11/14/20 04:40 POC Glucose 132 mg/dL (70-110) H 10/31/20 20:28 Estimat Average Glucose 117 10/26/20 05:05 Hemoglobin A1c 5.7 % (4.0-6.0) 10/26/20 05:05 Calculated Osmolality 293 mOsm/kg (285-295) 11/14/20 04:40 Lactate 1.2 mmol/L (0.5-2.2) 11/10/20 03:40 Calcium 7.9 mg/dL (8.5-10.5) L 11/14/20 04:40 Phosphorus 3.4 mg/dL (2.5-4.5) 11/14/20 04:40 Magnesium 1.8 mg/dL (1.7-2.3) 11/14/20 04:40 Iron 44 ug/dL (59-158) L 11/04/20 03:47 Ferritin 734 ng/mL (30-400) H 11/04/20 03:47 Total Bilirubin 0.2 mg/dL (0.15-1.2) 11/14/20 04:40 AST 27 U/L (0-40) 11/14/20 04:40 ALT 20 U/L (0-41) 11/14/20 04:40 Alkaline Phosphatase 67 IU/L (40-130) 11/14/20 04:40 Troponin T Baseline 30 ng/L (0-15) H 10/25/20 11:24 Troponin T 120 Minute 30.44 ng/L (0-15) H 10/25/20 13:19 Delta Troponin T 0.44 ABS# (0-10) 10/25/20 13:19 C-Reactive Protein 75.6 mg/L (0.0-4.9) H 11/14/20 04:40 NT-Pro-B Natriuret Pep 245 pg/mL (0-125) H 11/14/20 04:40 Total Protein 4.7 g/dL (6.6-8.7) L 11/14/20 04:40 Albumin 2.1 g/dL (3.5-5.2) L 11/14/20 04:40 Globulin 2.6 g/dL (1.3-4.6) 11/14/20 04:40 Triglycerides 93 mg/dL (0-150) 10/26/20 05:05 Cholesterol 120 mg/dL (0-200) 10/26/20 05:05 LDL Cholesterol, Calc 50 mg/dL (50-129) 10/26/20 05:05 HDL Cholesterol 51 mg/dL (60-100) L 10/26/20 05:05 LDL/HDL Ratio 0.98 RATIO (0.00-3.22) 10/26/20 05:05 Cholesterol/HDL Ratio 2.35 mg/dL (1.0-5.00) 10/26/20 05:05 Vitamin B12 447 pg/mL (232-1245) 11/01/20 03:28 Procalcitonin 0.32 ng/mL (0-0.5) 11/14/20 04:40 TSH 0.81 uIU/mL (0.27-4.20) 10/26/20 05:05 Urine Color Yellow (Yellow) 10/25/20 11:08 Urine Appearance Clear (CLEAR) 10/25/20 11:08 Urine pH 5 (5-7) 10/25/20 11:08 Ur Specific [place] 1.020 (1.005-1.030) 10/25/20 11:08 Urine Protein Neg (Negative) 10/25/20 11:08 Urine Glucose (UA) Norm (Normal) 10/25/20 11:08 Urine Ketones 1+ (Negative) H 10/25/20 11:08 Urine Blood Neg (Negative) 10/25/20 11:08 Urine Nitrate Negative (Negative) 10/25/20 11:08 Urine Bilirubin Neg (Negative) 10/25/20 11:08 Urine Urobilinogen Norm mg/dL (Negative) 10/25/20 11:08 Ur Leukocyte Esterase Negative (Negative) 10/25/20 11:08 Fluid Color Yellow 10/26/20 15:45 Fluid Appearance Cloudy 10/26/20 15:45 Fluid Specific Grav 1.015 10/26/20 15:45 Fluid pH 8.0 10/26/20 15:45 Fluid WBC 828 /uL 10/26/20 15:45 Fluid RBC 9.000 10^3/uL 10/26/20 15:45 Fld Polynuclear WBCs # 0.070 10/26/20 15:45 Fld Polynuclear WBCs % 8.400 % 10/26/20 15:45 Fl Mononucl WBCs #(Auto) 0.758 10/26/20 15:45 Fl Mononuclear % Auto 91.600 % 10/26/20 15:45 Fluid Glucose 119.0 mg/dL 10/26/20 15:45 Fluid Albumin 2.3 g/dL 10/26/20 15:45 Fluid LDH 562 U/L 10/26/20 15:45 Fluid Amylase 45 U/L 10/26/20 15:45 Fluid Alk Phosphatase 38 IU/L 10/26/20 15:45 Fluid Cholesterol 60 mg/dL (0-200) 10/26/20 15:45 Fluid Triglycerides 31 mg/dL (0-150) 10/26/20 15:45 Fluid Uric Acid 11 mg/dL 10/26/20 15:45 Pleural Total Protein 3.6 g/dL 10/26/20 15:45 Vancomycin Trough 27.1 ug/mL (10-15) H* 11/14/20 20:50 Nasal/Oral COVID-19 PCR Not detected 10/30/20 13:55 SARS-CoV-2 Ag (Rapid) Negative (Negative) 10/25/20 10:36 [facility] Test Reference See comment 10/25/20 17:35 Blood Type AB Positive 10/31/20 07:20 Rho(D) Type Positive 10/31/20 07:20 Antibody Screen Negative 10/31/20 07:20 Impressions Pulmonary Perfusion Imaging 10/27/20 10:12 IMPRESSION: 1. Low probability of pulmonary embolism. 2. 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 C-Arm Fluoroscopy 10/31/20 11:51 IMPRESSION: Intraoperative imaging during Port-A-Cath placement, tip terminates over the distal SVC. Chest X-Ray 11/12/20 07:00 IMPRESSION: 1. Airspace consolidation right lower lobe. Moderate subpulmonic effusion. Minimal change. A&P Assessment and plan (1) Mediastinal adenopathy: Status: Acute (2) Mass of right lung: Status: Acute (3) COPD (chronic obstructive pulmonary disease): Status: Acute Qualifiers: COPD type: unspecified COPD Qualified Code(s): J44.9 - Chronic obstructive pulmonary disease, unspecified (4) Smoker: Status: Acute (5) Recurrent right pleural effusion: Status: Acute (6) New onset atrial fibrillation: Status: Acute (7) Diarrhea: Status: Acute #Acute respiratory failure with hypoxia due to Large right pleural effusion & A.fib with RVR #RML mass measuring 3.8 x 2.9 cm encompassing branches of RML pulmonary artery & Mediastinal and hilar adenopathy-EBUSpathology reported metastatic non-small cell carcinoma consistent with adenocarcinoma #Chronic smoker 0.5 PPD by 50 years-quit 2 weeks ago-encounter for smoking cessation counseling #COPD emphysema #Recurrent right pleural effusion-s/p [place] drain c/b clogging and TPA instillation #Increasing increasing right basilar opacity and consolidation on chest x-ray - CT chest 09/25/2020: [facility]: RML mass measuring up to 3.8 x 2.9 cm, mass encompasses but does not occlude branches of right middle lobe pulmonary artery. Emphysematous changes are noted. Thyroid gland appears enlarged. Prominent lymph node is seen in the subcarinal region measuring 2.2 cm. Fullness is seen in the right hilum which also could be related to adenopathy. Moderate right pleural effusion. - PET CT 10/05/2020: Right upper lobe mass) to the mediastinum, representing malignancy. Right pleural malignant implants with pleural effusion. Right hilar and mediastinal FDG positive nodes representing local metastatic disease -Based on PET/CT looks like it is malignant and metastatic to pleural and sigifredo phragmatic surface -10/11/20: Right thoracentesis 1250 cc - Lymphocyte predominant exudative effusion; cytology reported negative. -10/26/2020: Right thoracentesis 1900 cc hemorrhagic fluid-lymphocyte predominant exudative effusion. Histopathology reported metastatic non-small cell carcinoma consistent with adenocarcinoma -10/29/2020: EBUS guided FNA C of station 4R-preliminary pathology reported as atypical clusters of cells; pathology reported metastatic non-small cell carcinoma consistent with adenocarcinoma -plan is to DC to group home while awaiting decision to start chemoth erapy/immunotherapy; PD-L1 pending -s/p Port-A-Cath placement and [place] drain on10/31/2020 -Eliquis 2.5 mg twice daily for A. fib RVR -On cardizem 240 XR daily for A.fib RVR; -Duoneb nebulization q 4h r brenda & budesonide 0.5 twice daily inhalation -Previously dyspnea and chest tube drainage improved after instilling 10 cc TPA -Chest physiotherapy and hypertonic saline to clear secretions, pulmonary toileting -On 10 L nasal cannula -Drained 600 cc after instillation of TPA yesterday. Continue training today -Chest x-ray today showing increasing right basilar opacity and consolidation -Currently on vancomycin, imipenem; voriconazole for Aspergillus as WBC is worsening ; currently afebrile and WBC Persisiting -Elevated BNP, repeat echo possibly normal LVEF. Study could not evaluate wall motion abnormalities due to tachycardia. At least moderate tricuspid valve regurgitation and pulmonary hypertension with estimated pulmonary artery peak systolic pressure 53. Technically difficult study. -on Bumex 1 mg twice daily with potassium replacement -Ordered PFTs/6-minute walk test during clinic visit - yet to get it as outpatient -Patient quit smoking 4 weeks ago and encouraged to maintain abstinence -Overall extremely poor prognosis Recommendations conveyed to hospitalist and RN covering the patient. Medical condition and assessment plan explained to patient and he verbalized understanding and agreed with the plan Attestations Medical Necessity Statement*: Acute hypoxic respiratory failure secondary to recurrent right pleural effusion due to metastatic non-small cell lung cancer complicated by postobstructive pneumonia Time Spent in Patient Care: Greater than 35 minutes (>than 50% of time spent in counselling and/or direct pt care on unit) . Critical Care Time: Critical Care Time (min): 35 Coding Level of Care Code Established Pt Acute General Manager Road Production for Chg Fwd Patient Type Established History Comprehensive Exam Comprehensive Medical Decision Making Moderate Complexity Diagnoses Mediastinal adenopathy R59.0 Mass of right lung R91.8 COPD (chronic obstructive pulmonary disease) J44.9 COPD type: unspecified COPD Smoker F17.200 Recurrent right pleural effusion J90 New onset atrial fibrillation I48.91 Diarrhea R19.7 Time Spent (min) 35
--- NOTE | 2020-11-15 09:35 | XR_ITS ---
WS: [id number] Portable AP upright chest, 11/15/2020 Clinical Data: right pleural effusion Comparison: Portable chest, 11/12/2020. Findings: The chest tubes at the right lung base remain in position. There is an increase in the righ t lung opacity. This may represent an increase in pleural effusion, consolidation and atelectasis. Le ft lung is clear. The heart remains the same. There is a left subclavian catheter ending in the super ior vena cava. XR/XR chest 1V portable [id number] Impression: 1. No change in right basilar chest tubes. 2. No change in right pleural effusion. 3. Increase in right basilar opacity and consolidation.
[2020-11-15] MEDS: polyethylene glycol 3350 Pkt 17 gm PO (09:52)
[2020-11-15] MEDS: docusate sodium 100 mg Capsule PO (09:52)
--- NOTE | 2020-11-15 10:11 | PC.OT ---
OT NOTE: OT TREATMENT ATTEMPTED THIS MORNING. PATIENT REPORTS THAT HE IS NOT HAVING A GOOD MORNING; NOT FEELING WELL. HE STATES THAT HE IS TO D/C TO A LTC FACILITY AT 1300 TODAY. AGREEABLE TO OT TREATMENT THIS AFTERNOON IF HE IS STILL IN HOSPITAL.
--- NOTE | 2020-11-15 10:45 | PC.NURSE ---
[place] drained accessed with Pleur-x kit. Sterile technique maintained. Patient tolerated well. 550 ml of sanguineous drainage removed. Datajeanette notified. No new orders at this time. Nurse to continue to monitor.
[2020-11-15 11:30] LABS: Basophils % 0.2 %; Eosinophils # 0.1 10^3/uL (0.0-0.8); Eosinophils % 0.3 %; Hematocrit 25.4 % (42.0-52.0); Hemoglobin 8.3 g/dL (11.7-16.6); Lymphocytes # 1.3 10^3/uL (0.8-4.8); Lymphocytes % 6.8 %; Mean Corpuscular HGB Conc 32.7 g/dL (30.0-36.0); Mean Corpuscular Hemoglobin 29.1 pg (28.0-34.0); Mean Corpuscular Volume 89.1 fL (80-94); Mean Platelet Volume 9.8 fL (7.4-10.4); Monocytes # 2.4 10^3/uL (0.2-0.9); Monocytes % 12.1 %; Neutrophils # 15.45 10^3/uL (1.8-7.7); Neutrophils % 79.7 %; Nucleated Red Blood Cells % 0 %; Platelet Count 259 10^3/cmm (130-400); Red Blood Count 2.85 10^6/uL (4.1-5.3); Red Cell Distribution Width 14.6 % (12.1-15.1); White Blood Count 19.4 10^3/uL (4.0-10.0)
[2020-11-15 11:47] LABS: Alanine Aminotransferase 24 U/L (0-41); Alkaline Phosphatase 74 IU/L (40-130); Anion Gap 11.5 (5-19); Aspartate Amino Transferase 30 U/L (0-40); Blood Urea Nitrogen 38 mg/dL (8-23); Calcium 7.6 mg/dL (8.5-10.5); Carbon Dioxide 32 mmol/L (22-29); Chloride 97 mmol/L (98-107); Globulin 2.8 g/dL (1.3-4.6); Glucose 127 mg/dL (65-115); Osmolality Calculated 295 mOsm/kg (285-295); Potassium 3.5 mmol/L (3.5-5.1); Sodium 137 mmol/L (136-145); Total Bilirubin 0.2 mg/dL (0.15-1.2); Total Protein 4.8 g/dL (6.6-8.7)
--- NOTE | 2020-11-15 12:14 | DCPLANNER ---
IMM completed on 11/15/20 @ [id number]. Copy of rights given to pt.
[2020-11-15] MEDS: levofloxacin-dextrose 5 % 750 MG/150 ML PREMIX 100 MG IV (12:21)
--- NOTE | 2020-11-15 12:42 | PM.TDS ---
Transfer Summary Providers Date of Admission: 10/25/20 15:49 Date of Discharge: 11/15/20 Attending Provider at Admission: Bin Haynes MD Attending Provider at Transfer: Manpreet Fitzgerald MD Primary Care Provider: Wesley Wilkins DO Anticipated Date of Transfer: Anticipated date of transfer: 11/15/20 Receiving Facility & Provider: Receiving Provider: [] Receiving facility: [] Diagnoses at Discharge Discharge Diagnosis (1) Mediastinal adenopathy: Status: Acute (2) COPD (chronic obstructive pulmonary disease): Status: Acute Qualifiers: COPD type: unspecified COPD Qualified Code(s): J44.9 - Chronic obstructive pulmonary disease, unspecified (3) Smoker: Status: Acute (4) Recurrent right pleural effusion: Status: Acute (5) New onset atrial fibrillation: Status: Acute (6) Diarrhea: Status: Acute (7) Postobstructive pneumonia: Status: Acute Permanent problem details: Sputum is growing Corynebacterium striatum. Patient was on vancomycin (11/07/2020), Primaxin(11/11/2020 per record by date is likely incorrect.) and recently added Levaquin (11/13/2020) as well as voriconazole since 11/08/2020 (8) Malignant neoplasm of middle lobe, bronchus or lung: Status: Acute (9) Atrial fibrillation with rapid ventricular response: Status: Acute Permanent problem details: Currently converted back to normal sinus rhythm (10) Pleural effusion, right: Status: Acute (11) Generalized weakness: Status: Acute (12) CKD (chronic kidney disease): Status: Acute (13) Acute respiratory failure with hypoxia: Status: Acute (14) Acute blood loss anemia: Status: Acute Permanent problem details: Acute. Not present on admission. Suspected to be due to GI bleed. Reason for Visit Reason for Visit: SOB/ EXACERBATION OF COPD Hospital Course Hospital Course PLAN: Patient with complex underlying medical history presented with shortness of breath. Patient was found to be in acute hypoxic respiratory failure and new onset atrial fibrillation with rapid ventricular response. Patient has lung cancer involving right side and appears to have frequent episodes of cancer related pleural effusions. He has right-sided pleural drain placed and requires daily drainage as without it patient would get very dyspneic requiring large amount of oxygen. He has been started on voriconazole as well as antibiotics for postobstructive pneumonia. He was initially started on steroids but because of dropping hemoglobin steroid-induced gastritis resulting in GI bleed was suspected and steroids were discontinued for the last several days despite active medications showing that patient is on it. Patient was started on high-dose PPI and his hemoglobin currently stabilized. He is currently on Eliquis as well as diltiazem for rate control. He is doing well so far but unfortunately continues to have rather elevated WBC count which is likely related to malignancy itself. I have discussed with Dr. Miller, patient's oncologist who would consider immunotherapy should patient's functional status improved. This morning patient was dyspneic but this significantly improved after his pleural fluid was drained. He still requires large amount of oxygen. He is currently on diuretic but consider discontinuing Bumex and monitoring his fluid status daily. Patient is accepted to long-term care facility and plan to dismiss him later today. This morning patient denied chest pain or abdominal pain. Physical Exam Narrative: EXAM NARRATIVE: Coarse breath sounds throughout. Heart is regular and lower extremities show no edema. TS Data Data Completed and Pending: Completed Studies During Hospitalization Category Date Time Status CT chest wo con 7 1250 Stat Cat Scan 11/06/20 09:13 Completed XR chest 1V liang ble 96968 Routine Exams 10/27/20 07:00 Completed XR chest 1V liang ble [id number] Routine Exams 10/28/20 07:00 Completed XR chest 1V liang ble [id number] Routine Exams 10/31/20 15:33 Completed XR chest 1V liang ble 14081 Routine Exams 11/02/20 06:40 Completed XR chest 1V liang ble [id number] Routine Exams 11/05/20 05:52 Completed XR chest 1V liang ble 10784 Routine Exams 11/06/20 07:00 Completed XR chest 1V liang ble 61660 Routine Exams 11/07/20 07:00 Completed XR chest 1V liang ble [id number] Routine Exams 11/08/20 07:00 Completed XR chest 1V liang ble [id number] Routine Exams 11/08/20 17:18 Completed XR chest 1V liang ble 43462 Routine Exams 11/09/20 07:00 Completed XR chest 1V liang ble 41508 Routine Exams 11/10/20 07:00 Completed XR chest 1V liang ble [id number] Routine Exams 11/11/20 07:00 Completed XR chest 1V liang ble 22125 Routine Exams 11/12/20 07:00 Completed XR chest 1V liang ble [id number] Routine Exams 11/15/20 09:35 Completed XR chest 1V liang ble 34188 Urgent Exams 10/25/20 10:00 Completed NM pul vent and p erfus* [id number] Stat Nuc Med 10/27/20 10:12 Completed Cytology [PTH] Ro utine Pth 10/26/20 15:45 Completed Cytology [PTH] Ro utine Pth 10/29/20 07:37 Completed Cytology [PTH] Ro utine Pth 10/29/20 07:40 Completed Cytology [PTH] Ro utine Pth 10/29/20 08:13 Completed Pathology: Surgic al [PTH] Routine Pth 10/29/20 08:23 Completed CV echo complete* [id number] Routine Ultrasound 10/26/20 07:00 Completed Pending at discharge Category Date Time Status Arterial Blood Ga s W/O Coox AM LABS Lab 11/07/20 04:00 Ordered Arterial Blood Ga s W/O Coox AM LABS Lab 11/10/20 04:00 Ordered Clostridioides Di fficile PCR Routin e Lab 11/11/20 10:03 Uncollected Clostridioides Di fficile PCR Routin e Lab 11/12/20 17:08 Uncollected Enteric Bacterial Panel by PCR Rout ine Lab 11/11/20 10:03 Uncollected Enteric Parasite Panel by PCR Routi ne Lab 11/11/20 10:03 Uncollected Lactoferrin Routi ne Lab 11/11/20 10:03 Uncollected Vancomycin Trough Timed Lab 11/19/20 01:30 Ordered Labs from last 24 hours 11/15/20 11/15/20 11/14/20 10:30 10:30 20:50 WBC 19.4 H RBC 2.85 L Hgb 8.3 L Hct 25.4 L MCV 89.1 MCH 29.1 MCHC 32.7 RDW 14.6 Plt Count 259 MPV 9.8 Neut % (Auto) 79.7 Lymph % (Auto) 6.8 [place] % (Auto) 12.1 Eos % (Auto) 0.3 Baso % (Auto) 0.2 Neut # (Auto) 15.45 H Lymph # (Auto) 1.3 [place] # (Auto) 2.4 H Eos # (Auto) 0.1 Baso # (Auto) 0.0 Nucleated RBC % (a uto) 0 Nucleated RBCs # 0.0 Sodium 137 Potassium 3.5 Chloride 97 L Carbon Dioxide 32 H Anion Gap 11.5 BUN 38 H Creatinine 2.1 H GFR Calculation Not Reportable Glucose 127 H Calculated Osmolal ity 295 Calcium 7.6 L Total Bilirubin 0.2 AST 30 ALT 24 Alkaline Phosphata se 74 Total Protein 4.8 L Albumin 2.0 L Globulin 2.8 Vancomycin Trough 27.1 H* Vitals: Last Vital Signs Temp 98.4 F 11/15/20 08:00 Pulse 99 11/15/20 12:15 Resp 20 H 11/15/20 12:04 BP 108/55 11/15/20 08:00 Pulse Ox 91 11/15/20 12:04 TS Medications Medications Home Medications albuterol sulfate 90 mcg/actuation aerosol inhaler 2 puff INHALATION Q6H PRN 10/10/20 [History Confirmed 10/25/20] amlodipine 5 mg tablet 5 mg PO BID@,10/10/20 [History Confirmed 10/25/20] atorvastatin 40 mg tablet 20 mg PO DAILY@ tab 10/10/20 [History Confirmed 10/25/20] budesonide-formoterol HFA 160 mcg-4.5 mcg/actuation aerosol inhaler 2 puff INHALATION BID 10/10/20 [History Confirmed 10/25/20] lisinopril 40 mg tablet 40 mg PO DAILY@10/10/20 [History Confirmed 10/25/20] metoprolol tartrate 100 mg tablet 50 mg PO Q12H tab 10/10/20 [History Confirmed 10/25/20] pantoprazole 40 mg tablet,delayed release 40 mg PO DAILY@10/10/20 [History Confirmed 10/25/20] tamsulosin 0.4 mg capsule 0.4 mg PO DAILY@10/10/20 [History Confirmed 10/25/20] tiotropium bromide 2.5 mcg/actuation mist for inhalation 2 inh INHALATION DAILY@10/10/20 [History Confirmed 10/25/20] aspirin [Aspir-Low] 81 mg PO DAILY@10/11/20 [History Confirmed 10/25/20] cholecalciferol (vitamin D3) [Vitamin D3] 25 mcg PO DAILY@10/11/20 [History Confirmed 10/25/20] acetaminophen [Tylenol Extra Strength] 1,000 mg PO PRN 10/25/20 [History Confirmed 10/25/20] albuterol sulfate 2.5 mg INHALATION Q6H PRN 10/25/20 [History Confirmed 10/25/20] Active Medications Acetaminophen (Acetaminophen 325 Mg Tablet) 650 mg PO Q6H PRN PRN Reason: Mild/Mod Pain Or Temp >/= 101 Albuterol/Ipratropium (Ipratropium-Albuterol 3 Ml Neb) 3 ml INHALATION Q4H.RESPIRATORY [facility]AY[facility] Last Admin: 11/15/20 12:01 Dose: 3 ml Documented by: Apixaban (Apixaban 5 Mg Tablet) 5 mg PO BID@0900,2100 [facility] Last Admin: 11/15/20 08:50 Dose: 5 mg Documented by: Atorvastatin Calcium (Atorvastatin 40 Mg Tablet) 20 mg PO DAILY@19 [facility] Last Admin: 11/14/20 18:02 Dose: 20 mg Documented by: Budesonide (Budesonide 0.5 Mg/2 Ml Neb) 0.5 mg INHALATION BID.RESPIRATORY SHAY[facility] Last Admin: 11/15/20 08:07 Dose: 0.5 mg Documented by: Bumetanide (Bumetanide 0.25 Mg/Ml Sdv 4 Ml) 1 mg IV Q12H [facility] Last Admin: 11/15/20 06:03 Dose: 1 mg Documented by: Diltiazem HCl (Diltiazem Er (24hr) 240 Mg Capsule) 240 mg PO DAILY [facility] Last Admin: 11/15/20 08:52 Dose: 240 mg Documented by: Docusate Sodium (Docusate Sodium 100 Mg Capsule) 100 mg PO BID [facility] Last Admin: 11/15/20 09:52 Dose: 100 mg Documented by: Ferrous Sulfate (Ferrous Sulfate Ec 325 Mg Tablet) 325 mg PO BIDWM [facility] Last Admin: 11/15/20 08:50 Dose: 325 mg Documented by: Voriconazole 260 mg/ Sodium (Chloride) 100 mls @ 100 mls/hr IV Q12H [facility] Last Infusion: 11/15/20 11:07 Dose: Infused Documented by: Imipenem/Cilastatin Sodium 250 (mg/ Sodium Chloride) 100 mls @ 200 mls/hr IV Q6H [facility]; Protocol Last Admin: 11/15/20 12:20 Dose: 200 mls/hr Documented by: Levofloxacin/Dextrose (Levaquin-D5w) 750 mg in 150 mls @ 100 mls/hr IV Q48H [facility]; Protocol Last Admin: 11/15/20 12:21 Dose: 100 mls/hr Documented by: Vancomycin HCl 1,000 mg/ (Sodium Chloride) 250 mls @ 250 mls/hr IV Q24H [facility]; Protocol Lactulose (Lactulose Oral Liq 20 Gm/30 Ml Udc) 20 gm PO Q8H [facility] Last Admin: 11/15/20 10:22 Dose: Not Given Documented by: Lanolin (Lanolin Oint 7 Gm) 1 applic TOPICAL PRN PRN PRN Reason: DRYNESS Last Admin: 11/12/20 22:41 Dose: 1 each Documented by: Methylphenidate HCl (Methylphenidate 10 Mg Tablet) 5 mg PO Q12H [facility] Last Admin: 11/15/20 08:51 Dose: 5 mg Documented by: Metoprolol Tartrate (Metoprolol Tartrate 50 Mg Tablet) 50 mg PO BID@0900,2100 [facility] Last Admin: 11/15/20 08:51 Dose: 50 mg Documented by: Naloxone HCl (Naloxone 0.4 Mg/Ml Sdv) 0.4 mg IVP PRN PRN PRN Reason: RESPIRATORY RATE < 8/MIN Ondansetron HCl (Ondansetron 2 Mg/Ml Sdv 2 Ml) 4 mg IVP Q8H PRN PRN Reason: vomiting, or N/V if npo Pantoprazole Sodium (Pantoprazole Dr 40 Mg Tablet) 40 mg PO BID [facility] Last Admin: 11/15/20 08:51 Dose: 40 mg Documented by: Polyethylene Glycol (Polyethylene Glycol 3350 Pkt 17 Gm) 17 gm PO DAILY [facility] Last Admin: 11/15/20 09:52 Dose: 17 gm Documented by: Prednisone (Prednisone 20 Mg Tablet) 40 mg PO DAILY [facility] Last Admin: 11/08/20 08:13 Dose: 40 mg Documented by: Simethicone (Simethicone 80 Mg Chew) 80 mg PO QID PRN PRN Reason: FLATULENCE Sodium Chloride (Sodium Chloride 3.5% Neb 4 Ml Neb) 4 ml INHALATION BID.RESPIRATORY [facility] Last Admin: 11/15/20 08:09 Dose: Not Given Documented by: Sucralfate (Sucralfate 1 Gm Tablet) 1 gm PO AC&BEDTIME [facility] Last Admin: 11/15/20 10:22 Dose: 1 gm Documented by: Vitamin D (Cholecalciferol (Vitamin D3) 1,000 Unit Tablet) 1,000 unit PO DAILY@07 [facility] Last Admin: 11/15/20 06:02 Dose: 1,000 unit Documented by: Discharge Plan Discharge Patient Disposition: Xfer [facility] Condition: Stable Prescriptions: No Action Spiriva Respimat 2.5 mcg/actuation mist 2 inh inhalation DAILY@07 RF: 0 budesonide-formoterol 160-4.5 mcg/actuation HFA aerosol inhaler 2 puff inhalation BID RF: 0 albuterol sulfate 90 mcg/actuation HFA aerosol inhaler 2 puff inhalation Q6H PRN (Reason: Shortness Of Breath) RF: 0 atorvastatin 40 mg tablet 20 mg PO DAILY@19 RF: 0 metoprolol tartrate 100 mg tablet 50 mg PO Q12H RF: 0 pantoprazole 40 mg tablet,delayed release (DR/EC) 40 mg PO DAILY@ RF: 0 amlodipine 5 mg tablet 5 mg PO BID@ RF: 0 lisinopril 40 mg tablet 40 mg PO DAILY@ RF: 0 tamsulosin 0.4 mg capsule 0.4 mg PO DAILY@ RF: 0 aspirin [Aspir-Low] 81 mg Tablet,Delayed Release (Dr/Ec) 81 mg PO DAILY@07 RF: 0 cholecalciferol (vitamin D3) [Vitamin D3] 25 mcg (1,000 unit) Capsule 25 mcg PO DAILY@07 RF: 0 albuterol sulfate 2.5 mg /3 mL (0.083 %) Solution For Nebulization 2.5 mg INHALATION Q6H PRN (Reason: Shortness Of Breath) RF: 0 Tylenol Extra Strength 500 mg Tablet 1,000 mg PO PRN RF: 0 Discharge Orders: Discharge Order (Routine); Ordered 11/15/20 Ordered By: Manpreet Fitzgerald Referrals: Wesley Wilkins DO [Primary Care Provider] - Discharge Diet: Usual diet Discharge Activity: Increase activity as tolerated Activity Restrictions/Additional Instructions: You will receive further instructions after you are discharge from long-term care facility. Transfer Attestations Time Spent in Transfer Care*: greater than 30 min Quality Metrics Clinical Quality Measures: During this hospital stay, did patient experience: None Coding Level of Care Code Acute Elementary Reading Specialist for Chg Fwd Diagnoses Mediastinal adenopathy R59.0 COPD (chronic obstructive pulmonary disease) J44.9 COPD type: unspecified COPD Smoker F17.200 Recurrent right pleural effusion J90 New onset atrial fibrillation I48.91 Diarrhea R19.7 Postobstructive pneumonia J18.9 Malignant neoplasm of middle lobe, bronchus or lung C34.2 Atrial fibrillation with rapid ventricular response I48.91 Pleural effusion, right J90 Generalized weakness R53.1 CKD (chronic kidney disease) N18.9 Acute respiratory failure with hypoxia J96.01 Acute blood loss anemia D62
--- NOTE | 2020-11-15 13:17 | PC.CHAP ---
Pastoral Care Encounter/Spiritual Assessment Type of Contact [] Declined room service associate visit [xx] Patient/Family/Request visit [] Outpatient visit [] Follow-up visit [] Physician referral [] Code/Alert [xx] Routine visit [xx] Staff referral [] Actively dying [] Patient sleeping [] Family support [] [] Out of room [] Palliative care [] [] Receiving care in room [] Pre-surgical visit [] Trauma [xx] Long length of stay [] ICU visit [xx] Other: Patient now out of isolation after 21 days. Relational/Emotional Strength [xx] Patient feels connected with others/family/visitors/staff [] Distress [] Loneliness/isolation [] Abandonment Spirituality of Patient [xx] Person of Didi [] Attends Uatsdin of their Didi [xx] Believes in Prayer [] Reads Bible or Mormonism materials [] There are Spiritual issues to be addressed Pl[employer] Tool Maker Interventions [xx] Prayer [xx] Active listening [xx] Non-anxious presence [xx] Spiritual/emotional support [] Crisis/trauma care [] Spiritual counseling [] Bereavement support [] Provided bereavement packet [] Provided Bible/devotional materials [] Provided toy/stuffed animal, coloring book to patient or family member [] Provided Communion [] Anointing/[place] [] Salvation [xx] Completed spiritual assessment [] Other: Impact on Illness or Injury [] Angry [] Fearful [xx] Anxious [] Often cries [] Exhaustion [] Unable to work [] Unable to attend church [] Unable to walk/stand [] Unable to read [] Unable to drive [] Unable to eat/drink [] Unable to sleep [xx] Unable to be with family [] Patient intubated [] Other: Summary Patient and staff all wanted him to have prayer. Patient is very frail. He is being transported by ambulance to a long-term care facility in [place]. All are concerned that it is a long ride and a major adjustment for the patient and they want prayer for healing, strength, safety and that the new location will be an easy adjustment to the new living arrangement. Patient wanted prayer that his fears would disappear and he could relax and rest in the ambulance during the trip. Prayers were answered in taht he is still alive after 21 days of hospitalization in serious condition and he has a good compassionate place to transfer to. Time spent with patient 7 minutes
--- NOTE | 2020-11-15 14:39 | PC.NURSE ---
Report called to ESTELLE Benoit at [facility]. Nurse verbalized understanding and did not have any further questions. Transportation to be set up.
[2020-11-15] MEDS: ALPRAZolam 0.25 mg Tablet PO (14:45)
--- NOTE | 2020-11-15 15:20 | PC.NURSE ---
Patient transferred to [facility]. [facility] and Clara, daughter, notified of transfer. No needs identified at this time.
[2020-11-19 09:56] LABS: PD-L1 (Clone 22C3) by IHC BBPL See Report
== END 2020-11-15 15:23 | DRG 180 ==
LOC: ER 14:52 → CSU 15:50
PROVIDERS: Internal Medicine; Internal Medicine Medical Oncology; Internal Medicine Pulmonary Disease; Thoracic Surgery (Cardiothoracic Vascular Surgery); Admitting Provider Family Medicine; Emergency Provider Emergency Medicine; PCP Emergency Medicine Emergency Medical Services; Visit Provider Internal Medicine
PROC: BB4BZZZ Ultrasonography of Pleura (ICD-10-PCS; principal; 2020-10-29 07:00)
PROC: 0BJ08ZZ Inspection of Tracheobronchial Tree, Via Natural or Artificial Opening Endoscopic (ICD-10-PCS; CPT 31622; 2020-10-29 07:00)
PROC: 05H633Z Insertion of Infusion Device into Left Subclavian Vein, Percutaneous Approach (ICD-10-PCS; principal; 2020-10-31 13:05)
PROC: 05H633Z Insertion of Infusion Device into Left Subclavian Vein, Percutaneous Approach (ICD-10-PCS; CPT 32550; 2020-10-31 13:05)
DX: C34.2 Malignant neoplasm of middle lobe, bronchus or lung (principal); J96.01 Acute respiratory failure with hypoxia; J15.6 Pneumonia due to other Gram-negative bacteria; J98.11 Atelectasis; E46 Unspecified protein-calorie malnutrition; D62 Acute posthemorrhagic anemia; K92.2 Gastrointestinal hemorrhage, unspecified; J91.0 Malignant pleural effusion; I13.0 Hypertensive heart and chronic kidney disease with heart failure and stage 1 through stage 4 chronic kidney disease, or unspecified chronic kidney disease; Z68.21 Body mass index [BMI] 21.0-21.9, adult; N18.9 Chronic kidney disease, unspecified; I48.91 Unspecified atrial fibrillation; Z79.82 Long term (current) use of aspirin; R59.0 Localized enlarged lymph nodes; Z87.891 Personal history of nicotine dependence; E78.5 Hyperlipidemia, unspecified; I50.9 Heart failure, unspecified; J43.9 Emphysema, unspecified
CPT/HCPCS: 12345; 31625; 31627; 36415; 36416; 36591; 36592; 36600; 71045; 71250; 75989; 76000; 77001; 78014; 80048; 80051; 80053; 80061; 80069; 80202; 80500; 81003; 82042; 82150; 82274; 82330; 82465; 82607; 82728; 82803; 82805; 82945; 82962; 83036; 83540; 83605; 83615; 83735; 83880; 83986; 84075; 84100; 84145; 84157; 84315; 84443; 84478; 84484; 84560; 85014; 85018; 85025; 85610; 85730; 86140; 86403; 86850; 86900; 87040; 87070; 87075; 87077; 87205; 87426; 87635; 87641; 88112; 88305; 88342; 89050; 90471; 90686; 93005; 93306; 94640; 94660; 94664; 94669; 96365; 96366; 96372; 96375; 97110; 97116; 97161; 97165; 97530; 97535; 99292; A9540; A9567; C1729; C1788; J0330; J0456; J0696; J0743; J1644; J1650; J1940; J1956; J2370; J2543; J2704; J2920; J2930; J2997; J3370; J3420; J3465; J3490; J3535; J7030; J7050; J7512; J7611; J7626